=== PATIENT | female | born 1945 | race Caucasian/White ===

== ENCOUNTER 2025-01-15 16:28 | Inpatient (IN) | payer MEDICARE, SELFPAY ==
--- OUTSIDE RECORDS SUMMARY | 2013-11-29 09:45 | XMS_ITS | Continuity of Care Document ---
Author Organization [facility], [place], [facility] Address [address] [place] [address] Phone Care Team Providers Care Highway Engineering Teacher Name Role Phone Carlos Eduardo Liang MD Unavailable Unavailable Allergies, Adverse Reactions, Alerts Substance Reaction Status Criticality Sulfa (Sulfonamide Antibiotics) Active No Information Penicillins Active No Information Medications Medication Instructions Dosage Effective Dates (start - stop) Status Comments lisinopril 20 mg tablet take 1 tablet by oral route every day 20 MG - Active Pradaxa 150 mg capsule take 1 capsule by oral route 2 times every day 150 MG - Active clonidine 0.2 mg/24 hr weekly transdermal patch apply 1 patch by transdermal route every week 1.00 patch - Active vitamin E 400 unit capsule - Active spironolactone 25 mg-hydrochlorothiazi de 25 mg tablet take 1 tablet by oral route every day 1.00 tablet - Active SYMBICORT (unknown strength) inhale 2 puff by inhalation route 2 times every day in the morning and evening Not Available - Active ciprofloxacin 500 mg tablet take 1 tablet by oral route every 12 hours 500 MG - Active Synthroid 200 mcg Tab - Active Metformin ER 1,000 mg 24 hr Tab Ctrl Rel - Active Toprol XL 50 mg 24 hr Tab - Active Digoxin 125 mcg Tab - Active Omeprazole 40 mg Cap, Delayed Release - Active Ketoprofen 50 mg Cap - Active Calcium 500 + D (D3) 500 mg-125 unit Tab - Active Natali 5 mg-40 mg Tab - No Longer Active Trilipix 135 mg Cap - No Longer Active Ferrous Sulfate 325 mg (65 mg Iron) Tab, Delayed Release - No Longer Active Magnesium 100 mg Cap - N o Longer Active Procedures Procedure Date Eye Exam & Treatment No Charge Refraction Eye Exam & Treatment Certified EMR Dilated Retinal Exam W Interpretation De No Evidence Of Retinopathy In Prior Year Office/outpatient Visit, Est Eye Exam & Treatment Eye Exam & Treatment Eye Exam & Treatment Office/outpatient Visit, Est Office/outpatient Visit, Est Office/outpatient Visit, Est Eye Exam Established Pt Office/outpatient Visit, Est Office/outpatient Visit, Est Office/outpatient Visit, Est Office/outpatient Visit, Est Advance Directives Directive Yes / No Effective Date File Name No Information Encounters Encounter Description Practice Location Reason(s) For Visit Diagnoses Date Provider Providers Copied on Encounter [facility], [address] [place] [address] [address], [place], [place], [address], [phone] [place] Professional Blurry vision (chief complaint) SENILE NUCLEAR CATARACTDiabet es (high blood sugar disease) affecting the eye 4 Azul Thibodeaux. [address], [address] [place], [address], [place]. tel:[phone] Referring Provider: Carlos Eduardo Omer, [address], [place], [address] . tel:[phone] [facility], [address], [place], [place], [address], tel:[phone] SEC [place] Professional SENILE NUCLEAR CATARACTPRIMAR Y IRIDOCYCLITIS 2 Azul Thibodeaux. [address], [address] [place], [place], [address], . tel:[phone] Referring Provider: Carlos Eduardo Omer, [address], [place], [address] . tel:[phone] [facility] Eye [facility], [address], [place], [place], [address], [place] tel:[phone] SEC Be [place] Professional No Information 7-201 2 [place] Carlos Eduardo. [address] [facility], [facility] [address], [place], [place], [address], [place]. tel:[phone] Office/outpa tient Visit, [facility] Eye [facility], [address], [place], [place], [address], [place] tel:[phone] SEC Be [place] Professional No Information 3-201 2 [place] Carlos Eduardo. [address] [facility], [facility] [place], [address], [place]. tel:[phone] Referring Provider: Carlos Eduardo Omer, [address] [facility] [address], [place], [address] . tel:[phone] [facility] Eye [facility], [address], [place], [place], [address], [place] tel:[phone] SEC Be [place] Professional No Information Dec-0 2-201 1 [place] Carlos Eduardo. [address] [facility], [facility] [place], [address], [place]. tel:[phone] [facility] Eye [facility], [address], [place], [place], [address], [place] tel:[phone] SEC [place] Professional No Information 6-201 0 [place] Carlos Eduardo. [address] [facility], [facility] [place], [address], [place]. tel:[phone] [facility] Eye [facility], [address], [place], [place], [address], [place] tel:[phone] SEC [place] Professional No Information Duran-0 1-200 9 Wankoscar Thibodeaux. [address], [place], [place], [address], [place]. tel:[phone] Office/outpa tient Visit, [facility] Eye [facility], [address], [place], [place], [address], [place] tel:[phone] [place] Professional No Information Apr-2 7-200 9 [place] Carlos Eduardo. [address], [address], [place], [place], [address], [place]. tel:[phone] Office/outpa tient Visit, [facility] Eye [facility], [address], [place], [place], [address], [place] tel:[phone] SEC [place] Professional No Information Mar-0 4-200 8 [place] Carlos Eduardo. [address], [address], [place], [place], [address], [place]. tel:[phone] [facility], [address], [place], [place], [address], [place] tel:[phone] SEC [place] Professional No Information Feb-0 4-200 8 [place] Carlos Eduardo. [address], [address] [place], [address], [place]. tel:[phone] [facility], [address], [place], [place], [address], [place] tel:[phone] SEC [place] Professional No Information Dec-2 6-200 7 Jeison Cote. [address] [facility], [place], [address], [place]. tel:[phone] Office/outpa tient Visit, [facility] Eye [facility], [address], [place], [place], [address], tel:[phone] SEC Be MART[place] Professional No Information 2 9200 7 [place] Carlos Eduardo. [address] [facility], [facility] [place], [place], [address], . tel:[phone] Office/outpa tient Visit, [facility] Eye [facility], [address], [place], [place], [address], tel:[phone] [place] Professional No Information 2 8-200 7 [place] Carlos Eduardo. [address], [facility] [place], [address], . tel:[phone] Office/outpa tient Visit, [facility] Eye [facility], [address], [place], [place], [address], tel:[phone] SEC [place] Professional No Information 0 8-200 7 [place] Carlos Eduardo. [address], [facility] [place], [place], [address], . tel:[phone] Office/outpa tient Visit, [facility], [address], [place], [place], [address], tel:[phone] SEC [place] MARTINA Professional No Information 3 1-200 7 [place] Carlos Eduardo. [address], [facility] [place], [place], [address], . tel:[phone] Family History Family Member Type Diagnosis Age At Onset Mother Problem (finding) Strabismus Father Problem (finding) diabetes melli tus in first degree relative Brother Problem (finding) diabetes melli tus in first degree relative Payers Payer name Insurance type Covered libertarian ID Mamta solis(s) [facility] Mdcr Adv CI [id number] Social History Type Description Quantity Date Captured Comments Alcohol Use Details Unknown Caffeine Use Details Unknown Tobacco Use Status Never smoked tobacco 2013 Smoking Status Never smoker Non-Smoking Tobacco Use Details : No Details Available : No Details Available Sex Female Chief Complaint And Reason For Visit From encounter dated '11/29/2013 14:45'. Blurry vision (chief complaint). Description: The 68 year old female presents for Complete Exam. HXDM, Cataracts OU, Iritis OU. Pt has problems reading print on TV. BS 103 average. Pt uses +1.50 or +2.00 readers. Pt uses AT PRN Reason For Referral Reason For Referral No Information History Of Present Illness Encounter Date Complaint History Of Prese nt Illness Blurry vision The 68 year old female presents for Complete Exam. HX DM, Cataracts OU, Iritis OU. Pt has problems reading print on TV. BS 103 average. Pt uses +1.50 or +2.00 readers. Pt uses AT PRN Functional Status Date Functional Assessmen t No Information Instructions Date Instruction Additional Infor lianne - Cataracts account for the patient's complaints. Discussed all risks, benefits, procedures and recovery. Schedule cataracts evaluation. No diabetic changes. Letter sent to Dr. Sorenson. Educational materials provided:about today's exam. Related to See list of assessments above - RTC as scheduled f or cataracts evaluation Related to See list of assessments above PRIMARY IRIDOCYCLITI S, OU - will continue to monitor - Quiet. Will monitor. Related to PRIMARY IRIDOCYCLITIS Cataract, Nuclear Sc lerosis, OU - established, worsening - vision affected - will continue to monitor - No treatment currently recommended, patient will monitor vision changes and contact us with any decrease in vision. Pt may call for cataract eval. 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 No treatment needed. Will monitor. DM letter to Dr. Sorenson. Related to Diabetes Type II Assessments Type Assessment Date assessment SENILE NUCLEAR CATARACT 014 assessment Diabetes (high blood sugar disea se) affecting the eye Patient Care Teams Name Effective Dates (start - stop) Status Members No Information
--- OUTSIDE RECORDS SUMMARY | 2024-11-27 11:23 | XMS_ITS ---
Author Organization [facility] Address [address] [facility] [address], [place] [address] Care Team Providers Care Online Merchant Name Role Phone Bruno Sorenson MD Primary Care Provider Felipe Martin Unavailable [phone] REASON FOR VISIT Bone Density MEDICATIONS Medication SIG (Take, Route, Fr equency, Duration) Notes Start Date End Date Status Prolia 60 MG/ML (DXCODE: M81.0) 1 ML Subcutaneous every 6 months for 1 days 09/12/2024 Active Encounters Encounter Location Date Provider Diagnosis [facility] [address] [facility] [address] [address] 11/27/2024 Felipe Neff Osteoporosis, unspecified M81.0 ASSESSMENTS Encounter Date Diagnosis Assessment Notes Treatment Notes Treatment Clinical Notes Section Notes 11/27/2024 Osteoporosis, unspecified (ICD-10 - M81.0) PLAN OF TREATMENT Medication Medication Name Sig Start Date Stop Date Notes Prolia 60 MG/ML (DXCODE: M81.0) 1 ML Subcutaneous every 6 months for 1 days 09/12/2024 Next Appt Details Provider Name:Felipe Neff, 05/08/2025 10:45:00 AM, [address], [address],
--- OUTSIDE RECORDS SUMMARY | 2025-01-04 07:00 | XMS_ITS ---
Author Organization [facility] Address [address] [address] Care Team Providers Care Joggle Press Operator Name Role Phone Bruno Sorenson MD Primary Care Provider Felipe Martin Unavailable [phone] ALLERGIES Allergen (clinical drug ingredient) Drug/Non Drug Allergy documented on EMR Reaction Allergy Type Onset Date Status Sulfa (Allergies Only) Unknown Drug Allergy Active Pennicillin (For Allergy Selection Only) Unknown Drug Allergy Active RESULTS Component Value Reference Range Notes Hemoglobin A1c (In-House) Reviewed date:01/09/2025 05:34:39 PM Interpretation: Performing Lab: Notes/Report: Hemoglobin A1c 6.8% 4.0 - 6.0 % Lipid Profile (In-House) Reviewed date:01/05/2025 03:56:41 PM Interpretation: Performing Lab: Notes/Report: Cholesterol 100 0 - 200 mg/dL Triglycerides 131 0 - 150 mg/dL HDL 36 30 - 85 mg/dL LDL, Calculated 38 0 - 130 N/A VLDL 26 HDL/Cholesterol Ratio 2.8 0.0 - 5.0 mg/dL Magnesium, Serum Reviewed date:01/05/2025 03:56:18 PM Interpretation: Performing Lab:[facility], [address] [facility], [place], Phone - [phone], Director - Hilda Notes/Report: Magnesium 2.3 1.6-2.3 mg/dL REASON FOR VISIT NEED NEW DEXA TO RECEIVE PROLIA, Type II DM, Hypothyroidism MEDICATIONS Medication SIG (Take, Route, Frequency, Duration) Notes Start Date End Date Status Baclofen 10 MG 1 tablet with food o r milk Orally Once a Day Active OneTouch Verio - USE DIRECTED TWIC E DAILY for 90 Active Gabapentin 300 MG 1 Tablet Orally Two Times a Day Active Isosorbide Mononitrate ER 30 MG 1 Tablet Orally Once a day Active Pravastatin Sodium 40 MG 1 tablet Orally Once a day Active Vitamin D3 25 MCG (1000 UT) 1 capsule Or ally Once a day 09/28/2024 Active Torsemide 20 MG 2 Tablets Orally Onc e a Day 03/17/2023 Active Vitamin E 400 UNIT 1 capsule Orally Onc e a day Active Aspir-81 81 MG 1 tablet Orally Once a day Active Spironolactone 25 MG 1/2 tablet with eloisa d Orally Once a day Active Prolia 60 MG/ML (DXCODE: M81.0) 1 ML Subcutaneous every 6 months 09/12/2024 Active Synthroid 175 MCG 1 tablet in the morn ing on an empty stomach Orally Once a day Active Accu-Chek Guide - PvfgwkM35.41-niddm I n Vitro Once a Day for 90 days Active Eat Your Kimchiuch Delica Plus Sxthiq52V - as directed In Vitro Two Times a Day for 90 days 03/06/2024 Active Farxiga 10 MG 1 tablet Orally Once a day Active Metoprolol Tartrate 50 MG 2 Tablet in am , 1 tablet in pm Orally Twice a day Active Eliquis 5 MG 1 tablet Orally Twic e a day Active Omeprazole 20 MG 1 capsule 30 minutes before morning meal Orally Once a day Active metOLazone 2.5 MG 1 tablet Orally Once a day prn prn Active SOCIAL HISTORY Tobacco Use: Social History Observation Description Date Details (start date - stop date) Never Smoker NA - NA Sex Assigned At : Social History Observation Description Sex Assigned At Unknown Tobacco Use/Smoking Question Answer Notes Are you a nonsmoker Tobacco use other than smoking: Question Answer Notes Are you an other tobacco user? 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 ; Combined hyperlipidemia associated with type 2 diabetes mellitus E11.69 ; Benign hypertension I10 ; Ovarian failure E28.39 ; Postprocedural hypothyroidism E89.0 ; Thyroid cancer C73 ; Atrial fibrillation I48.91 ; Vitamin B12 deficiency E53.8 ; Peripheral neuropathy G62.9 ; Iron deficiency anemia D50.9 ; Vitamin D deficiency, unspecified E55.9 ; 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 ; Osteoporosis, unspecified M81.0 and GERD (gastroesophageal reflux disease) K21.9 ASSESSMENTS Encounter Date Diagnosis Assessment Notes Treatment Notes Treatment Clinical Notes Section Notes 01/04/2025 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 (ICD-10 - E11.41) 01/04/2025 Combined hyperlipidemia associated with type 2 diabetes mellitus (ICD-10 - E11.69) 01/04/2025 Benign hypertension (ICD-10 - I10) 01/04/2025 Ovarian failure (ICD-10 - E28.39) 01/04/2025 Postprocedural hypothyroidism (ICD-10 - E89.0) 01/04/2025 Thyroid cancer (ICD-10 - C73) 01/04/2025 Atrial fibrillation (ICD-10 - I48.91) 01/04/2025 Vitamin B12 deficiency (ICD-10 - E53.8) 01/04/2025 Peripheral neuropathy (ICD-10 - G62.9) 01/04/2025 Iron deficiency anemia (ICD-10 - D50.9) 01/04/2025 Vitamin D deficiency, unspecified (ICD-10 - E55.9) 01/04/2025 Sarcoidosis of lung (ICD-10 - D86.0) 01/04/2025 Osteoporosis, unspecified (ICD-10 - M81.0) 01/04/2025 GERD (gastroesophageal reflux disease) (ICD-10 - K21.9) 01/04/[address] Felipe adler dictates using POWWOW Speaking software. Water Main Installer Helper variances may occur. Since our last visit the patient has followed up with her PCP and her head control clerk along with her pain specialist. She does get steroid injections for osteoarthritis. She does have clinical osteoporosis and started her first injection of Prolia this month. We reviewed her bone density. She is scheduled to see the osteoporosis Center at [facility] in January 2025 for further evaluation. She is off of the multivitamin tablet. She remains on vitamin D supplementation. We discussed calcium-containing foods. She has type 2 diabetes and is on SGL T2 inhibitor therapy. I will get an A1c today. She has hyperlipidemia and hypertension. She does have hypothyroidism and is on thyroid hormone up is in therapy. Her last TSH was normal. She also has neuropathy which is treated. I will see the patient again in 3 months. She will continue following up with her providers. We will see her again in 3 months for follow-up or sooner if needed PLAN OF TREATMENT Medication Medication Name Sig Start Date Stop Date Notes Gabapentin 300 MG 1 Tablet Orally Two Times a Day Isosorbide Mononitrate ER 30 MG 1 Tablet Orally Once a day Pravastatin Sodium 40 MG 1 tablet Orally Once a day Vitamin D3 25 MCG (1000 UT) 1 capsule Orally Once a day Torsemide 20 MG 2 Tablets Orally Once a Day 03/17/2023 Spironolactone 25 MG 1/2 tablet with eloisa d Orally Once a day Prolia 60 MG/ML (DXCODE: M81.0) 1 ML Subcutaneous every 6 months 09/12/2024 Synthroid 175 MCG 1 tablet in the morn ing on an empty stomach Orally Once a day Farxiga 10 MG 1 tablet Orally Once a day Metoprolol Tartrate 50 MG 2 Tablet in am , 1 tablet in pm Orally Twice a day Eliquis 5 MG 1 tablet Orally Twice a day Omeprazole 20 MG 1 capsule 30 minutes before morning meal Orally Once a day metOLazone 2.5 MG 1 tablet Orally Once a day prn prn Treatment Notes Assessment Notes Other Dr. Felipe pappas using POWWOW Speaking software. Water Main Installer Helper variances may occur. Since our last visit the patient has followed up with her PCP and her head control clerk along with her pain specialist. She does get steroid injections for osteoarthritis. She does have clinical osteoporosis and started her first injection of Prolia this month. We reviewed her bone density. She is scheduled to see the osteoporosis Center at [facility] in January 2025 for further evaluation. She is off of the multivitamin tablet. She remains on vitamin D supplementation. We discussed calcium-containing foods. She has type 2 diabetes and is on SGL T2 inhibitor therapy. I will get an A1c today. She has hyperlipidemia and hypertension. She does have hypothyroidism and is on thyroid hormone up is in therapy. Her last TSH was normal. She also has neuropathy which is treated. I will see the patient again in 3 months. She will continue following up with her providers. We will see her again in 3 months for follow-up or sooner if needed Next Appt Details Follow Up: 3 Months, Reason: Provider Name:Felipe Neff, 05/08/2025 10:45:00 AM, [address], [address], Progress Notes * Examination Category Sub-Category Detail Notes Category Not es General Examination GENERAL APPEARANCE: in no ac desean distress, well developed, in WC HEAD: normocephalic, atrau matic EYES: pupils equal, round, reactive to light and accommodation NECK: neck supple, full ra nge of motion, no cervical lymphadenopathy, No carotid bruit, bilaterally HEART: S1, S2 irregular rat e and rhythm, no audible murmurs LUNGS: clear to auscultatio n bilaterally, no wheezes, rales, rhonchi NEUROLOGIC: alert and oriented, no tremor SKIN: warm and dry with no evidence of rash or jaundice EXTREMITIES: +1 pedal edema R>L, very dry skin, ezcema-like rash on her feet, blood blister right FA MUSCULOSKELETAL: THYROID The thyroid is surgi reyes absent History and Physical Notes * HPI (History of Present Illness) Category Sub-Category Detail Notes Category Not es Interim History Last Dilated Eye exam Date: 03/2024 FLU SHOT: 2023 PNEUMONIA SHOT: 2016 DEXA: 04/2022 COLONOSCOPY:2011 COVID SHOT: 06/25 & BOOSTER 1 (MODERNA) Opthamologist Dr. Nelson Diabetes mellitus The patient is being seen for Diabetes type II Pertinent recent symptoms: please refer to Review of Systems. The patient was diagnosed wi diabetes 2012 Sugars have been running 100-160mg/dL pe r patient Complications from diabetes include Trice pheral Neuropathy, Proteinuria The current diabetes medicat ion(s) regimen consists of see specific dosage in current medicatio ns section The last HbA1C was :: 6.8 % (09/28/2024 ) The patient has been monitor ing their blood sugars yes The patient has been monitor ing blood sugars once a day The patient has had recent hypoglycemic episodes no The patient uses an insulin pump no The patient uses a CGMS (Con t Glucose Monitoring Device) no Hypoglycemia awareness Yes Hypothyroidism The patient is being seen for hypothyroidism which was diagnosed in 2003 The most recent Thyroid func tion tests include TSH: 0.36, TT3: 0.83, FT4:?2.10 on 2024 Medication(s) include Synthroid
--- OUTSIDE RECORDS SUMMARY | 2025-01-09 04:51 | XMS_ITS ---
Author Organization [facility] Address [address] [address] Care Team Providers Care Cat Skinner Name Role Phone Bruno Sorenson MD Primary Care Provider Felipe Martin Unavailable [phone] REASON FOR VISIT Swollen Arm Encounters Encounter Location Date Provider Diagnosis [facility] [address] [facility] [address], [place] [address] 01/09/2025 Felipe Neff PLAN OF TREATMENT Next Appt Details Provider Name:Felipe Neff, 05/08/2025 10:45:00 AM, [address], [address],
--- OUTSIDE RECORDS SUMMARY | 2025-01-13 15:10 | XMS_ITS | Encounter Summary ---
Author Organization [facility] Healthcare Address [address] [place] [address] Care Team Providers Care Anchor Tack Puller Name Role Phone Bruno Sorenson MD Primary Care Provider [phone] Janice Zimmerman PT Unavailable Unavailab Tatum Hilliard MACHINE SKIVER Unavailable Unavailab Saniya Salcedo MACHINE SKIVER Unavailable Unavailable Felipe Neff MD Unavailable [phone] Alex Jauregui MD Unavailable [phone] Una Guallpa DNP Unavailable [phone] Encounter Details Date Type Department Care Team (Late st Contact Info) Description 01/13/2025 3:10 PM CDT Hospital Encounter [facility] [address] [place] [address] Social History Tobacco Use Types Packs/Day Years Used Date Smoking Tobacco: Never Passive Smoke Exposure: Never Smokeless Tobacco: Never Alcohol Use Standard Drinks/Week Comments No 0 (1 standard drink = 0.6 oz pur e alcohol) Social Connection and Isolation Panel Answer Date Recorded In a typical week, how many times do you talk on the phone with family, friends, or neighbors? More than three times a week 11/06/2024 How often do you get togethe r with friends or relatives? More than three times a week 11/06/2024 How often do you attend chur ch or samaritan services? More than 4 times per year 11/06/2024 Do you belong to any clubs o r organizations such as shinto groups, unions, fraternal or athletic groups, or school groups? Yes 11/06/2024 How often do you attend meet ings of the clubs or organizations you belong to? More than 4 times per year 11/06/2024 Are you , , di vorced, , never , or living with a partner? Living with partner 11/06/2024 AUDIT-C Answer Date Recorded Q1: How often do you have a drink containing alcohol? Never 11/04/2024 Q2: How many drinks containi ng alcohol do you have on a typical day when you are drinking? Patient does not drink Q3: How often do you have si x or more drinks on one occasion? Never 11/04/2024 Overall Financial Resource Strain (CARDIA) Answe r Date Recorded How hard is it for you to pa y for the very basics like food, housing, medical care, and heating? Not very hard 11/06/2024 PHQ-2 Answer Date Recorded PHQ-2 Total Score (If total score is 3 or more points, staff should administer the PHQ-9) 0 11/17/2024 PRAPARE - Transportation Answer Date Re corded In the past 12 months, has l ack of transportation kept you from medical appointments or from getting medications? No 10/22 In the past 12 months, has l ack of transportation kept you from meetings, work, or from getting things needed for daily living? No 11/06/2024 Housing Stability Vital Sign Answer Vasu e Recorded In the last 12 months, was t here a time when you were not able to pay the mortgage or rent on time? No 05/20/2023 In the last 12 months, how many places have you lived? 1 05/20/2023 In the last 12 months, was t here a time when you did not have a steady place to sleep or slept in a residential (including now)? No 05/20/2023 Housing Stability Vital Sign Answer Vasu e Recorded In the last 12 months, was t here a time when you were not able to pay the mortgage or rent on time? No 11/06/2024 In the past 12 months, how m any times have you moved where you were living? 0 11/06/2024 At any time in the past 12 m [facility], were you homeless or living in a residential (including now)? No 11/06/2024 Social Connection and Isolation Panel Answer Date Recorded In a typical week, how many times do you talk on the phone with family, friends, or neighbors? More than three times a week 01/12/2025 How often do you get togethe r with friends or relatives? More than three times a week 01/12/2025 How often do you attend chur ch or samaritan services? More than 4 times per year 01/12/2025 Do you belong to any clubs o r organizations such as shinto groups, unions, fraternal or athletic groups, or school groups? No 01/12/2025 How often do you attend meet ings of the clubs or organizations you belong to? Never 01/12/2025 Are you , , di vorced, , never , or living with a partner? Living with partner 01/12/2025 Overall Financial Resource Strain (CARDIA) Answe r Date Recorded How hard is it for you to pa y for the very basics like food, housing, medical care, and heating? Not hard at all 01/12/2025 Hunger Vital Sign Answer Date Recorded Within the past 12 months, y ou worried that your food would run out before you got the money to buy more. Never true 01/13/20 25 Within the past 12 months, t he food you bought just didn't last and you didn't have money to get more. Never true 01/12/2025 PRAPARE - Transportation Answer Date Re corded In the past 12 months, has l ack of transportation kept you from medical appointments or from getting medications? No 12/23 In the past 12 months, has l ack of transportation kept you from meetings, work, or from getting things needed for daily living? No 01/12/2025 Housing Stability Vital Sign Answer Vasu e Recorded In the last 12 months, was t here a time when you were not able to pay the mortgage or rent on time? No 01/12/2025 In the past 12 months, how m any times have you moved where you were living? 0 01/12/2025 At any time in the past 12 m ont, were you homeless or living in a residential (including now)? No 01/12/2025 [facility] Utilities Answer Date Recorded In the past 12 months has th e enGene, gas, oil, or water [employer] threatened to shut off services in your home? No 01/12/2025 Personal Safety Answer Date Recorded Have you ever been in or are you currently in a harmful physical or emotional relationship or is someone making you feel afraid or unsafe? Denies 01/10/2025 Education Answer Date Recorded What is the highest level of school you have completed or the highest degree you have received? Master's degree (e.g., MA, MS, Berna, MEd, DIRECTOR OF LABOR RELATIONS, LAYO) 01/31/2024 Comments No Sex and Gender Information Value Date Recorded Sex Assigned at Not on file Legal Sex Female 11:50 PM AIR TWISTER WINDER Gender Identity Not on file Sexual Orientation Not on file documented as of this encounter Plan of Treatment Not on file documented as of this encounter Goals Goal Patient Goal Type Associated Problems Recent Progress Patient-Stated? Author [facility] Karoline Mesa, RN Note: Patient will establish a comfort-function goal and identify the pain level that will allow the patient to perform desired activities and achieve an acceptable quality of life. documented as of this encounter Visit Diagnoses Not on filedocumented in this encounter Care Teams Anchor Tack Puller Relationship Specialty Start Date End Date Bruno Sorenson MD [address] [place] [address] PCP - General 08/21/16 Janice Zimmerman, PT Physical Therapist Physical Therapy 11/01/17 Tatum Moon, MACHINE SKIVER Art Psychotherapist Physical Therapy 11/12/17 Saniya Greenwood, MACHINE SKIVER Art Psychotherapist Physical Therapy 11/17/17 Felipe Neff MD [address] [place] [address] [address] [place] [address] Referring Physician Endocrinology Diabetes & Metabolism 04/28/22 Alex Jauregui MD [address] [place] [address] [address] [place] [address] Consulting Physician Cardiology 03/07/23 Una Guallpa DNP [address] [place] [address] [address] [place] [address] Nurse Practitioner Neurology 05/27/23 documented as of this encounter
--- NOTE | ~2025-01-15 | CT_ITS ---
EXAMINATION: CT brain wo con DATE: 01/15/2025 18:25 INDICATION: Weakness and confusion TECHNIQUE: Computed tomography (CT) of the head was performed without intravenous contrast. Sagittal and coronal reconstructions were performed. The mA was adjusted according to patient size. Iterative reconstruction technique was employed. The dose-length product was 681.00 mGy-cm. COMPARISON: head CT dated 06/23/2005 and brain MR dated 06/26/2005 FINDINGS: No acute intracranial hemorrhage, acute infarction or abnormal extra axial fluid collection. There is mild scattered white matter hypoattenuation consistent with chronic small vessel ischemic disease. Symmetric prominence of the sulci and ventricles consistent with mild age-appropriate diffuse cerebral volume loss. Ventricles are normal and symmetric. No mass/mass effect. Changes of bilateral intraocular lens replacement. The orbits, paranasal sinuses and mastoid air cells are normal. Intracranial calcified cerebral atherosclerosis is noted. IMPRESSION: 1. Normal aging brain. No acute intracranial process. Reviewed, dictated and finalized at location A.
--- NOTE | ~2025-01-15 | MR_ITS ---
EXAMINATION: MR brain/brain stem wo con DATE: 01/16/2025 11:28 INDICATION: Syncope with altered mental status TECHNIQUE: Magnetic resonance imaging (MRI) of the brain and brainstem was performed without intravenous contrast. Sequences included sagittal and axial T1-weighted SE, axial diffusion-weighted FS SE, axial T2*-weighted GRE, axial T2-weighted FLAIR Propeller, and axial T2-weighted Propeller. Apparent diffusion coefficient (ADC) maps were created. COMPARISON: MRI dated 06/26/2005. FINDINGS: Brain parenchymal volume is normal for age. Midline sagittal images demonstrate a normal corpus callosum and craniovertebral junction. There are scattered mild periventricular and subcortical white matter changes, most likely related to small vessel ischemic disease (microangiopathy). No acute infarction, hemorrhage or mass. Structures of the posterior fossa including 7/8th cranial nerve complexes are unremarkable. Orbits are symmetric. Paranasal sinuses are unremarkable. IMPRESSION: 1. No acute intracranial abnormality. Reviewed, dictated and finalized at location O.
--- NOTE | ~2025-01-15 | US_ITS ---
EXAMINATION: US carotid duplex BI DATE: 01/16/2025 12:18 INDICATION: Syncope. Cerebral atherosclerosis. Vertigo. TECHNIQUE: Grayscale, color Doppler, and pulsed Doppler images of the cervical carotid arteries were obtained. The degree of vessel stenosis is placed in one of the following categories: normal, <50%, 50-69%, >=70% but less than near- occlusion, near-occlusion, or total occlusion. Note that percent stenosis relative to normal distal artery lumen diameter is indirectly measured from velocity measurements as described by Morales, et al. Radiology 2003; 229:340-346. COMPARISON: None. FINDINGS: RIGHT: The right common carotid artery (CCA) peak systolic velocity (PSV) is 60 cm/s. The right internal carotid artery (ICA) PSV is 96 cm/s. The right ICA end- diastolic velocity (EDV) is 34 cm/s. The right ICA/CCA PSV ratio is 1.6. Grayscale and color Doppler images yield an estimate of <50% diameter reduction from plaque in the ICA. The external carotid artery (ECA) PSV is 69 cm/s. There is antegrade flow in the right vertebral artery. LEFT: The left CCA PSV is 64 cm/s. The left ICA PSV is 86 cm/s. The left ICA EDV is 30 cm/s. The left ICA/CCA PSV ratio is 1.4. Grayscale and color Doppler images yield an estimate of <50% diameter reduction from plaque in the ICA. The ECA PSV is 66 cm/s. There is antegrade flow in the left vertebral artery. IMPRESSION: 1. <50% stenosis in the right internal carotid artery. 2. <50% stenosis in the left internal carotid artery. Reviewed, dictated and finalized at location A.
--- NOTE | ~2025-01-15 | XR_ITS ---
EXAMINATION: XR chest 2V DATE: 01/15/2025 17:36 INDICATION: Syncope TECHNIQUE: frontal and lateral views of the chest were obtained. COMPARISON: Chest CT dated 06/23/2005 FINDINGS: Small lung volumes. There are opacities at bilateral lung bases which could represent atelectasis or pneumonia. No pleural effusion or pneumothorax. There is masslike enlargement of the right hilum with prominent axillary and mediastinal lymphadenopathy evident on the prior study. Cardiomegaly. Bilateral rotator cuff arthropathy with severe right and mild left glenohumeral osteoarthritis. IMPRESSION: 1. Small lung volumes with opacities in the bilateral lower lung zones which could represent atelectasis or pneumonia. 2. Masslike enlargement of the right hilum which could represent persistent or recurrent lymphadenopathy which could be reactive, metastatic or due to lymphoma. Correlate with clinical history and consider follow-up post contrast chest CT for further evaluation. Reviewed, dictated and finalized at location A. IMPRESSION: 1. Small lung volumes with opacities in the bilateral lower lung zones which co uld represent atelectasis or pneumonia. 2. Masslike enlargement of the right hilum which could represent persistent or recurrent lymphadenopathy which could be reactive, metastatic or due to lymphom a. Correlate with clinical history and consider follow-up post contrast chest C T for further evaluation.
--- NOTE | ~2025-01-15 | CT_ITS ---
EXAMINATION: CTA chest PE abdomen pel DATE: 01/15/2025 21:14 INDICATION: UTI for 2 days pain. Pain with urination. Syncope. TECHNIQUE: Computed tomographic angiography (CTA) of the chest and abdomen was performed without and with 100 mL Omnipaque-350 intravenous contrast. The dose- length product was 1102.81 mGy-cm. Maximum intensity projection 3D- reconstructions of the aorta and other arteries were constructed by the techno logist on a separate workstation. COMPARISON: CT dated 06/23/2005. FINDINGS: CHEST CTA: Study is technically adequate without evidence for pulmonary embolism. No significant pleural or pericardial effusion. There is extensive mediastinal and right hilar lymphadenopathy which appears chronic. Cardiomegaly. No significant pleural effusion. Small pericardial effusion. There is global enlargement of the heart. No evidence for thoracic aortic aneurysm or dissection. There is reflux of contrast into the IVC. There are patchy groundglass opacities in both lungs. There are right upper lobe pulmonary nodules, largest measuring 7 mm at the apex these are new compared with prior study. No pneumothorax. There are multiple compression fractures of the thoracic spine including T4, T6, T10, T11 and T12 as well as burst fracture at L1 treated with vertebroplasty. These are likely chronic. If there is concern for acute fracture, correlation with MRI recommended. ABDOMEN CTA: There is atherosclerosis of the aorta which is tortuous without evidence for aneurysm or dissection. Status post cholecystectomy. The spleen, adrenal glands and kidneys are unremarkable. Moderate colonic fecal loading. Nonobstructive bowel gas pattern. There is mild gastric wall thickening which may be due to underdistention or gastritis. There are burst fractures of L1 and L3 with compression fractures of L2, L4 and L5, all likely chronic although recommend evaluation with MRI if there is concern for acute fracture. No lymphadenopathy. There is renal atrophy. Small right renal cysts. There is a 14 mm oval structure at the lower pole of the right kidney measuring 80 Hounsfield units. Recommend correlation with MRI without and with contrast. IMPRESSION: 1. No evidence for pulmonary embolism. 2: Extensive mediastinal and hilar lymphadenopathy, chronic. 3: Multiple fractures of the thoracic and lumbar spine, most of which are likely chronic. Consider correlation with MRI if there is concern for acute fracture. 4: Intermediate density 14 mm right renal mass. Recommend correlation with MRI. 5: Patchy groundglass opacities of the lung. Differential diagnosis includes pneumonia, hypersensitivity pneumonitis and edema. 6: Mild gastric wall thickening which may be due to under distention or gastritis. Reviewed, dictated and finalized at location O. IMPRESSION: 1. No evidence for pulmonary embolism. 2: Extensive mediastinal and hilar lymphadenopathy, chronic. 3: Multiple fractures of the thoracic and lumbar spine, most of which are likel y chronic. Consider correlation with MRI if there is concern for acute fracture . 4: Intermediate density 14 mm right renal mass. Recommend correlation with MRI. 5: Patchy groundglass opacities of the lung. Differential diagnosis includes pn eumonia, hypersensitivity pneumonitis and edema. 6: Mild gastric wall thickening which may be due to under distention or gastrit is.
--- OUTSIDE RECORDS SUMMARY | 2025-01-15 16:30 | XMS_ITS ---
Author Name Auto Generated, Auto Generated Organization [facility] ice Address [address] [place] [address] Phone [phone] Care Team Providers Care Technology Auditor Name Role Phone Ilan Oquendo Unavailable [phone] Functional Status No Results Mental Status No Results Allergies and Intolerances Name Onset Date Reaction Severity penicillin G (Allergy) WedMay 27 17:49:00 EST 2 024 Sulfa (Sulfonamide Antibiotics) (Allergy) Wed 17:48:00 EST 2023 adhesive tape-silicones (Allergy) WedMay 27 17: 48:00 EST 2023 penicillin (Allergy) WedMay 27 17:47:00 EST 202 4 Medications Medication Directions Start Date End Date cefdinir 300 mg capsule 1 cap CAPSULE Or al 2 Times Daily for 5 Days Indication: PNA WedJun 12 05:30:00 EST 2023Jun 13:00:00 EST 2023 doxycycline monohydrate 100 mg capsule 1 cap CAPSULE Oral 2 Times Daily for 5 Days Indication: PNA WedJun 12 05:30:00 EST 2023Jun 13 01:00:00 EST 2023 acetaminophen 325 mg tablet 650 mg TABLET Oral PRN Every 6 Hours Indication: pain As needed for pain/elevated temperature. WedJun 10 02:00:00 EST 2023Jun 13 01:00:00 EST 2023 traMADoL 50 mg tablet 1 tab TABLET Oral PRN Every 8 Hours Indication: pain WedJun 10 20:00:00 2023Jun 13:00:00 EST 2023 Lidocaine Pain Relief 4 % topical patch 3 patches ADHESIVE PATCH, MEDICATED Topical 2 Times Daily Indication: Apply 3 patches to areas of pain in AM,, remove HS WedJun 07 16:00:00 EST 2023Jun 13 01:00:00 EST 2023 TubersoL 5 tub. unit/0.1 mL intradermal injection solution Read Results VIAL (ML) Other 1 Time Weekly for 2 Weeks Indication: . Read results between 48-72 hours after 1st and 2nd (1 week apart). If positive do chest x-ray. WedMay 31 09:00:00 2023Jun 13 01:00:00 2023 NovoLOG Flexpen U-100 Insulin aspart 100 unit/mL (3 mL) subcutaneous as directed INSULIN PEN (ML) Subcutaneous 3 Times Daily Indication: DM Sliding Scale Insulin: Insulin Units < 60 or > 400 Notify ;151-200, 3 Units;201-250, 6 Units;251-300, 9 Units;301-350, 12 Units;351-400, 15 Units;. WedMay 31 18:50:00 2023Jun 13:00:00 2023 TubersoL 5 tub. unit/0.1 mL intradermal injection solution 0.1 ml VIAL (ML) Intradermal 1 Time Weekly for 2 Weeks Indication: . 1st injection on admission, then one week after. Read between 48 and 72 hours WedMay 28 09:00:00 2023Jun 11 08:59:00 EST 2023 lidocaine 5 % topical patch 1 PATCH ADHESIVE PATCH, MEDICATED Transdermal 2 Times Daily Indication: pain *ON 12 HOURS, OFF 12 HOURS* WedMay 28 09:00:00 2023Jun 07 16:32:00 2023 torsemide 20 mg tablet 1 tab TABLET Oral 1 Time Daily Indication: CHF WedMay 28 17:31:00 2023Jun 13 01:00:00 2023 albuterol sulfate HFA 90 mcg/actuation aerosol inhaler 2 PUFFS HFA AEROSOL WITH ADAPTER (GRAM) Inhalation PRN Every 6 Hours Indication: WHEEZING WedMay 27 18:00:00 2023Jun 13 01:00:00 EST 2023 Eliquis 5 mg tablet 1 TAB TABLET Oral Ev lianet 12 Hours Indication: a- fib WedMay 27 18:00:00 2023Jun 13 01:00:00 2023 baclofen 10 mg tablet 1 TAB TABLET Oral 3 Times Daily Indication: muscle spasms WedMay 27 18:00:00 2023Jun 13 01:00:00 EST 2023 aspirin 81 mg tablet,delayed release 1 TAB TABLET, DELAYED RELEASE (ENTERIC COATED) Oral 1 Time Daily Indication: heart health WedMay 27 18:00:00 2023Jun 13:00:00 EST 2023 Oyster Shell Calcium-Vitamin D3 500 mg-5 mcg (200 unit) tablet 1 TAB TABLET Oral 1 Time Daily Indication: bone health WedMay 27 18:00:00 2023Jun 13:00:00 EST 2023 clobetasoL 0.05 % scalp solution 1 APPLICATION SOLUTION, NON-ORAL Topical 2 Times Daily Indication: apply to rash on bilateral feet WedMay 27 18:00:00 2023Jun 13:00:00 EST 2023 dilTIAZem CD 180 mg capsule,extended release 24 hr 1 CAP CAPSULE, EXT RELEASE 24 HR Oral 1 Time Daily Indication: htn WedMay 27 18:00:00 2023Jun 13:00:00 EST 2023 docusate sodium 100 mg capsule 1 CAP CAPSULE Oral 2 Times Daily Indication: constipation WedMay 27 18:00:00 2023Jun 13:00:00 EST 2023 Farxiga 10 mg tablet 1 TAB TABLET Oral 1 Time Daily Indication: . WITH BREAKFAST WedMay 27 18:00:00 2023Jun 13:00:00 EST 2023 gabapentin 300 mg capsule 1 CAP CAPSULE Oral 2 Times Daily Indication: neuropathy WedMay 27 18:00:00 2023Jun 13:00:00 EST 2023 ipratropium 0.5 mg-albuteroL 3 mg (2.5 mg base)/3 mL nebulization soln 1 NEBULE AMPUL FOR NEBULIZATION (ML) Nebulization PRN Every 6 Hours Indication: SHORTNESS OF BREATH WedMay 27 18:00:00 2023Jun 13:00:00 EST 2023 isosorbide mononitrate ER 120 mg tablet,extended release 24 hr 1 TAB TABLET, EXTENDED RELEASE 24 HR Oral 1 Time Daily Indication: htn WedMay 27 18:00:00 2023Jun 13:00:00 EST 2023 ketoconazole 2 % topical cream 1 APPLIC CREAM (GRAM) Topical 2 Times Daily Indication: . APPLY TO AFFECTED AREA(S) WedMay 27 18:00:00 2023Jun 13:00:00 EST 2023 ketoconazole 2 % shampoo 1 APPLIC SHAMPO O Topical 2 Times Weekly Indication: . APPLY TO DAMP SKIN, LATHER, LEAVE ON 5 MINUTES, AND RINSE WedMay 27 18:00:00 EST 2023Jun 13 01:00:00 EST 2023 levothyroxine 137 mcg tablet 1 TAB TABLET Oral 1 Time Daily Indication: hypothyroidism BEFORE BREAKFAST WedMay 27 18:00:00 2023Jun 13 01:00:00 EST 2023 lidocaine 5 % topical patch 1 PATCH ADHESIVE PATCH, MEDICATED Transdermal 1 Time Daily Indication: pain *ON 12 HOURS, OFF 12 HOURS* WedMay 27 18:00:00 EST 2023 Fri May 28 11:51:00 EST 2023 metoprolol tartrate 100 mg tablet 1 TAB TABLET Oral 1 Time Daily Indication: htn WedMay 27 18:00:00 EST 2023Jun 13 01:00:00 EST 2023 metoprolol tartrate 100 mg tablet 0.5 TAB TABLET Oral 1 Time Daily Indication: htn HALF TAB=50MG WedMay 27 18:00:00 EST 2023Jun 13 01:00:00 EST 2023 multivitamin tablet 1 TAB TABLET Oral 1 Time Daily Indication: . WedMay 27 18:00:00 EST 2023Jun 13 01:00:00 EST 2023 omeprazole 40 mg capsule,delayed release 1 CAP CAPSULE,DELAYED RELEASE (ENTERIC COATED) Oral 1 Time Daily Indication: gerd BEFORE BREAKFAST WedMay 27 18:00:00 2023Jun 13 01:00:00 EST 2023 pravastatin 40 mg tablet 1 TAB TABLET Or al 1 Time Daily Indication: . WedMay 27 18:00:00 2023Jun 13 01:00:00 EST 2023 predniSONE 5 mg tablet 1 TAB TABLET Oral 1 Time Daily Indication: . WedMay 27 18:00:00 EST 2023Jun 13 01:00:00 EST 2023 spironolactone 25 mg tablet 0.5 TAB TABLET Oral 1 Time Daily Indication: . HALF TAB=12.5MG WedMay 27 18:00:00 EST 2023Jun 13 01:00:00 EST 2023 Symbicort 160 mcg-4.5 mcg/actuation HFA aerosol inhaler 2 PUFFS HFA AEROSOL WITH ADAPTER (GRAM) Inhalation 2 Times Daily Indication: . WedMay 27 18:00:00 EST 2023Jun 13 01:00:00 EST 2023 torsemide 20 mg tablet 1 TAB TABLET Oral 1 Time Daily for 2 Days Indication: . WedMay 27 18:00:00 EST 2023May 27 20:01:00 EST 2023 traMADoL 50 mg tablet 1 TAB TABLET Oral PRN Every 8 Hours for 10 Days Indication: PAIN WedMay 27 18:00:00 EST 2023Jun 06 17:59:00 EST 2023 vitamin E 268 mg (400 unit) capsule 1 CAP CAPSULE Oral 1 Time Daily Indication: . WedMay 27 18:00:00 EST 2023Jun 13 01:00:00 EST 2023 Problems Active Concerns * Acute on chronic diastolic (congestive) heart failure* Code: * Start Date: WedMay 27 00:00:00 EST 2023 * End Date: * Text: * Personal history of malignant neoplasm of thyroid* Code: * Start Date: WedMay 27 00:00:00 EST 2023 * End Date: * Text: * Personal history of transient ischemic attack (TIA), and cerebral infarction without residual deficits* Code: * Start Date: WedMay 27 00:00:00 EST 2023 * End Date: * Text: * Occlusion and stenosis of bilateral carotid arteries* Code: * Start Date: WedMay 27 00:00:00 EST 2023 * End Date: * Text: * Hypertensive heart disease with heart failure* Code: * Start Date: WedMay 27 00:00:00 EST 2023 * End Date: * Text: * Other chronic pain* Code: * Start Date: WedMay 27 00:00:00 2023 * End Date: * Text: * Postprocedural hypothyroidism* Code: * Start Date: WedMay 27 00:00:00 EST 2023 * End Date: * Text: * Localized enlarged lymph nodes* Code: * Start Date: WedMay 27 00:00:00 EST 2023 * End Date: * Text: * Gastro-esophageal reflux disease without esophagitis* Code: * Start Date: WedMay 27 00:00:00 EST 2023 * End Date: * Text: * Rash and other nonspecific skin eruption* Code: * Start Date: WedMay 27 00:00:00 2023 * End Date: * Text: * Pneumonia due to other specified bacteria* Code: * Start Date: WedMay 27 00:00:00 EST 2023 * End Date: * Text: * Acquired absence of other organs* Code: * Start Date: WedMay 27 00:00:00 2023 * End Date: * Text: * Unspecified osteoarthritis, unspecified site* Code: * Start Date: WedMay 27 00:00:00 2023 * End Date: * Text: * Chronic atrial fibrillation, unspecified* Code: * Start Date: WedMay 27 00:00:00 2023 * End Date: * Text: * watermelon inspector (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) 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* Code: * Start Date: WedMay 27 00:00:00 2023 * End Date: * Text: * Sarcoidosis, unspecified* Code: * Start Date: WedMay 27 00:00:00 2023 * End Date: * Text: * Bronchiectasis, uncomplicated* Code: * Start Date: WedMay 27 00:00:00 2023 * End Date: * Text: * Chronic obstructive pulmonary disease with (acute) lower respiratory infection * Code: * Start Date: WedMay 27 00:00:00 2023 * End Date: * Text: * Atherosclerotic heart disease of [place] coronary artery with other forms of angina pectoris* Code: * Start Date: WedMay 27 00:00:00 2023 * End Date: * Text: * Mixed hyperlipidemia* Code: * Start Date: WedMay 27 00:00:00 2023 * End Date: * Text: * Personal history of pulmonary embolism* Code: * Start Date: WedMay 27 00:00:00 2023 * End Date: * Text: * Type 2 diabetes mellitus with diabetic polyneuropathy* Code: * Start Date: WedMay 27 00:00:00 2023 * End Date: * Text: * [facility] (current) use of anticoagulants* Code: * Start Date: WedMay 27 00:00:00 2023 * End Date: * Text: * watermelon inspector (current) use of aspirin* Code: * Start Date: WedMay 27 00:00:00 2023 * End Date: * Text: Reason for Referral Past Medical History
--- OUTSIDE RECORDS SUMMARY | 2025-01-15 16:30 | XMS_ITS ---
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
--- OUTSIDE RECORDS SUMMARY | 2025-01-15 16:32 | XMS_ITS | Encounter Summary ---
Author Organization [facility] Address [facility] [place] [address] Care Team Providers Care Surface Ship Usw Supervisor Name Role Phone Unavailable Primary Care Provider Unavailabl e Encounter Details Date Type Department Care Team (Late st Contact Info) Description 04/19/2024 Lab Requisition [facility] [address] [facility] [place] [id number] Sunita Madden MD [address] [place] [address] Neoplasm of uncertain behavior of skin Social History Tobacco Use Types Packs/Day Years Used Date Smoking Tobacco: Never Assessed Comments Unknown Sex and Gender Information Value Date Recorded Sex Assigned at Not on file Legal Sex Female 6:04 AM RN ANGIOGRAPHY Gender Identity Not on file Sexual Orientation Not on file documented as of this encounter Plan of Treatment Scheduled Orders Name Type Priority Associated Diagnoses Orde r Schedule DERMATOPATHOLOGY Pathology Cytology Routine Neoplasm of uncertain behavior of skin Ordered: 04/19/2024 documented as of this encounter Visit Diagnoses Diagnosis Neoplasm of uncertain behavior of skin documented in this encounter
--- OUTSIDE RECORDS SUMMARY | 2025-01-15 16:32 | XMS_ITS | Patient Health Record ---
Author Organization [facility] Address [address] [address] Care Team Providers Care Personal Care Assistant Name Role Phone Bruno Sorenson MD Primary Care Provider Felipe Martin Unavailable [phone] Shereen Valenzuela Unavailable [phone] ALLERGIES Allergen (clinical drug ingredient) Drug/Non Drug Allergy documented on EMR Reaction Allergy Type Onset Date Status Sulfa (Allergies Only) Unknown Drug Allergy Active Pennicillin (For Allergy Selection Only) Unknown Drug Allergy Active RESULTS Component Value Reference Range Notes VITAMIN D, IMMUNOASSAY Reviewed date:03/07/2024 08:47:36 PM Interpretation: Performing Lab: Notes/Report: COMMENT VITAMIN D, 25-OH, D2 VITAMIN D, 25-OH, D3 VITAMIN D, 25-OH, TOTAL 58 30 - 100 ng/mL VITAMIN D, 25 OH, D3 VITAMIN D, 25 OH, D2 VITAMIN D, 25 OH TOTAL HEMOGLOBIN A1c Reviewed date:03/07/2024 08:48:49 PM Interpretation: Performing Lab: Notes/Report: HEMOGLOBIN A1c 5.5 4.0 - 6.0 % COMMENT VITAMIN B12 Reviewed date:03/07/2024 08:51:09 PM Interpretation: Performing Lab: Notes/Report: VITAMIN B12 770 239 - 931 pg/mL T4, FREE Reviewed date:03/07/2024 08:49:44 PM Interpretation: Performing Lab: Notes/Report: T4, FREE 2.0 0.8 - 2.2 ng/dL TSH, 3RD GENERATION Reviewed date:03/08/2024 12:16:47 PM Interpretation: Performing Lab: Notes/Report: TSH, 3RD GENERATION 0.79 0.47 - 4.68 ilU/mL T3, TOTAL Reviewed date:03/07/2024 08:49:29 PM Interpretation: Performing Lab: Notes/Report: T3, TOTAL 92 76 - 181 ng/dL T3, Total 92 Hemoglobin A1c (In-House) Reviewed date:06/26/2024 05:19:16 PM Interpretation: Performing Lab: Notes/Report: Hemoglobin A1c 6.9% 4.0 - 6.0 % PTH, Intact Reviewed date:06/21/2024 12:52:14 PM Interpretation: Performing Lab:[facility] [place], [address] [place] [address], Phone - [phone], Director - Psychiatric Notes/Report: PTH, Intact 16 15-65 pg/mL Comp Metabolic Panel (14) Reviewed date:06/21/2024 12:52:25 PM Interpretation: Performing Lab:[facility] [place], [facility], Phone - [phone], Director - Psychiatric Notes/Report: Glucose 118 70-99 mg/dL BUN 31 8-27 mg/dL Creatinine 1.12 0.57-1.00 mg/dL eGFR 51 >59 mL/min/1.73 BUN/Creatinine Ratio 28 12-28 Sodium 143 134-144 mmol/L Potassium 4.6 3.5-5.2 mmol/L Chloride 101 96-106 mmol/L Carbon Dioxide, Total 23 20-29 mmol/L Calcium 9.0 8.7-10.3 mg/dL Protein, Total 6.5 6.0-8.5 g/dL Albumin 4.0 3.8-4.8 g/dL Globulin, Total 2.5 1.5-4.5 g/dL Bilirubin, Total 0.5 0.0-1.2 mg/dL Alkaline Phosphatase 104 44-121 IU/L AST (SGOT) 15 0-40 IU/L ALT (SGPT) 10 0-32 IU/L Vitamin D, 25-Hydroxy (In-Ho use) Reviewed date:06/26/2024 05:19:31 PM Interpretation: Performing Lab: Notes/Report: Vitamin D, 25-Hydroxy (in house) 44.8 30 - 100 ng/mL Thyroid Profile (In-House) ( TSH3+TT3+FT4) Reviewed date:06/26/2024 05:19:08 PM Interpretation: Performing Lab: Notes/Report: TSH3 0.36 0.45 - 5.33 uIU/mL TT3 0.83 0.62 - 1.62 ng/mL FT4 2.06 0.62 - 1.58 ng/dL TSH Reviewed date:09/29/2024 03:35:50 PM Interpretation: Performing Lab:[facility], [address] [place] [address], Phone - [phone], [facility] Notes/Report: TSH 1.040 0.450-4.500 uIU/mL CBC With Differential/Platel et Reviewed date:09/29/2024 03:37:19 PM Interpretation: Performing Lab:[facility] [address], Phone - [phone], [facility]/Report: WBC 6.1 3.4-10.8 x10E3/uL RBC 4.79 3.77-5.28 x10E6/uL Hemoglobin 14.6 11.1-15.9 g/dL Hematocrit 44.8 34.0-46.6 % MCV 94 79-97 fL MCH 30.5 26.6-33.0 pg MCHC 32.6 31.5-35.7 g/dL RDW 14.3 11.7-15.4 % Platelets 177 150-450 x10E3/uL Neutrophils 80 Not Estab. % Lymphs 8 Not Estab. % Monocytes 10 Not Estab. % Eos 1 Not Estab. % Basos 1 Not Estab. % Immature Cells Neutrophils (Absolute) 4.9 1.4-7.0 x10E3/uL Lymphs (Absolute) 0.5 0.7-3.1 x10E3/uL Monocytes(Absolute) 0.6 0.1-0.9 x10E3/uL Eos (Absolute) 0.1 0.0-0.4 x10E3/uL Baso (Absolute) 0.0 0.0-0.2 x10E3/uL Immature Granulocytes 0 Not Estab. % Immature Grans (Abs) 0.0 0.0-0.1 x10E3/uL NRBC Hematology Comments: Hemoglobin A1c Reviewed date:09/29/2024 03:37:32 PM Interpretation: Performing Lab:[facility] [place], [address] [place] [address], Phone - [phone], Director - Psychiatric Notes/Report: Hemoglobin A1c 6.8 4.8-5.6 % . Prediabetes: 5.7 - 6.4 Diabetes: >6.4 Glycemic control for adults with diabetes: <7.0 B-Type Natriuretic Peptide Reviewed date:09/29/2024 03:36:37 PM Interpretation: Performing Lab:[address], Phone - [phone], Director - [facility] Notes/Report: B-Type Natriuretic Peptide 409.7 0.0-100.0 pg/m L Siemens ADVIA Centaur XP methodology Comp Metabolic Panel (14) Reviewed date:09/29/2024 03:35:40 PM Interpretation: Performing Lab:[address], Phone - [phone], [facility] Notes/Report: Glucose 115 70-99 mg/dL BUN 45 8-27 mg/dL Creatinine 1.44 0.57-1.00 mg/dL eGFR 37 >59 mL/min/1.73 BUN/Creatinine Ratio 31 12-28 Sodium 138 134-144 mmol/L Potassium 4.1 3.5-5.2 mmol/L Chloride 91 96-106 mmol/L Carbon Dioxide, Total 28 20-29 mmol/L Calcium 9.8 8.7-10.3 mg/dL Protein, Total 6.7 6.0-8.5 g/dL Albumin 4.1 3.8-4.8 g/dL Globulin, Total 2.6 1.5-4.5 g/dL Bilirubin, Total 0.5 0.0-1.2 mg/dL Alkaline Phosphatase 104 44-121 IU/L AST (SGOT) 20 0-40 IU/L ALT (SGPT) 14 0-32 IU/L T4, Free Reviewed date:09/29/2024 03:36:05 PM Interpretation: Performing Lab:[address], Phone - [phone], [facility] Notes/Report: T4,Free(Direct) 2.10 0.82-1.77 ng/dL Hemoglobin A1c (In-House) Reviewed date:01/09/2025 05:34:39 PM [...] Serum Reviewed date:01/05/2025 03:56:18 PM Interpretation: Performing Lab:[facility] [place], [address] [facility], [place], Phone - [phone], Director - Hilda Notes/Report: Magnesium 2.3 1.6-2.3 mg/dL REASON FOR REFERRAL No Information MEDICATIONS Medication SIG (Take, Route, Frequency, Duration) Notes Start Date End Date Status Vitamin D3 25 MCG (1000 UT) 1 capsule Or ally Once a day 09/28/2024 Active Baclofen 10 MG 1 tablet with food o r milk Orally Once a Day Active Torsemide 20 MG 2 Tablets Orally Onc e a Day 03/17/2023 Active Farxiga 10 MG 1 tablet Orally Once a day Active Prolia 60 MG/ML (DXCODE: M81.0) 1 ML Subcutaneous every 6 months 09/12/2024 Active Metoprolol Tartrate 50 MG 2 Tablet in am , 1 tablet in pm Orally Twice a day Active Vitamin E 400 UNIT 1 capsule Orally Onc e a day Active Synthroid 175 MCG 1 tablet in the morn ing on an empty stomach Orally Once a day Active Aspir-81 81 MG 1 tablet Orally Once a day Active Eliquis 5 MG 1 tablet Orally Twic e a day Active Omeprazole 20 MG 1 capsule 30 minutes before morning meal Orally Once a day Active Accu-Chek Guide - MacztiY79.41-niddm I n Vitro Once a Day for 90 days Active OneTouch Delica Plus [id number] - as directed In Vitro Two Times a Day for 90 days 03/06/2024 Active OneTouch Verio - USE DIRECTED TWIC E DAILY for 90 Active metOLazone 2.5 MG 1 tablet Orally Once a day prn prn Active Gabapentin 300 MG 1 Tablet Orally Two Times a Day Active Isosorbide Mononitrate ER 30 MG 1 Tablet Orally Once a day Active Spironolactone 25 MG 1/2 tablet with eloisa d Orally Once a day Active Pravastatin Sodium 40 MG 1 tablet Orally Once a day Active IMMUNIZATIONS Vaccine Route Administration Date Status Comme nts Influenza IM Intramuscular 03/11/2011 Administered Influenza IM Intramuscular 03/10/2022 Administered [id number] exp: 11/20/22 SOCIAL HISTORY Tobacco Use: Social History Observation Description Date Details (start date - stop date) Never Smoker NA - NA Sex Assigned At : Social History Observation Description Sex Assigned At Unknown Tobacco Use/Smoking Question Answer Notes Are you a nonsmoker Tobacco use other than smoking: Question Answer Notes Are you an other tobacco user? No PROBLEMS Problem Type ICD Code Onset Dates Problem Status W/U Status Risk SNOMED Code Notes Problem GERD (gastroesophageal reflux disease) (K21.9) Active confirmed Gastroesophagea l reflux disease (089057634) Problem Atrial fibrillation (I48.91) Active confirmed Atrial fibrillation (47148146) Problem Peripheral neuropathy (G62.9) Active confirmed Peripheral neuropathy (958374538) Problem Thyroid cancer (C73) Active confirmed Thyroid cancer (265716780) Problem Ovarian failure (E28.39) Active confirmed Ovarian failure (418363528) Problem Benign hypertension (I10) Active confirmed Benign hypertension (08036406) Problem Osteoporosis, unspecified (M81.0) Active confirmed Osteoporosis (33410001) Problem Vitamin D deficiency, unspecified (E55.9) Active confirmed Vitamin D deficiency (58186219) Problem Vitamin B12 deficiency (E53.8) Active confirmed Vitamin B12 deficiency (363268065) Problem 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) Active confirmed Complicati on due to diabetes mellitus type 2 (96861524231635) Problem Iron deficiency anemia (D50.9) Active confirmed Iron deficien cy anemia (44508325) Problem Postprocedural hypothyroidism (E89.0) Active confirmed Postoperative Hypothyroidism (56426292) Problem 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 Sarcoidosis of lung (84579652) Problem Age-related osteoporosis without current pathological fracture (M81.0) Active confirmed Age-related osteoporosis (307236492) Problem 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 confirmed Mononeuropathy associated with type II diabetes mellitus (747839417) VITAL SIGNS Heart Rate 72 /min 01/04/2025 patient unable to step on scale Blood pressure diastolic 62 mm Hg 01/04/2025 pat ient unable to step on scale Height 5 ft 4 in in 01/04/2025 patient unable to step on scale Blood pressure systolic 118 mm Hg 01/04/2025 stephanie ent unable to step on scale Weight 145.8 lbs 06/20/2024 BMI 25.02 kg/m2 06/20/2024 Encounters Encounter Location Date Provider Diagnosis [facility] [address] [address] 01/19/2024 Fel[facility] Neff [facility] [address] [address] 03/06/2024 Shereen Valenzuela 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 E11.41 ; Combined hyperlipidemia associated with type 2 diabetes mellitus E11.69 ; Benign hypertension I10 ; Ovarian failure E28.39 ; Postprocedural hypothyroidism E89.0 ; Thyroid cancer C73 ; Atrial fibrillation I48.91 ; Vitamin B12 deficiency E53.8 ; Peripheral neuropathy G62.9 ; Iron deficiency anemia D50.9 ; Age-related osteoporosis without current pathological fracture M81.0 ; Vitamin D deficiency, unspecified E55.9 ; 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 and Osteoporosis, unspecified M81.0 [facility] [address] [place] [phone] 06/20/2024 Felipe Neff 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 E11.41 ; Combined hyperlipidemia associated with type 2 diabetes mellitus E11.69 ; Benign hypertension I10 ; Ovarian failure E28.39 ; Postprocedural hypothyroidism E89.0 ; Thyroid cancer C73 ; Atrial fibrillation I48.91 ; Vitamin B12 deficiency E53.8 ; Peripheral neuropathy G62.9 ; Iron deficiency anemia D50.9 ; Age-related osteoporosis without current pathological fracture M81.0 ; Vitamin D deficiency, unspecified E55.9 ; 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 ; Osteoporosis, unspecified M81.0 and GERD (gastroesophageal reflux disease) K21.9 [facility] [address] [address] 09/28/2024 Felipe Oiknine Type 2 diabetes mellitus with neurological manifestations [...] of lung D86.0 ; Osteoporosis, unspecified M81.0 ; GERD (gastroesophageal reflux disease) K21.9 and Foot pain M79.673 [facility] [address] [address] 01/04/2025 Felipe Oiknine Type 2 diabetes mellitus with neurological manifestations [...] M81.0 and GERD (gastroesophageal reflux disease) K21.9 [facility] [address] [address] 01/18/2024 Felipe Oiknine Osteoporosis, unspecified M81.0 [facility] [address] [address] 03/08/2024 Felipe Oiknine Postprocedural hypothyroidism E89.0 [facility] [address] [address] 06/22/2024 Felipe Oiknine [facility] [address] [address] 08/21/2024 Eflipe Oiknine [facility] [address] [address] 08/31/2024 Felipe Oiknine [facility] [address] [address] 09/25/2024 Felipe Oiknine [facility] [address] [address] 10/04/2024 Felipe Oiknine Postprocedural hypothyroidism E89.0 [facility] [address] [address] 10/10/2024 Felipe Oiknine Osteoporosis, unspecified M81.0 [facility] [address] [address] 11/27/2024 Felipe Oiknine Osteoporosis, unspecified M81.0 [facility] [address] [place] [phone] 01/09/2025 Felipe Oiknine ASSESSMENTS Encounter Date Diagnosis Assessment Notes Treatment Notes Treatment Clinical Notes Section Notes 03/06/2024 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 (ICD-10 - E11.41) 03/06/2024 Combined hyperlipidemia associated with type 2 diabetes mellitus (ICD-10 - E11.69) 06/20/2024 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 (ICD-10 - E11.41) 06/20/2024 Combined hyperlipidemia associated with type 2 diabetes mellitus (ICD-10 - E11.69) 09/28/2024 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 (ICD-10 - E11.41) 09/28/2024 Combined hyperlipidemia associated with type 2 diabetes mellitus (ICD-10 - E11.69) 01/04/2025 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 (ICD-10 - E11.41) 01/04/2025 Combined hyperlipidemia associated with type 2 diabetes mellitus (ICD-10 - E11.69) 01/18/2024 Osteoporosis, unspecified (ICD-10 - M81.0) 03/08/2024 Postprocedural hypothyroidism (ICD-10 - E89.0) 10/04/2024 Postprocedural hypothyroidism (ICD-10 - E89.0) 10/10/2024 Osteoporosis, unspecified (ICD-10 - M81.0) 11/27/2024 Osteoporosis, unspecified (ICD-10 - M81.0) 03/06/2024 Benign hypertension (ICD-10 - I10) 06/20/2024 Benign hypertension (ICD-10 - I10) 09/28/2024 Benign hypertension (ICD-10 - I10) 01/04/2025 Benign hypertension (ICD-10 - I10) 03/06/2024 Ovarian failure (ICD-10 - E28.39) 06/20/2024 Ovarian failure (ICD-10 - E28.39) 09/28/2024 Ovarian failure (ICD-10 - E28.39) 01/04/2025 Ovarian failure (ICD-10 - E28.39) 03/06/2024 Postprocedural hypothyroidism (ICD-10 - E89.0) 06/20/2024 Postprocedural hypothyroidism (ICD-10 - E89.0) 09/28/2024 Postprocedural hypothyroidism (ICD-10 - E89.0) 01/04/2025 Postprocedural hypothyroidism (ICD-10 - E89.0) 03/06/2024 Thyroid cancer (ICD-10 - C73) 06/20/2024 Thyroid cancer (ICD-10 - C73) 09/28/2024 Thyroid cancer (ICD-10 - C73) 01/04/2025 Thyroid cancer (ICD-10 - C73) 03/06/2024 Atrial fibrillation (ICD-10 - I48.91) 06/20/2024 Atrial fibrillation (ICD-10 - I48.91) 09/28/2024 Atrial fibrillation (ICD-10 - I48.91) 01/04/2025 Atrial fibrillation (ICD-10 - I48.91) 03/06/2024 Vitamin B12 deficiency (ICD-10 - E53.8) 06/20/2024 Vitamin B12 deficiency (ICD-10 - E53.8) 09/28/2024 Vitamin B12 deficiency (ICD-10 - E53.8) 01/04/2025 Vitamin B12 deficiency (ICD-10 - E53.8) 03/06/2024 Peripheral neuropathy (ICD-10 - G62.9) 06/20/2024 Peripheral neuropathy (ICD-10 - G62.9) 09/28/2024 Peripheral neuropathy (ICD-10 - G62.9) 01/04/2025 Peripheral neuropathy (ICD-10 - G62.9) 03/06/2024 Iron deficiency anemia (ICD-10 - D50.9) 06/20/2024 Iron deficiency anemia (ICD-10 - D50.9) 09/28/2024 Iron deficiency anemia (ICD-10 - D50.9) 01/04/2025 Iron deficiency anemia (ICD-10 - D50.9) 03/06/2024 Age-related osteoporosis without current pathological fracture (ICD-10 - M81.0) 06/20/2024 Age-related osteoporosis without current pathological fracture (ICD-10 - M81.0) 09/28/2024 Vitamin D deficiency, unspecified (ICD-10 - E55.9) 01/04/2025 Vitamin D deficiency, unspecified (ICD-10 - E55.9) 03/06/2024 Vitamin D deficiency, unspecified (ICD-10 - E55.9) 06/20/2024 Vitamin D deficiency, unspecified (ICD-10 - E55.9) 09/28/2024 Sarcoidosis of lung (ICD-10 - D86.0) 01/04/2025 Sarcoidosis of lung (ICD-10 - D86.0) 03/06/2024 Sarcoidosis of lung (ICD-10 - D86.0) 06/20/2024 Sarcoidosis of lung (ICD-10 - D86.0) 09/28/2024 Osteoporosis, unspecified (ICD-10 - M81.0) 01/04/2025 Osteoporosis, unspecified (ICD-10 - M81.0) 03/06/2024 Osteoporosis, unspecified (ICD-10 - M81.0) 06/20/2024 Osteoporosis, unspecified (ICD-10 - M81.0) 09/28/2024 GERD (gastroesophageal reflux disease) (ICD-10 - K21.9) 01/04/2025 GERD (gastroesophageal reflux disease) (ICD-10 - K21.9) 06/20/2024 GERD (gastroesophageal reflux disease) (ICD-10 - K21.9) 09/28/2024 Foot pain (ICD-10 - M79.673) 01/19/2024 Other 03/06/2024 Other The patient returns for follow up. Her weight is unchanged. BP is controlled. She was admitted to the hospital in [place], [place] s/p fall in December. She did not sustain any fractures. She spent some time in rehab for strength training. Her calcium was elevated and potassium was low. She was started on potassium supplements and they stopped her calcium supplement. She saw Dr. Perez today. He has ordered a CBC w/iron and CMP w/proBNP. She has iron deficiency anemia and received iron infusions in the hospital. Her thyroid hormone was increased from 150 to 175 mcg/day in the hospital. We'll check TFT's today. She doesn't feel any different on the higher dose. She remains on Farxiga. FBS's have been low 100 range. She is taking prednisone every other day. She'll check her BS's bid on the day she takes prednisone. She reports fatigue and weakness. She uses the walker at home to ambulate. I asked her to check A1c, and vitamins D and B12. I asked her to continue her current dose of thyroid medication pending lab work. She'll continue w/farxiga for diabetes control. I asked her to return in 3 months for f/u. 06/20/[address] Felipe adler dictates using [employer] Speaking software. [employer] Inspector variances may occur. Since our last visit the patient has had 2 hospitalizations. She had falls and dehydration each time. She uses a walker for assistance with ambulation. Her blood pressure and weight remain stable. Glycemic control remains optimal on the current antidiabetic agents. She does have hypothyroidism which is treated. We reviewed all of her medications. We agreed to continue all of her current medications for diabetes, hypertension, atrial fibrillation and hypothyroidism. She follows up with her PCP, nurse general duty and um specialist for anemia. She has had several iron infusions. She does have severe osteoporosis and spontaneous compression fractures. We had tried forteo in the past but this was discontinued due to constipation. The patient is willing to start the medication again. We did describe [id number] remedies for constipation which the patient will try. I have also recommended to have a second opinion from the osteoporosis Center at [facility] which the patient saw in the past. We discussed the importance of fall prevention. I will repeat a battery of tests. I will see the patient in 3 months. She will continue following up with other providers as indicated. 09/28/[address] Felipe Neff dictates using [employer] Speaking software. F[employer] Inspector variances may occur. Since our last visit the patient has felt generally well. She has followed up with her nurse general duty. We reviewed her medications and her prior lab work. She is scheduled to have her bone density at [facility]. She has a history of compression fractures. We had prescribed Forteo but the patient could not tolerate it on 2 occasions the patient developed severe headache and vertigo. At this point I will prescribe Prolia. I have also asked for a second opinion at the [facility]. The patient uses a walker at home for assistance with ambulation. She has hypothyroidism and remains on thyroid home replacement therapy. She has a history of type 2 diabetes and is on SGLT 2 inhibitor therapy. I will repeat a battery of tests and based on the results, further recommendations will be made. The patient will try to get the Prolia at the infusion center at [facility] . Of note the patient has noted redness and swelling involving the left foot to specifically the third metatarsal. I will order an x-ray. I will also start generic Keflex 500 g twice a day for 7 days. 01/04/[address] Felipe adler dictates using [employer] Speaking software. F[employer] Inspector variances may occur. Since our last visit the patient has followed up with her PCP and her nurse general duty along with her pain specialist. She does get steroid injections for osteoarthritis. She does have clinical osteoporosis and started her first injection of Prolia this month. We reviewed her bone density. She is scheduled to see the osteoporosis Center at [facility] in January 2025 for further evaluation. [...] or sooner if needed PLAN OF TREATMENT Future Test Test Name Order Date X ray : Foot, left 09/28/2024 Next Appt Details Provider Name:Felipe Neff, 05/08/2025 10:45:00 AM, [address] [place] [address], [phone], Insurance Providers Payer Name Payer Address Payer Phone Subscriber Number Group Number Insured Name Patient Relationship to Insured Coverage Start Date Coverage End Date [employer] [address] [id number] [phone] [id number] Gemma Olson Self - patient is the insured MEDICAL (GENERAL) HISTORY Medical History History ICD Code type II diabetes Hypothyroidism postsurgical hypertension hyperlipidemia Atrial fibrillation ( Dr Perez) postmenopausal thyroid cancer s/p RAIAX3 Dr Gipson hx of sarcoidosis----DR SOTELO--now dr mehta her---PREDNISONE Asthma DEXA NORMAL 05/09/2014 and stable 2016 ( kelly) DDD MRI 05/2015 compression fx 2015 and 07/13 16--FORTEO STATED 11/2017----CONSTIPATION --DC 12/10 iron deficient anemia 2 hospitalizations 01/2024 and 04/2024 s /p fall---[facility] Surgical History Surgery Date(Month/Year) hysterectomy 2006 thyroidectomy 2004 cataract removal 04/2014 back surgery 07/2015 spinal stenosis s/p surgery DR LYLES 12/2015 heart catheterization 04/2019 Hospitalization History Reason Date(Month/Year) A Fib/ Low blood leels 2009 fatigue, hypertension 2013 neck and shoulder pain 02/2023 pneumonia/ edema 04/2023
--- OUTSIDE RECORDS SUMMARY | 2025-01-15 16:32 | XMS_ITS | Encounter Summary ---
Author Organization [facility] Address [address] [place] [address] Care Team Providers Care Form Worker Name Role Phone Bruno Sorenson MD Primary Care Provider [phone] Janice Zimmerman PT Unavailable Unavailab [place] Hilliard RUG BACKING STENCILER Unavailable Unavailab Saniya Salcedo RUG BACKING STENCILER Unavailable Unavailable Felipe Neff MD Unavailable [phone] Alex Jauregui MD Unavailable Una Guallpa DNP Unavailable [phone] Encounter Details Date Type Department Care Team (Late st Contact Info) Description 01/15/2025 Orders Only [place] Inbound Sales Manager at [address] [place] [address] James Lin MD [address] [place] [address] [address] [place] [address] Acute on chronic diastolic congestive heart failure (HCC) (Primary Dx); Coronary artery disease of [place] artery of [place] heart with stable angina pectoris Social History Tobacco Use Types Packs/Day Years [...] often do you attend chur ch or baptism services? More than 4 times per year 11/06/2024 Do you belong to any clubs o r organizations such as baptist groups, unions, fraternal or athletic groups, or [...] place to sleep or slept in a detention (including now)? No 05/20/2023 Housing Stability Vital Sign Answer Vasu e Recorded In the last 12 months, was t here a time when you were not able to pay the mortgage or rent on time? No 11/06/2024 In the past 12 months, how m any times have you moved where you were living? 0 11/06/2024 At any time in the past 12 m [facility], were you homeless or living in a detention (including now)? No 11/06/2024 Social Connection and Isolation Panel Answer Date Recorded In a typical week, how many times do you talk on the phone with family, friends, or neighbors? More than three times a week 01/12/2025 How often do you get togethe r with friends or relatives? More than three times a week 01/12/2025 How often do you attend chur ch or baptism services? More than 4 times per year 01/12/2025 Do you belong to any clubs o r organizations such as baptist groups, unions, fraternal or athletic groups, or [...] any time in the past 12 m [facility], were you homeless or living in a detention (including now)? No 01/12/2025 [facility] Utilities Answer Date Recorded In the past 12 months has th e electric, gas, oil, or water company threatened to shut off services in your [...] Master's degree (e.g., MA, MS, Berna, MEd, NEURODIAGNOSTIC TECHNICIAN, LAYO) 01/31/2024 Comments No Sex and Gender Information Value Date Recorded Sex Assigned at Not on file Legal Sex Female 11:50 PM PATIENT SUPPORT ASSISTANT Gender Identity Not on file Sexual Orientation Not on file documented as of this encounter Plan of Treatment Not on file documented as of this encounter Goals Goal Patient Goal Type Associated Problems Recent Progress Patient-Stated? Author [facility] Karoline Mesa, DAYO Note: Patient will establish a comfort-function goal and identify the pain level that will allow the patient to perform desired activities and achieve an acceptable quality of life. documented as of this encounter Visit Diagnoses Diagnosis Acute on chronic diastolic congestive heart failure (HCC)- Primary Coronary artery disease of [place] artery of [place] heart with stable angina pectoris documented in this encounter Care Teams Form Worker Relationship Specialty Start Date End Date Bruno Sorenson MD [address] [place] [address] PCP - General 08/21/16 Janice Zimmerman, PT Physical Therapist Physical Therapy 11/01/17 [place], RUG BACKING STENCILER Milking Machine Mechanic Physical Therapy 11/12/17 Saniya Greenwood, RUG BACKING STENCILER Milking Machine Mechanic Physical Therapy 11/17/17 Felipe Neff MD [address] [place] [address] Referring Physician Endocrinology Diabetes & Metabolism 04/28/22 Alex Jauregui MD [address] [place] [address] Consulting Physician Cardiology 03/07/23 Una Guallpa DNP [address] [place] [address] Nurse Practitioner Neurology 05/27/23 documented as of this encounter
--- OUTSIDE RECORDS SUMMARY | 2025-01-15 16:32 | XMS_ITS | Encounter Summary ---
Author Organization [facility] Address [address] [place] [address] Care Team Providers Care Chlorobutadiene Scrubber Operator Name Role Phone Unavailable Primary Care Provider Unavailabl e Encounter Details Date Type Department Care Team (Late st Contact Info) Description 03/09/2024 Lab Requisition [facility] - DermPath Lab [address] [facility] [place] [id number] Sunita Madden MD [address] [place] [id number] Neoplasm of uncertain behavior of skin Social History Tobacco Use Types Packs/Day Years Used Date Smoking Tobacco: Never Assessed Comments Unknown Sex and Gender Information Value Date Recorded Sex Assigned at Not on file Legal Sex Female 6:04 AM CASUAL SHOE INSPECTOR Gender Identity Not on file Sexual Orientation Not on file documented as of this encounter Plan of Treatment Not on file documented as of this encounter Visit Diagnoses Diagnosis Neoplasm of uncertain behavior of skin documented in this encounter
--- OUTSIDE RECORDS SUMMARY | 2025-01-15 16:32 | XMS_ITS | Clinical Summary ---
Author Organization [facility] Address [address] [place] [address] Phone Care Team Providers Care Alarm Technician Name Role Phone Bruno Sorenson MD Primary Care Provider [phone] Allergies Active Allergy Reactions Criticality Noted Date Comments Penicillins Rash Low 12/29/2010 Sulfa (Sulfonamide Antibiotics) Rash Low 12/2010 Medications DIGOXIN ORAL Active KETOPROFEN ORAL Acti ve OMEPRAZOLE ORAL Acti ve LEVOTHYROXINE SODIUM (SYNTHROID ORAL) Act clementina METOPROLOL SUCCINATE (TOPROL XL ORAL) Act clementina AMLODIPINE BES/OLMESARTAN MED (MANDY ORAL) Acti ve MAGNESIUM ORAL Activ e CALCIUM CARBONATE/VITAMI N D3 (CALCIUM WITH VITAMIN D ORAL) Active VITAMIN E ORAL Activ e METFORMIN HCL (METFORMIN ORAL) Take by mouth. Active FENOFIBRIC ACID, CHOLINE, (TRILIPIX ORAL) Take by mouth. Active DABIGATRAN ETEXILATE MESYLATE (PRADAXA ORAL) Take by mouth. Active FERROUS SULFATE ORAL Take by mouth. Active Active Problems No known active problems Family History Medical History Relation Name Comments Diabetes Brother Diabetes Father Heart Disease Father Hypertension Father Tuberculosis Father Heart Disease Mother Hypertension Mother Relation Name Status Comments Brother Father Mother Social History Tobacco Use Types Packs/Day Years Used Date Smoking Tobacco: Never Alcohol Use Standard Drinks/Week Comments No 0 (1 standard drink = 0.6 oz pur e alcohol) Comments No Sex and Gender Information Value Date Recorded Sex Assigned at Not on file Legal Sex Female 6:02 AM TELESALES SUPERVISOR Gender Identity Not on file Sexual Orientation Not on file 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 Not on file Not on file Last Filed Vital Signs Vital Sign Reading Time Taken Comments Blood Pressure 138/80 01/01/2012 10:43 AM CDT Pulse - - Temperature - - Respiratory Rate - - Oxygen Saturation - - Inhaled Oxygen Concentration - - Weight 81.6 kg (180 lb) 01/01/2012 10:43 AM CDT Height 160.7 cm (5' 3.25) 01/01/2012 10:43 AM C DT Body Mass Index 31.63 01/01/2012 10:43 AM CDT Plan of Treatment Health Maintenance Due Date Last Done Comments DTAP/TDAP/TD VACCINES (1 - Tdap) 1966 PNEUMOCOCCAL VACCINE 50+ YEA RS (1 of 1 - PCV) 1997 ZOSTER VACCINE (1 of 2) 1997 OSTEOPOROSIS SCREENING 2012 RSV VACCINE (60+ or ) (1 - 1-dose 75+ series) 2022 INFLUENZA VACCINE (#1) 2024 COLORECTAL SCREENING Discontinued 01/01/2012 (Postpone d) Colorectal Cancer Screening Discontinued FIT-DNA Q 3 years Discontinued FIT/FOBT Q 1 year Discontinued Flex Sig/CT Colonography Q 5 years Discontinued Care Teams Alarm Technician Relationship Specialty Start Date End Date Bruno Sorenson MD PCP - General Family Practice 10/29/10
--- OUTSIDE RECORDS SUMMARY | 2025-01-15 16:32 | XMS_ITS | Encounter Summary ---
Author Organization [facility] Address [address] [facility] [address] [address] [place] [address] Care Team Providers Care Boiler Maker Name Role Phone Unavailable Primary Care Provider Unavailabl e Encounter Details Date Type Department Care Team (Late st Contact Info) Description 04/18/2024 Lab Requisition [facility] - DermPath Lab [address] [place] [id number] Sunita Madden MD [address] [place] [address] Social History Tobacco Use Types Packs/Day Years Used Date Smoking Tobacco: Never Assessed Comments Unknown Sex and Gender Information Value Date Recorded Sex Assigned at Not on file Legal Sex Female 6:04 AM SALES DONOR RECRUITMENT REPRESENTATIVE Gender Identity Not on file Sexual Orientation Not on file documented as of this encounter Plan of Treatment Not on file documented as of this encounter Procedures Procedure Name Priority Date/Time Associated Diagnosis Comments DERMATOPATHOLOGY Routine 04/17/2024 12:0 0 AM SALES DONOR RECRUITMENT REPRESENTATIVE documented in this encounter Results * DERMATOPATHOLOGY (04/17/2024 12:00 AM SALES DONOR RECRUITMENT REPRESENTATIVE) Case Report Dermatopathology Report Case: [id number] Authorizing Provider: Sunita Madden MD Collected: 04/17/2024 12:00 AM Ordering Location: [facility] - Received: 04/18/2024 10:45 AM DermPath Lab Pathologist: Karla Epps MD Specimen: Skin, right mid upper back 1:25 PM SALES DONOR RECRUITMENT REPRESENTATIVE DERMATOPATHOLOGY LABORATORY Final Diagnosis Specimen A. 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 The specimen consists of a shave biopsy measuring [id number] mm. Jar 0. 4 1:25 PM [facility] DERMATOPATHOLOGY LABORATORY Microscopic Description Specimen A. SKIN, right mid upper back: This is a compound nevus. There is melanin pigment in the stratum corneum. There is a lentiginous proliferation of melanocytes between nevus nests of cells along the dermal epidermal junction. There is underlying fibroplasia of the papillary dermis. The intradermal component is bland in appearance and matures with depth. Some melanocytes are splayed between collagen bundles and are localized around adnexal structures.(Compoun d Chano's Nevus) 4 1:25 PM [facility] DERMATOPATHOLOGY LABORATORY Disclaimer An external and internal positive and negative controls are appropriate for the histochemical, immunohistochemical and immunofluorescence stain(s) in this case (if any), except where stated explicitly. The performance characteristics of the stain(s) cited in this report were developed and its performance characteristic determined by the Dermatopathology Laboratory at [facility], directed by Dr. Rj Viera. These tests need not be, and therefore are not, approved by the [place] Food and Drug Administration. The tests are used for clinical purposes. Billing Codes Specimen Charges Stain Charges 23344 1 4 1:25 PM [facility] DERMATOPATHOLOGY LABORATORY Embedded Images 4 1:25 PM [facility] DERMATOPATHOLOGY LABORATORY Pathology/Cytolog y TISSUE SPECIMEN FROM SKIN / Unknown 04/17/2024 04/18/2024 10:45 AM [facility] us Sunita Madden MD LAB - PATHOLOGY/CYTOLOGY ORD ERABLES Final Result DERMATOPATHOLOGY LABORATORY [facility] - Department of Dermatology [facility] [address] [place] [address], [address] [phone] documented in this encounter Visit Diagnoses Not on filedocumented in this encounter
--- OUTSIDE RECORDS SUMMARY | 2025-01-15 16:32 | XMS_ITS | Clinical Summary ---
Author Organization [facility] Address [address] [place] [address] Care Team Providers Care Material Inspector Name Role Phone Unavailable Primary Care Provider Unavailabl e Source Comments [facility],non-owned Affiliates and Associated Physician Practices is amultiple site organization consisting of ambulatory clinics and hospital sitesin [place], [place], [place] and [place]. This disclosure is being madepursuant to the Care Everywhere program and may not contain all information available regarding this patient. Last updated 18.[facility] [employer] Social History Tobacco Use Types Packs/Day Years Used Date Smoking Tobacco: Never Assessed Comments Unknown Sex and Gender Information Value Date Recorded Sex Assigned at Not on file Legal Sex Female 6:04 AM ACCOUNTING ANALYST Gender Identity Not on file Sexual Orientation Not on file Plan of Treatment Health Maintenance Due Date Last Done Comments BONE DENSITY TESTING 1945 HEPATITIS C SCREENING 04/07/1965 DTAP/TDAP/TD VACCINES (1 - Tdap) 1966 PNEUMOCOCCAL VACCINE 50+ (1 of 1 - PCV) 1997 ZOSTER VACCINE (1 of 2) 1997 Respiratory Syncytial Virus (RSV) Vaccine Pt: or over 60 yrs (1 - 1-dose 75+ series) 2022 COVID-19 VACCINE ( - 2023-2 5 season) 2024 DEPRESSION SCREENING 05/24/2024 MEDICARE AWV CALENDAR YEAR 2024 INFLUENZA VACCINE (#1) 2025 HEPATITIS B VACCINE Aged Out No longe r eligible based on patient's age to complete this topic HIB VACCINE Aged Out No longer eligi ble based on patient's age to complete this topic HPV VACCINE Aged Out No longer eligi ble based on patient's age to complete this topic MENINGOCOCCAL (Group B) VACC INE SHARED DECISION-MAKING Aged Out No longer eligibl e based on patient's age to complete this topic MENINGOCOCCAL GROUPS A/C/Y/W VACCINE Aged Out No longer eligible b ased on patient's age to complete this topic Insurance [facility] MEDIC[facility] ADV
--- OUTSIDE RECORDS SUMMARY | 2025-01-15 16:32 | XMS_ITS | Encounter Summary ---
Author Organization [facility] Address [address] [place] [address] Care Team Providers Care Configuration Management Administrator Name Role Phone Bruno Sorenson MD Primary Care Provider [phone] Janice Zimmerman PT Unavailable Unavailab [place] Hilliard COATING AND EMBOSSING UNIT OPERATOR Unavailable Unavailab Saniya Salcedo COATING AND EMBOSSING UNIT OPERATOR Unavailable Unavailable Felipe Neff MD Unavailable [phone] Alex Jauregui MD Unavailable [phone] Una Guallpa DNP Unavailable [phone] Reason for Referral * Cardiology (Emergency) - Authorized Specialty Diagnoses / Procedures Referred By Contac t Referred To Contact Diagnoses Acute diastolic congestive heart failure (HCC) Coronary artery disease of [place] artery of [place] heart with stable angina pectoris Procedures Transthoracic Echo (TTE) Complete W Doppler/CF James Lin MD [address] [place] [address] [address] Phone: tel: fax: [facility] [address] [place] [address] Referral ID Status Reason Start Date Expiration Date V isits Requested Visits Authorized [id number] Authorized 01/15/2025 02/14/2026 1 1 Encounter Details Date Type Department Care Team (Late st Contact Info) Description 01/15/2025 Orders Only [place] Tank Pumper at [facility] [address] [place] [address] James Lin MD [address] [place] [address] [address] [place] [address] Acute diastolic congestive heart failure (HCC) (Primary Dx); Coronary artery disease of [place] artery of [place] heart with stable angina pectoris Social History [...] 11/06/2024 How often do you attend chur or church services? More than 4 times per year 11/06/2024 Do you belong to any clubs o r organizations such as faith groups, unions, fraternal or athletic groups, or [...] place to sleep or slept in a mcc (including now)? No 05/20/2023 Housing Stability Vital Sign Answer Vasu e Recorded In the last 12 months, was t here a time when you were not able to pay the mortgage or rent on time? No 11/06/2024 In the past 12 months, how m any times have you moved where you were living? 0 11/06/2024 At any time in the past 12 m [facility], were you homeless or living in a mcc (including now)? No 11/06/2024 Social Connection and Isolation Panel Answer Date Recorded In a typical week, how many times do you talk on the phone with family, friends, or neighbors? More than three times a week 01/12/2025 How often do you get togethe r with friends or relatives? More than three times a week 01/12/2025 How often do you attend chur or church services? More than 4 times per year 01/12/2025 Do you belong to any clubs o r organizations such as faith groups, unions, fraternal or athletic groups, or [...] any time in the past 12 m [facility], were you homeless or living in a mcc (including now)? No 01/12/2025 [facility] Utilities Answer Date Recorded In the [...] Master's degree (e.g., MA, MS, Berna, MEd, HEEL PRICKER, LAYO) 01/31/2024 Comments No Sex and Gender Information Value Date Recorded Sex Assigned at Not on file Legal Sex Female 11:50 PM SIDING MECHANIC Gender Identity Not on file Sexual Orientation Not on file documented as of this encounter Plan of Treatment Scheduled Orders Name Type Priority Associated Diagnoses Order Schedule Transthoracic Echo (TTE) Complete W Doppler/CF Echocardiography STAT Acute diastolic congestive heart failure (HCC) Coronary artery disease of [place] artery of [place] heart with stable angina pectoris Expected: 01/15/2025, Expires: 04/17/2026 documented as of this encounter Goals Goal Patient Goal Type Associated Problems Recent Progress Patient-Stated? Author [facility] No Karoline Betancourt, DAYO Note: Patient will establish a comfort-function goal and identify the pain level that will allow the patient to perform desired activities and achieve an acceptable quality of life. documented as of this encounter Visit Diagnoses Diagnosis Acute diastolic congestive heart failure (HCC)- Primary Coronary artery disease of [place] artery of [place] heart with stable angina pectoris documented in this encounter Care Teams Configuration Management Administrator Relationship Specialty Start Date End Date Bruno Sorenson MD [address] [place] [address] PCP - General 08/21/16 Janice Zimmerman, PT Physical Therapist Physical Therapy 11/01/17 [place], TONNY O[facility]erman Physical Therapy 11/12/17 Saniya Greenwood COATING AND EMBOSSING UNIT OPERATOR [facility] Physical Therapy 11/17/17 Felipe Neff MD [address] [place] [address] Referring Physician Endocrinology Diabetes & Metabolism 04/28/22 Alex Jauregui MD [address] [place] [address] Consulting Physician Cardiology 03/07/23 Una Guallpa DNP [address] [place] [address] Nurse Practitioner Neurology 05/27/23 documented as of this encounter
--- OUTSIDE RECORDS SUMMARY | 2025-01-15 16:32 | XMS_ITS | Encounter Summary ---
Author Organization [facility] Address [address] [place] [address] Care Team Providers Care Director Of Technology Name Role Phone Unavailable Primary Care Provider Unavailabl e Encounter Details Date Type Department Care Team (Late st Contact Info) Description 03/07/[address] [facility] - DermPath Lab [address] [place] [id number] Sunita Madden MD [address] [place] [address] Social History Tobacco Use Types Packs/Day Years Used Date Smoking Tobacco: Never Assessed Comments Unknown Sex and Gender Information Value Date Recorded Sex Assigned at Not on file Legal Sex Female 6:04 AM REGENERATION OPERATOR Gender Identity Not on file Sexual Orientation Not on file documented as of this encounter Plan of Treatment Not on file documented as of this encounter Procedures Procedure Name Priority Date/Time Associated Diagnosis Comments DERMATOPATHOLOGY Routine 03/06/2024 3:33 AM CDT documented in this encounter Results * DERMATOPATHOLOGY (03/06/2024 3:33 AM CDT) Case Report Dermatopathology Report Case: [id number] Authorizing Provider: Sunita Madden MD Collected: 03/06/2024 03:33 AM Ordering Location: [facility] - Received: 03/07/2024 11:05 AM DermPath Lab Pathologist: Karen Heredia MD Specimens: A) - Skin, right distal dorsal forearm B) - Skin, left distal radial dorsal forearm 3:04 PM T DERMATOPATHOLOGY LABORATORY Final Diagnosis Specimen A. 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 SKIN, left distal radial dorsal forearm: THROMBUS (I82.91) (see microscopic description) 3:04 PM T DERMATOPATHOLOGY LABORATORY at 1504 CDT Clinical History A: Neoplasm of uncertain behavior vs metastasis, melanoma B: Neoplasm of uncertain behavior vs melanoma, angioma, vascular disease 4 3:04 PM CDT DERMATOPATHOLOGY LABORATORY Gross Description Specimen A: Received is one formalin filled container labeled with the patient's name and designated right distal dorsal forearm. The specimen consists of a shave biopsy measuring [id number] mm. Jar 0. Specimen B: Received is one formalin filled container labeled with the patient's name and designated left distal radial dorsal forearm. The specimen consists of a shave biopsy measuring 8x7x4 mm. Jar 0. 3:04 PM T DERMATOPATHOLOGY LABORATORY Microscopic Description Specimen A. SKIN, right distal dorsal forearm: There are dilated vascular spaces surrounded by thin, widely spaced endothelial cells. The lesion is eroded. There is a vascular space that is packed with erythrocytes and contains fibrin, fibroblasts, and hemosiderin and papillary endothelial hyperplasia. D2-40 highlights some, but not all, of the vascular spaces. HHV-8 is negative. Additional deeper sections were obtained and reviewed. 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 This is recognized as a benign and reactive proliferation of endothelial cells with papillary formations (see provided reference below). Reference: Kylie QS, Jarrell K, Gustavo A, Kris NS. 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 [employer] Journal. 2015;6(4):277-279. Specimen B. SKIN, left distal radial dorsal forearm: There is a vascular space that is packed with erythrocytes and contains fibrin, fibroblasts, and hemosiderin and papillary endothelial hyperplasia. D2-40 highlights some, but not all, of the vascular spaces. HHV-8 is negative. Additional deeper sections were obtained and reviewed. 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 This is recognized as a benign and reactive proliferation of endothelial cells with papillary formations (see provided reference below). Reference: Kylie QS, Jarrell K, Gustavo A, Kris NS. 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 [employer] Journal. 2015;6(4):277-279. 4 3:04 PM CDT DERMATOPATHOLOGY LABORATORY Disclaimer An external and internal positive and negative controls are appropriate for the histochemical, immunohistochemical and immunofluorescence stain(s) in this case (if any), except where stated explicitly. The performance characteristics of the stain(s) cited in this report were developed and its performance characteristic determined by the Dermatopathology Laboratory at [facility], directed by Dr. Rj Viera. These tests need not be, and therefore are not, approved by the [place] Food and Drug Administration. The tests are used for clinical purposes. Billing Codes Specimen Charges Stain Charges 99362 67649 1 1 26620 51931 56110 05890 1 1 1 1 4 3:04 PM CDT DERMATOPATHOLOGY LABORATORY Embedded Images 4 3:04 PM CDT DERMATOPATHOLOGY LABORATORY Pathology/Cytology TISSUE SPECIMEN FROM SKIN / Unknown 03/06/2024 3:33 AM CDT 03/07/2024 11:05 AM CDT Miscellaneous samples (specimen) TISSUE SPECIMEN FROM SKIN / Unknown 03/06/2024 3:33 AM CDT 03/07/2024 11:05 AM CDT us Sunita Madden MD LAB - PATHOLOGY/CYTOLOGY ORD ERABLES Final Result DERMATOPATHOLOGY LABORATORY [facility] - Department of Dermatology [address], [address] [phone] documented in this encounter Visit Diagnoses Not on filedocumented in this encounter
--- OUTSIDE RECORDS SUMMARY | 2025-01-15 16:33 | XMS_ITS | Encounter Summary ---
Author Organization [facility] Healthcare Address [address] [place] [address] Care Team Providers Care Client Solutions Manager Name Role Phone Bruno Sorenson MD Primary Care Provider [phone] Janice Zimmerman PT Unavailable Unavailab Tatum Hilliard SUPERVISOR ELEMENTARY EDUCATION Unavailable Unavailab Saniya Salcedo SUPERVISOR ELEMENTARY EDUCATION Unavailable Unavailable Felipe Neff MD Unavailable [phone] Alex Jauregui MD Unavailable [phone] Una Guallpa DNP Unavailable [phone] Encounter Details Date Type Department Care Team (Late st Contact Info) Description 11/15/2024 Telephone [facility] Case Management [address] [place] [address] Maria M Michaels RN Social History Tobacco Use Types Packs/Day Years Used Date Smoking Tobacco: Never Passive Smoke Exposure: Never Smokeless Tobacco: Never Alcohol Use Standard Drinks/Week Comments No 0 (1 standard drink = 0.6 oz pur e alcohol) [facility] Utilities Answer Date Recorded In the past 12 months has th e electric, gas, oil, or water company threatened to shut off services in your home? No 11/06/2024 Social Connection and Isolation Panel Answer Date Recorded In a typical week, how many times do you talk on the phone with family, friends, or neighbors? More than three times a week 11/06/2024 How often do you get togethe r with friends or relatives? More than three times a week 11/06/2024 How often do you attend chur ch or restorationist services? More than 4 times per year [...] staff should administer the PHQ-9) 0 11/17/2024 Hunger Vital Sign Answer Date Recorded Within the past 12 months, y ou worried that your food would run out before you got the money to buy more. Never true 11/07/19 25 Within the past 12 months, t he food you bought just didn't last and you didn't have money to get more. Never true 11/06/2024 PRAPARE - Transportation Answer Date Re corded [...] place to sleep or slept in a [facility] (including now)? No 05/20/2023 Housing Stability Vital Sign Answer Vasu e Recorded In the last 12 months, was t here a time when you were not able to pay the mortgage or rent on time? No 11/06/2024 In the past 12 months, how m any times have you moved where you were living? 0 11/06/2024 At any time in the past 12 m [facility], were you homeless or living in a [facility] (including now)? No 11/06/2024 Personal Safety Answer Date Recorded Have you ever been in or are you currently in a harmful physical or emotional relationship or is someone making you feel afraid or unsafe? Denies 11/04/2024 Education Answer Date Recorded What is the highest level of school you have completed or the highest degree you have received? Master's degree (e.g., MA, MS, Berna, MEd, [employer], LAYO) 01/31/2024 Comments No Sex and Gender Information Value Date Recorded Sex Assigned at Not on file Legal Sex Female 11:50 PM FISH NET MAKER Gender Identity Not on file Sexual Orientation Not on file documented as of this encounter Plan of Treatment Not on file documented as of this encounter Goals Goal Patient Goal Type Associated Problems Recent Progress Patient-Stated? Author [facility] Karloine Mesa, RN Note: Patient will establish a comfort-function goal and identify the pain level that will allow the patient to perform desired activities and achieve an acceptable quality of life. documented as of this encounter Visit Diagnoses Not on filedocumented in this encounter Care Teams Client Solutions Manager Relationship Specialty Start Date End Date Bruno Sorenson MD [address] [place] [address] PCP - General 08/21/16 Janice Zimmerman, PT Physical Therapist Physical Therapy 11/01/17 Tatum Moon, SUPERVISOR ELEMENTARY EDUCATION Basin Operator Physical Therapy 11/12/17 Saniya Greenwood, SUPERVISOR ELEMENTARY EDUCATION Basin Operator Physical Therapy 11/17/17 Felipe Neff MD [address] [place] [address] Referring Physician Endocrinology Diabetes & Metabolism 04/28/22 Alex Jauregui MD [address] [place] [address] Consulting Physician Cardiology 03/07/23 Uan Guallpa DNP [address] [place] [address] Nurse Practitioner Neurology 05/27/23 documented as of this encounter
--- OUTSIDE RECORDS SUMMARY | 2025-01-15 16:33 | XMS_ITS ---
Author Organization [facility] Address [address] [place] [address] Care Team Providers Care Director Global Strategic Publisher Sales Name Role Phone Bruno Sorenson MD Primary Care Provider [phone] Janice Zimmerman PT Unavailable Unavailab Tatum Hillaird [employer] Unavailable Unavailab Saniya Salcedo [employer] Unavailable Unavailable Felipe Neff MD Unavailable [phone] Alex Jauregui MD Unavailable [phone] Una Guallpa DNP Unavailable [phone] Active Problems Problem Noted Date Diagnosed Date Bilateral knee swelling 01/11/2025 Arthritis of carpometacarpal (CMC) joint of left thumb 01/11/2025 Arthralgia, unspecified joint 01/10/2025 Age-related osteoporosis wit hout current pathological fracture 12/04/2024 Class 1 obesity due to exces s calories with serious comorbidity and body mass index (BMI) of 30.0 to 30.9 in adult 11/17/2024 Assessment & Plan (11/17/2024 4:47 PM CDT): Reviewed daily weight log with patient, weight has been stable. Continues monitoring fluid volume status closely. Coronary artery disease invo lving [place] coronary artery of [place] heart without angina pectoris 11/10/2024 Assessment & Plan (11/10/2024 3:24 PM CDT): Managed by cardiology. She denies any chest pain or pressure. She does have orthostatic dizziness. Continue secondary prevention. Abnormal liver CT 11/06/2024 Assessment & Plan (11/17/2024 4:05 PM CDT): Cirrhotic liver morphology on CT with normal liver function tests. No acute abdominal or pelvic abnormalities. - Follow up with Dr. Gomes as scheduled. Assessment & Plan (11/10/2024 3:22 PM CDT): Reviewed cirrhotic changes noted on imaging during hospitalization. Patient was given referral to GI and states that she will call and schedule follow-up for this. Dizziness 11/04/2024 Assessment & Plan (11/17/2024 4:47 PM CDT): Improved, continues to hold diltiazem with soft BP readings. Continue monitoring blood pressure regularly. Reviewed BP log with patient and her today. Readings since holding diltiazem between 100-110 systolic. Assessment & Plan (11/10/2024 1:33 PM CDT): Dizziness with position changes. Reviewed fall precautions. Contusion of left leg 07/13/2024 Assessment & Plan (07/13/2024 9:42 AM CRUSHER FOREMAN): Check imaging and will poncho frederick. Reivwed and will pranay jones. Trochanteric bursitis of right hip 03/15/2024 Annual physical exam 03/13/2024 Heart failure with preserved ejection fraction 1 Iron deficiency anemia 02/17/2024 Assessment & Plan (07/17/2024 11:06 AM CRUSHER FOREMAN): Labs stable; MAY has been ongoing since 2021. Current on c-scope. Referred to heme for further evaluation. Hypokalemia 01/28/2024 Assessment & Plan (11/17/2024 4:47 PM CDT): Continues potassium 20 mEq tablet daily in addition to spironolactone. K = 4.1 on 11/10. Medications managed by patient's cardiology team, no changes made today. Patient will have repeat labs drawn 11/23, ordered by Cardiology. Assessment & Plan (11/10/2024 3:16 PM CDT): She continues potassium 20 mEq tablet daily in addition to spironolactone. K = 2.9 on hospital admission, K = 4.4 at hospital discharge. Had plan to continue supplement without change and repeat BMP in 1 week however patient will now go to the emergency department for further evaluation and treatment of CHF exacerbation. Hypercalcemia 01/15/2024 Assessment & Plan (07/17/2024 11:03 AM CRUSHER FOREMAN): 01/17 calcium=9.4. Repeat labs ordered today. Hypothyroidism 08/18/2023 Assessment & Plan (08/18/2023 11:18 AM CDT): Patient continues follow-up with Endocrinology will repeat TFTs to monitor replacement level. Mixed hyperlipidemia 06/18/2023 Heart failure, unspecified 06/11/2023 Cerebrovascular accident (CV A) due to embolism of left middle cerebral artery 05/24/2023 Athscl heart disease of jov[place] ve coronary artery w/o ang pctrs 05/24/2023 Pneumonia 05/20/2023 superintendent terminal current use of anticoagulant Assessment & Plan (08/18/2023 11:17 AM CDT): Patient continues on DOAC to good effect. Denies any blood in the stool or blood in the urine or epistaxis. Does note easy bruisability on the skin and susceptibility to skin tears. Pain in left knee 05/10/2023 Bilateral leg pain 05/10/2023 Cellulitis 05/10/2023 Sarcoidosis 05/10/2023 Bronchiectasis 05/10/2023 Chronic headaches 05/10/2023 Asthma 05/10/2023 Permanent atrial fibrillation 05/10/2023 Assessment & Plan (07/17/2024 11:01 AM CRUSHER FOREMAN): Rate controlled; continues diltiazem and eliquis. Trochanteric bursitis of left hip 05/10/2023 Stress incontinence 05/10/2023 Primary osteoarthritis, right shoulder Pleural effusion 05/10/2023 Muscular deconditioning 05/10/2023 Mild intermittent asthma 05/10/2023 Metabolic syndrome 05/10/2023 Edema 05/10/2023 Complete rotator cuff tear o r rupture of right shoulder, not specified as traumatic 05/10/2023 Chronic obstructive pulmonary disease 05/10/2023 Assessment & Plan (08/18/2023 11:18 AM CDT): See discussion as above in regards to inhaler usage. Cellulitis of foot 05/10/2023 Carotid artery insufficiency syndrome 05/10/2023 Coronary artery disease of n ative heart with stable angina pectoris 05/10/2023 Assessment & Plan (08/18/2023 11:18 AM CDT): Secondary prevention no active anginal signs or symptoms. Acid reflux 05/10/2023 Abnormal PFT 05/10/2023 Atherosclerotic heart diseas e of [place] coronary artery with other forms of angina pectoris 05/10/2023 Acute on chronic diastolic congestive heart fail ure 03/11/2023 Assessment & Plan (11/17/2024 4:47 PM CDT): CHF exacerbation due to lack of diuretics, causing fluid overload and elevated BNP. Symptomatic improvement with increased torsemide. She was instructed by Cardiology to Double torsemide dose for two days, then return to regular dose of 20 mg b.i.d.. - Monitor weight daily, take metolazone if weight exceeds 147 lbs. - Wear support stockings. - Order echocardiogram in six weeks, ordered by Cardiology. - Will have repeat lab work before cardiology appointment on November 23. Atrial fibrillation 03/11/2023 Assessment & Plan (07/13/2024 9:42 AM CRUSHER FOREMAN): DOaC and rate control. Hypertensive heart disease with heart failure Chest pain, unspecified type 03/06/2023 Pulmonary infiltrate 07/23/2022 superintendent terminal (current) use of 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 07/23 Arthritis of right acromioclavicular joint 08/14 Recurrent acute serous otitis media of left ear 06/16/2021 Assessment & Plan (06/16/2021 1:59 PM CRUSHER FOREMAN): Avoid ear cleaning techniques Avoid water to ears Follow up with Dentist Referred otalgia of left ear 06/16/2021 Assessment & Plan (06/16/2021 1:59 PM CRUSHER FOREMAN): Avoid ear cleaning techniques Avoid water to ears Follow up with Dentist Scalp psoriasis 07/19/2020 Overview (07/19/2020): Contniue triamcinolone. Assessment & Plan (08/18/2023 11:18 AM CDT): Refill on ketoconazole shampoo to good effect. nursing home current use of anticoagulant 0 Mixed hyperlipidemia 09/26/2019 Assessment & Plan (09/26/2019 2:08 PM CDT): Dr Perez started Mrs Olson on pravastatin 40mg at her last appt. 08/09/19 A1C=6.1% KA=501 HDL=39 QA=205 LDL=66 TC/HDL=3.9 Reviewed above results w/Mrs Olson. Has f/u appt w/Dr Perez in 3 mos (cardio at [facility]) Denies any SE from statin therapy. BMI 28.0-28.9,adult 09/26/2019 Assessment & Plan (09/26/2019 2:12 PM CDT): Reviewed need to lose weight, reviewed health benefits. Reviewed recommendations for daily intake & activity 20-30 minutes/day. Discussed healthy diet and importance of regular physical activity. Subacromial impingement of right shoulder 2018 Seasonal allergies 02/22/2018 Acute diastolic congestive heart failure 018 Assessment & Plan (11/10/2024 3:15 PM CDT): Patient reports weight at hospital admission 143 and 153 at hospital discharge. She continues to hold diltiazem, metolazone and torsemide since hospital discharge. Blood pressure is soft in office today 104/62. Recommended not continuing diuretics due to soft BP. She is experiencing shortness of breath, wheezing on exam. SpO2 92%. Explained to patient unable to complete further workup in outpatient setting as she requires monitoring. Recommend she go to the emergency room, recommended [facility] as patient's range aide is from [facility] and she will need cardiac consult. She and her are agreeable with plan and will go to the emergency department. Assessment & Plan (07/13/2024 9:41 AM CRUSHER FOREMAN): No acute s/s of lfuid overload and will motnir ersponse. NO change at the presnt itme. Continue f/uw with Dr. Jones, cardiology. No chest pains/pressures/palptiations. Assessment & Plan (08/18/2023 11:17 AM CDT): Patient with some increased lower extremity edema has been on chronic diuresis we will check labs to monitor renal status ineffectiveness of diuresis. Reviewed low-sodium diet. Assessment & Plan (07/15/2017 10:31 AM CRUSHER FOREMAN): Congestive heart failure due to coronary artery disease (CAD). Heart failure is unchanged. NYHA Class III. Continue current treatment regimen. Heart failure will be reassessed . Pt's weight is up to 171 today and does have increased waist feel and size when asked about it. Does have ankle edema and now this cough that has actually been going on for almost 4 weeks. Does have shortness of breath with exertion although she does not seem to want to agree with it. Pt needs to take her prn lasix as prescribed by Dr. Perez. We will get a cxr. Need to rule out pneumonia, CHF exacerbation or problem with sarcoidosis flare up in lungs. Last Echo that I see in the medical records was 2017 per her range aide note and EF was 64%. Bronchitis 07/14/2017 Assessment & Plan (07/14/2019 8:26 AM CRUSHER FOREMAN): Jennck sent. Currently taking predinsone (pulm Dr Rodriguez) & albuterol inhaler. discussed expectorant (ie mucinex). Reviewed med Ses & scheduling. Aware to complete antibiotic. Instructed in albuterol inhaler use. Aware to rinse mouth after use. Push fluids. Discussed saline nasal spray. Reviewed red flags; what would warrant rtc or ED for further eval. Assessment & Plan (07/14/2017 12:58 PM CRUSHER FOREMAN): Take your antibiotic as directed You may take a cough suppressant to calm your cough (dayquil, delsym, or nyquil) If your cough is productive or you have tight chest congestion with thick mucus- you can use a cough expectorant like Mucinex Benadryl/Zyrtec can be used to dry up a runny nose along with a nasal spray like azelastine or mometasone.. The use of Chlorpheniramine (antihistamine) plus pseudoephedrine (decongestant) has been proven to be helpful. Avoid environmental triggers and allergen Drink plenty of fluids and get plenty of rest Tylenol/Motrin for pain/fever If you are not better in the next 5 days, follow up w PCP. Monoclonal paraproteinemia 02/18/2017 Osteoporosis 02/05/2017 Assessment & Plan (07/13/2024 9:42 AM CRUSHER FOREMAN): Supportive caretheand econtinues on forteol. Stenosis of lateral recess of lumbar spine 01/22 Acquired kyphoscoliosis 01/22/2017 History of fracture of vertebra 01/22/2017 Postlaminectomy syndrome of lumbar region 2016 Malignant neoplasm of thyroid gland 01/20/2017 Assessment & Plan (07/13/2024 9:41 AM CRUSHER FOREMAN): Devonte krishnamurthy/uw with endocrinology. Reviewed suppressive therapy and clinically euthryoid. Atrial fibrillation 01/20/2017 Assessment & Plan (11/10/2024 3:22 PM CDT): By Dr. Jones. Rate controlled. Holding diltiazem. Continue Eliquis 5 mg b.i.d.. Assessment & Plan (08/18/2023 11:17 AM CDT): Patient continues follow-up with Dr. Jones cardiology. No change in anticoagulation or rate control. Assessment & Plan (07/15/2017 9:48 AM CRUSHER FOREMAN): Pt. Has long time hx of a-fib uncontrolled and tried on many different medications. Pt. Continues on Pradaxa, Lopressor, Digoxin, Tiazac. Pt. Needs to f/u with cardiology, Dr. Perez Sarcoidosis 01/20/2017 Assessment & Plan (08/18/2023 11:17 AM CDT): Patient with chronic use of inhaler both maintenance and rescue. Patient continues on 5 mg of prednisone daily and follow-up with Pulmonary. Assessment & Plan (09/26/2019 2:07 PM CDT): Has f/u appt w/Dr Rodriguez in few wks. appt from 08/06/19 was cancelled d/t covid. Denies any increased work of breathing at this time. Assessment & Plan (07/14/2019 8:24 AM CRUSHER FOREMAN): Followed by Dr Oma Rodriguez pulben at [facility] for sarcoidoisis. Next appt 08/06/19. Assessment & Plan (07/15/2017 10:01 AM CRUSHER FOREMAN): Pt will need to f/u with Pulmonary for possible sarcoidosis flare up in lungs Hypertension, essential 01/20/2017 Assessment & Plan (07/13/2024 9:41 AM CRUSHER FOREMAN): Stable and will montiro resopnse. NO change and will montior repsnose. Assessment & Plan (08/18/2023 11:18 AM CDT): Patient's blood pressure stable on diltiazem and other medications used for both blood pressure and rate control. Assessment & Plan (09/26/2019 2:09 PM CDT): The blood pressure is under good control. Ideally it should be under 130/80. Continue medications without adjustment. Continue efforts to eat well (4-5 fruits and veggies) daily and exercise for about 30 min nearly every day. Watch salt intake, keeping to less than 2000mg per day. Arthritis 01/20/2017 Bronchial asthma 01/20/2017 Chronic right shoulder pain 01/20/2017 Sarcoidosis, unspecified 01/20/2017 Other chronic pain 02/10/2016 Current Treatment and Therapy Plans No current plan information found. Other Current Plans iron dextran (INFED) infusion* Plan Start Date:02/24/2024 Plan Provider:Quinn Jensen MD Linked Problems Iron deficiency anemia, unsp ecified iron deficiency anemia type Treatment Medications No medications scheduled. IV Maintenance Therapy Plan* Plan Start Date:02/24/2024 Plan Provider:Quinn Jensen MD Linked Problems Iron deficiency anemia, unsp ecified iron deficiency anemia type Treatment Medications No medications scheduled. Past Treatment and Therapy Plans Lifetime Dose Tracking * Chemical Lifetime Dose Automatic Entry Manual Entr y Fluoro Time 1.852 minutes 1.852 minutes 0 minutes Air kerma at the reference point (Ka,r) 30.38 mGy 3 0.38 mGy 0 mGy Resolved Problems Problem Noted Date Diagnosed Date Resolved Date Aphasia 05/25/2023 01/09/2024 Right hip pain 07/16/2021 04/29/2023 BMI 33.0-33.9,adult 01/21/2021 04/29/20 Sacroiliitis 03/29/2020 04/29/2023 DDD (degenerative disc disease), lumbar 03/29/2020 04/29/2023 Lumbar radiculopathy 03/29/2020 023 Encounter for osteoporosis s creening in asymptomatic postmenopausal patient 07/14/2019 12/0 11/2022 Assessment & Plan (07/14/2019 8:26 AM CRUSHER FOREMAN): DEXA ordered. Will contact with results once received. Encounter for screening for lipoid disorders 0 04/29/2023 Assessment & Plan (07/14/2019 8:27 AM CRUSHER FOREMAN): 07/10/19 MQ=703 HDL=26 UV=802 LDL=59 TC/HDL=5.2 BCY=777 Copy of results given to mrs Olson. Written explanations given. Dietary changes discussed as well as increasing activity as tolerated. BMI 29.0-29.9,adult 07/14/2019 09/26/19 Assessment & Plan (07/14/2019 8:27 AM CRUSHER FOREMAN): Reviewed need to lose weight, reviewed health benefits. Reviewed recommendations for daily intake & activity 20-30 minutes/day. Discussed healthy diet and importance of regular physical activity. Trochanteric bursitis of right hip 03/08/2018 04/29/2023 Iliotibial band syndrome of right side 03/08/2018 04/29/2023 Iliotibial band syndrome of left side 03/08/2018 04/29/2023 No diagnosis on [place] 03/18/201707/14 Pulmonary embolism 01/20/2017 4 Diabetes mellitus 01/20/2017 03/13/2024 Assessment & Plan (09/26/2019 2:11 PM CDT): Lab Results Component Value Date HGBA1C 5.3 03/15/2019 HGBA1C 5.3 07/12/2018 A1c at endo 08/09/19=6.1% see scanned labs in media section. Reviewed dietary/exercise recommendations. Instructed to perform daily foot check. Reviewed medication side effects & scheduling. To check/record FSBS & bring to appointments. Labs ordered; will call with results when received. To make follow up appointment in 3 months. Reviewed red flags; what would warrant further evaluation. Assessment & Plan (07/14/2019 8:24 AM CRUSHER FOREMAN): Microalbumin, POC 80 mg/L Final CRE 100 mg/dL; A:C 30-300 mg/g Lumbago 12/07/2016 04/29/2023 Hypotension due to drugs 10/22/2015 Overview (08/27/2016): Hypotension due to medication Candidiasis of mouth 10/22/2015 020 Overview (08/27/2016): Oral thrush
--- OUTSIDE RECORDS SUMMARY | 2025-01-15 16:33 | XMS_ITS | Clinical Summary ---
Author Organization [facility] Address [address] [place] [address] Care Team Providers Care Director Of Labor And Delivery Name Role Phone Bruno Sorenson MD Primary Care Provider [phone] Janice Zimmerman PT Unavailable Unavailab Tatum Hilliard SUPER[employer]OR [employer] Unavailable Unavailab Saniya Salcedo SUPER[employer]OR [employer] Unavailable Unavailable Felipe Neff MD Unavailable [phone] Alex Jauregui MD Unavailable Una Guallpa DNP Unavailable [phone] Allergies Active Allergy Reactions Criticality Noted Date Comments Adhesive Tape-Silicones Other (See comments) Reaction: Blisters, Penicillin G Penicillins Other (See comments),Rash Medium 12/29/2010 Reaction: Itching, , , Sulfa (Sulfonamide Antibiotics) Other (See comments),Rash Medium 12/29/2010 Reaction: Swelling, , , , Medications pravastatin (PRAVACHOL) 40 mg tablet Take 1 tablet (40 mg total) by mouth daily after dinner 020 Active spironolactone (ALDACTONE) 25 mg tablet Take 1 tablet (25 mg total) by mouth daily 021 Active albuterol HFA (PROVENTIL HFA,VENTOLIN HFA,PROAIR HFA) 90 mcg/actuation inhalerIndication s:Bronchitis Inhale 2 puffs every 6 (six) hours as needed for wheezing 1 each 023 Active Farxiga 10 mg tablet Take 1 tablet (10 mg total) by mouth daily with breakfast 023 Active ipratropium-albut Paradise (DUO-NEB) 0.5-2.5 mg/3 mL nebulizer solution Take 3 mL by nebulization every 6 (six) hours as needed for shortness of breath 2.5/3ml 023 Active apixaban (ELIQUIS) 5 mg tablet Take 1 tablet (5 mg total) by mouth every 12 (twelve) hours Active acetaminophen (TYLENOL) 500 mg tablet Take 2 tablets (1,000 mg total) by mouth every 6 (six) hours as needed for pain Active isosorbide mononitrate ER (IMDUR) 30 mg 24 hr tablet Take 1 tablet (30 mg total) by mouth nightly 30 tablet 2024 Active fluocinonide (LIDEX) 0.05 % creamIndications: Scalp psoriasis APPLY ONCE DAILY TO SCALP THE NIGHT BEFORE WASHING HAIR Active Synthroid 175 mcg tabletIndications :Hypothyroidism, unspecified type Take 1 tablet (175 mcg total) by mouth daily 025 Active metoprolol tartrate (LOPRESSOR) 50 mg immediate release tabletIndications :Heart failure with preserved ejection fraction, unspecified HF chronicity Take 1 tablet (50 mg total) by mouth nightly 100mg qam 50mg qpm 024 Active docusate sodium (COLACE) 100 mg capsule TAKE ONE CAPSULE BY MOUTH TWICE DAILY 180 capsule 1 025 Active denosumab (Prolia) 60 mg/mL syringe (DXCODE: M81.0) 1 ML Subcutaneous every 6 months for 1 days 025 Active fluticasone propion-salmetero L (ADVAIR DISKUS) 250-50 mcg/dose diskus inhaler Inhale 1 puff 2 (two) times a day 025 Active traMADoL (ULTRAM) 50 mg tablet Take 1 tablet (50 mg total) by mouth every 8 (eight) hours as needed for pain 90 tablet 025 Active aspirin 81 mg enteric coated tablet Take 1 tablet (81 mg total) by mouth nightly Active baclofen (LIORESAL) 10 mg tablet Take 1 tablet (10 mg total) by mouth nightly Active gabapentin (NEURONTIN) 300 mg capsule Take 1 capsule (300 mg total) by mouth 2 (two) times a day Active cholecalciferol 25 mcg (1,000 unit) tablet Take 1 tablet (1,000 Units total) by mouth daily Active metoprolol (LOPRESSOR) 100 mg tablet Take 1 tablet (100 mg total) by mouth daily 100mg qam 50mg qpm Active omeprazole (PriLOSEC) 40 mg capsule Take 1 capsule (40 mg total) by mouth daily before breakfast Active torsemide (DEMADEX) 20 mg tablet Take 2 tablets (40 mg total) by mouth daily Active aspirin (ASPIRIN LOW DOSE) 81 mg tablet take 1 tablet (81MG) by oral route every day 0 013 2024 Discontinued vitamin E (AQUASOL E) 400 unit capsule take 1 capsule by oral route once a day 0 0 013 2024 Discontinued(S top Taking at Discharge) Symbicort 160-4.5 mcg/actuation inhaler Inhale 2 puffs 2 (two) times a day 020 2024 Discontinued metoprolol (LOPRESSOR) 100 mg tablet Take 1 tablet (100 mg total) by mouth 2 (two) times a day 100 mg in morning 50 mg at night 2024 Discontinued Accu-Chek Guide test strips strip daily 023 2024 Discontinued ketoconazole (NIZORAL) 2 % shampooIndication s:Scalp psoriasis Apply topically 2 (two) times a week Apply to damp skin, lather, leave on 5 minutes, and rinse 120 mL 3 024 2024 Discontinued(S top Taking at Discharge) Pogo Automatic Blood Gluc Sys misc 2024 Discontinued Pogo Automatic Test Cartridge 30 gauge combo pack 2024 Discontinued torsemide (DEMADEX) 20 mg tablet Take 1 tablet (20 mg total) by mouth 2 (two) times a day At 7 am and 2 pm 60 tablet 2024 Discontinued lidocaine (LIDODERM) 5 % Place 1 patch on the skin daily for 10 days Remove & discard patch within 12 hours or as directed by . 10 patch 2024 Discontinued nitroglycerin (NITROSTAT) 0.[address] 1 tablet (0.4 mg total) under the tongue every 5 (five) minutes as needed for chest pain for up to 10 days 2024 Discontinued(S top Taking at Discharge) potassium chloride ER (KLOR-CON) 20 mEq CR tablet Take 1 tablet (20 mEq total) by mouth daily 2024 Discontinued(S top Taking at Discharge) lancets (Accu-Chek Fastclix Lancet Drum) [facility] [place] ONCE D FOR 90 DAYS 2024 Discontinued budesonide-glycop yr-formoterol (BREZTRI) 160-9-4.8 mcg/actuation inhaler as needed 2024 Discontinued dilTIAZem (CARDIZEM) 30 mg tablet 1 tablet 2 TIMES DAILY (route: oral) 2024 Discontinued clobetasoL (TEMOVATE) 0.05 % external solution APPLY TOPICALLY TO THE AFFECTED AREA TWICE DAILY 50 mL 1 2024 Discontinued(S top Taking at Discharge) omeprazole (PriLOSEC) 40 mg capsule TAKE 1 CAPSULE(40 MG) BY MOUTH DAILY BEFORE BREAKFAST 90 capsule 3 2024 Discontinued ketoconazole (NIZORAL) 2 % cream Apply topically daily For 2-3 weeks 60 g 2024 Discontinued metOLazone (ZAROXOLYN) 2.5 mg tabletIndications :Heart failure with preserved ejection fraction, unspecified HF chronicity 1 tablet (2.5 mg total) as needed 024 2024 Discontinued teriparatide (FORTEO) 20 mcg/dose (620mcg/2.48mL) pen injector injection ADMINISTER 20 MCG UNDER THE SKIN DAILY 025 2024 Discontinued clotrimazole 1 % cream Apply topically 2 (two) times a day 30 g 025 2024 Discontinued(S top Taking at Discharge) triamcinolone (KENALOG) 0.5 % ointment APPLY TOPICALLY TO THE AFFECTED AREA TWICE DAILY 30 g 025 2024 Discontinued(S top Taking at Discharge) gabapentin (NEURONTIN) 300 mg capsule TAKE 1 CAPSULE(300 MG) BY MOUTH TWICE DAILY 200 capsule 1 025 2024 Discontinued traMADoL (ULTRAM) 50 mg tablet Take 1 tablet (50 mg total) by mouth every 8 (eight) hours as needed for pain 90 tablet 025 2024 Discontinued baclofen (LIORESAL) 10 mg tablet TAKE 1 TABLET(10 MG) BY MOUTH THREE TIMES DAILY 90 tablet 025 2024 Discontinued vit A-A-gmubkb-zinc-l utein 226-90-0.8-5 mg capsule Take 1 each by mouth 2 (two) times a day 2024 Discontinued(S top Taking at Discharge) inulin-chromium picolinate 2-100 gram-mcg tablet,chewable Take by mouth 2024 Discontinued multivitamin-mine rals-lutein tablet Take by mouth 2024 Discontinued ondansetron ODT (ZOFRAN-ODT) 4 mg disintegrating tablet Take 1 tablet (4 mg total) by mouth every 8 (eight) hours as needed for nausea or vomiting 20 tablet 025 2024 Discontinued(S top Taking at Discharge) Active Problems Problem Noted Date Diagnosed Date [...] status closely. Coronary artery disease invo lving [place] coronary artery of [place] heart without angina pectoris 11/10/2024 Assessment & [...] 07/13/2024 Assessment & Plan (07/13/2024 9:42 AM ELECTRONIC INTELLIGENCE OFFICER): Check imaging and will terranceior sandieopnse. Reivwed and will terranceir ersponse. Trochanteric bursitis of right hip 03/15/2024 Annual physical exam 03/13/2024 Heart failure with preserved ejection fraction 1 Iron deficiency anemia 02/17/2024 Assessment & Plan (07/17/2024 11:06 AM ELECTRONIC INTELLIGENCE OFFICER): Labs stable; MAY has been ongoing since [...] 01/15/2024 Assessment & Plan (07/17/2024 11:03 AM ELECTRONIC INTELLIGENCE OFFICER): 01/17 calcium=9.4. Repeat labs ordered today. Hypothyroidism 08/18/2023 Assessment & Plan (08/18/2023 11:18 AM CDT): Patient continues follow-up with Endocrinology will repeat TFTs to monitor replacement level. 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 Trochanteric [...] PFT 05/10/2023 Atherosclerotic heart diseas e of [place] coronary artery with other forms of angina [...] 03/11/2023 Assessment & Plan (07/13/2024 9:42 AM ELECTRONIC INTELLIGENCE OFFICER): DOaC and rate control. Hypertensive heart disease with heart failure Chest pain, unspecified type 03/06/2023 Pulmonary infiltrate 07/23/2022 FPC (current) use of 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 07/23 Arthritis of right acromioclavicular joint 08/14 Recurrent acute serous otitis media of left ear 06/16/2021 Assessment & Plan (06/16/2021 1:59 PM ELECTRONIC INTELLIGENCE OFFICER): Avoid ear cleaning techniques Avoid water to ears Follow up with Dentist Referred otalgia of left ear 06/16/2021 Assessment & Plan (06/16/2021 1:59 PM ELECTRONIC INTELLIGENCE OFFICER): Avoid ear cleaning techniques Avoid water to ears Follow up with Dentist Scalp psoriasis 07/19/2020 Overview (07/19/2020): Contniue triamcinolone. Assessment & Plan (08/18/2023 11:18 AM CDT): Refill on ketoconazole shampoo to good effect. FPC current use of anticoagulant 0 Mixed hyperlipidemia 09/26/2019 Assessment & Plan (09/26/2019 2:08 PM CDT): Dr Perez started Mrs Olson on pravastatin 40mg at her last appt. 08/09/19 A1C=6.1% SE=127 HDL=39 QB=032 LDL=66 TC/HDL=3.9 Reviewed above results w/Mrs Olson. Has f/u appt w/Dr Perez in 3 mos (cardio at [facility]) Denies any SE from statin therapy. BMI [...] she go to the emergency room, recommended [facility] as patient's rn integrated is from [facility] and she will need cardiac consult. She and her are agreeable with plan and will go to the emergency department. Assessment & Plan (07/13/2024 9:41 AM ELECTRONIC INTELLIGENCE OFFICER): No acute s/s of lfuid overload and [...] diet. Assessment & Plan (07/15/2017 10:31 AM ELECTRONIC INTELLIGENCE OFFICER): Congestive heart failure due to coronary artery [...] the medical records was 2017 per her rn integrated note and EF was 64%. Bronchitis 07/14/2017 Assessment & Plan (07/14/2019 8:26 AM ELECTRONIC INTELLIGENCE OFFICER): Zpack sent. Currently taking predinsone (pulm Dr Rodriguez) & albuterol inhaler. discussed expectorant (ie mucinex). Reviewed med Ses & scheduling. Aware to complete antibiotic. Instructed in albuterol inhaler use. Aware to rinse mouth after use. Push fluids. Discussed saline nasal spray. Reviewed red flags; what would warrant rtc or ED for further eval. Assessment & Plan (07/14/2017 12:58 PM ELECTRONIC INTELLIGENCE OFFICER): Take your antibiotic as directed You may [...] 02/05/2017 Assessment & Plan (07/13/2024 9:42 AM ELECTRONIC INTELLIGENCE OFFICER): Supportive caretheand econtinues on forteol. Stenosis of lateral recess of lumbar spine 01/22 Acquired kyphoscoliosis 01/22/2017 History of fracture of vertebra 01/22/2017 Postlaminectomy syndrome of lumbar region 2016 Malignant neoplasm of thyroid gland 01/20/2017 Assessment & Plan (07/13/2024 9:41 AM ELECTRONIC INTELLIGENCE OFFICER): Ciontinue f/uw with endocrinology. Reviewed suppressive therapy and clinically euthryoid. Atrial fibrillation 01/20/2017 Assessment & Plan (11/10/2024 3:22 PM CDT): By Dr. Jones. Rate controlled. Holding diltiazem. Continue Eliquis 5 mg b.i.d.. Assessment & Plan (08/18/2023 11:17 AM CDT): Patient continues follow-up with Dr. Jones cardiology. No change in anticoagulation or rate control. Assessment & Plan (07/15/2017 9:48 AM ELECTRONIC INTELLIGENCE OFFICER): Pt. Has long time hx of a-fib [...] time. 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 Next appt 08/06/19. Assessment & Plan (07/15/2017 10:01 AM ELECTRONIC INTELLIGENCE OFFICER): Pt will need to f/u with Pulmonary for possible sarcoidosis flare up in lungs Hypertension, essential 01/20/2017 Assessment & Plan (07/13/2024 9:41 AM ELECTRONIC INTELLIGENCE OFFICER): Stable and will sally alexander. NO change and will poncho mitchell. Assessment & Plan (08/18/2023 11:18 AM CDT): [...] Sarcoidosis, unspecified 01/20/2017 Other chronic pain 02/10/2016 Resolved Problems Problem Noted Date Diagnosed Date Resolved Date Aphasia 05/25/2023 01/09/2024 Right hip pain 07/16/2021 04/29/2023 BMI 33.0-33.9,adult 01/21/2021 04/29/20 Sacroiliitis 03/29/2020 04/29/2023 DDD (degenerative disc disease), lumbar 03/29/2020 04/29/2023 Lumbar radiculopathy 03/29/2020 023 Encounter for osteoporosis s creening in asymptomatic postmenopausal patient 07/14/2019 12/11/2022 Assessment & Plan (07/14/2019 8:26 AM ELECTRONIC INTELLIGENCE OFFICER): DEXA ordered. Will contact with results once received. Encounter for screening for lipoid disorders 0 04/29/2023 Assessment & Plan (07/14/2019 8:27 AM ELECTRONIC INTELLIGENCE OFFICER): 07/10/19 CS=444 HDL=26 OX=301 LDL=59 TC/HDL=5.2 VXS=751 Copy of results given to mrs Olson. Written explanations given. Dietary changes discussed as well as increasing activity as tolerated. BMI 29.0-29.9,adult 07/14/2019 09/26/19 Assessment & Plan (07/14/2019 8:27 AM ELECTRONIC INTELLIGENCE OFFICER): Reviewed need to lose weight, reviewed health benefits. Reviewed recommendations for daily intake & activity 20-30 minutes/day. Discussed healthy diet and importance of regular physical activity. Trochanteric bursitis of right hip 03/08/2018 04/29/2023 Iliotibial band syndrome of right side 03/08/2018 04/29/2023 Iliotibial band syndrome of left side 03/08/2018 04/29/2023 No diagnosis on [place] [facility] 03/18/201707/14 Pulmonary embolism 01/20/2017 Diabetes mellitus 01/20/2017 03/13/2024 Assessment & Plan [...] evaluation. Assessment & Plan (07/14/2019 8:24 AM ELECTRONIC INTELLIGENCE OFFICER): Microalbumin, POC 80 mg/L Final CRE 100 mg/dL; A:C 30-300 mg/g Lumbago 12/07/2016 04/29/2023 Hypotension due to drugs 10/22/2015 Overview (08/27/2016): Hypotension due to medication Candidiasis of mouth 10/22/2015 020 Overview (08/27/2016): Oral thrush Encounters Date Type Department Care Team Description 01/15/2025 Orders Only [place] [employer] Product Analyst at [address] [place] [phone] James Lin MD Acute diastolic congestive heart failure (HCC) (Primary Dx); Coronary artery disease of [place] artery of [place] heart with stable angina pectoris 01/15/2025 Orders Only [place] [employer] Product Analyst at [facility] [address] [place] [address] James Lin MD Acute on chronic diastolic congestive heart failure (HCC) (Primary Dx); Coronary artery disease of [place] artery of [place] heart with stable angina pectoris 01/13/2025 3:10 PM CDT Hospital Encounter [facility]BULANCE BILLING [address] [place] [address] 01/12/2025 Telephone [facility] [address] [address] Bruno Sorenson MD 01/09/2025 9:55 PM CDT - 01/13/2025 4:57 PM CDT Hospital Encounter [address] [address] Marcello Dasilva MD Acute on chronic diastolic congestive heart failure (HCC) (Primary Dx); Arthralgia, unspecified joint; Elevated erythrocyte sedimentation rate; Elevated C-reactive protein (CRP); Bilateral knee swelling [M25.461, M25.462]; Arthritis of carpometacarpal (CMC) joint of left thumb [M18.12] Discharge Disposition: Discharge to SNF 01/09/2025 3:25 PM CDT - 01/09/2025 11:59 PM CDT Hospital Encounter [facility] BILL[facility] Discharge Disposition: Discharge to home or self care 01/08/2025 Telephone [facility] [address] [address] Bruno Sorenson MD 01/05/2025 Telephone [facility] [address] [address] Bruno Sorenson MD Additional Services Or Orders 12/28/2024 2:00 PM CDT Infusion [facility] [address] [place] [address] Dina Baxter RN Age-related osteoporosis without current pathological fracture (Primary Dx) 12/18/2024 Telephone [facility] [address] [address] Bruno Sorenson MD 12/14/2024 1:00 PM CDT Office Visit [facility] Medical [facility] [address] [place] [address] [address] [place] [address] Lisa Lam PA Rotator cuff arthropathy of right shoulder (Primary Dx); Primary osteoarthritis of right shoulder; Biceps tendonitis on right 12/14/[address] [place] [address] Felipe Neff MD 12/13/2024 Orders Only [address] [place] [address] Zenia Sepulveda RN 12/08/2024 10:00 AM CDT Office Visit [facility] Medical [facility] [address] [place] [address] [address] [place] [address] Woodrow Teague MD Primary osteoarthritis of left knee (Primary Dx) 12/08/2024 Telephone [facility] [address] [address] Bruno Sorenson MD 12/08/2024 Telephone [facility] [address] [address] Bruno Sorenson MD 12/08/2024 Telephone [facility] [address] [address] Bruno Sorenson MD 12/07/2024 Telephone [facility] [address] [address] Bruno Sorenson MD 12/05/2024 Orders Only [facility] Health Information Management [address] [place] [address], [place] [address] Bruno Sorenson MD 12/04/2024 Orders Only [address] [place] [address] Felipe Neff MD 12/04/[address] [place] [address] Zenia Sepulveda RN 12/04/2024 Telephone [facility] [address] [place] [address] Medical [address] [place] [address] Angy Bray, T 11/30/2024 Telephone [facility] [address] [address] Bruno Sorenson MD 11/30/2024 Telephone [facility] [address] [address] Bruno Sorenson MD 11/30/2024 Telephone [facility] [address] [address] Bruno Sorenson MD 11/29/2024 Telephone [facility] [address] [address] Bruno Sorenson MD 11/29/2024 Telephone [facility] [address] [address] Bruno Sorenson MD Medical Question/Miscellaneous 11/21/2024 11:15 AM CDT Office Visit [facility] Medical Group Orthopedics and Sports Medicine [address] [place] [address] [address] [place] [address] Woodrow Teague MD Trochanteric bursitis, right hip (Primary Dx) 11/17/2024 1:00 PM CDT Office Visit [facility] [address] [address] Ada Obrien NP Acute on chronic diastolic congestive heart failure (HCC) (Primary Dx); Dizziness; Class 1 obesity due to excess calories with serious comorbidity and body mass index (BMI) of 30.0 to 30.9 in adult; Hypokalemia 11/17/2024 Telephone [facility] [address] [address] Ada Obrien NP 11/16/2024 Telephone [facility] [address] [address] Bruno Sorenson MD 11/16/2024 [facility] Case Management [address] [place] [address] Maria M Michaels RN 11/15/2024 [facility] Case Management [address] [place] [address] Maria M Michaels, RN 11/14/2024 Telephone [facility] [address] [address] Bruno Sorenson MD Medical Question/Miscellaneous 11/14/2024 Telephone [facility] [address] [address] Bruno Sorenson MD Appointment Request 11/10/2024 1:00 PM CDT Office Visit [facility] [address] [address] Ada Obrien NP Chronic diastolic congestive heart failure (HCC) (Primary Dx); Dizziness; Paroxysmal atrial fibrillation (HCC); Coronary artery disease involving [place] coronary artery of [place] heart without angina pectoris; Hypokalemia; Abnormal liver CT 11/10/2024 Telephone [facility] [address] [address] Tierney Rosas 11/10/2024 Telephone [facility] [address] [address] Bruno Sorenson MD 11/09/2024 Telephone [facility] [address] [address] Bruno Sorenson MD Additional Services Or Orders 11/09/2024 Telephone [facility] [address] [address] Bruno Sorenson MD YONG Questions 11/08/2024 Telephone [facility] [address] [address] Bruno Sorenson MD Medical Question/Miscellaneous 11/03/2024 8:30 PM CDT - 11/08/2024 3:36 PM CDT Hospital Encounter [facility] [address] [place] [address] Lupe Lawton MD Huynh, Kiet T., MD Nations, Matthew Austin, DO FasickCheryl DO Dizziness (Primary Dx); Weakness; Abnormal liver CT Discharge Disposition: Discharge to home, home health skilled care 10/24/2024 Telephone [facility] [address] [address] Bruno Sorenson MD Medical Records Request from Last 3 Months Immunizations Immunization Administration Dates Next Due H1N1 Inj 02/21/2015 Influenza, Quadrivalent, Hig h Dose, Preservative Free, Intrr 03/16/2023,03/10/2021,03/07/2020 Influenza, Quadrivalent, Spl it, Preservative Free, Intramuscular 02/24/2017,02/10/2016 Influenza, Split 03/07/2012,04/22/2010 Influenza, Trivalent, High D ose, Split, Preservative Free, Intramuscular 05/22/2024,03/15/2019,03/05/2018,02/22 Influenza, Trivalent, IM (MDV) 6,03/08/2015,03/02/2013,03/06 Influenza, Trivalent, Preser vative Free, Intramuscular 03/24/2014 Influenza, Unspecified 02/21/2022,02/22/2020 Moderna SARS-CoV-2 Monovalen t Vaccination (12+ YRS) 08/07/2020,07/10/2020 Pneumococcal Conjugate PCV 13 02/10/2016, 015 Pneumococcal Polysaccharide PPV23 02/24/2017, Tdap 02/24/2013 Surgical History Surgery Date Site/Laterality Comments HYSTERECTOMY THYROIDECTOMY Bilateral LAMINECTOMY CHOLECYSTECTOMY ABDOMINAL SURGERY APPENDECTOMY BACK SURGERY EYE SURGERY FRACTURE SURGERY Medical History Medical History Date Comments Malignant neoplasm of thyroi d gland (HCC) Cancer, thyroid; Comments: C KH 02/10/2016 - Atrial fibrillation (HCC) Atrial fibrillation Difficulty walking Arthritis Asthma CHF (congestive heart failure) (HCC) Diabetes mellitus (HCC) History of transfusion Hypertension Family History Medical History Relation Name Comments Arthritis Brother Diabetes Brother Heart disease Brother Hypertension Brother Stroke Brother Diabetes Father Stroke Father Arthritis Mother Hearing loss Mother Heart attack Mother Heart disease Mother Hypertension Mother Stroke Mother Early Other Heart disease Other Stroke Other Diabetes Son Relation Name Status Comments Brother Father Mother Other Son Alive Social History Tobacco Use Types Packs/Day Years Used Date Smoking Tobacco: Never Passive Smoke Exposure: Never Smokeless Tobacco: Never Tobacco Cessation:Counseling Given: Not Answered Alcohol Use Standard Drinks/Week Comments No 0 [...] week 11/06/2024 How often do you attend [facility] or holiness services? More than 4 times per year 11/06/2024 Do you belong to any clubs o r organizations such as latter day groups, unions, fraternal or athletic groups, or [...] place to sleep or slept in a custodial (including now)? No 05/20/2023 Housing Stability Vital Sign Answer Vasu e Recorded In the last 12 months, was t here a time when you were not able to pay the mortgage or rent on time? No 11/06/2024 In the past 12 months, how m any times have you moved where you were living? 0 11/06/2024 At any time in the past 12 m [facility], were you homeless or living in a custodial (including now)? No 11/06/2024 Social Connection and Isolation Panel Answer Date Recorded In a typical week, how many times do you talk on the phone with family, friends, or neighbors? More than three times a week 01/12/2025 How often do you get togethe r with friends or relatives? More than three times a week 01/12/2025 How often do you attend [facility] or holiness services? More than 4 times per year 01/12/2025 Do you belong to any clubs o r organizations such as latter day groups, unions, fraternal or athletic groups, or [...] any time in the past 12 m [facility], were you homeless or living in a custodial (including now)? No 01/12/2025 [facility] Utilities Answer Date Recorded In the [...] Master's degree (e.g., MA, MS, Berna, MEd, VOCATIONAL PSYCHOLOGIST, LAYO) 01/31/2024 Comments No Sex and Gender Information Value Date Recorded Sex Assigned at Not on file Legal Sex Female 11:50 PM ELECTRONIC [employer]TELL[employer] OFFIC[employer] Gender Identity Not on file Sexual Orientation Not on file Obstetrics History Last Filed Vital Signs Vital Sign Reading Time Taken Comments Blood Pressure 104/57 01/13/2025 11:53 AM CDT Pulse 68 01/13/2025 11:53 AM CDT Temperature 37.1 C (98.8 F) 01/13/2025 11:53 AM CDT Respiratory Rate 18 01/13/2025 11:53 AM CDT Oxygen Saturation 94% 01/13/2025 11:53 AM CDT Inhaled Oxygen Concentration - - Weight 68.5 kg (151 lb 0.2 oz) 01/10/2025 10:35 PM CDT Height 149.9 cm (4' 11) 01/10/2025 10:35 PM CDT Body Mass Index 30.5 01/10/2025 10:35 PM CDT Plan of Treatment Health Maintenance Due Date Last Done Comments Hepatitis C Screening 1945 Hepatitis B Screening 1963 Zoster Vaccine (1 of 2) 1997 DTaP/Tdap/Td Vaccine (2 - Td or Tdap) 02/24/2023 02/24/2013 Foot Exam 07/20/2023 07/20/2022, 110 10/2019, 07/12/2018, Additional history exists Well Visit 65+ 07/20/2023 07/20/2022, 12/23, 09/27/2020, Additional history exists Covid-19 Vaccine (2023-2 5 season) 2024 05/27/2021, 08/07/2020, 07/10/2020 Hemoglobin A1C 07/16/2024 01/14/2024, 04/24, 03/07/2023, Additional history exists Albumin Creatinine Ratio, Urine 01/13/2025 01/14/2024, 03/19/2023, 03/16/2023, Additional history exists Lipid Panel 01/13/2025 01/14/2024, 06/2023, 03/07/2023, Additional history exists Influenza Vaccine (#1) 2025 , 03/16/2023, 02/21/2022, Additional history exists Dilated Eye Exam 06/28/2025 06/28/2024, , 01/28/2022, Additional history exists Depression Screening 11/17/2025 11/17/2024, 11/10/2024, 03/13/2024, Additional history exists eGFR 01/12/2026 01/12/2025, 12/22, 11/08/2024, Additional history exists Fall Risk Assessment 01/13/2026 01/13/2025, 11/17/2024, 11/10/2024, Additional history exists Osteoporosis Screening-Bone Density Scan 10/13/2026 10/13/2024, 05/05/2022, 11/29/2019, Additional history exists Pneumococcal vaccine 65+ Completed 017, 02/10/2016, 02/21/2015, Additional history exists Breast Cancer Screening-Mammogram Discontinued 06/14/2018, 01/26/2017, 03/19/2016, Additional history exists Goals Goal Patient Goal Type Associated Problems Recent Progress Patient-Stated? Author [facility] No Karoline Betancourt, RN Note: Patient will establish a comfort-function goal and identify the pain level that will allow the patient to perform desired activities and achieve an acceptable quality of life. Procedures Procedure Name Priority Date/Time Associated Diagnosis Comments POCT GLUCOSE DEVICE Routine 01/13/2025 11:18 AM CDT POCT GLUCOSE DEVICE Routine 01/13/2025 6 :31 AM CDT POCT GLUCOSE DEVICE Routine 01/12/2025 8 :14 PM CDT XR ANKLE LEFT 3 OR MORE VIEWS IP Routine 01/12/2025 6:18 PM CDT XR ANKLE RIGHT 3 OR MORE VIEWS IP Routine 01/12/2025 6:17 PM CDT POCT GLUCOSE DEVICE Routine 01/12/2025 5 :47 PM CDT EGFR Routine 01/12/2025 3:24 PM CDT RENAL FUNCTION PANEL Routine 01/12/2025 3:24 PM CDT US VEIN DUPLEX LOWER EXTREMITY BILATERAL COMPLETE IP Routine 01/12/2025 2:35 PM CDT POCT GLUCOSE DEVICE Routine 01/12/2025 12:27 PM CDT POCT GLUCOSE DEVICE Routine 01/12/2025 6 :42 AM CDT POCT GLUCOSE DEVICE Routine 01/11/2025 8 :03 PM CDT POCT GLUCOSE DEVICE Routine 01/11/2025 4 :35 PM CDT POCT GLUCOSE DEVICE Routine 01/11/2025 11:34 AM CDT POCT GLUCOSE DEVICE Routine 01/11/2025 5 :57 AM CDT POCT GLUCOSE DEVICE Routine 01/10/2025 11:22 PM CDT POCT GLUCOSE DEVICE Routine 01/10/2025 8 :08 PM CDT POCT GLUCOSE DEVICE Routine 01/10/2025 5 :45 PM CDT POCT GLUCOSE DEVICE Routine 01/10/2025 1 :10 PM CDT POCT GLUCOSE DEVICE Routine 01/10/2025 8 :10 AM CDT POCT GLUCOSE DEVICE Routine 01/10/2025 4 :25 AM CDT URIC ACID STAT 01/10/2025 12:15 AM CDT ERYTHROCYTE SEDIMENTATION RATE STAT 01/10/2025 12:15 AM CDT CRP (ACUTE PHASE) STAT 01/10/2025 12:15 AM CDT PRO B-TYPE NATRIURETIC PEPTIDE STAT 01/10/2025 12:15 AM CDT POTASSIUM LEVEL STAT 01/10/2025 12:15 AM CDT POCT GLUCOSE DEVICE Routine 01/10/2025 12:08 AM CDT XR WRIST LEFT 3 OR MORE VIEWS IP Routine 01/10/2025 12:03 AM CDT XR KNEE BILATERAL 4 OR MORE VIEWS ED 01/09/2025 11:55 PM CDT XR RADIUS ULNA LEFT 2 VIEWS ED 01/09/2025 11:47 PM CDT URINALYSIS, MICROSCOPIC ONLY STAT 01/09/2025 11:36 PM CDT URINE CULTURE STAT 01/09/2025 11:36 PM CDT URINALYSIS AND REFLEX TO MICROSCOPIC AND CULTURE STAT 01/09/2025 11:36 PM CDT ECG 12-LEAD STAT 01/09/2025 5:26 PM CDT EGFR STAT 01/09/2025 5:23 PM CDT DIFFERENTIAL AUTO STAT 01/09/2025 5:2 3 PM CDT COMPREHENSIVE METABOLIC PANEL STAT 01/09/2025 5:23 PM CDT CBC WITH AUTO DIFFERENTIAL STAT 01/09/2025 5:23 PM CDT FERRITIN Routine 12/15/2024 1:39 PM CDT Iron deficiency anemia, unspecified iron deficiency anemia type RETICULOCYTES Routine 12/15/2024 1:39 PM CDT Iron deficiency anemia, unspecified iron deficiency anemia type IRON PROFILE W/ IBC Routine 12/15/2024 1 :39 PM CDT Iron deficiency anemia, unspecified iron deficiency anemia type CBC WITH AUTO DIFFERENTIAL Routine 12/15/2024 1:39 PM CDT Iron deficiency anemia, unspecified iron deficiency anemia type OK ARTHROCENTESIS ASPIR&/INJ MAJOR JT/BURSA W/O US Routine 12/14/2024 1:00 PM CDT Rotator cuff arthropathy of right shoulder Primary osteoarthritis of right shoulder Biceps tendonitis on right OK ARTHROCENTESIS ASPIR&/INJ MAJOR JT/BURSA W/O US Routine 12/08/2024 10:00 AM CDT Primary osteoarthritis of left knee CARDIOLOGY DOCUMENT SCAN 12/05/2024 OK ARTHROCENTESIS ASPIR&/INJ MAJOR JT/BURSA W/O US Routine 11/21/2024 11:15 AM CDT Trochanteric bursitis, right hip EGFR Routine 11/08/2024 3:06 AM CDT BASIC METABOLIC PANEL Routine 11/08/2024 3:06 AM CDT EGFR Routine 11/07/2024 5:10 AM CDT MAGNESIUM Timed 11/07/2024 5:10 AM CDT BASIC METABOLIC PANEL Routine 11/07/2024 5:10 AM CDT URINALYSIS, MICROSCOPIC ONLY Routine 11/06/2024 12:45 PM CDT URINE CULTURE Routine 11/06/2024 12:45 PM CDT URINALYSIS AND REFLEX TO MICROSCOPIC AND CULTURE Routine 11/06/2024 12:45 PM CDT EGFR Routine 11/06/2024 2:47 AM CDT FIBRO TEST-ACTI TEST Routine 11/06/2024 2:47 AM CDT BASIC METABOLIC PANEL Routine 11/06/2024 2:47 AM CDT PTH Routine 11/05/2024 3:14 PM CDT EGFR Routine 11/05/2024 1:05 PM CDT BASIC METABOLIC PANEL Routine 11/05/2024 1:[address] ABDOMEN PELVIS WO CONTRAST IP Routine 11/05/2024 11:06 AM CDT EGFR Routine 11/04/2024 8:15 AM CDT DIFFERENTIAL AUTO Routine 11/04/2024 8:1 5 AM CDT CBC WITH AUTO DIFFERENTIAL Routine 11/04/2024 8:15 AM CDT COMPREHENSIVE METABOLIC PANEL Routine 11/04/2024 8:15 AM CDT POCT GLUCOSE DEVICE Routine 11/04/2024 4 :36 AM CDT ECG 12-LEAD STAT 11/04/2024 1:14 AM CDT TROPONIN T HIGH-SENSITIVITY 6-HOUR STAT 11/03/2024 11:[address] HEAD WO CONTRAST ED 11/03/2024 7 :47 PM CDT TROPONIN T HIGH-SENSITIVITY 2-HOUR Timed 11/03/2024 7:15 PM CDT EGFR STAT 11/03/2024 4:29 PM CDT DIFFERENTIAL AUTO STAT 11/03/2024 4:2 9 PM CDT TROPONIN T HIGH-SENSITIVITY SERIES (BASELINE, 2HR, 4HR, 6HR) STAT 11/03/2024 4:29 PM CDT COMPREHENSIVE METABOLIC PANEL STAT 11/03/2024 4:29 PM CDT CBC WITH AUTO DIFFERENTIAL STAT 11/03/2024 4:29 PM CDT ECG 12-LEAD STAT 11/03/2024 4:21 PM CDT DEXA AXIAL SKELETON BONE DENSITY 1 OR MORE SITES Schedule Routine, Read Routine (OP Routine) 10/13/2024 2:40 PM CDT Encounter for screening for osteoporosis Collapsed vertebra, not elsewhere classified, thoracolumbar region, initial encounter for fracture (HCC) DIABETIC EYE EXAM Routine 06/28/2024 10:18 AM ELECTRONIC INTELLIGENCE OFFICER HEMOGLOBIN A1C Routine 01/14/2024 11:16 AM CDT Controlled type 2 diabetes mellitus with diabetic polyneuropathy, without long-term current use of insulin (HCC) LIPID PANEL Routine 01/14/2024 11:16 AM CDT Mixed hyperlipidemia ALBUMIN CREATININE RATIO, URINE Routine 01/14/2024 11:16 AM CDT Controlled type 2 diabetes mellitus with diabetic polyneuropathy, without long-term current use of insulin (HCC) SCREENING MAMMOGRAM Schedule Routine, Read Routine (OP Routine) 06/14/2018 from Last 3 Months or Most Recently Relevant to Health Maintenance Results * POCT glucose (01/13/2025 11:18 AM CDT) Glucose, POC 164 70 - 199 mg/dL Blood 01/13/2025 11:1 8 AM CDT 01/13/2025 11:18 AM CDT us Marcello Dasilva MD LAB POCT ORDERABLES - DEVICE Fi nal Result Performing Organization Address [facility] Co de Phone Number APRYL FISH [phone] [address] [facility] [place] [employer] [place] [address] * POCT glucose (01/13/2025 6:31 AM CDT) Glucose, POC 109 70 - 199 mg/dL Blood 01/13/2025 6:31 AM CDT 01/13/2025 6:31 AM CDT us Marcello Dasilva MD LAB POCT ORDERABLES - DEVICE Fi nal Result Performing Organization Address [facility] de Phone Number APRYL FISH [phone] [address] [facility] [place] [place] [address] * POCT glucose (01/12/2025 8:14 PM CDT) Glucose, POC 136 70 - 199 mg/dL Blood 01/12/2025 8:14 PM CDT 01/12/2025 8:14 PM CDT us Marcello Dasilva MD LAB POCT ORDERABLES - DEVICE Fi nal Result Performing Organization Address [facility] [place] [address] [address] [facility] [place] [place] [address] * XR Ankle Left 3 or More Views (01/12/2025 6:18 PM CDT) Anatomical Region Laterality Modality Lower Extremities, Ankle Left Compute d Radiography 01/12/2025 6:30 PM CDT Impressions 01/12/2025 6:30 PM CDT No acute fracture. Atherosclerotic peripheral vascular disease. There is a tibiotalar joint effusion. No significant soft tissue swelling. Small calcaneal spur and Achilles enthesophyte. Electronically signed by: Marco Myers II, D.O. Narrative 01/12/2025 6:30 PM CDT EXAMINATION: XR ANKLE LEFT 3 OR MORE VIEWS DATE: 01/12/2025 6:05 PM HISTORY: Impaired mobility. COMPARISON: None. Procedure Note Marco Myers II, - 01/12/2025 EXAMINATION: XR ANKLE LEFT 3 OR MORE VIEWS DATE: 01/12/2025 6:05 PM HISTORY: Impaired mobility. COMPARISON: None. IMPRESSION: No acute fracture. Atherosclerotic peripheral vascular disease. There is a tibiotalar joint effusion. No significant soft tissue swelling. Small calcaneal spur and Achilles enthesophyte. Electronically signed by: Marco Myers II, D.O. us Marcello Dasilva MD G XR PROCEDURES Final Result * XR Ankle Right 3 or More Views (01/12/2025 6:17 PM CDT) Anatomical Region Laterality Modality Lower Extremities, Ankle Right Compute d Radiography 01/12/2025 6:31 PM CDT Impressions 01/12/2025 6:31 PM CDT No acute fracture. Soft tissues are unremarkable. Atherosclerotic peripheral vascular disease. Electronically signed by: Marco Myers II, D.O. Narrative 01/12/2025 6:31 PM CDT EXAMINATION: XR ANKLE RIGHT 3 OR MORE VIEWS DATE: 01/12/2025 6:00 PM HISTORY: Ankle pain. COMPARISON: 07/21/2024. Procedure Note Marco Myers II, - 01/12/2025 EXAMINATION: XR ANKLE RIGHT 3 OR MORE VIEWS DATE: 01/12/2025 6:00 PM HISTORY: Ankle pain. COMPARISON: 07/21/2024. IMPRESSION: No acute fracture. Soft tissues are unremarkable. Atherosclerotic peripheral vascular disease. Electronically signed by: Marco Myers II, D.O. us Marcello Dasilva MD IMG XR PROCEDURES Final Result * POCT glucose (01/12/2025 5:47 PM CDT) [facility] Signature Glucose, POC 109 70 - 199 mg/dL Blood 01/12/2025 5:47 PM CDT 01/12/2025 5:47 PM CDT us Marcello Dasilva MD LAB POCT ORDERABLES - DEVICE Fi nal Result Performing Organization Address [facility] de Phone Number APRYL FISH [address] [employer] [place], [place] [id number] * (ABNORMAL) eGFR (01/12/2025 3:24 PM CDT) eGFR 38(L) >=60 mL/min/1. 73 m2 Comment: Interpretive Data Reference Interval Normal >/= 90 mL/min/1.73m2 Mildly decreased* 60 - 89 mL/min/1.73m2 Mildly to moderately decreased 45 - 59 mL/min/1.73m2 Moderately to severely decreased 30 - 44 mL/min/1.73m2 Severely decreased 15 - 29 mL/min/1.73m2 Kidney Failure < 15 mL/min/1.73m2 *Relative to young adult level Estimated glomerular filtration rate is determined by the 2020 CKD-EPI equation recommended by the National Kidney Foundation (A Unifying Approach to GFR Estimation: Recommendations of the NKF-ASK Task Force on Reassessing the Inclusion of Race in Diagnosing Kidney Disease, JASN 2020). The CKD-EPI equation should not be used for patients with unstable renal function and has not been validated in children and those over 70. Current interpretive data was last reviewed 2021. Blood 01/12/2025 3:24 PM CDT 01/12/2025 4:08 PM CDT us Marcello Dasilva MD LAB BLOOD ORDERABLES Final Resu lt Performing Organization Address [facility] Co de Phone Number APRYL FISH [phone] [address] Department [place] [employer] [place] [address] * (ABNORMAL) Renal function panel (01/12/2025 3:24 PM CDT) Sodium 136 135 - 145 mmol/L Potassium, pl 3.8 3.3 - 4.9 mmol/L CERNER Chloride 96(L) 97 - 110 mmol/L CERNER CH CO2 25 22 - 32 mmol/L CERNER CH Anion gap 15 2 - 15 mmol/L CERNER CH BUN 49(H) 6 - 25 mg/dL CERNER CH Creatinine 1.41(H) 0.60 - 1.10 mg/dL CERNER CH Glucose 155 70 - 199 mg/dL CERNER CH Comment: Interpretive Data Fasting glucose >/= 126 mg/dl is diagnostic for diabetes. Fasting is defined as no caloric intake for at least 8 hours. Fasting glucose between 100 mg/dl to 125 mg/dl is diagnostic of prediabetes. In a patient with classic symptoms of hyperglycemia or hyperglycemic crisis, a random glucose >/= 200 mg/dl is diagnostic for diabetes. In the absence of unequivocal hyperglycemia, results should be confirmed by repeat testing. The classification and Diagnosis of Diabetes Diabetes Care 2021; 46: S19-S40. Current interpretive data was last revised 2022. Calcium 7.9(L) 8.5 - 10.3 mg/dL CERNER Phosphorus, pl 2.9 2.3 - 4.5 mg/dL CERNER CH Albumin 3.7 3.5 - 5.0 g/dL CERNER Blood 01/12/2025 3:24 PM CDT 01/12/2025 3:51 PM CDT us Marcello Dasilva MD LAB BLOOD ORDERABLES Final Resu lt APRYL FISH [phone] [address] Department [place] [address] * US Vein Duplex Lower Extremity Bilateral Complete (01/12/2025 2:35 PM CDT) Anatomical Region Laterality Modality Vascular Bilateral Ultrasound 01/12/2025 3:00 PM CDT Impressions 01/12/2025 3:00 PM CDT There is no evidence of acute DVT in the right and the left lower extremity. Electronically signed by: Renee Skinner M.D. Narrative 01/12/2025 3:00 PM CDT EXAMINATION: US VEIN DUPLEX LOWER EXTREMITY BILATERAL COMPLETE HISTORY: The patient is a 79-year-old female who presents with bilateral lower extremity pain. TECHNIQUE: Bilateral lower extremity venous duplex study was performed with rodriguez scale imaging, color Doppler imaging and spectral waveform analysis. FINDINGS: There is normal compressibility and phasicity in both common femoral, deep femoral, femoral, popliteal, posterior tibial and peroneal veins as well as both saphenofemoral junctions. Imaging of these veins reveals no thrombus or reflux. Procedure Note Renee Skinner MD - 01/12/2025 EXAMINATION: US VEIN DUPLEX LOWER EXTREMITY BILATERAL COMPLETE HISTORY: The patient is a 79-year-old female who presents with bilateral lower extremity pain. TECHNIQUE: Bilateral lower extremity venous duplex study was performed with rodriguez scale imaging, color Doppler imaging and spectral waveform analysis. FINDINGS: There is normal compressibility and phasicity in both common femoral, deep femoral, femoral, popliteal, posterior tibial and peroneal veins as well as both saphenofemoral junctions. Imaging of these veins reveals no thrombus or reflux. IMPRESSION: There is no evidence of acute DVT in the right and the left lower extremity. Electronically signed by: Renee Skinner M.D. Abdirahman Recinos NP IMG US PROCEDURES Final Resu lt * POCT glucose (01/12/2025 12:27 PM CDT) Glucose, POC 127 70 - 199 mg/dL Blood 01/12/2025 12:2 7 PM CDT 01/12/2025 12:27 PM CDT us Marcello Dasilva MD LAB POCT ORDERABLES - DEVICE Fi nal Result Performing Organization Address [facility] Co de Phone Number APRYL [phone] [address] Department [place] [address] * POCT glucose (01/12/2025 6:42 AM CDT) Glucose, POC 103 70 - 199 mg/dL Blood 01/12/2025 6:42 AM CDT 01/12/2025 6:42 AM CDT us Marcello Dasilva MD LAB POCT ORDERABLES - DEVICE Fi nal Result Performing Organization Address [facility]/ZIP Co de Phone Number APRYL FISH [phone] [address] [facility] [place] [employer] [place] [address] * POCT glucose (01/11/2025 8:03 PM CDT) Glucose, POC 179 70 - 199 mg/dL Blood 01/11/2025 8:03 PM CDT 01/11/2025 8:03 PM CDT us Marcello Dasilva MD LAB POCT ORDERABLES - DEVICE Fi nal Result Performing Organization Address [facility] Co de Phone Number APRYL FISH [phone] [address] [facility] [place] [employer] [place] [address] * POCT glucose (01/11/2025 4:35 PM CDT) Glucose, POC 132 70 - 199 mg/dL Blood 01/11/2025 4:35 PM CDT 01/11/2025 4:35 PM CDT us Marcello Dasilva MD LAB POCT ORDERABLES - DEVICE Fi nal Result Performing Organization Address [facility] Co de Phone Number APRYL FISH [phone] [address] [facility] [place] [employer] [place] [address] * POCT glucose (01/11/2025 11:34 AM CDT) Glucose, POC 121 70 - 199 mg/dL Blood 01/11/2025 11:3 4 AM CDT 01/11/2025 11:34 AM CDT us Marcello Dasilva MD LAB POCT ORDERABLES - DEVICE Fi nal Result Performing Organization Address City/[facility] Co de Phone Number PARYL FISH [phone] [address] [facility] [place] [employer] [place] [address] * POCT glucose (01/11/2025 5:57 AM CDT) Glucose, POC 116 70 - 199 mg/dL Blood 01/11/2025 5:57 AM CDT 01/11/2025 5:57 AM CDT us Marcello Dasilva MD LAB POCT ORDERABLES - DEVICE Fi nal Result Performing Organization Address [facility] Co de Phone Number APRYL ABE [address] [address] [facility] [place] [employer] [place] [address] * POCT glucose (01/10/2025 11:22 PM CDT) Glucose, POC 151 70 - 199 mg/dL Blood 01/10/2025 11:2 2 PM CDT 01/10/2025 11:22 PM CDT us Marcello Dasilva MD LAB POCT ORDERABLES - DEVICE Fi nal Result Performing Organization Address [facility] de Phone Number APRYL ABE [phone] [address] [facility] [place] [place] [address] * POCT glucose (01/10/2025 8:08 PM CDT) Glucose, POC 118 70 - 199 mg/dL Blood 01/10/2025 8:08 PM CDT 01/10/2025 8:08 PM CDT us Marcello Dasilva MD LAB POCT ORDERABLES - DEVICE Fi nal Result Performing Organization Address [facility] de Phone Number APRYL ABE [phone] [address] [facility] [place] [place] [address] * POCT glucose (01/10/2025 5:45 PM CDT) Glucose, POC 147 70 - 199 mg/dL Blood 01/10/2025 5:45 PM CDT 01/10/2025 5:45 PM CDT us Marcello Dasilva MD LAB POCT ORDERABLES - DEVICE Fi nal Result Performing Organization Address [facility] Co de Phone Number APRYL FISH [phone] [address] [facility] [place] [address] * POCT glucose (01/10/2025 1:10 PM CDT) Glucose, POC 177 70 - 199 mg/dL Blood 01/10/2025 1:10 PM CDT 01/10/2025 1:10 PM CDT us Notinfile Unknown LAB POCT ORDERABLES - DEVICE F inal Result Performing Organization Address [facility] de Phone Number APRYL FISH [phone] [address] [facility] [place] [employer] [place] [address] * POCT glucose (01/10/2025 8:10 AM CDT) Glucose, POC 153 70 - 199 mg/dL Blood 01/10/2025 8:10 AM CDT 01/10/2025 8:10 AM CDT us Notinfile Unknown LAB POCT ORDERABLES - DEVICE F inal Result Performing Organization Address [facility] de Phone Number APRYL FISH [phone] [address] [facility] [place] [address] * POCT glucose (01/10/2025 4:25 AM CDT) Glucose, POC 109 70 - 199 mg/dL Blood 01/10/2025 4:25 AM CDT 01/10/2025 4:25 AM CDT us Notinfile Unknown LAB POCT ORDERABLES - DEVICE F inal Result Performing Organization Address [facility] de Phone Number APRYL FISH [phone] [address] [facility] [place] [employer] [place] [address] * (ABNORMAL) Pro B-type natriuretic peptide (01/10/2025 12:15 AM CDT) NT-proBNP 3,518(H) <=450 pg/mL Comment: Interpretive Comments: A. Dyspnea in Acute Care Setting All Ages: < 300 pg/ml, acute heart failure unlikely. < 50 yrs: 300 - 450 pg/ml, further investigation warranted. > 450 pg/ml, acute heart failure likely. 50 - 74 yrs: 300 - 900 pg/ml, further investigation warranted. > 900 pg/ml, acute heart failure likely . > or = 75 yrs: 450 - 1800 pg/ml, further investigation warranted. > 1800 pg/ml, acute heart failure likely. B. Non-acute Setting < 75 yrs < 125 pg/ml, rules out heart failure. > or = 125 pg/ml, further investigation warranted. > or = 75 yrs < 450 pg/ml, rules out heart failure. > or = 450 pg/ml, further investigation warranted. - Knowledge of each individual patient's NT-proBNP range may be more useful than using similar cut-points for every patient. Please note that marked elevations in NT-proBNP levels may be observed in state other than Left Ventricular Congestive Failure, including: acute coronary syndromes, right heart strain/failure (including pulmonary embolism and cor pulmonale), critical illness, renal failure, as well as advanced age. - References: 1. Mustapha OAKLEY et.al. Eur Heart J. 2006:27:330-337. 2. Trell RW, Tina AM. J. AM Jordan Cardiol: Cardiovasc Imag. 2009;2: 216- 225. Interpretive Data Last Revised Date: 2018. Blood 01/10/2025 12:1 5 AM CDT 01/10/2025 12:22 AM CDT Miguel Angel GOMEZ LAB BLOOD ORDERABLES Final Result [facility] [phone] Department [place] [address] * (ABNORMAL) Erythrocyte sedimentation rate (01/10/2025 12:15 AM CDT) Erythrocyte sedimentation rate 32(H) 1 - 30 mm/hr Blood 01/10/2025 12:1 5 AM CDT 01/10/2025 12:22 AM CDT Miguel Angel GOMEZ LAB BLOOD ORDERABLES Final Result Performing Organization Address City/[facility]/ZIP Co de Phone Number APRYL FISH [phone] [address] [facility] [place] [employer] [place] [address] * (ABNORMAL) CRP (acute phase) (01/10/2025 12:15 AM CDT) CRP 71.1(H) <=10.0 mg/L Blood 01/10/2025 12:1 5 AM CDT 01/10/2025 12:22 AM CDT Miguel Angel GOMEZ LAB BLOOD ORDERABLES Final Result Performing Organization Address [facility] de Phone Number APRYL FISH [phone] [address] [facility] [place] [address] * Uric acid (01/10/2025 12:15 AM CDT) Uric acid 7.0 2.5 - 7.0 mg/dL Blood 01/10/2025 12:1 5 AM CDT 01/10/2025 12:22 AM CDT Miguel Angel GOMEZ LAB BLOOD ORDERABLES Final Result Performing Organization Address [facility] Co de Phone Number APRYL FISH [phone] [address] Department [place] [place] [address] * Potassium (01/10/2025 12:15 AM CDT) Potassium, pl 4.0 3.3 - 4.9 mmol/L Blood 01/10/2025 12:1 5 AM CDT 01/10/2025 12:22 AM CDT Miguel Angel GOMEZ LAB BLOOD ORDERABLES Final Result Performing Organization Address City/[facility]/ZIP Co de Phone Number [facility]YL [facility] [id number] [employer] [place] [address] * POCT glucose (01/10/2025 12:08 AM CDT) Glucose, POC 143 70 - 199 mg/dL Blood 01/10/2025 12:0 8 AM CDT 01/10/2025 12:08 AM CDT Notinfile Unknown LAB POCT ORDERABLES - DEVICE F inal Result [facility] [id number] Department [place] [address] * XR Wrist Left 3 or More Views (01/10/2025 12:03 AM CDT) Anatomical Region Laterality Modality Upper Extremities, Wrist Left Compute d Radiography 01/10/2025 9:08 AM CDT Impressions 01/10/2025 9:08 AM CDT Moderate degenerative changes. Electronically signed by: Renee Skinner M.D. Narrative 01/10/2025 9:08 AM CDT EXAMINATION: XR WRIST LEFT 3 OR MORE VIEWS HISTORY: The patient is a 79-year-old female who presents with left wrist pain. TECHNIQUE: 3 views. FINDINGS: No fracture or dislocation is seen. Degenerative changes are seen involving the 1st carpometacarpal joint with the intercarpal joints and radiocarpal joint being normal. Procedure Note Renee Skinner MD - 01/10/2025 EXAMINATION: XR WRIST LEFT 3 OR MORE VIEWS HISTORY: The patient is a 79-year-old female who presents with left wrist pain. TECHNIQUE: 3 views. FINDINGS: No fracture or dislocation is seen. Degenerative changes are seen involving the 1st carpometacarpal joint with the intercarpal joints and radiocarpal joint being normal. IMPRESSION: Moderate degenerative changes. Electronically signed by: Renee Skinner M.D. us Miguel Angel GOMEZ IMG XR PROCEDURES Fin al Result * XR Knee Bilateral 4 or More Views (01/09/2025 11:55 PM CDT) Anatomical Region Laterality Modality Lower Extremities, Knee Computed Radiography 01/10/2025 8:44 AM CDT Impressions 01/10/2025 8:44 AM CDT Osteoarthritis. No acute abnormality. Electronically signed by: Segundo Guaman M.D. Narrative 01/10/2025 8:44 AM CDT EXAMINATION: XR KNEE BILATERAL 4 OR MORE VIEWS DATE: 01/09/2025 23:40 HISTORY: pain FINDINGS: There is no fracture, dislocation or abnormal bone destruction. There is bilateral predominantly patellofemoral osteoarthritis. There is no joint effusion. Procedure Note Segundo Guaman MD - 01/10/2025 EXAMINATION: XR KNEE BILATERAL 4 OR MORE VIEWS DATE: 01/09/2025 23:40 HISTORY: pain FINDINGS: There is no fracture, dislocation or abnormal bone destruction. There is bilateral predominantly patellofemoral osteoarthritis. There is no joint effusion. IMPRESSION: Osteoarthritis. No acute abnormality. Electronically signed by: Segundo Guaman M.D. Miguel Angel GOMEZ IMG XR PROCEDURES Fin al Result * XR Radius Ulna Left 2 Views (01/09/2025 11:47 PM CDT) Anatomical Region Laterality Modality Upper Extremities, Forearm Left Compu bronwyn Radiography 01/10/2025 8:36 AM CDT Impressions 01/10/2025 8:36 AM CDT No acute abnormality. Electronically signed by: Segundo Guaman M.D. Narrative 01/10/2025 8:36 AM CDT EXAMINATION: XR RADIUS ULNA LEFT 2 VIEWS DATE: 01/09/2025 23:35 HISTORY: pain FINDINGS: Degenerative changes are noted at the wrist. There is no fracture, dislocation or abnormal bone production or destruction. Procedure Note Segundo Guaman MD - 01/10/2025 EXAMINATION: XR RADIUS ULNA LEFT 2 VIEWS DATE: 01/09/2025 23:35 HISTORY: pain FINDINGS: Degenerative changes are noted at the wrist. There is no fracture, dislocation or abnormal bone production or destruction. IMPRESSION: No acute abnormality. Electronically signed by: Segundo Guaman M.D. Miguel Angel GOMZE IMG XR PROCEDURES Fin al Result * (ABNORMAL) Urinalysis reflex to microscopic and culture Urine (01/09/2025 11:36 PM CDT) Color, ur Yellow Yellow Clarity, ur Clear Clear [facility] Specific gravity, ur 1.021 1.003 - 1.030 [facility] pH, urine 6.0 [facility] Comment: Interpretive Data U rine pH is affected by diet, medications, systemic acid-base disturbances, and renal tubular function. pH may affect urinary stone formation. For example, urine pH below 6.0 may help reduce the tendency for calcium phosphate stones and pH greater than 6.0 may reduce the tendency for uric acid stone formation. Source: [facility] [employer] Current Interpretive Data was last revised on 2017 Protein, ur ql Trace Negative [facility] Glucose, ur ql 4+(A) Negative [facility] Ketones, ur Negative Negative [facility] Bilirubin, ur Negative Negative [facility] Blood, ur Negative Negative [facility] Urobilinogen, ur <2.0 <2.0 mg/dL [facility] Nitrite, ur Negative Negative [facility] Leukocyte esterase, ur 3+(A) Negative [facility] UA reflex comment Reflex to microscopic UA will be performed. [facility] Urine 01/09/2025 11:3 6 PM CDT 01/09/2025 11:57 PM CDT Marcello Dasilva MD LAB MICROBIOLOGY - GENERAL BLAKE BOJORQUEZ Final Result [facility] [address] Department [place] [address] * (ABNORMAL) Urinalysis, microscopic only (01/09/2025 11:36 PM CDT) WBC, ur 11-20(A) 0 - 5 /HPF RBC, ur 3-5(A) 0 - 2 /HPF [facility] Epithelial cells, squamous, ur 1-5 0 - 5 /HPF [facility] Culture Reflex Comment Reflex to urine culture will be performed. [facility] Urine 01/09/2025 11:3 6 PM CDT 01/09/2025 11:57 PM CDT Marcello Dasilva MD LAB URINE ORDERABLES Final Resu lt Performing Organization Address [facility]/ZIP Co de Phone Number APRYL FISH [id number] Department [place] [address] * Urine culture Urine (01/09/2025 11:36 PM CDT) Report Final Report: Less than 100,000 colonies/mL (clinically insignificant growth based on current clinical standards) Comment:Testing performed by : [facility], [address] [place]., [address] Organism (CLINICALLY INSIGNIFICANT GROWTH STEWARTFORMERLY NAMED [facility] Urine 01/09/2025 11:3 6 PM CDT 01/10/2025 6:11 AM CDT Narrative [facility] - 01/11/2025 8:32 AM CDT Urine culture reflexed based upon urinalysis results. Testing performed by [facility] ([phone]) Henry Beal MD LAB MICROBIOLOGY - GENE RAL ORDERABLES Final Result Performing Organization Address [facility] Co de Phone Number [facility]YL FISH [id number] Department [place] [address] * ECG 12 lead (01/09/2025 5:26 PM CDT) 01/09/2025 5:26 PM CDT Narrative [facility] - 01/09/2025 7:35 PM CDT Vent Rate: 82 bpm RR Interval: 730 msec OK Interval: 0 msec QRS Duration: 104 msec QT Interval: 381 msec QTC Interval: 419 msec P-R-T [place]: 0 - -35 - 140 degrees IMPRESSION: Baseline artifact, probable ATRIAL FIBRILLATION LEFT AXIS DEVIATION [QRS AXIS < -30] LOW QRS VOLTAGE IN PRECORDIAL LEADS [QRS DEFLECTION < 1.0 mV IN CHEST LEADS] INCOMPLETE RIGHT BUNDLE BRANCH BLOCK [90+ ms QRS DURATION, TERMINAL R IN V1/V2, 40+ ms S IN I/aVL/V4/V5/V6] VOLTAGE CRITERIA FOR LVH [MEETS CRITERIA IN ONE OF: R(aVL), S(V1), R(V5), R(V5/V6)+S(V1)] POSSIBLE ANTERIOR MYOCARDIAL INFARCTION , PROBABLY OLD [30 ms Q WAVE IN V3/V4, OR R < 0.2 mV IN V4] MODERATE T-WAVE ABNORMALITY, CONSIDER LATERAL ISCHEMIA [-0.1+ mV T-WAVE IN I/aVL/V5/V6] ABNORMAL ECG NO CHANGE FROM PREVIOUS TRACING NOTED Electronically Signed By: James Lin MD us Marcello Dasilva MD ECG ORDERABLES Final Result Performing Organization Address City/[facility]/ZIP Co de Phone Number [email or web address] [facility] * eGFR (01/09/2025 5:23 PM CDT) eGFR 60 >=60 mL/min/1. 73 m2 Comment: Interpretive Data Reference Interval Normal >/= 90 mL/min/1.73m2 Mildly decreased* 60 - 89 mL/min/1.73m2 Mildly to moderately decreased 45 - 59 mL/min/1.73m2 Moderately to severely decreased 30 - 44 mL/min/1.73m2 Severely decreased 15 - 29 mL/min/1.73m2 Kidney Failure < 15 mL/min/1.73m2 *Relative to young adult level Estimated glomerular filtration rate is determined by the 2020 CKD-EPI equation recommended by the National Kidney Foundation (A Unifying Approach to GFR Estimation: Recommendations of the NKF-ASK Task Force on Reassessing the Inclusion of Race in Diagnosing Kidney Disease, JASN 2020). The CKD-EPI equation should not be used for patients with unstable renal function and has not been validated in children and those over 70. Current interpretive data was last reviewed 2021. Blood 01/09/2025 5:23 PM CDT 01/09/2025 5:25 PM CDT us Marcello Dasilva MD LAB BLOOD ORDERABLES Final Resu lt [facility] [id number] Department [place] [address] * (ABNORMAL) Differential, auto (01/09/2025 5:23 PM CDT) Neutrophil abs 4.81 1.50 - 6.50 K/cumm Imm gran abs 0.04 0.00 - 0.10 K/cumm [facility] Lymphocyte abs 0.52(L) 0.80 - 3.30 K/cumm [facility] Monocyte abs 0.80 0.20 - 0.80 K/cumm [facility] Eosinophil abs 0.08 0.00 - 0.50 K/cumm [facility] Basophil abs 0.03 0.00 - 0.10 K/cumm CERNER Neutrophil pct 76.6 % [facility] Comment: Interpretive Data Percent cell count reference ranges are not reported, since discordance with absolute values may lead to misinterpretation of CBC data. Current Interpretive Data was last revised on 2017. Imm gran pct 0.6 % CERNER Comment: Interpretive Data Percent cell count reference ranges are not reported, since discordance with absolute values may lead to misinterpretation of CBC data. Current Interpretive Data was last revised on 2017. Lymphocyte pct 8.3 % CERNER Comment: Interpretive Data Percent cell count reference ranges are not reported, since discordance with absolute values may lead to misinterpretation of CBC data. Current Interpretive Data was last revised on 2017. Monocyte pct 12.7 % CERNER Comment: Interpretive Data Percent cell count reference ranges are not reported, since discordance with absolute values may lead to misinterpretation of CBC data. Current Interpretive Data was last revised on 2017. Eosinophil pct 1.3 % CERNER Comment: Interpretive Data Percent cell count reference ranges are not reported, since discordance with absolute values may lead to misinterpretation of CBC data. Current Interpretive Data was last revised on 2017. Basophil pct 0.5 % CERNER Comment: Interpretive Data Percent cell count reference ranges are not reported, since discordance with absolute values may lead to misinterpretation of CBC data. Current Interpretive Data was last revised on 2017. Blood 01/09/2025 5:23 PM CDT 01/09/2025 5:25 PM CDT us Marcello Dasilva MD LAB BLOOD ORDERABLES Final Resu lt [facility] [address] Department [place] [employer] [place] [address] * (ABNORMAL) CBC with auto differential (01/09/2025 5:23 PM CDT) WBC 6.28 3.80 - 9.90 K/cumm Hgb 14.0 11.9 - 15.5 g/dL [facility] Hct 45.1 35.6 - 45.5 % [facility] Plt 162 150 - 400 K/cumm [facility] MPV 9.8 9.1 - 12.3 fL [facility] RBC 4.63 3.90 - 5.20 M/cumm [facility] MCV 97.4(H) 81.3 - 96.4 fL [facility] MCH 30.2 27.1 - 33.3 pg [facility] MCHC 31.0(L) 32.3 - 35.7 g/dL [facility] RDW CV 15.9(H) 11.1 - 14.9 % [facility] RDW SD 56.3(H) 35.7 - 48.1 fL [facility] NRBC abs 0.02(H) 0.00 - 0.01 K/cumm [facility] Blood 01/09/2025 5:23 PM CDT 01/09/2025 5:25 PM CDT us Marcello Dasilva MD LAB BLOOD ORDERABLES Final Resu lt [facility] [address] Department [place] [address] * (ABNORMAL) Comprehensive metabolic panel (01/09/2025 5:23 PM CDT) Pathologist [facility] Sodium 137 135 - 145 mmol/L Potassium, pl 5.6(H) 3.3 - 4.9 mmol/L [facility] Comment:Hemolysis present. R esults may be affected. Chloride 100 97 - 110 mmol/L [facility] CO2 22 22 - 32 mmol/L [facility] Anion gap 15 2 - 15 mmol/L [facility] BUN 48(H) 6 - 25 mg/dL [facility] Creatinine 0.97 0.60 - 1.10 mg/dL [facility] Glucose 125 70 - 199 mg/dL [facility] Comment: Interpretive Data Fasting glucose >/= 126 mg/dl is diagnostic for diabetes. Fasting is defined as no caloric intake for at least 8 hours. Fasting glucose between 100 mg/dl to 125 mg/dl is diagnostic of prediabetes. In a patient with classic symptoms of hyperglycemia or hyperglycemic crisis, a random glucose >/= 200 mg/dl is diagnostic for diabetes. In the absence of unequivocal hyperglycemia, results should be confirmed by repeat testing. The classification and Diagnosis of Diabetes Diabetes Care 202; 46: S19-S40. Current interpretive data was last revised 2022. Calcium 8.6 8.5 - 10.3 mg/dL [facility] Bilirubin, total 0.5 0.1 - 1.2 mg/dL [facility] Protein, pl 7.6 6.5 - 8.5 g/dL [facility] Albumin 3.9 3.5 - 5.0 g/dL [facility] Alk phos 121 40 - 130 Units/L [facility] ALT 13 7 - 45 Units/L [facility] AST 32 10 - 45 Units/L [facility] Comment:Hemolysis present. R esults may be affected. Blood 01/09/2025 5:23 PM CDT 01/09/2025 5:25 PM CDT us Marcello Dasilva MD LAB BLOOD ORDERABLES Final Resu lt [facility]YL [address] Department [place] [address] * Iron profile w/ IBC (12/15/2024 1:39 PM CDT) Iron 73 45 - 160 mcg/dL [facility] TIBC 272 250 - 450 mcg/dL (calc) [facility] Iron saturation 27 16 - 45 % (calc) [facility] Blood 12/15/2024 1:39 PM CDT 12/15/2024 1:40 PM CDT us Quinn Jensen MD LAB BLOOD ORDERABLES Final R esult [facility] [address] [id number] * (ABNORMAL) CBC with auto differential (12/15/2024 1:39 PM CDT) Pathologist [facility] WBC 9.8 3.8 - 10.8 Thousand/u L [facility] RBC, POC 4.51 3.80 - 5.10 Million/uL [facility] Hgb 13.4 11.7 - 15.5 g/dL [facility] Hct 43.4 35.0 - 45.0 % [facility] MCV 96.2 80.0 - 100.0 fL [facility] MCH 29.7 27.0 - 33.0 pg [facility] MCHC 30.9(L) 32.0 - 36.0 g/dL [facility] Comment: For adults, a slight decrease in the calculated MCHC value (in the range of 30 to 32 g/dL) is most likely not clinically significant; however, it should be interpreted with caution in correlation with other red cell parameters and the patient's clinical condition. Rdw 14.7 11.0 - 15.0 % [facility] Platelets 201 140 - 400 Thousand/u L [facility] MPV 10.3 7.5 - 12.5 fL [facility] Neutrophils, abs 8,751(H) 1,500 - 7,800 cells/uL [facility] Lymphocytes, abs 451(L) 850 - 3,900 cells/uL [facility] Monocyte abs 588 200 - 950 cells/uL [facility] Eosinophils, abs 10(L) 15 - 500 cells/uL [facility] Basophils, abs 0 0 - 200 cells/uL [facility] Neutrophils 89.3 % [facility] Lymphocyte pct 4.6 % [facility] Monocytes 6.0 % [facility] Eosinophils 0.1 % [facility] Basophils 0.0 % [facility] Blood 12/15/2024 1:39 PM CDT 12/15/2024 1:40 PM CDT Quinn Jensen MD LAB BLOOD ORDERABLES Final R esult Performing Organization Address City/[facility]/ZIP Co de Phone Number [facility] [address] [place] [address] * (ABNORMAL) Reticulocyte Count (12/15/2024 1:39 PM CDT) Pathologist [facility] Reticulocyte count, automated 2.0 % [facility] Reticulocyte, absolute 90,200(H) 20,000 - 80,000 cells/uL [facility] Blood 12/15/2024 1:39 PM CDT 12/15/2024 1:40 PM CDT Quinn Jensen MD LAB BLOOD ORDERABLES Final R esult Performing Organization Address [facility]/ZIP Co de Phone Number [facility] [address] [place] [address] * Ferritin (12/15/2024 1:39 PM CDT) Pathologist [facility] Ferritin 155 16 - 288 ng/mL [facility] Blood 12/15/2024 1:39 PM CDT 12/15/2024 1:40 PM CDT Quinn Jensen MD LAB BLOOD ORDERABLES Final R esult Performing Organization Address [facility]/ZIP Co de Phone Number [facility] [address] [place] [address] * OK ARTHROCENTESIS ASPIR&/INJ MAJOR JT/BURSA W/O US (12/14/2024 1:00 PM CDT) Narrative Lisa Lam PA - 12/14/2024 1:00 PM CDT Lisa Lam PA 12/14/2024 1:45 PM Large Joint (Hip, Knee, Shoulder) Injection: R glenohumeral Performed by: Lisa Lam PA Authorized by: Lisa Lam PA Large Joint Injection/Aspiration: Consent Given by: Patient Site marked: the procedure site was marked Timeout: prior to procedure the correct patient, procedure, and site was verified Verbal consent obtained: Yes Supporting Documentation: Indications: Pain Procedure Details: Location: Shoulder Site: R glenohumeral Prep: patient was prepped and draped in usual sterile fashion Prep: patient was prepped using a clean technique Needle Size: 22 G Approach: Posterior Ultrasound guided: No Fluroscopic guidance: No Medications: 80 mg methylPREDNISolone acetate 80 mg/mL; 3 mL lidocaine 20 mg/mL (2 %) Patient tolerance: Patient tolerated the procedure well with no immediate complications us Lisa GOMEZ IN CLINIC/BEDSIDE BLAKE BOJORQUEZ Final Result * OK ARTHROCENTESIS ASPIR&/INJ MAJOR JT/BURSA W/O US (12/08/2024 10:00 AM CDT) Woodrow Goldstein MD - 12/08/2024 10:00 AM CDT Woodrow Teague MD 12/08/2024 12:10 PM Large Joint (Hip, Knee, Shoulder) Injection: L knee Performed by: Woodrow Teague MD Authorized by: Woodrow Teague MD Large Joint Injection/Aspiration: Consent Given by: Patient Site marked: the procedure site was marked Timeout: prior to procedure the correct patient, procedure, and site was verified Verbal consent obtained: Yes Supporting Documentation: Indications: Pain Procedure Details: Location: Knee Site: L knee Needle Size: 22 G Approach: Anterolateral Ultrasound guided: No Fluroscopic guidance: No Medications: 80 mg methylPREDNISolone acetate 80 mg/mL; 3 mL lidocaine 20 mg/mL (2 %) Patient tolerance: Patient tolerated the procedure well with no immediate complications us Woodrow Teague MD IN CLINIC/BEDSIDE ORDERA BLES Final Result * Cardiology Document Scan (12/05/2024) Anatomical Region Laterality Modality Other Result [facility] Bruno Sorenson MD CV CARDIAC SERVICES PROCE REEDES Final Result * OK ARTHROCENTESIS ASPIR&/INJ MAJOR JT/BURSA W/O US (11/21/2024 11:15 AM CDT) Narrative Woodrow Teague MD - 11/21/2024 11:15 AM CDT Woodrow Teague MD 11/23/2024 11:36 AM Greater trochanteric bursa injection Performed by: Woodrow Teague MD Authorized by: Woodrow Teague MD Greater Trochanteric Bursa Injection: Consent Given by: Patient Site marked: the procedure site was marked Timeout: prior to procedure the correct patient, procedure, and site was verified Verbal consent obtained?: Yes Prior to the start of the procedure, verbal verification by the procedure participant(s) confirmed (as applicable): corect patient idenity; correct site/side marked and visible; agreement on the procedure to be done; correct patient positioning; an accurate procedure consent form, relevant images and results correctly labeled and displayed; any safety precautions based on clinical history and/or medication use have been addressed.: Supporting Documentation: Indications: Pain and therapeutic Procedure Details: Site: Right Greater Trochanteric Bursa Prep: patient was prepped and draped in usual sterile fashion Patient position: Sidelying Needle Size: 22 G Ultrasound guidance: No Approach: Lateral Medications: 80 mg methylPREDNISolone acetate 80 mg/mL; 4 mL lidocaine 20 mg/mL (2 %) Patient tolerance: Patient tolerated the procedure well with no immediate complications Result [facility] Woodrow Teague MD IN CLINIC/BEDSIDE ORDERA BLES Final Result * (ABNORMAL) eGFR (11/08/2024 3:06 AM CDT) eGFR 44(L) >=60 mL/min/1. 73 m2 Comment: Interpretive Data Reference Interval Normal >/= 90 mL/min/1.73m2 Mildly decreased* 60 - 89 mL/min/1.73m2 Mildly to moderately decreased 45 - 59 mL/min/1.73m2 Moderately to severely decreased 30 - 44 mL/min/1.73m2 Severely decreased 15 - 29 mL/min/1.73m2 Kidney Failure < 15 mL/min/1.73m2 *Relative to young adult level Estimated glomerular filtration rate is determined by the 2020 CKD-EPI equation recommended by the National Kidney Foundation (A Unifying Approach to GFR Estimation: Recommendations of the NKF-ASK Task Force on Reassessing the Inclusion of Race in Diagnosing Kidney Disease, JASN 2020). The CKD-EPI equation should not be used for patients with unstable renal function and has not been validated in children and those over 70. Current interpretive data was last reviewed 2021. Blood 11/08/2024 3:06 AM CDT 11/08/2024 4:01 AM CDT Rommel Oates Saurabh DO LAB BLOOD ORDERABLES F inal Result [facility] Department [place] [address] * (ABNORMAL) Basic metabolic panel (11/08/2024 3:06 AM CDT) Sodium 136 135 - 145 mmol/L Potassium, pl 4.4 3.3 - 4.9 mmol/L [facility] ([place]) Comment:Moderately Hemolyzed Specimen. Results may be affected. Chloride 100 97 - 110 mmol/L [facility] ([place]) CO2 22 22 - 32 mmol/L [facility] ([place]) Anion gap 14 2 - 15 mmol/L [facility] ([place]) BUN 23 6 - 25 mg/dL [facility] ([place]) Creatinine 1.27(H) 0.60 - 1.10 mg/dL [facility] ([place]) Glucose 135 70 - 199 mg/dL [facility] ([place]) Comment: Interpretive Data Fasting glucose >/= 126 mg/dl is diagnostic for diabetes. Fasting is defined as no caloric intake for at least 8 hours. Fasting glucose between 100 mg/dl to 125 mg/dl is diagnostic of prediabetes. In a patient with classic symptoms of hyperglycemia or hyperglycemic crisis, a random glucose >/= 200 mg/dl is diagnostic for diabetes. In the absence of unequivocal hyperglycemia, results should be confirmed by repeat testing. The classification and Diagnosis of Diabetes Diabetes Care 2021; 46: S19-S40. Current interpretive data was last revised 2022. Calcium 10.3 8.5 - 10.3 mg/dL [facility] ([place]) Blood 11/08/2024 3:06 AM CDT 11/08/2024 4:01 AM CDT Rommel Wiley DO LAB BLOOD ORDERABLES F inal Result [facility] ([place]) [address] [facility] [place] [address] * (ABNORMAL) eGFR (11/07/2024 5:10 AM CDT) eGFR 48(L) >=60 mL/min/1. 73 m2 Comment: Interpretive Data Reference Interval Normal >/= 90 mL/min/1.73m2 Mildly decreased* 60 - 89 mL/min/1.73m2 Mildly to moderately decreased 45 - 59 mL/min/1.73m2 Moderately to severely decreased 30 - 44 mL/min/1.73m2 Severely decreased 15 - 29 mL/min/1.73m2 Kidney Failure < 15 mL/min/1.73m2 *Relative to young adult level Estimated glomerular filtration rate is determined by the 2020 CKD-EPI equation recommended by the National Kidney Foundation (A Unifying Approach to GFR Estimation: Recommendations of the NKF-ASK Task Force on Reassessing the Inclusion of Race in Diagnosing Kidney Disease, JASN 2020). The CKD-EPI equation should not be used for patients with unstable renal function and has not been validated in children and those over 70. Current interpretive data was last reviewed 2021. Blood 11/07/2024 5:10 AM CDT 11/07/2024 6:19 AM CDT Rommel Wiley DO LAB BLOOD ORDERABLES F inal Result [facility] ([place]) [address] [facility] [place] [address] * Magnesium (11/07/2024 5:10 AM CDT) Magnesium 1.6 1.4 - 2.5 mg/dL Blood 11/07/2024 5:10 AM CDT 11/07/2024 6:19 AM CDT Rommel Oates [facility] DO LAB BLOOD ORDERABLES F inal Result [facility] ([place]) [address] [facility] Department [place] [address] * (ABNORMAL) Basic metabolic panel (11/07/2024 5:10 AM CDT) Sodium 138 135 - 145 mmol/L Potassium, pl 4.2 3.3 - 4.9 mmol/L [facility] ([place]) Chloride 102 97 - 110 mmol/L [facility] ([place]) CO2 21(L) 22 - 32 mmol/L [facility] ([place]) Anion gap 15 2 - 15 mmol/L [facility] ([place]) BUN 22 6 - 25 mg/dL [facility] ([place]) Creatinine 1.17(H) 0.60 - 1.10 mg/dL [facility] ([place]) Glucose 86 70 - 199 mg/dL [facility] ([place]) Comment: Interpretive Data Fasting glucose >/= 126 mg/dl is diagnostic for diabetes. Fasting is defined as no caloric intake for at least 8 hours. Fasting glucose between 100 mg/dl to 125 mg/dl is diagnostic of prediabetes. In a patient with classic symptoms of hyperglycemia or hyperglycemic crisis, a random glucose >/= 200 mg/dl is diagnostic for diabetes. In the absence of unequivocal hyperglycemia, results should be confirmed by repeat testing. The classification and Diagnosis of Diabetes Diabetes Care 2021; 46: S19-S40. Current interpretive data was last revised 2022. Calcium 10.1 8.5 - 10.3 mg/dL [facility] ([place]) Blood 11/07/2024 5:10 AM CDT 11/07/2024 6:19 AM CDT Rommel Wiley DO LAB BLOOD ORDERABLES F inal Result APYRL [facility] ([place]) 1 [facility] [place] [place] [address] * (ABNORMAL) Urinalysis reflex to microscopic and culture Urine (11/06/2024 12:45 PM CDT) Color, ur Yellow Yellow Clarity, ur Clear Clear [facility] ([place]) Specific gravity, ur 1.011 1.003 - 1.030 [facility] ([place]) pH, urine 6.0 [facility] ([place]) Comment: Interpretive Data U rine pH is affected by diet, medications, systemic acid-base disturbances, and renal tubular function. pH may affect urinary stone formation. For example, urine pH below 6.0 may help reduce the tendency for calcium phosphate stones and pH greater than 6.0 may reduce the tendency for uric acid stone formation. Source: [facility] [employer] Current Interpretive Data was last revised on 2017 Protein, ur ql Negative Negative [facility] ([place]) Glucose, ur ql 1+(A) Negative [facility] ([place]) Ketones, ur Negative Negative [facility] ([place]) Bilirubin, ur Negative Negative [facility] ([place]) Blood, ur Negative Negative [facility] ([place]) Urobilinogen, ur <2.0 <2.0 mg/dL [facility] ([place]) Nitrite, ur Negative Negative [facility] ([place]) Leukocyte esterase, ur 4+(A) Negative [facility] ([place]) UA reflex comment Reflex to microscopic UA will be performed. [facility] ([place]) Urine 11/06/2024 12:4 5 PM CDT 11/06/2024 12:55 PM CDT Rommel Wiley DO LAB MICROBIOLOGY - GEN ERAL ORDERABLES Final Result APRYL [facility] ([place]) 1 [facility] [place] [address] * (ABNORMAL) Urinalysis, microscopic only (11/06/2024 12:45 PM CDT) WBC, ur 21-50(A) 0 - 5 /HPF RBC, ur 0-2 0 - 2 /HPF [facility] ([place]) Epithelial cells, squamous, ur 1-5 0 - 5 /HPF [facility] ([place]) Hyaline casts, ur 6-10 0 - 10 /LPF [facility] ([place]) Culture Reflex Comment Reflex to urine culture will be performed. [facility] ([place]) Urine 11/06/2024 12:4 5 PM CDT 11/06/2024 12:55 PM CDT Rommel Wiely DO LAB URINE ORDERABLES F inal Result Performing Organization Address [facility]/ZIP Co de Phone Number STEWART[facility]HLIE [facility] ([place]) 1 [facility] [place] [address] * Urine culture Urine (11/06/2024 12:45 PM CDT) Report Final Report: Less than 100,000 colonies/mL (clinically insignificant growth based on current clinical standards) Comment:Testing performed by : [facility], [address] [place] [address] Organism (CLINICALLY INSIGNIFICANT GROWTH [facility] ([place]) Urine 11/06/2024 12:4 5 PM CDT 11/06/2024 4:37 PM CDT Narrative [facility] ([place]) - 11/07/2024 7:11 PM CDT Urine culture reflexed based upon urinalysis results. Testing performed by [facility] ([phone]) Rommel Wiley DO LAB MICROBIOLOGY - GEN ERAL ORDERABLES Final Result Performing Organization Address City/[facility]/ZIP Co de Phone Number APRYL [facility] ([place]) 1 [facility] [place] [address] * (ABNORMAL) Fibro Test-Acti Test (11/06/2024 2:47 AM CDT) FibroTest Score 0.42 [facility] FibroTest Stage F1-F2 CHAVA PECK) FibroTest Interpretation SEE BELOW ARPYL PECK) Comment: RESULT: minimal fibrosis FibroTest estimates liver fibrosis FibroTest Score Stage Interpretation 0.00-0.21 F0 no fibrosis 0.21-0.27 F0-F1 no fibrosis 0.27-0.31 F1 minimal fibrosis 0.31-0.48 F1-F2 minimal fibrosis 0.48-0.58 F2 moderate fibrosis 0.58-0.72 F3 advanced fibrosis 0.72-0.74 F3-F4 advanced fibrosis 0.74-1.00 F4 severe fibrosis (Cirrhosis) ActiTest Score 0.05 TIFFANIE [facility] ([place]) ActiTest Grade A0 [facility]FF[facility]IE [facility] ([place]) ActiTest Interpretation no activity [facility]YL [facility] ([place]) Comment: ActiTest estimates necroinflammatory activity ActiTest Score Grade Interpretation 0.00-0.17 A0 no activity 0.17-0.29 A0-A1 no activity 0.29-0.36 A1 minimal activity 0.36-0.52 A1-A2 minimal activity 0.52-0.60 A2 significant activity 0.60-0.62 A2-A3 significant activity 0.62-1.00 A3 severe activity FibroTest-ActiTest Comment See Comment [facility]YL [facility] ([place]) Comment: The reliability of results is dependent on compliance with the preanalytical and analytical conditions recommended by [employer]. The tests have to be deferred for: acute hemolysis, acute hepatitis, acute inflammation, extra hepatic cholestasis. The advice of a specialist should be sought for interpretation in chronic hemolysis and Gilbert's syndrome. The test interpretation is not validated in liver transplant patients. Isolated extreme values of one of the components should lead to caution in interpreting the results. In case of discordance between a biopsy result and a test, it is recommended to seek advice of a specialist. The causes of these discordances could be due to a flaw of the test or to a flaw in the biopsy: i.e. a liver biopsy has a 33% variability rate for one fibrosis stage. FibroTest is interpretable for chronic hepatitis B and C, alcoholic and non alcoholic steatosis. ActiTest is interpretable for chronic hepatitis B and C. ADDITIONAL INFORMATION This test was developed and its performance characteristics determined by [facility] in a manner consistent with CLIA requirements. This test has not been cleared or approved by the U.S. Food and Drug Administration. [employer] Serial Number [id number] [facility] ([place]) APOLIPOPROTEIN A1 77(L) >=140 mg/dL [facility] ([place]) Ptdzl-3-Agsrrmqsxttzc, Ser 222 100 - 280 mg/dL [facility] ([place]) Haptoglobin, S 118 30 - 200 mg/dL [facility] ([place]) Alanine Aminotransferase (ALT), S 13 7 - 45 Units/L [facility] ([place]) Gamma Glutamyltransferase (GGT), S 17 5 - 36 Units/L [facility] ([place]) Bilirubin, Total, S 0.3 0.0 - 1.2 mg/dL [facility] ([place]) Comment: Test Performed by: [facility] [address] [place] [address] Feed Mill Manager: Anika Spears Ph.D.; CLIA# [id number] Test Performed by: [facility] [address] [place] [address] [employer] Mill Manager: Anika Spears Ph.D.; CLIA# [id number] Blood 11/06/2024 2:47 AM CDT 11/06/2024 3:39 AM CDT us Rommel Wiley DO LAB BLOOD ORDERABLES F inal Result [facility] ([place]) 1 [facility] [place] [address] [place] ref [facility] * (ABNORMAL) eGFR (11/06/2024 2:47 AM CDT) eGFR 54(L) >=60 mL/min/1. 73 m2 Comment: Interpretive Data Reference Interval Normal >/= 90 mL/min/1.73m2 Mildly decreased* 60 - 89 mL/min/1.73m2 Mildly to moderately decreased 45 - 59 mL/min/1.73m2 Moderately to severely decreased 30 - 44 mL/min/1.73m2 Severely decreased 15 - 29 mL/min/1.73m2 Kidney Failure < 15 mL/min/1.73m2 *Relative to young adult level Estimated glomerular filtration rate is determined by the 2020 CKD-EPI equation recommended by the National Kidney Foundation (A Unifying Approach to GFR Estimation: Recommendations of the NKF-ASK Task Force on Reassessing the Inclusion of Race in Diagnosing Kidney Disease, JASN 2020). The CKD-EPI equation should not be used for patients with unstable renal function and has not been validated in children and those over 70. Current interpretive data was last reviewed 2021. Blood 11/06/2024 2:47 AM CDT 11/06/2024 3:39 AM CDT Rommel Wiley DO LAB BLOOD ORDERABLES F inal Result [facility] ([place]) 1 [facility] [place] [address] * Basic metabolic panel (11/06/2024 2:47 AM CDT) Pathologist [facility] Sodium 139 135 - 145 mmol/L Potassium, pl 3.4 3.3 - 4.9 mmol/L [facility] ([place]) Chloride 100 97 - 110 mmol/L [facility] ([place]) CO2 25 22 - 32 mmol/L [facility] ([place]) Anion gap 14 2 - 15 mmol/L [facility] ([place]) BUN 25 6 - 25 mg/dL [facility] ([place]) Creatinine 1.07 0.60 - 1.10 mg/dL [facility] Glucose 87 70 - 199 mg/dL [facility] ([place]) Comment: Interpretive Data Fasting glucose >/= 126 mg/dl is diagnostic for diabetes. Fasting is defined as no caloric intake for at least 8 hours. Fasting glucose between 100 mg/dl to 125 mg/dl is diagnostic of prediabetes. In a patient with classic symptoms of hyperglycemia or hyperglycemic crisis, a random glucose >/= 200 mg/dl is diagnostic for diabetes. In the absence of unequivocal hyperglycemia, results should be confirmed by repeat testing. The classification and Diagnosis of Diabetes Diabetes Care 2021; 46: S19-S40. Current interpretive data was last revised 2022. Calcium 9.9 8.5 - 10.3 mg/dL [facility]YL [facility] ([place]) Blood 11/06/2024 2:47 AM CDT 11/06/2024 3:39 AM CDT Rommel Wiley DO LAB BLOOD ORDERABLES F inal Result Performing Organization Address City/[facility]/ZIP Co de Phone Number [facility] ([place]) 1 [facility] [place] [address] * (ABNORMAL) PTH (11/05/2024 3:14 PM CDT) PTH 3(L) 15 - 65 pg/mL Blood 11/05/2024 3:14 PM CDT 11/05/2024 3:17 PM CDT Rommel Oates [facility] DO LAB BLOOD ORDERABLES F inal Result Performing Organization Address City/[facility] Co de Phone Number [facility] ([place]) 1 [facility] [place] [address] * (ABNORMAL) eGFR (11/05/2024 1:05 PM CDT) eGFR 54(L) >=60 mL/min/1. 73 m2 Comment: Interpretive Data Reference Interval Normal >/= 90 mL/min/1.73m2 Mildly decreased* 60 - 89 mL/min/1.73m2 Mildly to moderately decreased 45 - 59 mL/min/1.73m2 Moderately to severely decreased 30 - 44 mL/min/1.73m2 Severely decreased 15 - 29 mL/min/1.73m2 Kidney Failure < 15 mL/min/1.73m2 *Relative to young adult level Estimated glomerular filtration rate is determined by the 2020 CKD-EPI equation recommended by the National Kidney Foundation (A Unifying Approach to GFR Estimation: Recommendations of the NKF-ASK Task Force on Reassessing the Inclusion of Race in Diagnosing Kidney Disease, JASN 2020). The CKD-EPI equation should not be used for patients with unstable renal function and has not been validated in children and those over 70. Current interpretive data was last reviewed 2021. Blood 11/05/2024 1:05 PM CDT 11/05/2024 1:15 PM CDT Rommel Oates Saurabh DO LAB BLOOD ORDERABLES F inal Result [facility] ([place]) 1 [facility] [place] [address] * (ABNORMAL) Basic metabolic panel (11/05/2024 1:05 PM CDT) Sodium 139 135 - 145 mmol/L Potassium, pl 3.7 3.3 - 4.9 mmol/L [facility] ([place]) Chloride 98 97 - 110 mmol/L [facility] ([place]) CO2 26 22 - 32 mmol/L [facility] ([place]) Anion gap 15 2 - 15 mmol/L [facility] BUN 27(H) 6 - 25 mg/dL [facility] ([place]) Creatinine 1.07 0.60 - 1.10 mg/dL [facility] ([place]) Glucose 128 70 - 199 mg/dL [facility] ([place]) Comment: Interpretive Data Fasting glucose >/= 126 mg/dl is diagnostic for diabetes. Fasting is defined as no caloric intake for at least 8 hours. Fasting glucose between 100 mg/dl to 125 mg/dl is diagnostic of prediabetes. In a patient with classic symptoms of hyperglycemia or hyperglycemic crisis, a random glucose >/= 200 mg/dl is diagnostic for diabetes. In the absence of unequivocal hyperglycemia, results should be confirmed by repeat testing. The classification and Diagnosis of Diabetes Diabetes Care 2021; 46: S19-S40. Current interpretive data was last revised 2022. Calcium 10.5(H) 8.5 - 10.3 mg/dL [facility]YL [facility] ([place]) Blood 11/05/2024 1:05 PM CDT 11/05/2024 1:15 PM CDT us Rommel Wiley DO LAB BLOOD ORDERABLES F inal Result APRYL [facility] ([place]) 1 [facility] [place] [address] * CT Abdomen Pelvis WO Contrast (11/05/2024 11:06 AM CDT) Anatomical Region Laterality Modality Body N/A Computed Tomogra phy 11/05/2024 12:4 9 PM CDT Narrative 11/05/2024 1:07 PM CDT EXAM DESCRIPTION: CT ABDOMEN PELVIS WO CONTRAST REASON FOR STUDY: Abdominal pain, acute, nonlocalized, Also having some nausea and vomited this AM. Pain is lower quadrants bilaterally. Pain and nausea TECHNIQUE: CT scan of the abdomen and pelvis performed without intravenous and without oral contrast using helical scanning technique. Reconstructed coronal and sagittal MPR images reviewed. All images stored on PACS. Automated exposure control was used as a dose optimization technique for this examination. COMPARISON: CT chest abdomen pelvis CT pelvis 01/28/2024. FINDINGS: The sensitivity for detection of visceral lesions is diminished without the use of intravenous contrast. LOWER CHEST: The heart is mildly enlarged. There is a small pericardial effusion. There is atelectasis in the right middle lobe and lingula. Mildly prominent pericardiophrenic lymph node 1.3 x 1.2 cm (series 2, image 20). This appears similar to the prior examination where included. LIVER: Slightly cirrhotic liver morphology. No focal hepatic lesion. GALLBLADDER: Surgically absent. BILE DUCTS: No biliary ductal dilation. SPLEEN: Spleen size normal. No focal splenic lesion. PANCREAS: No pancreatic mass or inflammatory change. ADRENALS: Normal KIDNEYS/URINARY TRACT: No hydronephrosis or hydroureter. There is a high density lesion from the lower pole right kidney, this is 1.3 cm 65 Hounsfield units. This is nonspecific but may be a proteinaceous or hemorrhagic cyst and appears unchanged. No ureteral calculus. There is fluid urinary bladder. No urinary bladder calculus or mass. GI: There is soft tissue fullness at the anus similar to the prior study, this could be correlated with direct inspection. Mild sigmoid colon diverticulosis. No evidence of acute diverticulitis. The terminal ileum is normal. Stomach and duodenum normal. No pneumatosis. No abnormal bowel wall thickening. The appendix is not convincingly seen. PERITONEUM: No ascites or free air. No mesenteric mass or lymphadenopathy. RETROPERITONEUM: No retroperitoneal mass or lymphadenopathy. REPRODUCTIVE: No significant abnormalities are seen. VASCULATURE: Abdominal aorta nonaneurysmal. MUSCULOSKELETAL: Bone windows show compression deformities L1, L3, inferior endplate L4 and superior endplate L5 with vertebral augmentation L1 and L3 compression fractures unchanged compared with 01/15/2024. OTHER: No other abnormality. IMPRESSION: 1. No evidence of an acute abnormality of the abdomen and pelvis. 2. Soft tissue fullness at the anus similar to the prior study, this could be correlated with direct inspection. 3. Cirrhotic liver morphology. 4. Cholecystectomy. 5. Unchanged high density lesion lower pole right kidney 1.3 cm nonspecific but may be a proteinaceous or hemorrhagic cyst. 6. Unchanged compression deformities L1, L3, L4 and L5 with vertebral augmentation L1 and L3. 7. Mildly prominent pericardiophrenic lymph node 1.3 x 1.2 cm. THIS IS AN ELECTRONICALLY VERIFIED FINAL REPORT 11/05/2024 1:07 PM - Electronically signed by Marlon Grace M.D. CH: Report ID: [id number] Reading Location: [id number] Procedure Note Marlon Grace Jr., MD - 11/05/2024 EXAM DESCRIPTION: CT ABDOMEN PELVIS WO CONTRAST REASON FOR STUDY: Abdominal pain, acute, nonlocalized, Also having some nausea and vomited this AM. Pain is lower quadrants bilaterally. Pain and nausea TECHNIQUE: CT scan of the abdomen and pelvis performed without intravenousand without oral contrast using helical scanning technique. Reconstructed coronal and sagittal MPR images reviewed. All images stored on PACS.Automated exposure control was used as a dose optimization technique for this examination. COMPARISON: CT chest abdomen pelvis CT pelvis 01/28/2024. FINDINGS: The sensitivity for detection of visceral lesions is diminished withoutthe use of intravenous contrast. LOWER CHEST: The heart is mildly enlarged. There is a small pericardial effusion. There is atelectasis in the right middle lobe and lingula.Mildly prominent pericardiophrenic lymph node 1.3 x 1.2 cm (series 2, image 20). This appears similar to the prior examination where included. LIVER: Slightly cirrhotic liver morphology. No focal hepatic lesion. GALLBLADDER: Surgically absent. BILE DUCTS: No biliary ductal dilation. SPLEEN: Spleen size normal. No focal splenic lesion. PANCREAS: No pancreatic mass or inflammatory change. ADRENALS: Normal KIDNEYS/URINARY TRACT: No hydronephrosis or hydroureter. There is ahigh density lesion from the lower pole right kidney, this is 1.3 cm 65Hounsfield units. This is nonspecific but may be a proteinaceous or hemorrhagic cystand appears unchanged. No ureteral calculus. There is fluid urinary bladder.No urinary bladder calculus or mass. GI: There is soft tissue fullness at the anus similar to the priorstudy, this could be correlated with direct inspection. Mild sigmoid colon diverticulosis. No evidence of acute diverticulitis. The terminal ileumis normal. Stomach and duodenum normal. No pneumatosis. No abnormal bowelwall thickening. The appendix is not convincingly seen. PERITONEUM: No ascites or free air. No mesenteric mass orlymphadenopathy. RETROPERITONEUM: No retroperitoneal mass or lymphadenopathy. REPRODUCTIVE: No significant abnormalities are seen. VASCULATURE: Abdominal aorta nonaneurysmal. MUSCULOSKELETAL: Bone windows show compression deformities L1, L3,inferior endplate L4 and superior endplate L5 with vertebral augmentation L1 and L3 compression fractures unchanged compared with 01/15/2024. OTHER: No other abnormality. IMPRESSION: 1. No evidence of an acute abnormality of the abdomen and pelvis. 2. Soft tissue fullness at the anus similar to the prior study, thiscould be correlated with direct inspection. 3. Cirrhotic liver morphology. 4. Cholecystectomy. 5. Unchanged high density lesion lower pole right kidney 1.3 cmnonspecific but may be a proteinaceous or hemorrhagic cyst. 6. Unchanged compression deformities L1, L3, L4 and L5 with vertebral augmentation L1 and L3. 7. Mildly prominent pericardiophrenic lymph node 1.3 x 1.2 cm. THIS IS AN ELECTRONICALLY VERIFIED FINAL REPORT 11/05/2024 1:07 PM - Electronically signed by Marlon Grace M.D. CH: Report ID: [id number] Reading Location: [id number] Rommel Oates [facility] DO IMG CT PROCEDURES Jalyn l Result * (ABNORMAL) eGFR (11/04/2024 8:15 AM CDT) Pathologist [facility] eGFR 51(L) >=60 mL/min/1. 73 m2 Comment: Interpretive Data Reference Interval Normal >/= 90 mL/min/1.73m2 Mildly decreased* 60 - 89 mL/min/1.73m2 Mildly to moderately decreased 45 - 59 mL/min/1.73m2 Moderately to severely decreased 30 - 44 mL/min/1.73m2 Severely decreased 15 - 29 mL/min/1.73m2 Kidney Failure < 15 mL/min/1.73m2 *Relative to young adult level Estimated glomerular filtration rate is determined by the 2020 CKD-EPI equation recommended by the National Kidney Foundation (A Unifying Approach to GFR Estimation: Recommendations of the NKF-ASK Task Force on Reassessing the Inclusion of Race in Diagnosing Kidney Disease, JASN 2020). The CKD-EPI equation should not be used for patients with unstable renal function and has not been validated in children and those over 70. Current interpretive data was last reviewed 2021. Blood 11/04/2024 8:15 AM CDT 11/04/2024 9:38 AM CDT Lupe Lawton MD LAB BLOOD ORDERABLES Jalyn l Result [facility] [place]) 1 [facility] [place] [address] * (ABNORMAL) Differential, auto (11/04/2024 8:15 AM CDT) Neutrophil abs 3.85 1.50 - 6.50 K/cumm Imm gran abs 0.01 0.00 - 0.10 K/cumm [facility] ([place]) Lymphocyte abs 0.53(L) 0.80 - 3.30 K/cumm [facility] ([place]) Monocyte abs 0.56 0.20 - 0.80 K/cumm [facility] ([place]) Eosinophil abs 0.16 0.00 - 0.50 K/cumm [facility] ([place]) Basophil abs 0.03 0.00 - 0.10 K/cumm [facility] ([place]) Neutrophil pct 74.9 % [facility] ([place]) Comment: Interpretive Data Percent cell count reference ranges are not reported, since discordance with absolute values may lead to misinterpretation of CBC data. Current Interpretive Data was last revised on 2017. Imm gran pct 0.2 % [facility] ([place]) Comment: Interpretive Data Percent cell count reference ranges are not reported, since discordance with absolute values may lead to misinterpretation of CBC data. Current Interpretive Data was last revised on 2017. Lymphocyte pct 10.3 % [facility] ([place]) Comment: Interpretive Data Percent cell count reference ranges are not reported, since discordance with absolute values may lead to misinterpretation of CBC data. Current Interpretive Data was last revised on 2017. Monocyte pct 10.9 % [facility] ([place]) Comment: Interpretive Data Percent cell count reference ranges are not reported, since discordance with absolute values may lead to misinterpretation of CBC data. Current Interpretive Data was last revised on 2017. Eosinophil pct 3.1 % [facility] ([place]) Comment: Interpretive Data Percent cell count reference ranges are not reported, since discordance with absolute values may lead to misinterpretation of CBC data. Current Interpretive Data was last revised on 2017. Basophil pct 0.6 % [facility] ([place]) Comment: Interpretive Data Percent cell count reference ranges are not reported, since discordance with absolute values may lead to misinterpretation of CBC data. Current Interpretive Data was last revised on 2017. Blood 11/04/2024 8:15 AM CDT 11/04/2024 9:38 AM CDT Lupe Lawton MD LAB BLOOD ORDERABLES Jalyn meyer Result [facility] ([place]) 1 [facility] [place] [address] * (ABNORMAL) CBC with auto differential (11/04/2024 8:15 AM CDT) WBC 5.14 3.80 - 9.90 K/cumm Hgb 13.6 11.9 - 15.5 g/dL [facility] ([place]) Hct 42.5 35.6 - 45.5 % [facility] ([place]) Plt 153 150 - 400 K/cumm [facility] ([place]) MPV 10.6 9.1 - 12.3 fL [facility] ([place]) RBC 4.45 3.90 - 5.20 M/cumm [facility] ([place]) MCV 95.5 81.3 - 96.4 fL [facility] ([place]) MCH 30.6 27.1 - 33.3 pg [facility] ([place]) MCHC 32.0(L) 32.3 - 35.7 g/dL [facility] ([place]) RDW CV 14.9 11.1 - 14.9 % [facility] ([place]) RDW SD 51.8(H) 35.7 - 48.1 fL [facility] ([place]) NRBC abs 0.00 0.00 - 0.01 K/cumm [facility] ([place]) Blood 11/04/2024 8:15 AM CDT 11/04/2024 9:38 AM CDT Lupe Lawton MD LAB BLOOD ORDERABLES Jalyn meyer Result [facility] ([place]) 1 [facility] [place] [address] * (ABNORMAL) Comprehensive metabolic panel (11/04/2024 8:15 AM CDT) Sodium 138 135 - 145 mmol/L Potassium, pl 2.9(C) 3.3 - 4.9 mmol/L [facility] ([place]) Comment:Critical Result call ed by [email or web address] at 2024-11-04 10:00:41. Result Read Back by SANIYA COOPER Chloride 95(L) 97 - 110 mmol/L [facility] ([place]) CO2 28 22 - 32 mmol/L [facility] ([place]) Anion gap 15 2 - 15 mmol/L [facility] ([place]) BUN 40(H) 6 - 25 mg/dL [facility] ([place]) Creatinine 1.12(H) 0.60 - 1.10 mg/dL [facility] ([place]) Glucose 129 70 - 199 mg/dL [facility] ([place]) Comment: Interpretive Data Fasting glucose >/= 126 mg/dl is diagnostic for diabetes. Fasting is defined as no caloric intake for at least 8 hours. Fasting glucose between 100 mg/dl to 125 mg/dl is diagnostic of prediabetes. In a patient with classic symptoms of hyperglycemia or hyperglycemic crisis, a random glucose >/= 200 mg/dl is diagnostic for diabetes. In the absence of unequivocal hyperglycemia, results should be confirmed by repeat testing. The classification and Diagnosis of Diabetes Diabetes Care 2021; 46: S19-S40. Current interpretive data was last revised 2022. Calcium 10.3 8.5 - 10.3 mg/dL [facility] ([place]) Bilirubin, total 0.3 0.1 - 1.2 mg/dL [facility] ([place]) Protein, pl 6.6 6.5 - 8.5 g/dL [facility] ([place]) Albumin 3.5 3.5 - 5.0 g/dL [facility] ([place]) Alk phos 98 40 - 130 Units/L [facility] ([place]) ALT 10 7 - 45 Units/L [facility] ([place]) AST 19 10 - 45 Units/L [facility] ([place]) Blood 11/04/2024 8:15 AM CDT 11/04/2024 9:38 AM CDT Lupe Lawton MD LAB BLOOD ORDERABLES Jalyn l Result Performing Organization Address [facility]/ZIP Co de Phone Number APRYL VALLE ([place]) 1 [facility] [place] [address] * POCT glucose (11/04/2024 4:36 AM CDT) Pathologist [facility] Glucose, POC 117 70 - 199 mg/dL Blood 11/04/2024 4:36 AM CDT 11/04/2024 4:36 AM CDT us Chandler Munson MD LAB POCT ORDERABLES - DEVICE Fi nal Result Performing Organization Address [facility] Co de Phone Number APRYL VALLE ([place]) 1 [facility] [place] [address] * ECG 12 lead (11/04/2024 1:14 AM CDT) 11/04/2024 1:14 AM CDT Narrative [facility] - 11/04/2024 9:24 AM CDT Vent Rate: 75 bpm RR Interval: 792 msec OK Interval: 0 msec QRS Duration: 125 msec QT Interval: 336 msec QTC Interval: 365 msec P-R-T [place]: [id number] - -34 - 153 degrees IMPRESSION: ATRIAL FIBRILLATION LEFT AXIS DEVIATION [QRS AXIS < -30] POSSIBLE RIGHT VENTRICULAR CONDUCTION DELAY [RSR (QR) IN V1/V2] VOLTAGE CRITERIA FOR LVH [MEETS CRITERIA IN ONE OF: R(aVL), S(V1), R(V5), R(V5/V6)+S(V1)] ST DEVIATION AND MODERATE T-WAVE ABNORMALITY, CONSIDER LATERAL ISCHEMIA [-0.1+ mV T-WAVE IN I/aVL/V5/V6] ABNORMAL ECG NO CHANGE FROM PREVIOUS TRACING NOTED Electronically Signed By: James Lin MD us Lupe Lawton MD ECG ORDERABLES Final Res ult Performing Organization Address [facility]/ZIP Co de Phone Number [employer] [facility] * (ABNORMAL) Troponin T high-sensitivity 6-hour (11/03/2024 11:22 PM CDT) Trop T hs 42(H) <=14 ng/L Comment: Interpretive Data For further hscTnT resources including the diagnostic algorithm and an aid in interpretation, copy and paste this link: https://nrl.testcatalog.org/show/hsTrop Current Interpretive Data last revised 2020. Trop T hs delta -12(C) ng/L [facility] ([place]) Comment:Critical Result call ed by [email or web address] at 2024-11-04 00:06:35. Result Read Back by orlando hooper Trop T hs interp Significa nt(C) [facility] ([place]) Comment:Critical Result call ed by [email or web address] at 2024-11-04 00:06:35. Result Read Back by orlando hooper Blood 11/03/2024 11:2 2 PM CDT 11/03/2024 11:27 PM CDT Lupe Lawton MD LAB BLOOD ORDERABLES Jalyn meyer Result APRYL VALLE ([place]) 1 [facility] [place] [address] * CT Head WO Contrast (11/03/2024 7:47 PM CDT) Anatomical Region Laterality Modality Head and Neck N/A Computed Tomogra phy 11/03/2024 7:54 PM CDT Narrative 11/03/2024 7:56 PM CDT EXAM DESCRIPTION: CT HEAD WO CONTRAST REASON FOR STUDY: dizziness Dizziness, nausea x 1 day, difficulty ambulating. TECHNIQUE: Axial images acquired through the brain without intravenous contrast. Images stored on PACS. Automated exposure control was used as a dose optimization technique for this examination. COMPARISON: 05/23/2023 FINDINGS: BRAIN: No hemorrhage, edema or mass effect. No recent infarct. Generalized atrophy and periventricular microvascular white matter ischemic change. EXTRA-AXIAL SPACES: No fluid collections. No masses. CALVARIUM: No fracture. SINUSES/MASTOIDS: No fluid or mucosal thickening. ORBITS: No significant abnormality. OTHER: No other significant abnormality. IMPRESSION: No acute intracranial findings. THIS IS AN ELECTRONICALLY VERIFIED FINAL REPORT 11/03/2024 7:56 PM - Electronically signed by Sea Laureano M.D. KT: RACHEL Report ID: [id number] Reading Location: [id number] Procedure Note Sea Laureano MD - 11/03/2024 EXAM DESCRIPTION: CT HEAD WO CONTRAST REASON FOR STUDY: dizziness Dizziness, nausea x 1 day, difficulty ambulating. TECHNIQUE: Axial images acquired through the brain without intravenous contrast. Images stored on PACS. Automated exposure control was used asa dose optimization technique for this examination. COMPARISON: 05/23/2023 FINDINGS: BRAIN: No hemorrhage, edema or mass effect. No recent infarct. Generalized atrophy and periventricular microvascular white matterischemic change. EXTRA-AXIAL SPACES: No fluid collections. No masses. CALVARIUM: No fracture. SINUSES/MASTOIDS: No fluid or mucosal thickening. ORBITS: No significant abnormality. OTHER: No other significant abnormality. IMPRESSION: No acute intracranial findings. THIS IS AN ELECTRONICALLY VERIFIED FINAL REPORT 11/03/2024 7:56 PM - Electronically signed by Sea Laureano M.D. KT: RACHEL Report ID: [id number] Reading Location: [id number] Shae Semaj [facility] CT PROCEDURES Final Result * (ABNORMAL) Troponin T high-sensitivity 2-hour (11/03/2024 7:15 PM CDT) Trop T hs 51(H) <=14 ng/L Comment: Interpretive Data For further hscTnT resources including the diagnostic algorithm and an aid in interpretation, copy and paste this link: https://nrl.testcatalog.org/show/hsTrop Current Interpretive Data last revised 2020. Trop T hs delta -3 ng/L [facility] ([place]) Trop T hs interp Insignificant [facility] ([place]) Blood 11/03/2024 7:15 PM CDT 11/03/2024 7:47 PM CDT Shae GOMEZ LAB BLOOD ORDERABLES Final Resu lt Performing Organization Address [facility] Co de Phone Number APRYL VALLE [place]) 1 [facility] [place] [address] * (ABNORMAL) Troponin T high-sensitivity series (baseline, 2hr, 4hr, 6hr) (11/03/2024 4:29 PM CDT) Trop T hs 54(H) <=14 ng/L Comment: Hemolysis present. Results may be affected. Interpretive Data For further hscTnT resources including the diagnostic algorithm and an aid in interpretation, copy and paste this link: https://nrl.testcatalog.org/show/hsTrop Current Interpretive Data last revised 2020. Blood 11/03/2024 4:29 PM CDT 11/03/2024 4:32 PM CDT Shae GOMEZ LAB BLOOD ORDERABLES Final Resu lt Performing Organization Address [facility] Co de Phone Number APRYL VALLE ([place]) 1 [facility] [place] [address] * (ABNORMAL) eGFR (11/03/2024 4:29 PM CDT) eGFR 37(L) >=60 mL/min/1. 73 m2 Comment: Interpretive Data Reference Interval Normal >/= 90 mL/min/1.73m2 Mildly decreased* 60 - 89 mL/min/1.73m2 Mildly to moderately decreased 45 - 59 mL/min/1.73m2 Moderately to severely decreased 30 - 44 mL/min/1.73m2 Severely decreased 15 - 29 mL/min/1.73m2 Kidney Failure < 15 mL/min/1.73m2 *Relative to young adult level Estimated glomerular filtration rate is determined by the 2020 CKD-EPI equation recommended by the National Kidney Foundation (A Unifying Approach to GFR Estimation: Recommendations of the NKF-ASK Task Force on Reassessing the Inclusion of Race in Diagnosing Kidney Disease, JASN 2020). The CKD-EPI equation should not be used for patients with unstable renal function and has not been validated in children and those over 70. Current interpretive data was last reviewed 2021. Blood 11/03/2024 4:29 PM CDT 11/03/2024 4:32 PM CDT us Shae GOMEZ LAB BLOOD ORDERABLES Final Resu lt [facility] ([place]) 1 [facility] Department of Laboratories [place], [place] [id number] * (ABNORMAL) Differential, auto (11/03/2024 4:29 PM CDT) Neutrophil abs 4.36 1.50 - 6.50 K/cumm Imm gran abs 0.02 0.00 - 0.10 K/cumm [facility] ([place]) Lymphocyte abs 0.38(L) 0.80 - 3.30 K/cumm [facility] ([place]) Monocyte abs 0.38 0.20 - 0.80 K/cumm [facility] ([place]) Eosinophil abs 0.07 0.00 - 0.50 K/cumm [facility] ([place]) Basophil abs 0.04 0.00 - 0.10 K/cumm [facility] ([place]) Neutrophil pct 83.1 % [facility] ([place]) Comment: Interpretive Data Percent cell count reference ranges are not reported, since discordance with absolute values may lead to misinterpretation of CBC data. Current Interpretive Data was last revised on 2017. Imm gran pct 0.4 % [facility] ([place]) Comment: Interpretive Data Percent cell count reference ranges are not reported, since discordance with absolute values may lead to misinterpretation of CBC data. Current Interpretive Data was last revised on 2017. Lymphocyte pct 7.2 % [facility] ([place]) Comment: Interpretive Data Percent cell count reference ranges are not reported, since discordance with absolute values may lead to misinterpretation of CBC data. Current Interpretive Data was last revised on 2017. Monocyte pct 7.2 % [facility] ([place]) Comment: Interpretive Data Percent cell count reference ranges are not reported, since discordance with absolute values may lead to misinterpretation of CBC data. Current Interpretive Data was last revised on 2017. Eosinophil pct 1.3 % [facility] ([place]) Comment: Interpretive Data Percent cell count reference ranges are not reported, since discordance with absolute values may lead to misinterpretation of CBC data. Current Interpretive Data was last revised on 2017. Basophil pct 0.8 % [facility] ([place]) Comment: Interpretive Data Percent cell count reference ranges are not reported, since discordance with absolute values may lead to misinterpretation of CBC data. Current Interpretive Data was last revised on 2017. Blood 11/03/2024 4:29 PM CDT 11/03/2024 4:32 PM CDT us Shae GOMEZ LAB BLOOD ORDERABLES Final Resu lt [facility] ([place]) 1 [facility] [place] [address] * (ABNORMAL) CBC with auto differential (11/03/2024 4:29 PM CDT) WBC 5.25 3.80 - 9.90 K/cumm Hgb 14.9 11.9 - 15.5 g/dL [facility] ([place]) Hct 45.7(H) 35.6 - 45.5 % [facility] ([place]) Plt 166 150 - 400 K/cumm [facility] ([place]) MPV 10.3 9.1 - 12.3 fL [facility] ([place]) RBC 4.86 3.90 - 5.20 M/cumm [facility] ([place]) MCV 94.0 81.3 - 96.4 fL [facility] ([place]) MCH 30.7 27.1 - 33.3 pg [facility] ([place]) MCHC 32.6 32.3 - 35.7 g/dL [facility] ([place]) RDW CV 15.0(H) 11.1 - 14.9 % [facility] ([place]) RDW SD 51.7(H) 35.7 - 48.1 fL [facility] ([place]) NRBC abs 0.00 0.00 - 0.01 K/cumm [facility] ([place]) Blood 11/03/2024 4:29 PM CDT 11/03/2024 4:32 PM CDT Shae GOMEZ LAB BLOOD ORDERABLES Final Resu lt [facility] ([place]) 1 [facility] [place] [address] * (ABNORMAL) Comprehensive metabolic panel (11/03/2024 4:29 PM CDT) Sodium 136 135 - 145 mmol/L Potassium, pl 3.9 3.3 - 4.9 mmol/L [facility] ([place]) Comment:Moderately Hemolyzed Specimen. Results may be affected. Chloride 88(L) 97 - 110 mmol/L [facility] ([place]) CO2 30 22 - 32 mmol/L [facility] ([place]) Anion gap 18(H) 2 - 15 mmol/L [facility] ([place]) BUN 54(H) 6 - 25 mg/dL [facility] ([place]) Creatinine 1.44(H) 0.60 - 1.10 mg/dL [facility] ([place]) Glucose 124 70 - 199 mg/dL [facility] ([place]) Comment: Interpretive Data Fasting glucose >/= 126 mg/dl is diagnostic for diabetes. Fasting is defined as no caloric intake for at least 8 hours. Fasting glucose between 100 mg/dl to 125 mg/dl is diagnostic of prediabetes. In a patient with classic symptoms of hyperglycemia or hyperglycemic crisis, a random glucose >/= 200 mg/dl is diagnostic for diabetes. In the absence of unequivocal hyperglycemia, results should be confirmed by repeat testing. The classification and Diagnosis of Diabetes Diabetes Care 2021; 46: S19-S40. Current interpretive data was last revised 2022. Calcium 11.3(H) 8.5 - 10.3 mg/dL [facility] ([place]) Bilirubin, total 0.4 0.1 - 1.2 mg/dL [facility] ([place]) Protein, pl 7.8 6.5 - 8.5 g/dL [facility] ([place]) Albumin 3.8 3.5 - 5.0 g/dL [facility] ([place]) Alk phos 105 40 - 130 Units/L [facility] ([place]) ALT 13 7 - 45 Units/L [facility] ([place]) Comment: Hemolysis present. Results may be affected. Moderately Hemolyzed Specimen AST 34 10 - 45 Units/L [facility] ([place]) Comment: Hemolysis present. Results may be affected. Moderately Hemolyzed Specimen Blood 11/03/2024 4:29 PM CDT 11/03/2024 4:32 PM CDT Shae GOMEZ LAB BLOOD ORDERABLES Final Resu lt Performing Organization Address City/State/[facility] Co de Phone Number APRYL [facility] ([place]) 1 [facility] [place] [address] * ECG 12 lead (11/03/2024 4:21 PM CDT) 11/03/2024 4:21 PM CDT Narrative [facility] - 11/04/2024 9:24 AM CDT Vent Rate: 69 bpm RR Interval: 861 msec OK Interval: 0 msec QRS Duration: 126 msec QT Interval: 445 msec QTC Interval: 464 msec P-R-T [place]: [id number] - -31 - 148 degrees IMPRESSION: ATRIAL FIBRILLATION LEFT AXIS DEVIATION [QRS AXIS < -30] POSSIBLE RIGHT VENTRICULAR CONDUCTION DELAY [RSR (QR) IN V1/V2] VOLTAGE CRITERIA FOR LVH [MEETS CRITERIA IN ONE OF: R(aVL), S(V1), R(V5), R(V5/V6)+S(V1)] ST DEVIATION AND MODERATE T-WAVE ABNORMALITY, CONSIDER ANTEROLATERAL ISCHEMIA [-0.1+ mV T WAVE IN V3-V6] ABNORMAL ECG NO CHANGE FROM PREVIOUS TRACING NOTED Electronically Signed By: James Lin MD Shae GOMEZ ECG ORDERABLES Final Result [facility] * Dexa Axial Skeleton Bone Density 1 Or 2 Site (10/13/2024 2:40 PM CDT) Anatomical Region Laterality Modality Body N/A Other 10/15/2024 10:1 6 AM CDT Narrative 10/15/2024 10:19 AM CDT EXAM DESCRIPTION: DEXA AXIAL SKELETON BONE DENSITY 1 OR MORE SITES REASON FOR STUDY: 79 y/o year old F with given history of: Low bone mineral density, surveillance Screening. 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 CLINICAL INFORMATION: Current height: 61 inches Maximum height: 61 inches Weight: 150 pounds Risk factors: Postmenopausal, cancer, asthma or emphysema COMPARISON: 05/05/2022 FINDINGS: AP LUMBAR SPINE L3-L4: Total BMD is 1.326 g/cm2 T-score is 2.0 This is increased in comparison to prior exam which is statistically significant. LEFT HIP: Total BMD is 0.756 g/cm2 T-score is -1.5 This is decrease in comparison to prior exam which is statistically significant. Femoral neck BMD is 0.595 g/cm2 T-score is -2.3 FRAX: 10 year risk for a major osteoporotic fracture is 16 %, 10 year risk for a hip fracture is 4.7 % Per National Osteoporosis Foundation guidelines, this patient does meet the criteria for pharmacological treatment of patients with FRAX 10 year major osteoporotic fracture risk scores of = or greater than 20% or a 10 year probability of a hip fracture = or greater than 3%, to reduce fracture risk. Additional factors such as frequent falls are not represented in FRAX and warrant individual clinical judgment. IMPRESSION: Low Bone Mass. REFERENCE: Bone mineral density: T-Score: Normal (T-score above or = -1.0) Low bone mass (T-score between -1.0 and -2.5) replaces the previously used term osteopenia Osteoporosis (T-score = or below -2.5) Z-Score: Within the expected range for age (Z-score above -2.0) Below the expected range for age (Z-score is -2.0 or below) Please see below follow up recommendations. Medical evaluation for secondary causes of low bone mineral density may be appropriate. FRAX is a World Health Organization validated fracture risk assessment tool that calculates a person's 10 year probability of a major osteoporosis related fracture and hip fracture. According to the National Osteoporosis Foundation guidelines, postmenopausal women and men age 50 or older with low bone mass and a 10 year probability of a major osteoporosis related fracture = or greater than 20% or a 10 year probability of a hip fracture = or greater than 3% should be considered for pharmacological treatment for the prevention of osteoporosis. For further information, including treatment recommendations, please refer to the 2019 ISCD Official Positions (http://www.iscd.org) and the NOF's Clinician's Guide to Prevention and Treatment of Osteoporosis (http://www.nof.org/professionals/clinical-guidelines) THIS IS AN ELECTRONICALLY VERIFIED FINAL REPORT 10/15/2024 10:19 AM - Electronically signed by Cedric Nam M.D. MF: ERIN Report ID: [id number] Reading Location: [place] [address] Procedure Note Cedric Nam MD - 10/15/2024 EXAM DESCRIPTION: DEXA AXIAL SKELETON BONE DENSITY 1 OR MORE SITES REASON FOR STUDY: 79 y/o year old F with given history of: Low bone mineral density, surveillance Screening. 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 CLINICAL INFORMATION: Current height: 61 inches Maximum height: 61 inches Weight: 150 pounds Risk factors: Postmenopausal, cancer, asthma or emphysema COMPARISON: 05/05/2022 FINDINGS: AP LUMBAR SPINE L3-L4: Total BMD is 1.326 g/cm2 T-score is 2.0 This is increased in comparison to prior exam which is statistically significant. LEFT HIP: Total BMD is 0.756 g/cm2 T-score is -1.5 This is decrease in comparison to prior exam which is statistically significant. Femoral neck BMD is 0.595 g/cm2 T-score is -2.3 FRAX: 10 year risk for a major osteoporotic fracture is 16 %, 10 year risk for ahip fracture is 4.7 % Per National Osteoporosis Foundation guidelines, this patient does meetthe criteria for pharmacological treatment of patients with FRAX 10 year major osteoporotic fracture risk scores of = or greater than 20% or a 10 year probability of a hip fracture = or greater than 3%, to reduce fracturerisk. Additional factors such as frequent falls are not represented in FRAX and warrant individual clinical judgment. IMPRESSION: Low Bone Mass. REFERENCE: Bone mineral density: T-Score: Normal (T-score above or = -1.0) Low bone mass (T-score between -1.0 and -2.5) replaces thepreviously used term osteopenia Osteoporosis (T-score = or below -2.5) Z-Score: Within the expected range for age (Z-score above -2.0) Below the expected range for age (Z-score is -2.0 or below) Please see below follow up recommendations. Medical evaluation forsecondary causes of low bone mineral density may be appropriate. FRAX is a World Health Organization validated fracture risk assessmenttool that calculates a person's 10 year probability of a major osteoporosisrelated fracture and hip fracture. According to the National OsteoporosisFoundation guidelines, postmenopausal women and men age 50 or older with low bonemass and a 10 year probability of a major osteoporosis related fracture = or greater than 20% or a 10 year probability of a hip fracture = or greaterthan 3% should be considered for pharmacological treatment for the preventionof osteoporosis. For further information, including treatment recommendations, please referto the 2019 ISCD Official Positions (http://www.iscd.org) and the NOF's Clinician's Guide to Prevention and Treatment of Osteoporosis (http://www.nof.org/professionals/clinical-guidelines) THIS IS AN ELECTRONICALLY VERIFIED FINAL REPORT 10/15/2024 10:19 AM - Electronically signed by Cedric Nam M.D. 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 Current interpretive data was last revised 2018. Testing performed by: [address] [address] Creatinine Ur 57.8 mg/dL APRYL VALLE ([place]) Comment: Interpretive Data No reference range established. Current interpretive data was last revised 2018. Testing performed by: [address] [address] Albumin Creatinine Ratio, Ur 31(H) 1 - 29 mg/g APRYL VALLE ([place]) Comment:Testing performed by : [address] [address] Urine 01/14/2024 11:1 6 AM CDT 01/14/2024 7:20 PM CDT Ada Obrien NP LAB URINE ORDERABLES Final Result APRYL VALLE ([place]) 1 [facility] [place] [address] * (ABNORMAL) Hemoglobin A1c (01/14/2024 11:16 AM CDT) Hgb A1C 6.4(H) 4.0 - 5.6 % Comment:Testing performed by : [address] [address] Estimated Average Glucose 137 mg/dL APRYL VALLE ([place]) Comment: The ADA recommends reporting an estimated Average Glucose (eAG) with all Hemoglobin A1c results using the equation derived from a study of 507 normal and diabetic adults. Minority populations were underrepresented and children were not included. (Diabetes Care 31:0435-3770, 2008). The eAG is not equivalent to a fasting glucose. Testing performed by: [facility], [address] [place] [address]., [address] Blood 01/14/2024 11:1 6 AM CDT 01/14/2024 7:19 PM CDT Ada Obrien NP LAB BLOOD ORDERABLES Final Result APRYL TORI ([place]) 1 [facility] [place] [address] * (ABNORMAL) Lipid panel (01/14/2024 11:16 AM CDT) Cholesterol 114 30 - 199 mg/dL Comment: Interpretive Data Ages < or = 19 years Acceptable: <170 mg/dL Borderline high: 170-199 mg/dL High: >or= 200 mg/dL Ages > or = 20 years Desirable: <200 mg/dL Borderline high: 200-239 mg/dL High: >or= 240 mg/dL Literature References: 1. Expert Panel on Integrated Guidelines for Cardiovascular Health and Risk Reduction in Children and Adolescents. Pediatrics 2011;128:S213 2. NCEP Expert Panel. Circulation 2004;110:227 Current Interpretive Data was last revised on 2018. Testing performed by: [facility], [address] [place] [address]., [address] Triglycerides 209(H) <=149 mg/dL APRYL VALLE ([place]) Comment: Interpretive Data Ages < or = 9 years Acceptable: <75 mg/dL Borderline high: 75-99 mg/dL High: >or= 100 mg/dL Ages 10 to 20 years Acceptable: <90 mg/dL Borderline high: 90-129 mg/dL High: >or= 130 mg/dL Ages > or = 20 years Desirable: <150 mg/dL Borderline high: 150-199 mg/dL High: 200-499 mg/dL Very high: >or= 499 mg/dL Literature References: 1. Expert Panel on Integrated Guidelines for Cardiovascular Health and Risk Reduction in Children and Adolescents. Pediatrics 2011;128:S213 2. NCEP Expert Panel. Circulation 2004;110:227 Current Interpretive Data was last revised on 2018. Testing performed by: [address] [place] [address] HDL 33(L) >=40 mg/dL APRYL [facility] ([place]) Comment: Interpretive Data Ages < or = 19 years Acceptable: >45 mg/dL Borderline low: 40-45 mg/dL Low: <40 mg/dL Ages > or = 20 years Desirable: >or= 60 mg/dL Low: <40 mg/dL Literature References: 1. Expert Panel on Integrated Guidelines for Cardiovascular Health and Risk Reduction in Children and Adolescents. Pediatrics 2011;128:S213 2. NCEP Expert Panel. Circulation 2004;110:227 Current Interpretive Data was last revised on 2018. Testing performed by: [facility], [address] [place] [address]., [address] LDL, calculated 47 <=129 mg/dL APRYL [facility] ([place]) Comment: Interpretive Data Ages < or = 19 years Acceptable: <110 mg/dL Borderline high: 110-129 mg/dL High: >or= 130 mg/dL Ages > or = 20 years Optimal: <100 mg/dL Near optimal: 100-129 mg/dL Borderline high: 130-159 mg/dL High: >160 mg/dL Calculated using the Angel LDL-C estimating equation. This equation was implemented on 2024. Prior to this date LDL-C was estimated using the Friedewald equation. Literature References: 1. Expert Panel on Integrated Guidelines for Cardiovascular Health and Risk Reduction in Children and Adolescents. Pediatrics 2011;128:S213 2. NCEP Expert Panel. Circulation 2004;110:227 3. Angel Abad et al. GEOFFREY Cardiol. 2019September 21;5(5):540-548. doi: 10.1001/[email or web address] Current Interpretive Data was last revised on 2024. Testing performed by: [facility], [address] [place] [address]., [address] Non-HDL Cholesterol 81 mg/dL APRYL [facility] ([place]) Comment: Interpretive Data Ages < or = 19 years Acceptable: <120 mg/dL Borderline high: 120-144 mg/dL High: >145 mg/dL Ages > or = 20 years When triglycerides are >200 mg/dL, Non-HDL cholesterol is a secondary target of therapy with treatment goals that are 30 mg/dL greater than the LDL cholesterol target. Literature References: 1. Expert Panel on Integrated Guidelines for Cardiovascular Health and Risk Reduction in Children and Adolescents. Pediatrics 2011;128:S213 2. NCEP Expert Panel. Circulation 2004;110:227 Current Interpretive Data was last revised on 2018. Testing performed by: [facility], [address] [place] [address]., [address] Chol/HDL ratio 3 TIFFANIE VALLE (SOPHIA) Comment:Testing performed by : [facility], [address] [place] [address]., [id number] Blood 01/14/2024 11:1 6 AM CDT 01/14/2024 7:19 PM CDT Ada Obrien NP LAB BLOOD ORDERABLES Final Result APRYL VALLE ([place]) 1 [facility] [place] [address] * Screening Mammogram (06/14/2018) Anatomical Region Laterality Modality Breast N/A Mammography Historical Provider IMChristy MAMMO PROCEDURES Jalyn l Result from Last 3 Months or Most Recently Relevant to Health Maintenance Insurance [employer]ET[employer] MEDICARE [facility] MEDICARE [facility] MEDICARE Advance Directives For more information, please contact: [phone] Documents on File Type Date Recorded Patient Oracle Forms Developer Expl anation ADVANCE DIRECTIVE 02/04/2024 9:00 AM Cedric bainser of Bridge Operator-Medical * Full Code (Latest Code Status on File) Date Activated Date Inactivated Comments 11/04/2024 3:00 PM 11/08/2024 7:41 PM * Full Code Date Activated Date Inactivated Comments 01/28/2024 3:28 PM 02/07/2024 8:31 PM * Full Code Date Activated Date Inactivated Comments 01/15/2024 5:19 AM 01/18/2024 6:13 PM * Full Code Date Activated Date Inactivated Comments 05/19/2023 8:29 PM 05/27/2023 10:33 PM * Full Code Date Activated Date Inactivated Comments 03/06/2023 11:16 PM 03/07/2023 5:38 PM Healthcare Agents on File Name Relationship Healthcare Agent Relationship Communication Cedric Avery Health Care Agent m Care Teams Director Of Labor And Delivery Relationship Specialty Start Date End Date [place] [address] PCP - General 08/21/16 Janice Zimmerman, PT Physical Therapist Physical Therapy 11/01/17 Tatum Moon, SUPERVISOR [employer] Claims Clerk Physical Therapy 11/12/17 Saniya Greenwood, SUPERVISOR [employer] Claims Clerk Physical Therapy 11/17/17 Felipe Neff MD [address] [place] [address] Referring Physician Endocrinology Diabetes & Metabolism 04/28/22 Alex Jauregui MD [address] [place] [address] Consulting Physician Cardiology 03/07/23 Una Guallpa DNP [address] [place] [address] Nurse Practitioner Neurology 05/27/23
--- OUTSIDE RECORDS SUMMARY | 2025-01-15 16:33 | XMS_ITS | Encounter Summary ---
Author Organization [facility] Address [address] [place] [address] Care Team Providers Care Tube Roller Name Role Phone Bruno Sorenson MD Primary Care Provider [phone] Janice Zimmerman PT Unavailable Unavailab Tatum Hilliard CASH CROP FARMER Unavailable Unavailab Saniya Salcedo CASH CROP FARMER Unavailable Unavailable Felipe Neff MD Unavailable [phone] Alex Jauregui MD Unavailable [phone] Una Guallpa DNP Unavailable [phone] Reason for Visit * Reason Onset Date Comments Additional Services Or Orders 01/05/2025 Encounter Details Date Type Department Care Team (Late st Contact Info) Description 01/05/2025 Telephone [facility] [address] [facility] [place] [address] Bruno Sorenson MD [address] [place] [address] [place] [address] Additional Services Or Orders Social History Tobacco Use Types Packs/Day Years Used Date Smoking Tobacco: Never Passive Smoke Exposure: Never Smokeless Tobacco: Never Alcohol Use Standard Drinks/Week Comments No 0 (1 standard drink = 0.6 oz pur e alcohol) [facility] Utilities Answer Date Recorded In [...] often do you attend chur ch or nondenominational services? More than 4 times per year 11/06/2024 Do you belong to any clubs o r organizations such as cheondoism groups, unions, fraternal or athletic groups, or [...] place to sleep or slept in a longterm (including now)? No 05/20/2023 Housing Stability Vital Sign Answer Vasu e Recorded In the last 12 months, was t here a time when you were not able to pay the mortgage or rent on time? No 11/06/2024 In the past 12 months, how m any times have you moved where you were living? 0 11/06/2024 At any time in the past 12 m [facility], were you homeless or living in a longterm (including now)? No 11/06/2024 Personal Safety Answer Date Recorded Have you ever been in or are you currently in a harmful physical or emotional relationship or is someone making you feel afraid or unsafe? Denies 01/09/2025 Education Answer Date Recorded What is the highest level of school you have completed or the highest degree you have received? 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 yes Reason for Request (e.g. condition/symptom, date of COVID exposure if applicable): deficits in finemotor skills, ADL Details Regarding Additional Services (e.g. type of home health, type of equipment, type of test, etc.): OT Where will services be performed? (if outside of the practice, facility name, address, phone/fax offacility): home Additional Comments: continuation of care Does message need to be routed? Yes-Action Needed documented in this encounter Plan of Treatment Not on [...] on filedocumented in this encounter Care Teams Tube Roller Relationship Specialty Start Date End Date Bruno Sorenson MD [address] [place] [address] PCP - General 08/21/16 Janice Zimmerman, PT Physical Therapist Physical Therapy 11/01/17 Tatum Moon CASH CROP FARMER Compressor Operator Physical Therapy 11/12/17 Saniya Greenwood, CASH CROP FARMER Compressor Operator Physical Therapy 11/17/17 Felipe Neff MD [address] [place] [address] Referring Physician Endocrinology Diabetes & Metabolism 04/28/22 Alex Jauregui MD [address] [place] [address] Consulting Physician Cardiology 03/07/23 Una Guallpa DNP [address] [place] [address] Nurse Practitioner Neurology 05/27/23 documented as of this encounter
--- OUTSIDE RECORDS SUMMARY | 2025-01-15 16:33 | XMS_ITS | Patient Health Record ---
Author Organization [facility] Address [address] [place] [address] Care Team Providers Care Rn Discharge Name Role Phone Bruno Sorenson Primary Care Provider Gonzales Angela MD, [facility] [phone] ALLERGIES Allergen (clinical drug ingredient) Drug/Non Drug Allergy documented on EMR Reaction Allergy Type Onset Date Status Sulfamethoxazole Unknown Drug Allergy Active penicillin G Penicillin G Sodium Unknown Drug Allergy Active REASON FOR REFERRAL No Information MEDICATIONS Medication SIG (Take, Route, Frequency, Duration) Notes Start Date End Date Status Baclofen Active Calcium Active Magnesium Active Levothyroxine Sodium Active Naproxen Unknown predniSONE Active Pradaxa Unknown Lisinopril Unknown Synthroid Unknown Aspir-81 Active Dabigatran Etexilate Mesylate Active Biotin Unknown Pravastatin Sodium A ctive Ferrous Sulfate Unkn own Ketoconazole Active Vitamin E Unknown Furosemide Active Metoprolol Tartrate Active dilTIAZem HCl Active Spironolactone-HCTZ Active Omeprazole Active metFORMIN HCl Active Digoxin Active Gabapentin Active HYDROcodone-Acetaminophen Active Multivitamin Adult A ctive Symbicort Active IMMUNIZATIONS Vaccine Route Administration Date Status Comme nts Influenza Unknown 03/05/2018 Administered pneumoccocal Unknown 03/05/2017 Administered SOCIAL HISTORY Tobacco Use: Social History Observation Description Date Details (start date - stop date) Never Smoker NA - NA Sex Assigned At : Social History Observation Description Sex Assigned At Unknown Tobacco Use: Question Answer Notes Patient is a: nonsmoker Alcohol screening: Question Answer Notes Did you have a drink containing alcohol in the p ast year? No Points 0 Interpretation Negative PROBLEMS Problem Type ICD Code Onset Dates Problem Status W/U Status Risk SNOMED Code Notes Problem Trochanteric bursitis of right hip (M70.61) Active confirmed 019125221243201 Problem Trochanteric bursitis of left hip (M70.62) Active confirmed 971053973250930 Problem Other specified postprocedural states (Z98.890) Active confirmed 091680767 Problem Muscular deconditioning (R29.898) Active confirmed 928949978 Problem Knee pain, left (M25.562) Active confirmed Problem Primary osteoarthritis, right shoulder (M19.011) Active confirmed [id number] Problem Complete rotator cuff tear or rupture of right shoulder, not specified as traumatic (M75.121) Active confirmed [id number] Problem Sarcoidosis (D86.9) Active confirmed 09744989 PLAN OF TREATMENT No Information Insurance Providers Payer Name Payer Address Payer Phone Subscriber Number Group Number Insured Name Patient Relationship to Insured Coverage Start Date Coverage End Date [facility] Medicare [employer] [address] [address] [place], [place] [id number] Gemma Olson Self - patient is the insured MEDICAL (GENERAL) HISTORY Medical History History ICD Code heart disease Atrial fibrillation asthma thyroid disease Surgical History Surgery Date(Month/Year) Cessamoid bone surgery gallbladder lymphectomy thyroidectomy hysterectomy back surgery
[2025-01-15 16:34] VITALS: BP 104/62; PULSE 71; RESP 16; TEMP 36.4; O2SAT 99
--- OUTSIDE RECORDS SUMMARY | 2025-01-15 16:34 | XMS_ITS | Encounter Summary ---
Author Organization [facility] Address [address] [place] [address] Care Team Providers Care Service Correspondent Name Role Phone Bruno Sorneson MD Primary Care Provider [phone] Janice Zimmerman PT Unavailable Unavailab Tatum Hilliard LOGISTICS SOLUTION MANAGER Unavailable Unavailab Saniya Salcedo LOGISTICS SOLUTION MANAGER Unavailable Unavailable Felipe Neff MD Unavailable [phone] Alex Jauregui MD Unavailable [phone] Una Guallpa DNP Unavailable [phone] Encounter Details Date Type Department Care Team (Late st Contact Info) Description 11/16/2024 Telephone [facility] [address] [place] [address] Maria M Michaels RN Social History Tobacco Use Types Packs/Day Years Used Date Smoking Tobacco: Never Passive Smoke Exposure: Never Smokeless Tobacco: Never Alcohol Use Standard Drinks/Week Comments No 0 (1 standard drink = 0.6 oz pur e alcohol) [facility] Utilities Answer Date Recorded In [...] often do you attend chur ch or rastafarian services? More than 4 times per year 11/06/2024 Do you belong to any clubs o r organizations such as samaritan groups, unions, fraternal or athletic groups, or [...] place to sleep or slept in a long-term (including now)? No 05/20/2023 Housing Stability Vital Sign Answer Vasu e Recorded In the last 12 months, was t here a time when you were not able to pay the mortgage or rent on time? No 11/06/2024 In the past 12 months, how m any times have you moved where you were living? 0 11/06/2024 At any time in the past 12 m [facility], were you homeless or living in a long-term (including now)? 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 Gender Identity Not on file Sexual Orientation [...] on filedocumented in this encounter Care Teams Service Correspondent Relationship Specialty Start Date End Date Bruno Sorenson MD [address] [place] [address] PCP - General 08/21/16 Janice Zimmerman, PT Physical Therapist Physical Therapy 11/01/17 Tatum Moon, LOGISTICS SOLUTION MANAGER Splitter Tender Physical Therapy 11/12/17 Saniya Greenwood, LOGISTICS SOLUTION MANAGER Splitter Tender Physical Therapy 11/17/17 Felipe Neff MD [address] [place] [address] Referring Physician Endocrinology Diabetes & Metabolism 04/28/22 Alex Jauregui MD [address] [place] [address] Consulting Physician Cardiology 03/07/23 Una Guallpa DNP [address] [place] [address] Nurse Practitioner Neurology 05/27/23 documented as of this encounter
--- NOTE | 2025-01-15 17:12 | ECG_ITS ---
Test Date: 2025-01-15 18:59:21 Measurements Intervals [place] Rate: 73 P: 0 SD: 0 QRS: -29 QRSD: 114 T: 149 QT: 436 QTc: 483 Interpretive Statements ATRIAL FIBRILLATION INCOMPLETE RIGHT BUNDLE BRANCH BLOCK LEFT VENTRICULAR HYPERTROPHY WITH ST-T CHANGE ANTEROSEPTAL INFARCT, AGE INDETERMINATE CONSIDER INFERIOR INFARCT, AGE INDETERMINATE BORDERLINE ST-T WAVE ABNORMALITY- ANTEROLATERAL LEADS BASELINE ARTIFACT- I, II, III, AVR, AVL, AVF, V1-V6 ABNORMAL ECG No previous ECG available for comparison Electronically Signed On 01-15-2025 19:49:08 CDT by Ramu Trujillo D.O.
[2025-01-15 17:48] VITALS: PULSE 70; RESP 13
--- NOTE | 2025-01-15 18:12 | ED.GENADULT ---
HPI - General Adult General Chief complaint: Unspecified <Shelly Alford PA-C - Last Filed: 01/16/25 00:47> Stated complaint: dx UTI w/o meds; passed out around 1500 <Shelly Alford PA-C - Last Filed: 01/16/25 00:47> Time Seen by Provider: 01/15/25 17:12 <Shelly Alford PA-C - Last Filed: 01/16/25 00:47> Source: patient and EMS <Shelly Alford PA-C - Last Filed: 01/16/25 00:47> Mode of arrival: EMS <Shelly Alford PA-C - Last Filed: 01/16/25 00:47> Limitations: other (poor historian) <Shelly Alford PA-C - Last Filed: 01/16/25 00:47> History of Present Illness HPI narrative: This is a 79-year-old female that presents to the emergency department for generalized weakness. Reports she was evaluated for this complaint 2 days ago at [facility]. Discharge back to her facility. Today she had a reported syncopal episode while at [facility]. Reports some lower abdominal discomfort, dysuria. Denies fevers, chest pain, shortness of breath, vomiting. <Shelly Alford PA-C - Last Filed: 01/16/25 00:47> Related Data Allergies/adverse reactions: Allergies Allergy/AdvReac Type Severity Reaction Status Date / Time Penicillins Allergy Unknown Unknown Verified 01/15/25 16:40 Sulfa (Sulfonamide Allergy Swelling Verified 01/15/25 16:40 Antibiotics) PCN Allergy Mild RASH/EDEMA Uncoded 01/15/25 16:40 <Shelly Alford PA-C - Last Filed: 01/16/25 00:47> Review of Systems Review of Systems: All systems reviewed & are unremarkable except as noted in HPI and below <Shelly Alford PA-C - Last Filed: 01/16/25 00:47> [facility] Past Medical History Medical History: Medical History (Updated 01/16/25 @ 00:47 by Shelly Alford PA-C) Atrial fibrillation History of hyperlipidemia History of CHF (congestive heart failure) History of hypertension <Shelly Alford PA-C - Last Filed: 01/16/25 00:47> Family History Family History: Family History (Updated 01/16/25 @ 01:34 by Cesia Kim RN) Father Acute myocardial infarction Cerebrovascular accident Diabetes mellitus Hypertension Mother Acute myocardial infarction Cerebrovascular accident Hypertension Sibling History of blood clots Cerebrovascular accident Diabetes mellitus Hypertension Prostate carcinoma <Shelly Alford PA-C - Last Filed: 01/16/25 00:47> Social History Social History: Social History (Updated 01/15/25 @ 18:14 by Shelly Alford PA-C) Smoking status: Never smoker Alcohol intake: never Substance use: never Lack of Transportation: No Lack of Food: Never True Current Housing: I Have Housing Concerned About Future Housing: No Difficulty Paying Gas/Electric Bills: No Difficulty Paying for Meds: No Currently Unemployed: No Education: Master's Degree or Higher Difficulty w/ Childcare or Family Care: No Spiritual care concerns: No <Shelly Alford PA-C - Last Filed: 01/16/25 00:47> Exam Narrative: GENERAL: Well-appearing, well-nourished, and in no acute distress. HEAD: Normocephalic, atraumatic. EYES: PERRLA and EOMI. ENT: Nares clear, no rhinorrhea or epistaxis. Mucous membranes moist. Oropharynx without tonsillar hypertrophy exudate or other lesions. Bilateral TMs pearly rodriguez non-bulging NECK: Supple. No adenopathy or masses. CHEST: Clear to auscultation. No respiratory distress. No wheezes rales or rhonchi HEART: Regular rate and rhythm. No murmur heard. Normal peripheral pulses. ABDOMEN: Soft, nontender, nondistended, normal active bowel sounds. EXTREMITIES: Normal range of motion. No edema. SKIN: Warm, dry, no rash. NEURO: No focal deficits. Alert and oriented x3. CN II-XII grossly intact PSYCH: Normal mood and affect <Shelly Alford PA-C - Last Filed: 01/16/25 00:47> Course [employer]/PA Physician Supervision This visit was performed by both a physician and an APC. For this patient encounter, I reviewed the [employer] or PA documentation, treatment plan, and medical decision making and had [id number] time with this patient. I performed all aspects of the MDM as documented. <Corby Adamson MD - Last Filed: 01/16/25 02:13> Consultations Consultation #1: Spoke with hospitalist about patient and workup who accepts admission <Shelly Alford PA-C - Last Filed: 01/16/25 00:47> Date: 01/16/25 <Shelly Alford PA-C - Last Filed: 01/16/25 00:47> Vital Signs Vital signs: Vital Signs Temperature 97.6 F 01/15/25 16:34 Pulse Rate 71 01/15/25 16:34 Respiratory Rate 16 01/15/25 16:34 Blood Pressure 104/62 01/15/25 16:34 Pulse Oximetry 99 01/15/25 16:34 Oxygen Delivery Room Air 01/15/25 16:34 Temperature 97.6 F 01/16/25 01:31 Pulse Rate 93 01/16/25 01:31 Respiratory Rate 18 01/16/25 01:31 Blood Pressure 115/72 01/16/25 01:31 Pulse Oximetry 96 01/16/25 01:31 Oxygen Delivery Room Air 01/16/25 01:44 <Shelly Alford PA-C - Last Filed: 01/16/25 00:47> Vital Signs Temperature 97.6 F 01/15/25 16:34 Pulse Rate 71 01/15/25 16:34 Respiratory Rate 16 01/15/25 16:34 Blood Pressure 104/62 01/15/25 16:34 Pulse Oximetry 99 01/15/25 16:34 Oxygen Delivery Room Air 01/15/25 16:34 Temperature 97.6 F 01/16/25 01:31 Pulse Rate 93 01/16/25 01:31 Respiratory Rate 18 01/16/25 01:31 Blood Pressure 115/72 01/16/25 01:31 Pulse Oximetry 96 01/16/25 01:31 Oxygen Delivery Room Air 01/16/25 01:44 <Corby Adamson MD - Last Filed: 01/16/25 02:13> Medical Decision Making MDM Narrative Medical decision making narrative: Patient presents the emergency department after a syncopal episode at her facility today. Blood pressure intermittently soft, this does respond IV fluids. She is afebrile and nontoxic appearing. Other vitals are stable. Cbc without leukocytosis. Metabolic panel with creatinine 1.19. Urine without evidence of infection. CT brain without acute findings. Chest x-ray showing masslike enlargement right hilum, recommend contrast CT. CTA chest PE with abdomen pelvis obtained for further evaluation. No PE. Monitor severe cardiomegaly. Lymphadenopathy consistent with sarcoidosis. No acute intra-abdominal/pelvic findings. Patient is constipated. Patient's [place] syncope risk score makes her moderate risk. Patient updated on her workup and recommendation for admission. Spoke with hospitalist about patient and workup who accepts admission <Shelly Alford PA-C - Last Filed: 01/16/25 00:47> Patient presents the emergency department after a syncopal episode at her facility today. Blood pressure intermittently soft, this does respond IV fluids. She is afebrile and nontoxic appearing. Other vitals are stable. Cbc without leukocytosis. Metabolic panel with creatinine 1.19. Urine without evidence of infection. CT brain without acute findings. Chest x-ray showing masslike enlargement right hilum, recommend contrast CT. CTA chest PE with abdomen pelvis obtained for further evaluation. No PE. Monitor severe cardiomegaly. Lymphadenopathy consistent with sarcoidosis. No acute intra-abdominal/pelvic findings. Patient is constipated. Patient's Angolan syncope risk score makes her moderate risk. Patient updated on her workup and recommendation for admission. Spoke with hospitalist about patient and workup who accepts admission. <Corby Adamson MD - Last Filed: 01/16/25 02:13> Differential Diagnosis Differential Diagnosis: Vasovagal syncope, orthostatic hypotension, electrolyte derangement, dehydration, PE, UTI, kidney stone <Shelly Alford PA-C - Last Filed: 01/16/25 00:47> Vital Signs Vital Signs: Vital Signs Temperature 97.6 F 01/15/25 16:34 Pulse Rate 71 01/15/25 16:34 Respiratory Rate 16 01/15/25 16:34 Blood Pressure 104/62 01/15/25 16:34 Pulse Oximetry 99 01/15/25 16:34 Oxygen Delivery Room Air 01/15/25 16:34 Temperature 97.6 F 01/16/25 01:31 Pulse Rate 93 01/16/25 01:31 Respiratory Rate 18 01/16/25 01:31 Blood Pressure 115/72 01/16/25 01:31 Pulse Oximetry 96 01/16/25 01:31 Oxygen Delivery Room Air 01/16/25 01:44 <Shelly Alford PA-C - Last Filed: 01/16/25 00:47> Vital Signs Temperature 97.6 F 01/15/25 16:34 Pulse Rate 71 01/15/25 16:34 Respiratory Rate 16 01/15/25 16:34 Blood Pressure 104/62 01/15/25 16:34 Pulse Oximetry 99 01/15/25 16:34 Oxygen Delivery Room Air 01/15/25 16:34 Temperature 97.6 F 01/16/25 01:31 Pulse Rate 93 01/16/25 01:31 Respiratory Rate 18 01/16/25 01:31 Blood Pressure 115/72 01/16/25 01:31 Pulse Oximetry 96 01/16/25 01:31 Oxygen Delivery Room Air 01/16/25 01:44 <Corby Adamson MD - Last Filed: 01/16/25 02:13> Lab Data Lab results reviewed: Yes I reviewed the patient's lab results. <Shelly Alford PA-C - Last Filed: 01/16/25 00:47> Result diagrams: 01/15/25 19:44 01/15/25 19:44 <Shelly Alford PA-C - Last Filed: 01/16/25 00:47> Labs: Lab Results 01/15/25 Range/Units 19:44 WBC 6.4 (4.5-10.0) K/mm3 RBC 4.58 (4.2-5.4) M/mm3 Hgb 13.3 (12.0-15.0) g/dL Hct 42.9 (37.0-47.0) % MCV 93.7 (80-100) fl MCH 29.0 (26-34) pg MCHC 31.0 L (32-36) g/dl RDW 15.1 H (11.5-14.5) % Plt Count 197 (150-375) k/mm3 MPV 9.9 (7.4-10.4) fl Immature Gran % (Auto) 0.6 H (0-0.5) % Neut % (Auto) 81.4 H (45.5-73.1) % Lymph % (Auto) 6.1 L (18.3-44.2) % Bonner % (Auto) 9.1 H (2.6-8.5) % Eos % (Auto) 2.3 (0-4.4) % Baso % (Auto) 0.5 (0.2-1.2) % Lymph # (Auto) 0.39 L (0.9-3.2) K/mm3 Bonner # (Auto) 0.6 (0.1-0.6) K/mm3 Eos # (Auto) 0.2 (0-0.3) K/mm3 Baso # (Auto) 0.0 (0.0-0.1) K/mm3 Abs Immat Gran (auto) 0.04 H (0.00-0.031) K/mm3 Absolute Neuts (auto) 5.2 (1.3-6.7) K/mm3 Absolute Nucleated RBC 0.000 (0.0-0.012) K/mm3 Nucleated RBC % 0.0 (0.0-0.2) % Sodium 135 L (137-145) mmol/L Potassium 3.7 (3.4-5.0) mmol/L Chloride 94 L (98-107) mmol/L Carbon Dioxide 33 H (22-30) mmol/L Anion Gap 8 (4-12) mmol/L BUN 41 H (7-17) mg/dL Creatinine 1.19 H (0.7-1.0) mg/dL Estim Creat Clear Calc Not Reportable Estimated GFR 44 L (59 - ) Glucose 113 H (65-110) mg/dL Calcium 7.5 L (8.4-10.2) mg/dL Total Bilirubin 0.4 (0.2-1.3) mg/dL AST 22 (14-36) U/L ALT 13 (6-35) U/L Alkaline Phosphatase 107 (38-126) U/L Troponin I < 0.012 (0.000-0.034) ng/mL Total Protein 7.6 (6.3-8.2) g/dL Albumin 4.0 (3.5-5.1) g/dL Urine Color Yellow (Yellow) Urine Appearance Clear (Clear) Urine pH 5.5 (5.0-9.0) Ur Specific [place] 1.007 (1.001-1.035) Urine Protein Negative (Negative) mg/dL Urine Glucose (UA) Trace H (Negative) mg/dL Urine Ketones Negative (Negative) mg/dL Ur Blood (Man) Negative (Negative) Urine Nitrate Negative (Negative) Urine Bilirubin Negative (Negative) Urine Urobilinogen 0.2 (<2.0) mg/dL Leukocyte Esterase Rfl Negative (Negative) HANSEL/UL <Shelly Alford PA-C - Last Filed: 01/16/25 00:47> Lab Results 01/15/25 Range/Units 19:44 WBC 6.4 (4.5-10.0) K/mm3 RBC 4.58 (4.2-5.4) M/mm3 Hgb 13.3 (12.0-15.0) g/dL Hct 42.9 (37.0-47.0) % MCV 93.7 (80-100) fl MCH 29.0 (26-34) pg MCHC 31.0 L (32-36) g/dl RDW 15.1 H (11.5-14.5) % Plt Count 197 (150-375) k/mm3 MPV 9.9 (7.4-10.4) fl Immature Gran % (Auto) 0.6 H (0-0.5) % Neut % (Auto) 81.4 H (45.5-73.1) % Lymph % (Auto) 6.1 L (18.3-44.2) % Bonner % (Auto) 9.1 H (2.6-8.5) % Eos % (Auto) 2.3 (0-4.4) % Baso % (Auto) 0.5 (0.2-1.2) % Lymph # (Auto) 0.39 L (0.9-3.2) K/mm3 Bonner # (Auto) 0.6 (0.1-0.6) K/mm3 Eos # (Auto) 0.2 (0-0.3) K/mm3 Baso # (Auto) 0.0 (0.0-0.1) K/mm3 Abs Immat Gran (auto) 0.04 H (0.00-0.031) K/mm3 Absolute Neuts (auto) 5.2 (1.3-6.7) K/mm3 Absolute Nucleated RBC 0.000 (0.0-0.012) K/mm3 Nucleated RBC % 0.0 (0.0-0.2) % Sodium 135 L (137-145) mmol/L Potassium 3.7 (3.4-5.0) mmol/L Chloride 94 L (98-107) mmol/L Carbon Dioxide 33 H (22-30) mmol/L Anion Gap 8 (4-12) mmol/L BUN 41 H (7-17) mg/dL Creatinine 1.19 H (0.7-1.0) mg/dL Estim Creat Clear Calc Not Reportable Estimated GFR 44 L (59 - ) Glucose 113 H (65-110) mg/dL Calcium 7.5 L (8.4-10.2) mg/dL Total Bilirubin 0.4 (0.2-1.3) mg/dL AST 22 (14-36) U/L ALT 13 (6-35) U/L Alkaline Phosphatase 107 (38-126) U/L Troponin I < 0.012 (0.000-0.034) ng/mL Total Protein 7.6 (6.3-8.2) g/dL Albumin 4.0 (3.5-5.1) g/dL Urine Color Yellow (Yellow) Urine Appearance Clear (Clear) Urine pH 5.5 (5.0-9.0) Ur Specific [place] 1.007 (1.001-1.035) Urine Protein Negative (Negative) mg/dL Urine Glucose (UA) Trace H (Negative) mg/dL Urine Ketones Negative (Negative) mg/dL Ur Blood (Man) Negative (Negative) Urine Nitrate Negative (Negative) Urine Bilirubin Negative (Negative) Urine Urobilinogen 0.2 (<2.0) mg/dL Leukocyte Esterase Rfl Negative (Negative) HANSEL/UL <Corby Adamson MD - Last Filed: 01/16/25 02:13> Imaging Data Radiologist's impression: ITS Impressions Head CT 01/15/25 18:42 IMPRESSION: 1. Normal aging brain. No acute intracranial process. Chest X-Ray 01/15/25 19:21 IMPRESSION: 1. Small lung volumes with opacities in the bilateral lower lung zones which could represent atelectasis or pneumonia. 2. Masslike enlargement of the right hilum which could represent persistent or recurrent lymphadenopathy which could be reactive, metastatic or due to lymphoma. Correlate with clinical history and consider follow-up post contrast chest CT for further evaluation. CTA chest PE with abdomen and pelvis: The pulmonary arterial tree is well opacified no pulmonary emboli are identified. The thoracic aorta is nondilated, no aneurysm or dissection. Moderate to severe cardiomegaly. Extensive mediastinal and hilar lymphadenopathy with lymph nodes measuring up to 2 cm. Similar in size to previous. Scattered bilateral perihilar scarring and reticular densities. Consider sarcoidosis. No pneumothorax or pleural effusion. Moderate multilevel degenerative changes throughout the thoracic spine. Multiple compression fractures which are likely chronic. Abdominal aorta is mildly calcified and tortuous, but nondilated. No aneurysm or dissection. previous cholecystectomy. Constipation. No acute focal inflammatory process. Compression fractures at the lumbar levels which appear chronic. The urinary bladder is normally distended and unremarkable. Possible proteinaceous cyst in the right kidney <Shelly Alford PA-C - Last Filed: 01/16/25 00:47> Critical Care Time Critical Care Time Critical Care Time: No <Shelly Alford PA-C - Last Filed: 01/16/25 00:47> Discharge Plan Discharge Clinical Impression: Generalized weakness, Confusion Syncope Qualifiers: Syncope type: unspecified Qualified Code(s): R55 - Syncope and collapse Constipation Qualifiers: Constipation type: unspecified constipation type Qualified Code(s): K59.00 - Constipation, unspecified <Shelly Alford PA-C - Last Filed: 01/16/25 00:47> Patient Disposition: Still a Patient <KALE Jordan Last Filed: 01/16/25 00:47> Condition: Guarded Prognosis <KALE Jordan Last Filed: 01/16/25 00:47>
[2025-01-15 18:50] VITALS: BP 125/72; PULSE 77; RESP 16; O2SAT 97
--- NOTE | 2025-01-15 18:55 | PC.NURSE ---
This RN attempted IV placement unsuccessfully. Pt with poor vasculature. Will have another RN attempt.
[2025-01-15 19:52] LABS: Hematocrit 42.9 % (37.0-47.0); Hemoglobin 13.3 g/dL (12.0-15.0); Immature Granulocyte Percent A 0.6 % (0-0.5); Lymphocytes Absolute Auto 0.39 K/mm3 (0.9-3.2); Mean Corpuscular HGB Conc 31.0 g/dl (32-36); Mean Corpuscular Hemoglobin 29.0 pg (26-34); Mean Corpuscular Volume 93.7 fl (80-100); Nucleated Red Blood Cells Absolute Auto 0.000 K/mm3 (0.0-0.012); Nucleated Red Blood Cells Perc 0.0 % (0.0-0.2); Platelet Count Result 197 k/mm3 (150-375); Red Blood Count 4.58 M/mm3 (4.2-5.4); White Blood Count 6.4 K/mm3 (4.5-10.0)
[2025-01-15 19:54] LABS: Add Urine Microscopic? NO; Appearance Urine Clear (Clear); Glucose Urine UA Trace mg/dL (Negative); Leukocyte Esterase Ur Negative LEU/UL (Negative); Nitrate Urine Negative (Negative); Specific Grav Ur 1.007 (1.001-1.035)
[2025-01-15 20:07] LABS: Alanine Aminotransferase 13 U/L (6-35); Albumin Level 4.0 g/dL (3.5-5.1); Alkaline Phosphatase 107 U/L (38-126); Anion Gap 8 mmol/L (4-12); Aspartate Amino Transferase 22 U/L (14-36); Bilirubin,Total 0.4 mg/dL (0.2-1.3); Blood Urea Nitrogen 41 mg/dL (7-17); Calcium 7.5 mg/dL (8.4-10.2); Carbon Dioxide 33 mmol/L (22-30); Chloride 94 mmol/L (98-107); Estimated Glomerular Filt Rate 44; Glucose 113 mg/dL (65-110); Potassium 3.7 mmol/L (3.4-5.0); Sodium 135 mmol/L (137-145); Total Protein 7.6 g/dL (6.3-8.2)
[2025-01-15 20:19] LABS: Troponin I < 0.012 ng/mL (0.000-0.034)
[2025-01-15] MEDS: SODIUM CHLORIDE 0.9% IV 500 ML 999 ML IV CONT (23:11)
--- NOTE | 2025-01-15 23:11 | PC.NURSE ---
Daughter Shan Olson Please call with any and all upddates.
--- NOTE | 2025-01-15 23:15 | PC.NURSE ---
Assumed care of patient after receiving bedside report from DAYO Cline @ 1502
[2025-01-15 23:24] VITALS: BP 115/69; PULSE 73; PULSE 80; RESP 16; O2SAT 94
[2025-01-16] VITALS (18 sets, daily range): BP systolic 100–145; BP diastolic 57–82; PULSE 59–106; RESP 14–20; TEMP 36.4–37.2; O2SAT 92–98; BMI 29.6
--- NOTE | 2025-01-16 | ECHO_ITS ---
Patient Info Name: Gemma Olson Age: 79 years : 1945 Gender: Female Ht: 59 in Wt: 146 lbs BSA: 1.69 m2 HR: 85 bpm BP: 112 / 64 mmHg Heart Rhythm: Atrial Fibrillation Technical Quality: Fair Exam Date: 01/16/2025 1:42 PM Patient Status: I Admit Date: 01/16/2025 Exam Type: CA echo dop color flow w con Complete two-dimensional, color flow and Doppler transthoracic echocardiogram is performed with contrast to opacify the left ventricle and to improve the deliniation of the left ventricle endocardial borders. Staff Referring Physician: Jerome Paige Director [facility]: Ayaka Jay Attending Provider: Jerome Paige Contrast/Agitated Saline Contrast/Ag. Saline: Definity Amount: 2.00 ml Administered By: Ayaka Jay Existing IV Access: Yes IV Access Condition: patent with no signs of infiltration Summary 1. Normal left ventricular size with vigorous systolic contractility. 2. Mild right ventricular enlargement with reduced systolic function. 3. Severe biatrial enlargement. 4. Atrial fibrillation. 5. Tricuspid regurgitant jet velocity consistent with RV systolic pressure of 62 mmHg. Left Ventricle Left ventricular chamber dimension is normal. Left ventricular systolic function is normal, estimated at 65-70. The left ventricular diastolic function is indeterminate. Right Ventricle Right ventricular chamber dimension is mildly enlarged. Right ventricular systolic function is reduced. Left Atria Left atrial chamber dimension is severely enlarged. Right Atria Right atrial chamber dimension is severely enlarged. Aortic Valve The aortic valve is trileaflet. There is moderate aortic valve sclerosis. Pulmonic Valve The pulmonic valve is not well visualized. Mitral Valve The mitral valve has normal leaflets. There is trace mitral valve regurgitation. Tricuspid Valve The tricuspid valve leaflets are normal. There is moderate tricuspid valve regurgitation. Severe pulmonary hypertension, estimated pulmonary arterial systolic pressure is 70 mmHg. Pericardium/Pleural The pericardium appears normal. Aorta The aortic root size at the sinus of Valsalva is normal. Left Ventricular Outflow Tract Name Value Normal LVOT 2D LVOT Diameter 2.0 cm LVOT Doppler LVOT Peak Velocity 114 cm/s LVOT Peak Gradient 5 mmHg LVOT Mean Gradient 2 mmHg LVOT VTI 20 cm LVOT VTI/AV VTI Ratio 0.9 LVOT Stroke Volume 64 ml LVOT CO 4.0 l/min LVOT CI 2.4 l/min/m2 Pulmonic Valve Name Value Normal RVOT Doppler RVOT Peak Velocity 74 cm/s RVOT Peak Gradient 1 mmHg PV Doppler PV Peak Velocity 94 cm/s PV Peak Gradient 2 mmHg Mitral Valve Name Value Normal MV Diastolic Function MV E Peak Velocity 102 cm/s MV A Peak Velocity 2 cm/s MV E/A 62.9 MV Decel Time (PW) 166 ms MV Annular TDI MV E/e' (Septal) 12.3 MV E/e' (Lateral) 10.7 MV E/e' (Average) 11.5 Tricuspid Valve Name Value Normal TV Regurgitation Doppler TR Peak Velocity 386 cm/s TR Peak Gradient 54 mmHg Estimated PAP/RSVP RA Pressure 10 mmHg <=5 PA Systolic Pressure 70 mmHg <36 RV Systolic Pressure 70 mmHg <36 TV Annular TDI TV Lateral Cesia s' Velocity 9.2 cm/s >=9.5 Aorta Name Value Normal Ascending Aorta Ao Root Diameter (MM) 2.8 cm Ao Root Diam Index (MM) 1.7 cm/m2 Aortic Valve Name Value Normal AV Doppler AV Peak Velocity 136 cm/s AV Peak Gradient 7 mmHg AV Mean Gradient 3 mmHg AV VTI 21 cm AV Area (Cont Eq VTI) 3.0 cm2 >=3.0 AV Area (Cont Eq Omar) 2.7 cm2 AV DI (Omar) 0.83 AV Regurgitation 2D LVOT Area 3.3 cm2 Ventricles Name Value Normal LV Dimensions 2D/MM IVS Diastolic Thickness (2D) 0.8 cm 0.6-1.0 LVID Diastole (2D) 4.8 cm 3.8-5.2 LVIW Diastolic Thickness (2D) 0.8 cm 0.6-0.9 LVID Systole (2D) 3.3 cm 2.2-3.5 LVOT Diameter 2.0 cm LV Mass (2D Cubed) 125.73 g 67.00-162.00 LV Mass Index (2D Cubed) 75 g/m2 43-95 Relative Wall Thickness (2D) 0.34 <=0.42 LV Fractional Shortening/Ejection Fraction 2D/MM LV Fractional Shortening (2D) 32 % 27-45 LV EF (2D Teichholz) 60 % LV Diastolic Volume (4C MOD) 82 ml LV EF (4C MOD) 69 % LV Diastolic Volume (2C MOD) 93 ml LV EF (2C MOD) 75 % LV Diastolic Volume (BP MOD) 88 ml 46-106 LV Diastolic Volume Index (BP MOD) 52 ml/m2 29-61 LV Systolic Volume (BP MOD) 24 ml 14-42 LV Systolic Volume Index (BP MOD) 15 ml/m2 8-24 LV EF (BP MOD) 72 % 54-74 LV Diastolic Length (4C) 7.1 cm LV Systolic Length (4C) 5.9 cm LV Stroke Volume (4C MOD) 56 ml Atria Name Value Normal LA Dimensions LA Dimension (MM) 6.9 cm 2.7-3.8 LA Volume (4C A-L) 85 ml LA Volume (BP A-L) 112 ml RA Dimensions RA Area (4C) 41.1 cm2 <=18.0 Report Signatures
--- NOTE | 2025-01-16 01:31 | ADMGEN ---
This patient, Gemma Olson, was admitted to Medical Room 261-01. Patient/family oriented to hospital policies and general routines including ID bracelet, bed and alarms, visiting hours, pain management, procedures, bathroom and other care routines, personal items, smoking policy, room service/diet, and visiting hours. Information on how to activate the Rapid Response Team has been discussed. Patient/Family are encouraged to report perceived risks to care and to ask questions if they do not understand what they are told or what they should do.
[2025-01-16 04:56] LABS: Hematocrit 41.2 % (37.0-47.0); Hemoglobin 12.5 g/dL (12.0-15.0); Immature Granulocyte Percent A 0.3 % (0-0.5); Lymphocytes Absolute Auto 0.33 K/mm3 (0.9-3.2); Mean Corpuscular HGB Conc 30.3 g/dl (32-36); Mean Corpuscular Hemoglobin 28.9 pg (26-34); Mean Corpuscular Volume 95.4 fl (80-100); Nucleated Red Blood Cells Absolute Auto 0.000 K/mm3 (0.0-0.012); Nucleated Red Blood Cells Perc 0.0 % (0.0-0.2); Platelet Count Result 179 k/mm3 (150-375); Red Blood Count 4.32 M/mm3 (4.2-5.4); White Blood Count 6.3 K/mm3 (4.5-10.0)
[2025-01-16 05:22] LABS: Hemoglobin A1C 6.3 % (<5.7)
[2025-01-16 05:34] LABS: Alanine Aminotransferase 15 U/L (6-35); Albumin Level 3.6 g/dL (3.5-5.1); Alkaline Phosphatase 85 U/L (38-126); Anion Gap 8 mmol/L (4-12); Aspartate Amino Transferase 24 U/L (14-36); Bilirubin,Total 0.4 mg/dL (0.2-1.3); Blood Urea Nitrogen 35 mg/dL (7-17); Calcium 7.1 mg/dL (8.4-10.2); Carbon Dioxide 29 mmol/L (22-30); Chloride 98 mmol/L (98-107); Estimated Glomerular Filt Rate 55; Glucose 149 mg/dL (65-110); Magnesium 2.2 mg/dL (1.6-2.3); Potassium 3.0 mmol/L (3.4-5.0); Sodium 135 mmol/L (137-145); Total Protein 6.5 g/dL (6.3-8.2)
[2025-01-16] MEDS: LEVOTHYROXINE SODIUM 50 MCG TABLET PO (06:01)
[2025-01-16] MEDS: LEVOTHYROXINE SODIUM 125 MCG TABLET PO (06:01)
[2025-01-16] MEDS: traMADol HCL (*CRX) 50 MG TABLET PO ×2 (06:44→13:32)
[2025-01-16] MEDS: FLUTICASONE/SALMETEROL 115-21 MCG INHALER 1 PUFF 2 PUFF INHALATION ×2 (07:55→21:14)
--- NOTE | 2025-01-16 08:20 | PM.IMHP ---
H&P: HPI History of Present Illness Date/Time: 01/16/25 08:20 Chief Complaint: Syncope Narrative: This is a 79-year-old female who presents to the emergency department after a syncopal episode at her facility. She has been having generalized weakness and was recently evaluated at [facility] 3 days ago. She was discharged back to facility. However yesterday she is reported to have a syncopal episode while at [facility]. She reported some lower abdominal discomfort and dysuria. No fever chills chest pain shortness of breath cough nausea vomiting. In the ED her blood pressure was borderline and intermittently soft which responded with IV fluids. She was afebrile and nontoxic other vitals were stable. Laboratory workup revealed WBC of 6.4 hemoglobin 13.3 platelet of 197. Chem panel showed sodium of 135 potassium 3.7 chloride 94 bicarbonate 33 BUN 41 creatinine 1.1 blood glucose of 113. Troponin was negative less than 0.012 LFTs were normal urinalysis was negative. CT head showed normal aging brain with no acute intracranial process. Chest x-ray showed small lung volumes with opacities in the bilateral lower lung zones which could represent atelectasis or pneumonia. Masslike enlargement of the right hilum which could represent persistent recurrent lymphadenopathy which could be reactive metastatic or due to lymphoma. EKG showed atrial fibrillation with borderline ST T-wave abnormalities. CT a chest PE with abcd abdomen and pelvis was performed which showed no PE. No aneurysm or dissection. Moderate to severe cardiomegaly. Extensive mediastinal and hilar lymphadenopathy with lymph nodes measuring up to 2 cm. Similar in size to previous scans. Scattered bilateral perihilar scarring and reticular densities. Consider sarcoidosis. No pneumothorax or pleural effusion. Moderate multilevel degenerative changes throughout the thoracic spine. Multiple compression fractures are likely chronic. Abdominal aorta is mildly calcified tortuous but not dilated. No aneurysm or dissection. Previous cholecystectomy. Constipation. No acute focal inflammatory process. Compression fractures of lumbar levels which appear chronic. Urinary bladder is normally distended and unremarkable. Possible proteinaceous cyst in the right kidney. She is admitted in this setting for further treatment. Review of Systems Review of Systems: - CONSTITUTIONAL: Denies weight loss, fever and chills. Reports generalized weakness - HEENT: Denies changes in vision and hearing - RESPIRATORY: Reports SOB and cough. - CV: Denies palpitations and CP. - GI: Denies abdominal pain, nausea, vomiting and diarrhea. - : Reports dysuria and urinary frequency. - MSK: Denies myalgia and joint pain. - SKIN: Denies rash and pruritus. - NEUROLOGICAL: Denies headache and reports syncope. - PSYCHIATRIC: Denies recent changes in mood. Denies anxiety and depression. [facility] Past Medical History Medical History (Updated 01/16/25 @ 12:14 by Jerome Paige MD) Atrial fibrillation History of hyperlipidemia History of CHF (congestive heart failure) History of hypertension Family History Family History (Updated 01/16/25 @ 01:34 by Cesia Kim RN) Father Acute myocardial infarction Cerebrovascular accident Diabetes mellitus Hypertension Mother Acute myocardial infarction Cerebrovascular accident Hypertension Sibling History of blood clots Cerebrovascular accident Diabetes mellitus Hypertension Prostate carcinoma Social History Social History (Updated 01/15/25 @ 18:14 by Shelly Alford PA-C) Smoking status: Never smoker Alcohol intake: never Substance use: never Lack of Transportation: No Lack of Food: Never True Current Housing: I Have Housing Concerned About Future Housing: No Difficulty Paying Gas/Electric Bills: No Difficulty Paying for Meds: No Currently Unemployed: No Education: Master's Degree or Higher Difficulty w/ Childcare or Family Care: No Spiritual care concerns: No Meds Home Medications and Allergies Home Medications ?Medication ?Instructions ?Recorded ?Confirmed ?Type albuterol sulfate 90 mcg/actuation 2 puff inhalation Q6H PRN 01/16/25 01/16/25 History aerosol inhaler shortness of breath or wheezing apixaban 5 mg tablet (Eliquis) 5 mg PO Q12H 01/16/25 01/16/25 History aspirin 81 mg tablet,delayed 81 mg PO DAILY 01/16/25 01/16/25 History release (Adult Low Dose Aspirin) baclofen 10 mg tablet 10 mg PO HS 01/16/25 01/16/25 History cholecalciferol (vitamin D3) 25 1,000 unit PO DAILY 01/16/25 01/16/25 History mcg (1,000 unit) capsule dapagliflozin propanediol 10 mg 10 mg PO DAILY 01/16/25 01/16/25 History tablet (Farxiga) docusate sodium 100 mg capsule 100 mg PO BID 01/16/25 01/16/25 History fluocinonide 0.05 % topical 1 applic topical BID 01/16/25 01/16/25 History solution fluticasone 250 mcg-salmeterol 50 1 inh inhalation BID 01/16/25 01/16/25 History mcg/dose blistr powdr for inhalation gabapentin 300 mg capsule 300 mg PO Q12H 01/16/25 01/16/25 History ipratropium 0.5 mg-albuterol 3 mg 3 ml inhalation Q6H PRN shortness 01/16/25 01/16/25 History (2.5 mg base)/3 mL nebulization of breath or wheezing soln isosorbide mononitrate 30 mg 30 mg PO HS 01/16/25 01/16/25 History tablet,extended release 24 hr levothyroxine 175 mcg tablet 175 mcg PO DAILY 01/16/25 01/16/25 History (Synthroid) metoprolol tartrate 100 mg tablet 100 mg PO Q12H 01/16/25 01/16/25 History omeprazole 40 mg capsule,delayed 40 mg PO DAILY 01/16/25 01/16/25 History release pravastatin 40 mg tablet 40 mg PO HS 01/16/25 01/16/25 History spironolactone 25 mg tablet 25 mg PO DAILY 01/16/25 01/16/25 History torsemide 20 mg tablet 40 mg PO DAILY 01/16/25 01/16/25 History tramadol 50 mg tablet 50 mg PO Q8H PRN pain 01/16/25 01/16/25 History Allergies Allergy/AdvReac Type Severity Reaction Status Date / Time Penicillins Allergy Unknown RASH/EDEMA Verified 01/16/25 07:11 Sulfa (Sulfonamide Allergy Swelling Verified 01/15/25 16:40 Antibiotics) Vital Signs Vital Signs - 24 hr 01/15/25 16:34 01/15/25 17:48 01/15/25 18:50 Temperature 97.6 F Pulse Rate 71 70 77 Respiratory Rate 16 13 16 Blood Pressure 104/62 125/72 Pulse Oximetry 99 97 Oxygen Delivery Room Air 01/15/25 23:24 01/15/25 23:24 01/16/25 00:18 Temperature Pulse Rate 73 80 84 Respiratory Rate 16 Blood Pressure 115/69 126/67 Pulse Oximetry 94 Oxygen Delivery 01/16/25 00:19 01/16/25 00:44 01/16/25 01:31 Temperature 97.6 F Pulse Rate 82 83 93 Respiratory Rate 17 18 Blood Pressure 106/67 123/70 115/72 Pulse Oximetry 95 96 Oxygen Delivery 01/16/25 01:44 01/16/25 04:00 01/16/25 04:00 Temperature 97.8 F Pulse Rate 79 85 Respiratory Rate 18 Blood Pressure 112/64 Pulse Oximetry 96 Oxygen Delivery Room Air 01/16/25 07:56 Temperature Pulse Rate 98 Respiratory Rate 20 Blood Pressure Pulse Oximetry Oxygen Delivery Exam Narrative: GENERAL: Well-appearing, well-nourished, and in no acute distress. HEAD: Normocephalic, atraumatic. EYES: PERRLA and EOMI. ENT: Nares clear, no rhinorrhea or epistaxis. Mucous membranes moist. NECK: Supple. No adenopathy or masses. CHEST: Clear to auscultation. No respiratory distress. No wheezes rales or rhonchi HEART: Regular rate and rhythm. No murmur heard. Normal peripheral pulses. ABDOMEN: Soft, nontender, nondistended, normal active bowel sounds. EXTREMITIES: Normal range of motion. No edema. SKIN: Warm, dry, no rash. NEURO: No focal deficits. Alert and oriented x3. CN II-XII grossly intact PSYCH: Normal mood and affect H&P: Results Labs Labs: Short CBC 01/15/25 01/16/25 Range/Units 19:44 04:27 WBC 6.4 6.3 (4.5-10.0) K/mm3 Hgb 13.3 12.5 (12.0-15.0) g/dL Hct 42.9 41.2 (37.0-47.0) % Plt Count 197 179 (150-375) k/mm3 BMP 01/15/25 01/16/25 19:44 04:27 Sodium 135 L 135 L Potassium 3.7 3.0 L Chloride 94 L 98 Carbon Dioxide 33 H 29 BUN 41 H 35 H Creatinine 1.19 H 0.98 Glucose 113 H 149 H Calcium 7.5 L 7.1 L Cardiac Enzymes 01/15/25 Range/Units 19:44 Troponin I < 0.012 (0.000-0.034) ng/mL Liver Function 01/15/25 01/16/25 Range/Units 19:44 04:27 Total Bilirubin 0.4 0.4 (0.2-1.3) mg/dL AST 22 24 (14-36) U/L ALT 13 15 (6-35) U/L Alkaline Phosphatase 107 85 (38-126) U/L Albumin 4.0 3.6 (3.5-5.1) g/dL Urine 01/15/ Range/Units 19:44 Urine Color Yellow (Yellow) Urine Appearance Clear (Clear) Urine pH 5.5 (5.0-9.0) Ur Specific [place] 1.007 (1.001-1.035) Urine Protein Negative (Negative) mg/dL Urine Glucose (UA) Trace H (Negative) mg/dL Assessment and Plan Assessment and plan (1) Syncope: Qualifiers: Syncope type: unspecified Qualified Code(s): R55 - Syncope and collapse Code(s): R55 - Syncope and collapse Status: Acute (2) Generalized weakness: Code(s): R53.1 - Weakness Status: Acute (3) Pneumonia: Code(s): J18.9 - Pneumonia, unspecified organism Status: Acute (4) History of CHF (congestive heart failure): Code(s): Z86.79 - Personal history of other diseases of the circulatory system Status: Acute (5) Hypertension: Code(s): I10 - Essential (primary) hypertension Status: Acute (6) Hyperlipidemia: Code(s): E78.5 - Hyperlipidemia, unspecified Status: Acute (7) Atrial fibrillation: Code(s): I48.91 - Unspecified atrial fibrillation Status: Acute Plan This is a 79-year-old female who presents to the emergency department after a syncopal episode at her facility. She has been having generalized weakness and was recently evaluated at [facility] 3 days ago. She was discharged back to facility. However yesterday she is reported to have a syncopal episode while at [facility]. She reported some lower abdominal discomfort and dysuria. No fever chills chest pain shortness of breath cough nausea vomiting. In the ED her blood pressure was borderline and intermittently soft which responded with IV fluids. She was afebrile and nontoxic other vitals were stable. Laboratory workup revealed WBC of 6.4 hemoglobin 13.3 platelet of 197. Chem panel showed sodium of 135 potassium 3.7 chloride 94 bicarbonate 33 BUN 41 creatinine 1.1 blood glucose of 113. Troponin was negative less than 0.012 LFTs were normal urinalysis was negative. CT head showed normal aging brain with no acute intracranial process. Chest x-ray showed small lung volumes with opacities in the bilateral lower lung zones which could represent atelectasis or pneumonia. Masslike enlargement of the right hilum which could represent persistent recurrent lymphadenopathy which could be reactive metastatic or due to lymphoma. EKG showed atrial fibrillation with borderline ST T-wave abnormalities. CT a chest PE with abdomen and pelvis was performed which showed no PE. No aneurysm or dissection. Moderate to severe cardiomegaly. Extensive mediastinal and hilar lymphadenopathy with lymph nodes measuring up to 2 cm. Similar in size to previous scans. Scattered bilateral perihilar scarring and reticular densities. Consider sarcoidosis. No pneumothorax or pleural effusion. Moderate multilevel degenerative changes throughout the thoracic spine. Multiple compression fractures are likely chronic. Abdominal aorta is mildly calcified tortuous but not dilated. No aneurysm or dissection. Previous cholecystectomy. Constipation. No acute focal inflammatory process. Compression fractures of lumbar levels which appear chronic. Urinary bladder is normally distended and unremarkable. Possible proteinaceous cyst in the right kidney. She is admitted in this setting for further treatment. # Syncope she was recently admitted for CHF exacerbation was treated with IV Lasix. Could be over-diuresis an orthostatic hypotension. Check orthostatic. Check echo. Will check carotid ultrasound. MRI brain has been ordered as well. # Congestive heart failure chronic diastolic. On torsemide at home Chest x-ray with Cardiomegaly will get echocardiogram. EKG with atrial fibrillation nonspecific ST-T changes no prior EKG available to compare. No active chest pain. Troponin negative. BNP elevated in 3518 01/10/2025. Echo from January 2024: EF 65-70% moderate LA enlargement severe RA enlargement mild mitral valve regurgitation trivial pulmonic regurgitation moderate pulmonary hypertension RVSP 54-58 mm Hg severe tricuspid regurgitation. Looks well compensated currently # Patchy ground-glass opacities lung possible pneumonia. Will treat with IV ceftriaxone and doxycycline. Check procalcitonin # Type 2 diabetes A1c 6.3 SSI # Hypertension # Coronary artery disease # COPD/asthma # History of thyroid cancer status post thyroidectomy # Chronic Atrial fibrillation monitor on telemetry on apixaban and metoprolol. Holter monitor performed in November 2024 showed atrial fibrillation chronic # Carotid artery stenosis # Sarcoidosis # Pulmonary hypertension # Hyperlipidemia # Severe tricuspid regurgitation # Cirrhosis of liver # Extensive mediastinal and hilar lymphadenopathy possible sarcoidosis # Multiple fractures of thoracic and lumbar spine chronic. History of vertebral augmentation at L1 and L2-3 in the past # Right renal mass 14 mm which is unchanged compared to previous scans nonspecific may be proteinaceous or hemorrhagic cyst # Gastritis with CT evidence of mild gastric wall thickening. Continue PPI # DVT prophylaxis on Eliquis # Code status full code Hospitalist MIPS Advance Care Plan I have confirmed that the patient's Advanced Care Plan is present, code status is documented, or surrogate decision maker is listed in patient medical record.: Yes Medication Reconciliation I have utilized all available resources to obtain, update and review the patients current medications (includes all prescriptions, OTC, herbals, cannabis, and nutritional supplements).: Yes
[2025-01-16] MEDS: ASPIRIN 81 MG ENTERIC TABLET PO (08:55)
[2025-01-16] MEDS: GABAPENTIN 300 MG CAPSULE PO ×2 (08:55→21:09)
[2025-01-16] MEDS: CHOLECALCIFEROL (VITAMIN D3) 25 MCG (1,000 UNITS) TABLET PO (08:55)
[2025-01-16] MEDS: SPIRONOLACTONE 25 MG TABLET PO (08:55)
[2025-01-16] MEDS: PANTOPRAZOLE 40 MG TABLET PO ×2 (08:55→21:07)
[2025-01-16] MEDS: APIXABAN 5 MG TABLET PO ×2 (08:55→21:09)
[2025-01-16] MEDS: METOPROLOL TARTRATE 50 MG TAB 100 MG PO (08:56)
[2025-01-16] MEDS: EMPAGLIFLOZIN 10 MG TABLET PO (08:56)
[2025-01-16] MEDS: DOCUSATE SODIUM 100 MG CAPSULE PO ×2 (08:57→21:07)
[2025-01-16] MEDS: TORSEMIDE 20 MG TABLET 40 MG PO (08:59)
[2025-01-16] MEDS: cefTRIAXone 1 GM in SODIUM CHLORIDE 0.9% IV 50 ML 100 ML IVPB (12:54)
[2025-01-16 13:27] LABS: Procalcitonin 0.1 ng/mL
[2025-01-16] MEDS: PERFLUTREN LIPID MICROSPHERES 1.5 ML VIAL DILUTED TO 10 ML TOTAL VOLUME IV PUSH (14:28)
--- NOTE | 2025-01-16 14:52 | IVDEFINITY ---
Prior to administration of IV Definity the patient was educated on the risks and benefits of the imaging enhancing agent including potential adverse side effects. The patient verbalized understanding. Allergies were verified. No exclusion criteria were identified and at least one of the following inclusion criteria were met: 1) physician request, 2) patient technically difficult to image (per the [place] [employer] guidelines of two or more segments not discernable within the apical view), or 3) questionable left ventricular function. ?
[2025-01-16] MEDS: PRAVASTATIN SODIUM 20 MG TABLET 40 MG PO (21:07)
[2025-01-16] MEDS: METOPROLOL TARTRATE 50 MG TAB PO (21:08)
[2025-01-16] MEDS: BACLOFEN 10 MG TABLET PO (21:09)
[2025-01-16] MEDS: DOXYCYCLINE HYCLATE 100 MG TABLET PO (21:09)
[2025-01-16] MEDS: ISOSORBIDE MONONITRATE 30 MG TAB.ER.24H PO (23:56)
[2025-01-16] MEDS: ACETAMINOPHEN 325 MG TABLET 650 MG PO (23:57)
[2025-01-17] VITALS (14 sets, daily range): BP systolic 100–127; BP diastolic 62–78; PULSE 66–88; RESP 12–18; TEMP 36.4–37; O2SAT 95–100
[2025-01-17 05:28] LABS: Hematocrit 36.5 % (37.0-47.0); Hemoglobin 11.5 g/dL (12.0-15.0); Immature Granulocyte Percent A 0.4 % (0-0.5); Lymphocytes Absolute Auto 0.52 K/mm3 (0.9-3.2); Mean Corpuscular HGB Conc 31.5 g/dl (32-36); Mean Corpuscular Hemoglobin 29.5 pg (26-34); Mean Corpuscular Volume 93.6 fl (80-100); Nucleated Red Blood Cells Absolute Auto 0.000 K/mm3 (0.0-0.012); Nucleated Red Blood Cells Perc 0.0 % (0.0-0.2); Platelet Count Result 190 k/mm3 (150-375); Red Blood Count 3.90 M/mm3 (4.2-5.4); White Blood Count 4.6 K/mm3 (4.5-10.0)
[2025-01-17] MEDS: LEVOTHYROXINE SODIUM 125 MCG TABLET PO (05:44)
[2025-01-17] MEDS: LEVOTHYROXINE SODIUM 50 MCG TABLET PO (05:44)
[2025-01-17 05:57] LABS: Alanine Aminotransferase 12 U/L (6-35); Albumin Level 3.3 g/dL (3.5-5.1); Alkaline Phosphatase 80 U/L (38-126); Anion Gap 7 mmol/L (4-12); Aspartate Amino Transferase 23 U/L (14-36); Bilirubin,Total 0.3 mg/dL (0.2-1.3); Blood Urea Nitrogen 40 mg/dL (7-17); Calcium 7.1 mg/dL (8.4-10.2); Carbon Dioxide 28 mmol/L (22-30); Chloride 96 mmol/L (98-107); Estimated Glomerular Filt Rate 48; Glucose 107 mg/dL (65-110); Magnesium 2.0 mg/dL (1.6-2.3); Potassium 3.4 mmol/L (3.4-5.0); Sodium 131 mmol/L (137-145); Total Protein 6.2 g/dL (6.3-8.2)
[2025-01-17] MEDS: FLUTICASONE/SALMETEROL 115-21 MCG INHALER 1 PUFF 2 PUFF INHALATION ×2 (08:07→19:40)
[2025-01-17] MEDS: TORSEMIDE 20 MG TABLET 40 MG PO (08:24)
[2025-01-17] MEDS: ASPIRIN 81 MG ENTERIC TABLET PO (08:25)
[2025-01-17] MEDS: CHOLECALCIFEROL (VITAMIN D3) 25 MCG (1,000 UNITS) TABLET PO (08:25)
[2025-01-17] MEDS: DOCUSATE SODIUM 100 MG CAPSULE PO ×2 (08:25→20:24)
[2025-01-17] MEDS: GABAPENTIN 300 MG CAPSULE PO ×2 (08:25→20:24)
[2025-01-17] MEDS: PANTOPRAZOLE 40 MG TABLET PO ×2 (08:25→20:24)
[2025-01-17] MEDS: EMPAGLIFLOZIN 10 MG TABLET PO (08:25)
[2025-01-17] MEDS: METOPROLOL TARTRATE 50 MG TAB 100 MG PO (08:25)
[2025-01-17] MEDS: SPIRONOLACTONE 25 MG TABLET PO (08:25)
[2025-01-17] MEDS: APIXABAN 5 MG TABLET PO ×2 (08:25→20:23)
[2025-01-17] MEDS: DOXYCYCLINE HYCLATE 100 MG TABLET PO ×2 (08:25→20:23)
[2025-01-17] MEDS: POTASSIUM CHLORIDE 20 MEQ ER TABLET 40 MEQ PO (10:15)
[2025-01-17] MEDS: cefTRIAXone 1 GM in SODIUM CHLORIDE 0.9% IV 50 ML 100 ML IVPB (13:03)
--- NOTE | 2025-01-17 13:53 | P.PNIM_ITS ---
Progress Note: A&P Assessment and Plan (1) Syncope: Qualifiers: Syncope type: unspecified Qualified Code(s): R55 - Syncope and collapse Code(s): R55 - Syncope and collapse Status: Acute (2) Generalized weakness: Code(s): R53.1 - Weakness Status: Acute (3) Pneumonia: Code(s): J18.9 - Pneumonia, unspecified organism Status: Acute (4) History of CHF (congestive heart failure): Code(s): Z86.79 - Personal history of other diseases of the circulatory system Status: Acute (5) Hypertension: Code(s): I10 - Essential (primary) hypertension Status: Acute (6) Hyperlipidemia: Code(s): E78.5 - Hyperlipidemia, unspecified Status: Acute (7) Atrial fibrillation: Code(s): I48.91 - Unspecified atrial fibrillation Status: Acute Plan # Syncope - she was recently admitted for CHF exacerbation was treated with IV Lasix. Could be over-diuresis an orthostatic hypotension. Not orthostatic today. Brain MRI showing no acute findings. Carotid US showing <50% stenosis bilateral ICA. Echo shows pulm HTN, severe PATRICIA and RV enlargement with decreased fxn. Normal LV. Consider MIKKI. Will check apnea link. PT/OT. Recent normal LHC a few years ago by report so doubt ACS. # Chronic diastolic CHF - On torsemide at home Chest x-ray with Cardiomegaly. EKG with atrial fibrillation nonspecific ST-T changes no prior EKG available to compare. No active chest pain. Troponin negative. BNP elevated in 3518 01/10/25. Looks well compensated currently # Patchy ground-glass opacities lung possible pneumonia. PCT normal. No cultures drawn. Started on ceftriaxone and doxycycline but no cough, elevated WBC or hypoxia. # Type 2 diabetes A1c 6.3 SSI # Hypertension # Coronary artery disease # COPD/asthma # History of thyroid cancer status post thyroidectomy # Chronic Atrial fibrillation - monitor on telemetry on apixaban and metoprolol. Holter monitor performed in November 2024 showed atrial fibrillation chronic # Carotid artery stenosis - not seen by US here # Sarcoidosis - etiology of the adenopathy seen on imaging # Pulmonary hypertension # Hyperlipidemia # Severe tricuspid regurgitation # Cirrhosis of liver # Multiple fractures of thoracic and lumbar spine chronic. History of vertebral augmentation at L1 and L2-3 in the past # Right renal mass 14 mm which is unchanged compared to previous scans nonspecific may be proteinaceous or hemorrhagic cyst # Gastritis with CT evidence of mild gastric wall thickening. Continue PPI # DVT prophylaxis on Eliquis # Code status full code Subjective Date/time seen: 01/17/25 13:53 Interval history: 79yo female who presents to the emergency department after a syncopal episode at her facility. She has been having generalized weakness and was recently evaluated at [facility] 3 days ago. She was discharged back to facility. However yesterday she is reported to have a syncopal episode while at [employer]. Assuming care. Chart reviewed. Patient slept well. No complaints of lightheadedness, dizziness, chest pain, shortness of breath or cough. She denies having the symptoms prior to her syncopal episode. She did not fall. No head injury. Left heart catheterization a few years ago was clear. The syncopal episode occurred at rest while playing [employer]. She was not confused when she awoke. No tongue biting. No urine incontinence. He no recent nausea, vomiting or diarrhea. She states when she woke up, the room was empty and that she was told that she won [employer]. He has never been diagnosed with sleep apnea. Exam Narrative: AF 98.6 105/62 70 12 97% ra Gen - NARD Chest - CTA bilaterally, nml RR CV -irregularly irregular. Telemetry showing atrial fibrillation Abd - Soft, NT/ND, Positive BS Ext - No pedal edema Neuro - Alert and oriented. Nonfocal exam. Psych - Nml mood and affect Skin - Warm and dry Objective Data Vital Signs Vital Signs: Vital Signs - 24 hr 01/16/25 16:00 01/16/25 16:00 01/16/25 20:00 Temperature 97.9 F 97.8 F Pulse Rate 76 81 59 L Respiratory Rate 14 18 Blood Pressure 100/67 121/65 Pulse Oximetry 97 92 Oxygen Delivery 01/16/25 20:00 01/16/25 20:00 01/16/25 20:00 Temperature 97.8 F Pulse Rate 59 L 81 Respiratory Rate 18 Blood Pressure 121/65 Pulse Oximetry 92 Oxygen Delivery Room Air 01/16/25 20:44 01/16/25 20:45 01/16/25 21:08 Temperature 97.8 F 97.8 F Pulse Rate 104 H 104 H 76 Respiratory Rate 18 18 Blood Pressure 114/76 145/82 H Pulse Oximetry 94 94 Oxygen Delivery 01/16/25 23:28 01/17/25 00:00 01/17/25 03:49 Temperature 97.7 F 97.7 F Pulse Rate 71 73 66 Respiratory Rate 18 18 Blood Pressure 107/57 L 100/64 Pulse Oximetry 95 95 Oxygen Delivery 01/17/25 04:00 01/17/25 08:00 01/17/25 08:00 Temperature Pulse Rate 70 74 76 Respiratory Rate 12 Blood Pressure 126/74 Pulse Oximetry 97 Oxygen Delivery 01/17/25 08:20 01/17/25 08:25 01/17/25 12:00 Temperature 98.6 F Pulse Rate 78 74 Respiratory Rate 12 Blood Pressure 108/63 Pulse Oximetry 97 Oxygen Delivery Room Air 01/17/25 12:00 01/17/25 12:03 01/17/25 12:20 Temperature Pulse Rate 70 Respiratory Rate Blood Pressure 108/63 Pulse Oximetry Oxygen Delivery Room Air 01/17/25 12:23 01/17/25 12:26 Temperature Pulse Rate Respiratory Rate Blood Pressure 113/71 105/62 Pulse Oximetry Oxygen Delivery Intake/Output Intake/Output: Intake & Output 01/14/25 01/15/25 01/16/25 01/17/25 23:59 23:59 23:59 23:59 Intake Total 500 1490 800 Output Total 300 1000 300 Balance 200 490 500 Meds/Results Medications: Active Medications Generic Name Dose Route Start Last Admin Trade Name Freq PRN Reason Stop Dose Admin Acetaminophen 650 mg 01/16/25 21:27 01/16/25 23:57 Acetaminophen 325 Mg Tablet PO 650 mg Q6H PRN Administration pain or headache Albuterol 2 puff 01/16/25 03:37 Albuterol Sulfate (*Sp) Aerosol 1 Puff INHALATION Q6HRT PRN Shortness Of Breath Or Wheezing Albuterol/Ipratropium 3 ml 01/16/25 03:37 Ipratropium 0.5 Mg/Albuterol Sulfate 2.5 Mg Ampul.Neb 3 Ml INHALATION Q6HRT PRN Shortness Of Breath Or Wheezing Apixaban 5 mg 01/16/25 09:00 01/17/25 08:25 Apixaban 5 Mg Tablet PO 5 mg Q12HR DANIELA Administration Aspirin 81 mg 01/16/25 09:00 01/17/25 08:25 Aspirin 81 Mg Enteric Tablet PO 81 mg DAILY DANIELA Administration Baclofen 10 mg 01/16/25 21:00 01/16/25 21:09 Baclofen 10 Mg Tablet PO 10 mg HS DANIELA Administration Dextrose 12.5 gm 01/16/25 03:39 Dextrose 50% 25 Gm/50 Ml Syringe IV PUSH PRN PRN Hypoglycemia Protocol Docusate Sodium 100 mg 01/16/25 09:00 01/17/25 08:25 Docusate Sodium 100 Mg Capsule PO 100 mg Q12HR DANIELA Administration Doxycycline Hyclate 100 mg 01/16/25 21:00 01/17/25 08:25 Doxycycline Hyclate 100 Mg Tablet PO 100 mg Q12HR DANIELA Administration Empagliflozin 10 mg 01/16/25 09:00 01/17/25 08:25 Empagliflozin 10 Mg Tablet PO 10 mg DAILY DANIELA Administration Gabapentin 300 mg 01/16/25 09:00 01/17/25 08:25 Gabapentin 300 Mg Capsule PO 300 mg Q12HR DANIELA Administration Glucagon 1 mg 01/16/25 03:39 Glucagon For Inj 1 Mg Vial IM PRN PRN Hypoglycemia Protocol Glucose 15 gm 01/16/25 03:39 Glucose Oral Gel 15 Gm Of Glucse In 37.5 Gm Tube PO PRN PRN Hypoglycemia Protocol Dextrose 1,000 mls @ 100 mls/hr 01/16/25 03:39 Dextrose 5% 1,000 Ml IVPB PRN PRN Hypoglycemia Protocol Ceftriaxone Sodium 1 gm/ 50 mls @ 100 mls/hr 01/16/25 13:00 01/17/25 13:03 Sodium Chloride IVPB 100 mls/hr Q24H DANIELA Administration Insulin Aspart 2 - 5 units 01/16/25 08:00 01/17/25 11:57 Insulin Aspart (*Bkc) 100 Units/Ml SUB-Q Not Given TIDWM DANIELA Protocol Isosorbide Mononitrate 30 mg 01/16/25 21:00 01/16/25 23:56 Isosorbide Mononitrate 30 Mg Tab.Er.24h PO 30 mg HS DANIELA Administration Levothyroxine Sodium 125 mcg 01/16/25 06:30 01/17/25 05:44 Levothyroxine Sodium 125 Mcg Tablet PO 125 mcg DAILY@0630 DANIELA Administration Levothyroxine Sodium 50 mcg 01/16/25 06:30 01/17/25 05:44 Levothyroxine Sodium 50 Mcg Tablet PO 50 mcg DAILY@0630 DANIELA Administration Metoprolol Tartrate 100 mg 01/16/25 09:00 01/17/25 08:25 Metoprolol Tartrate 50 Mg Tab PO 100 mg QAM DANIELA Administration Metoprolol Tartrate 50 mg 01/16/25 21:00 01/16/25 21:08 Metoprolol Tartrate 50 Mg Tab PO 50 mg QHS DANIELA Administration Pantoprazole Sodium 40 mg 01/16/25 09:00 01/17/25 08:25 Pantoprazole 40 Mg Tablet PO 40 mg Q12HR DANIELA Administration Pravastatin Sodium 40 mg 01/16/25 21:00 01/16/25 21:07 Pravastatin Sodium 20 Mg Tablet PO 40 mg HS DANIELA Administration Fluticasone/Salmeterol 2 puff 01/16/25 08:00 01/17/25 08:07 Fluticasone/Salmeterol 115-21 Mcg Inhaler 1 Puff INHALATION 2 puff Q12HRT DANIELA Administration Spironolactone 25 mg 01/16/25 09:00 01/17/25 08:25 Spironolactone 25 Mg Tablet PO 25 mg DAILY DANIELA Administration Torsemide 40 mg 01/16/25 09:00 01/17/25 08:24 Torsemide 20 Mg Tablet PO 40 mg DAILY DANIELA Administration Tramadol HCl 50 mg 01/16/25 07:09 01/16/25 13:32 Tramadol Hcl (*Crx) 50 Mg Tablet PO 50 mg Q8H PRN Administration Pain Vitamin D 25 mcg 01/16/25 09:00 01/17/25 08:25 Cholecalciferol (Vitamin D3) 25 Mcg (1,000 Units) Tablet PO 25 mcg DAILY DANIELA Administration Radiology Results: ITS Impressions Head CT 01/15/25 18:42 IMPRESSION: 1. Normal aging brain. No acute intracranial process. Chest X-Ray 01/15/25 19:21 IMPRESSION: 1. Small lung volumes with opacities in the bilateral lower lung zones which could represent atelectasis or pneumonia. 2. Masslike enlargement of the right hilum which could represent persistent or recurrent lymphadenopathy which could be reactive, metastatic or due to lymphoma. Correlate with clinical history and consider follow-up post contrast chest CT for further evaluation. Chest/Abdomen/Pelvis CTA 01/16/25 06:44 IMPRESSION: 1. No evidence for pulmonary embolism. 2: Extensive mediastinal and hilar lymphadenopathy, chronic. 3: Multiple fractures of the thoracic and lumbar spine, most of which are likely chronic. Consider correlation with MRI if there is concern for acute fracture. 4: Intermediate density 14 mm right renal mass. Recommend correlation with MRI. 5: Patchy groundglass opacities of the lung. Differential diagnosis includes pneumonia, hypersensitivity pneumonitis and edema. 6: Mild gastric wall thickening which may be due to under distention or gastritis. Brain MRI 01/16/25 11:54 IMPRESSION: 1. No acute intracranial abnormality. Carotid Doppler Study 01/16/25 12:27 IMPRESSION: 1. <50% stenosis in the right internal carotid artery. 2. <50% stenosis in the left internal carotid artery. Labs Labs: Laboratory Results - last 24 hr 01/16/25 01/16/25 01/17/25 16:39 20:48 05:10 WBC 4.6 RBC 3.90 L Hgb 11.5 L Hct 36.5 L MCV 93.6 MCH 29.5 MCHC 31.5 L RDW 15.4 H Plt Count 190 MPV 9.6 Immature Gran % (Auto) 0.4 Neut % (Auto) 71.7 Lymph % (Auto) 11.4 L [place] % (Auto) 13.4 H Eos % (Auto) 2.2 Baso % (Auto) 0.9 Lymph # (Auto) 0.52 L [place] # (Auto) 0.6 Eos # (Auto) 0.1 Baso # (Auto) 0.0 Abs Immat Gran (auto) 0.02 Absolute Neuts (auto) 3.3 Absolute Nucleated RBC 0.000 Nucleated RBC % 0.0 Sodium 131 L Potassium 3.4 Chloride 96 L Carbon Dioxide 28 Anion Gap 7 BUN 40 H Creatinine 1.10 H Estim Creat Clear Calc Not Reportable Estimated GFR 48 L Glucose 107 POC Capillary Glucose 112 H 147 H Calcium 7.1 L Magnesium 2.0 Total Bilirubin 0.3 AST 23 ALT 12 Alkaline Phosphatase 80 Total Protein 6.2 L Albumin 3.3 L 01/17/25 01/17/25 07:53 11:49 WBC RBC Hgb Hct MCV MCH MCHC RDW Plt Count MPV Immature Gran % (Auto) Neut % (Auto) Lymph % (Auto) [place] % (Auto) Eos % (Auto) Baso % (Auto) Lymph # (Auto) [place] # (Auto) Eos # (Auto) Baso # (Auto) Abs Immat Gran (auto) Absolute Neuts (auto) Absolute Nucleated RBC Nucleated RBC % Sodium Potassium Chloride Carbon Dioxide Anion Gap BUN Creatinine Estim Creat Clear Calc Estimated GFR Glucose POC Capillary Glucose 99 171 H Calcium Magnesium Total Bilirubin AST ALT Alkaline Phosphatase Total Protein Albumin
[2025-01-17] MEDS: BACLOFEN 10 MG TABLET PO (20:23)
[2025-01-17] MEDS: METOPROLOL TARTRATE 50 MG TAB PO (20:30)
[2025-01-17] MEDS: ISOSORBIDE MONONITRATE 30 MG TAB.ER.24H PO (20:31)
[2025-01-17] MEDS: PRAVASTATIN SODIUM 20 MG TABLET 40 MG PO (20:31)
[2025-01-17] MEDS: traMADol HCL (*CRX) 50 MG TABLET PO (21:18)
[2025-01-17] MEDS: ACETAMINOPHEN 325 MG TABLET 650 MG PO (22:57)
[2025-01-18] VITALS (19 sets, daily range): BP systolic 106–133; BP diastolic 7–80; PULSE 63–100; RESP 16–18; TEMP 36.2–36.7; O2SAT 92–99
[2025-01-18 05:26] LABS: Hematocrit 35.9 % (37.0-47.0); Hemoglobin 11.1 g/dL (12.0-15.0); Immature Granulocyte Percent A 0.2 % (0-0.5); Lymphocytes Absolute Auto 0.49 K/mm3 (0.9-3.2); Mean Corpuscular HGB Conc 30.9 g/dl (32-36); Mean Corpuscular Hemoglobin 28.8 pg (26-34); Mean Corpuscular Volume 93.0 fl (80-100); Nucleated Red Blood Cells Absolute Auto 0.000 K/mm3 (0.0-0.012); Nucleated Red Blood Cells Perc 0.0 % (0.0-0.2); Platelet Count Result 195 k/mm3 (150-375); Red Blood Count 3.86 M/mm3 (4.2-5.4); White Blood Count 4.7 K/mm3 (4.5-10.0)
[2025-01-18 05:44] LABS: Alanine Aminotransferase 15 U/L (6-35); Albumin Level 3.3 g/dL (3.5-5.1); Alkaline Phosphatase 87 U/L (38-126); Anion Gap 7 mmol/L (4-12); Aspartate Amino Transferase 23 U/L (14-36); Bilirubin,Total 0.2 mg/dL (0.2-1.3); Blood Urea Nitrogen 40 mg/dL (7-17); Calcium 7.2 mg/dL (8.4-10.2); Carbon Dioxide 28 mmol/L (22-30); Chloride 96 mmol/L (98-107); Estimated Glomerular Filt Rate 46; Glucose 110 mg/dL (65-110); Magnesium 2.0 mg/dL (1.6-2.3); Potassium 4.0 mmol/L (3.4-5.0); Sodium 131 mmol/L (137-145); Total Protein 6.3 g/dL (6.3-8.2)
[2025-01-18] MEDS: LEVOTHYROXINE SODIUM 50 MCG TABLET PO (06:19)
[2025-01-18] MEDS: LEVOTHYROXINE SODIUM 125 MCG TABLET PO (06:19)
[2025-01-18] MEDS: FLUTICASONE/SALMETEROL 115-21 MCG INHALER 1 PUFF 2 PUFF INHALATION ×2 (08:12→21:06)
[2025-01-18] MEDS: APIXABAN 5 MG TABLET PO ×2 (08:29→21:51)
[2025-01-18] MEDS: DOXYCYCLINE HYCLATE 100 MG TABLET PO (08:29)
[2025-01-18] MEDS: GABAPENTIN 300 MG CAPSULE PO ×2 (08:30→21:51)
[2025-01-18] MEDS: PANTOPRAZOLE 40 MG TABLET PO ×2 (08:30→21:53)
[2025-01-18] MEDS: DOCUSATE SODIUM 100 MG CAPSULE PO ×2 (08:30→21:51)
[2025-01-18] MEDS: METOPROLOL TARTRATE 50 MG TAB 100 MG PO (08:30)
[2025-01-18] MEDS: SPIRONOLACTONE 25 MG TABLET PO (08:30)
[2025-01-18] MEDS: ASPIRIN 81 MG ENTERIC TABLET PO (08:30)
[2025-01-18] MEDS: TORSEMIDE 20 MG TABLET 40 MG PO (08:30)
[2025-01-18] MEDS: CHOLECALCIFEROL (VITAMIN D3) 25 MCG (1,000 UNITS) TABLET PO (08:30)
[2025-01-18] MEDS: EMPAGLIFLOZIN 10 MG TABLET PO (08:30)
--- NOTE | 2025-01-18 12:32 | WNDPHOTO ---
PHOTO ONLY - See Nursing Notes and/ or assessments for documentation.
[2025-01-18] MEDS: cefTRIAXone 1 GM in SODIUM CHLORIDE 0.9% IV 50 ML 100 ML IVPB (12:49)
--- NOTE | 2025-01-18 18:30 | PM.IMPN ---
Progress Note: A&P Assessment and Plan (1) Syncope: Qualifiers: Syncope type: unspecified Qualified Code(s): R55 - Syncope and collapse Code(s): R55 - Syncope and collapse Status: Acute (2) Generalized weakness: Code(s): R53.1 - Weakness Status: Acute (3) Pneumonia: Code(s): J18.9 - Pneumonia, unspecified organism Status: Acute (4) History of CHF (congestive heart failure): Code(s): Z86.79 - Personal history of other diseases of the circulatory system Status: Acute (5) Hypertension: Code(s): I10 - Essential (primary) hypertension Status: Acute (6) Hyperlipidemia: Code(s): E78.5 - Hyperlipidemia, unspecified Status: Acute (7) Atrial fibrillation: Code(s): I48.91 - Unspecified atrial fibrillation Status: Acute Plan # Syncope - she was recently admitted for CHF exacerbation was treated with IV Lasix. Could be over-diuresis an orthostatic hypotension. Not orthostatic today. Brain MRI showing no acute findings. Carotid US showing <50% stenosis bilateral ICA. Echo shows pulm HTN, severe PATRICIA and RV enlargement with decreased fxn. Normal LV. Consider MIKKI. Apnea link showing elevated AHI and RI concerning for sleep apnea. Recent normal LHC a few years ago by report so doubt ACS. Seizure less likely. Continue PT/OT. Awaiting placement. # Chronic diastolic CHF - On torsemide at home. Chest x-ray with cardiomegaly. EKG with atrial fibrillation nonspecific ST-T changes no prior EKG available to compare. No active chest pain. Troponin negative. BNP elevated in 3518 01/10/25. Looks well compensated currently. Continue toresimide # Patchy ground-glass opacities lung possible pneumonia. PCT normal. No cultures drawn. Started on ceftriaxone and doxycycline but no cough, elevated WBC or hypoxia. PNA less likely. Stop Abx # Type 2 diabetes A1c 6.3 SSI # Hypertension # Coronary artery disease # COPD/asthma # History of thyroid cancer status post thyroidectomy # Chronic Atrial fibrillation - monitor on telemetry. Continue on apixaban and metoprolol. Holter monitor performed in November 2024 showed atrial fibrillation chronic # Carotid artery stenosis - not seen by US here # Sarcoidosis - etiology of the adenopathy seen on imaging # Pulmonary hypertension # Hyperlipidemia # Severe tricuspid regurgitation # Cirrhosis of liver # Multiple fractures of thoracic and lumbar spine chronic. History of vertebral augmentation at L1 and L2-3 in the past # Right renal mass 14 mm which is unchanged compared to previous scans nonspecific may be proteinaceous or hemorrhagic cyst # Gastritis with CT evidence of mild gastric wall thickening. Continue PPI # DVT prophylaxis on Eliquis # Code status full code Subjective Date/time seen: 01/18/25 18:30 Interval history: 79yo female who presents to the emergency department after a syncopal episode at her facility. She has been having generalized weakness and was recently evaluated at [facility] 3 days ago. She was discharged back to facility. However she is reported to have a syncopal episode while at [facility]. Slept okay. She does have weakness in her legs and has known spinal stenosis. She had a myelogram in the past is not a surgical candidate per patient. Exam Narrative: AF 98.1 133/80 71 18 98% ra Gen - NARD Chest - CTA bilaterally, nml RR CV -irregularly irregular. Telemetry showing atrial fibrillation with controlled rate Abd - Soft, NT/ND, Positive BS Ext - No pedal edema Psych - Nml mood and affect Skin - Warm and dry Objective Data Vital Signs Vital Signs: Vital Signs - 24 hr 01/17/25 19:40 01/17/25 19:40 01/17/25 20:00 Temperature 97.6 F Pulse Rate 83 83 88 Respiratory Rate 16 18 Blood Pressure 127/78 Pulse Oximetry 98 96 Oxygen Delivery Room Air Fraction of Inspired Oxygen 21 01/17/25 20:00 01/17/25 20:30 01/17/25 22:45 Temperature Pulse Rate 83 88 76 Respiratory Rate Blood Pressure Pulse Oximetry 95 Oxygen Delivery Room Air Fraction of Inspired Oxygen 21 01/18/25 00:00 01/18/25 00:00 01/18/25 04:00 Temperature 97.3 F L Pulse Rate 73 76 68 Respiratory Rate 18 Blood Pressure 108/58 L Pulse Oximetry 95 Oxygen Delivery Fraction of Inspired Oxygen 01/18/25 04:25 01/18/25 04:25 01/18/25 04:28 Temperature 97.1 F L Pulse Rate 77 77 76 Respiratory Rate 18 Blood Pressure 106/57 L 106/57 L 113/72 Pulse Oximetry 95 Oxygen Delivery Fraction of Inspired Oxygen 01/18/25 04:31 01/18/25 08:14 01/18/25 08:23 Temperature 98.1 F Pulse Rate 97 68 76 Respiratory Rate 17 18 Blood Pressure 124/72 118/61 Pulse Oximetry 96 Oxygen Delivery Fraction of Inspired Oxygen 01/18/25 08:30 01/18/25 08:30 01/18/25 08:30 Temperature 98.1 F Pulse Rate 67 67 67 Respiratory Rate 18 18 Blood Pressure 118/61 Pulse Oximetry 96 96 Oxygen Delivery Room Air Fraction of Inspired Oxygen 21 01/18/25 08:30 01/18/25 10:27 01/18/25 10:30 Temperature Pulse Rate 66 73 89 Respiratory Rate Blood Pressure 130/68 116/71 Pulse Oximetry 98 99 Oxygen Delivery Fraction of Inspired Oxygen 01/18/25 10:33 01/18/25 12:00 01/18/25 12:56 Temperature Pulse Rate 100 65 Respiratory Rate Blood Pressure 133/80 Pulse Oximetry 98 Oxygen Delivery Room Air Fraction of Inspired Oxygen 01/18/25 16:00 Temperature Pulse Rate 71 Respiratory Rate Blood Pressure Pulse Oximetry Oxygen Delivery Fraction of Inspired Oxygen Intake/Output Intake/Output: Intake & Output 01/15/25 01/16/25 01/17/25 01/18/25 23:59 23:59 23:59 23:59 Intake Total 500 1490 2470 780 Output Total 300 1000 1200 700 Balance 956 340 4274 80 Meds/Results Medications: Active Medications Generic Name Dose Route Start Last Admin Trade Name Freq PRN Reason Stop Dose Admin Acetaminophen 650 mg 01/16/25 21:27 01/17/25 22:57 Acetaminophen 325 Mg Tablet PO 650 mg Q6H PRN Administration pain or headache Albuterol 2 puff 01/16/25 03:37 Albuterol Sulfate (*Sp) Aerosol 1 Puff INHALATION Q6HRT PRN Shortness Of Breath Or Wheezing Albuterol/Ipratropium 3 ml 01/16/25 03:37 Ipratropium 0.5 Mg/Albuterol Sulfate 2.5 Mg Ampul.Neb 3 Ml INHALATION Q6HRT PRN Shortness Of Breath Or Wheezing Apixaban 5 mg 01/16/25 09:00 01/18/25 08:29 Apixaban 5 Mg Tablet PO 5 mg Q12HR DANIELA Administration Aspirin 81 mg 01/16/25 09:00 01/18/25 08:30 Aspirin 81 Mg Enteric Tablet PO 81 mg DAILY DANIELA Administration Baclofen 5 mg 01/18/25 21:00 Baclofen 5 Mg Tablet PO HS DANIELA Dextrose 12.5 gm 01/16/25 03:39 Dextrose 50% 25 Gm/50 Ml Syringe IV PUSH PRN PRN Hypoglycemia Protocol Docusate Sodium 100 mg 01/16/25 09:00 01/18/25 08:30 Docusate Sodium 100 Mg Capsule PO 100 mg Q12HR DANIELA Administration Empagliflozin 10 mg 01/16/25 09:00 01/18/25 08:30 Empagliflozin 10 Mg Tablet PO 10 mg DAILY DANIELA Administration Gabapentin 300 mg 01/16/25 09:00 01/18/25 08:30 Gabapentin 300 Mg Capsule PO 300 mg Q12HR DANIELA Administration Glucagon 1 mg 01/16/25 03:39 Glucagon For Inj 1 Mg Vial IM PRN PRN Hypoglycemia Protocol Glucose 15 gm 01/16/25 03:39 Glucose Oral Gel 15 Gm Of Glucse In 37.5 Gm Tube PO PRN PRN Hypoglycemia Protocol Dextrose 1,000 mls @ 100 mls/hr 01/16/25 03:39 Dextrose 5% 1,000 Ml IVPB PRN PRN Hypoglycemia Protocol Insulin Aspart 2 - 5 units 01/16/25 08:00 01/18/25 17:21 Insulin Aspart (*Bkc) 100 Units/Ml SUB-Q Not Given TIDWM DANIELA Protocol Isosorbide Mononitrate 30 mg 01/16/25 21:00 01/17/25 20:31 Isosorbide Mononitrate 30 Mg Tab.Er.24h PO 30 mg HS DANIELA Administration Levothyroxine Sodium 125 mcg 01/16/25 06:30 01/18/25 06:19 Levothyroxine Sodium 125 Mcg Tablet PO 125 mcg DAILY@0630 DANIELA Administration Levothyroxine Sodium 50 mcg 01/16/25 06:30 01/18/25 06:19 Levothyroxine Sodium 50 Mcg Tablet PO 50 mcg DAILY@0630 DANIELA Administration Metoprolol Tartrate 100 mg 01/16/25 09:00 01/18/25 08:30 Metoprolol Tartrate 50 Mg Tab PO 100 mg QAM DANIELA Administration Metoprolol Tartrate 50 mg 01/16/25 21:00 01/17/25 20:30 Metoprolol Tartrate 50 Mg Tab PO 50 mg QHS DANIELA Administration Pantoprazole Sodium 40 mg 01/16/25 09:00 01/18/25 08:30 Pantoprazole 40 Mg Tablet PO 40 mg Q12HR DANIELA Administration Pravastatin Sodium 40 mg 01/16/25 21:00 01/17/25 20:31 Pravastatin Sodium 20 Mg Tablet PO 40 mg HS DANIELA Administration Fluticasone/Salmeterol 2 puff 01/16/25 08:00 01/18/25 08:12 Fluticasone/Salmeterol 115-21 Mcg Inhaler 1 Puff INHALATION 2 puff Q12HRT DANIELA Administration Spironolactone 25 mg 01/16/25 09:00 01/18/25 08:30 Spironolactone 25 Mg Tablet PO 25 mg DAILY DANIELA Administration Torsemide 40 mg 01/16/25 09:00 01/18/25 08:30 Torsemide 20 Mg Tablet PO 40 mg DAILY DANIELA Administration Tramadol HCl 50 mg 01/16/25 07:09 01/17/25 21:18 Tramadol Hcl (*Crx) 50 Mg Tablet PO 50 mg Q8H PRN Administration Pain Vitamin D 25 mcg 01/16/25 09:00 01/18/25 08:30 Cholecalciferol (Vitamin D3) 25 Mcg (1,000 Units) Tablet PO 25 mcg DAILY DANIELA Administration Radiology Results: ITS Impressions Head CT 01/15/25 18:42 IMPRESSION: 1. Normal aging brain. No acute intracranial process. Chest X-Ray 01/15/25 19:21 IMPRESSION: 1. Small lung volumes with opacities in the bilateral lower lung zones which could represent atelectasis or pneumonia. 2. Masslike enlargement of the right hilum which could represent persistent or recurrent lymphadenopathy which could be reactive, metastatic or due to lymphoma. Correlate with clinical history and consider follow-up post contrast chest CT for further evaluation. Chest/Abdomen/Pelvis CTA 01/16/25 06:44 IMPRESSION: 1. No evidence for pulmonary embolism. 2: Extensive mediastinal and hilar lymphadenopathy, chronic. 3: Multiple fractures of the thoracic and lumbar spine, most of which are likely chronic. Consider correlation with MRI if there is concern for acute fracture. 4: Intermediate density 14 mm right renal mass. Recommend correlation with MRI. 5: Patchy groundglass opacities of the lung. Differential diagnosis includes pneumonia, hypersensitivity pneumonitis and edema. 6: Mild gastric wall thickening which may be due to under distention or gastritis. Brain MRI 01/16/25 11:54 IMPRESSION: 1. No acute intracranial abnormality. Carotid Doppler Study 01/16/25 12:27 IMPRESSION: 1. <50% stenosis in the right internal carotid artery. 2. <50% stenosis in the left internal carotid artery. Labs Labs: Laboratory Results - last 24 hr 01/17/25 01/18/25 01/18/25 20:46 05:12 08:24 WBC 4.7 RBC 3.86 L Hgb 11.1 L Hct 35.9 L MCV 93.0 MCH 28.8 MCHC 30.9 L RDW 15.3 H Plt Count 195 MPV 9.3 Immature Gran % (Auto) 0.2 Neut % (Auto) 74.9 H Lymph % (Auto) 10.5 L [place] % (Auto) 10.3 H Eos % (Auto) 3.2 Baso % (Auto) 0.9 Lymph # (Auto) 0.49 L [place] # (Auto) 0.5 Eos # (Auto) 0.2 Baso # (Auto) 0.0 Abs Immat Gran (auto) 0.01 Absolute Neuts (auto) 3.5 Absolute Nucleated RBC 0.000 Nucleated RBC % 0.0 Sodium 131 L Potassium 4.0 Chloride 96 L Carbon Dioxide 28 Anion Gap 7 BUN 40 H Creatinine 1.15 H Estim Creat Clear Calc Not Reportable Estimated GFR 46 L Glucose 110 POC Capillary Glucose 147 H 111 H Calcium 7.2 L Magnesium 2.0 Total Bilirubin 0.2 AST 23 ALT 15 Alkaline Phosphatase 87 Total Protein 6.3 Albumin 3.3 L 01/18/25 01/18/25 12:04 17:12 WBC RBC Hgb Hct MCV MCH MCHC RDW Plt Count MPV Immature Gran % (Auto) Neut % (Auto) Lymph % (Auto) [place] % (Auto) Eos % (Auto) Baso % (Auto) Lymph # (Auto) [place] # (Auto) Eos # (Auto) Baso # (Auto) Abs Immat Gran (auto) Absolute Neuts (auto) Absolute Nucleated RBC Nucleated RBC % Sodium Potassium Chloride Carbon Dioxide Anion Gap BUN Creatinine Estim Creat Clear Calc Estimated GFR Glucose POC Capillary Glucose 173 H 129 H Calcium Magnesium Total Bilirubin AST ALT Alkaline Phosphatase Total Protein Albumin
[2025-01-18] MEDS: PRAVASTATIN SODIUM 20 MG TABLET 40 MG PO (21:51)
[2025-01-18] MEDS: BACLOFEN 5 MG TABLET PO (21:52)
[2025-01-18] MEDS: METOPROLOL TARTRATE 50 MG TAB PO (21:52)
[2025-01-18] MEDS: ISOSORBIDE MONONITRATE 30 MG TAB.ER.24H PO (21:53)
[2025-01-18] MEDS: ACETAMINOPHEN 325 MG TABLET 650 MG PO (23:20)
[2025-01-19] VITALS (8 sets, daily range): BP systolic 108–115; BP diastolic 60–68; PULSE 65–78; RESP 16–18; TEMP 36.1–36.6; O2SAT 96–99
[2025-01-19 04:56] LABS: Hematocrit 35.9 % (37.0-47.0); Hemoglobin 11.0 g/dL (12.0-15.0); Immature Granulocyte Percent A 0.4 % (0-0.5); Lymphocytes Absolute Auto 0.43 K/mm3 (0.9-3.2); Mean Corpuscular HGB Conc 30.6 g/dl (32-36); Mean Corpuscular Hemoglobin 29.1 pg (26-34); Mean Corpuscular Volume 95.0 fl (80-100); Nucleated Red Blood Cells Absolute Auto 0.000 K/mm3 (0.0-0.012); Nucleated Red Blood Cells Perc 0.0 % (0.0-0.2); Platelet Count Result 202 k/mm3 (150-375); Red Blood Count 3.78 M/mm3 (4.2-5.4); White Blood Count 4.5 K/mm3 (4.5-10.0)
[2025-01-19 05:13] LABS: Alanine Aminotransferase 13 U/L (6-35); Albumin Level 3.4 g/dL (3.5-5.1); Alkaline Phosphatase 90 U/L (38-126); Anion Gap 8 mmol/L (4-12); Aspartate Amino Transferase 21 U/L (14-36); Bilirubin,Total 0.3 mg/dL (0.2-1.3); Blood Urea Nitrogen 39 mg/dL (7-17); Calcium 7.8 mg/dL (8.4-10.2); Carbon Dioxide 28 mmol/L (22-30); Chloride 97 mmol/L (98-107); Estimated Glomerular Filt Rate 42; Glucose 116 mg/dL (65-110); Magnesium 2.0 mg/dL (1.6-2.3); Potassium 3.8 mmol/L (3.4-5.0); Sodium 133 mmol/L (137-145); Total Protein 6.2 g/dL (6.3-8.2)
[2025-01-19] MEDS: LEVOTHYROXINE SODIUM 125 MCG TABLET PO (05:56)
[2025-01-19] MEDS: LEVOTHYROXINE SODIUM 50 MCG TABLET PO (05:56)
[2025-01-19] MEDS: FLUTICASONE/SALMETEROL 115-21 MCG INHALER 1 PUFF 2 PUFF INHALATION (07:21)
[2025-01-19] MEDS: DOCUSATE SODIUM 100 MG CAPSULE PO (08:47)
[2025-01-19] MEDS: TORSEMIDE 20 MG TABLET 40 MG PO (08:47)
[2025-01-19] MEDS: APIXABAN 5 MG TABLET PO (08:47)
[2025-01-19] MEDS: SPIRONOLACTONE 25 MG TABLET PO (08:48)
[2025-01-19] MEDS: PANTOPRAZOLE 40 MG TABLET PO (08:48)
[2025-01-19] MEDS: EMPAGLIFLOZIN 10 MG TABLET PO (08:48)
[2025-01-19] MEDS: GABAPENTIN 300 MG CAPSULE PO (08:48)
[2025-01-19] MEDS: METOPROLOL TARTRATE 50 MG TAB 100 MG PO (08:48)
[2025-01-19] MEDS: CHOLECALCIFEROL (VITAMIN D3) 25 MCG (1,000 UNITS) TABLET PO (08:48)
[2025-01-19] MEDS: ASPIRIN 81 MG ENTERIC TABLET PO (08:48)
--- NOTE | 2025-01-19 12:34 | PM.DS ---
DS: Admitting Diagnosis Discharge Date 01/19/25 Admitting Diagnosis Syncope DS: Discharge Diagnosis Discharge Diagnosis (1) Syncope: Qualifiers: Syncope type: unspecified Qualified Code(s): R55 - Syncope and collapse Code(s): R55 - Syncope and collapse Status: Acute (2) Generalized weakness: Code(s): R53.1 - Weakness Status: Acute (3) Pneumonia: Code(s): J18.9 - Pneumonia, unspecified organism Status: Acute (4) History of CHF (congestive heart failure): Code(s): Z86.79 - Personal history of other diseases of the circulatory system Status: Acute (5) Hypertension: Code(s): I10 - Essential (primary) hypertension Status: Acute (6) Hyperlipidemia: Code(s): E78.5 - Hyperlipidemia, unspecified Status: Acute (7) Atrial fibrillation: Code(s): I48.91 - Unspecified atrial fibrillation Status: Acute DS: Summary Hospital Course Reason for hospitalization: 79yo female who presents to the ED after a syncopal episode at her facility. She has been having generalized weakness and was recently evaluated at [facility] 3 days ago. She was discharged back to facility. However she is reported to have a syncopal episode while at [facility]. Please see H&P for details. Hospital Course: Patient was recently admitted for CHF exacerbation was treated with IV Lasix. Could be over-diuresis an orthostatic hypotension. Not orthostatic after admission. Brain MRI showing no acute findings. Carotid US showing <50% stenosis bilateral ICA. Echo shows pulmonary HTN, severe PATRICIA and RV enlargement with decreased fxn. Normal LV. We considered MIKKI. Apnea link showing elevated AHI and RI concerning for sleep apnea. Recent normal LHC a few years ago by report so doubt ACS. Seizure felt less likely. Syncope could be related to HoTN and/or daytime somnolence. Metoprolol dose was decreased. She worked with PT/OT. She has chronic diastolic CHF and is on torsemide. Chest x-ray with cardiomegaly. EKG with atrial fibrillation nonspecific ST-T changes no prior EKG available to compare. She was monitored on tele and her heart rate remained well controlled. No active chest pain. Troponin negative. BNP elevated in 3518 01/10/25 but not felt to be in acute flare. 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 Also with patchy ground-glass opacities lung possible pneumonia vs edema vs hypersensitivity pneumonitis. PCT normal. No cultures drawn. WBC normal. No fevers or cough. Started on ceftriaxone and doxycycline but felt PNA less likely. Antibiotics stopped. Multiple fractures of thoracic and lumbar spine chronic noted by CT. History of vertebral augmentation at L1 and L2-3 in the past. Right renal mass 14 mm which is unchanged compared to previous scans nonspecific may be proteinaceous or hemorrhagic cyst per prior provider so no follow up needed. Patient was up ambulating in room with therapy. She overall did well and was able to be discharged on 01/19/25. Status at Discharge Cognitive/behavioral status at discharge: stable Time Spent with Patient Time attestation: Total time spent providing and/or coordinating discharge services: 34 minutes Time spent: Greater than 30 minutes Exam Narrative: AF 97.2 115/64 78 18 96% ra Gen - NARD Chest - CTA bilaterally, nml RR CV -irregularly irregular. Telemetry showing atrial fibrillation with controlled rate Abd - Soft, NT/ND, Positive BS Ext - No pedal edema Psych - Nml mood and affect Skin - Warm and dry. small dime sized red spot right posterior heel DS: Data Data Completed and Pending Labs on day of discharge: Labs from last 24 hours 01/19/25 01/19/25 01/19/25 12:01 07:54 04:33 WBC 4.5 RBC 3.78 L Hgb 11.0 L Hct 35.9 L MCV 95.0 MCH 29.1 MCHC 30.6 L RDW 15.2 H Plt Count 202 MPV 9.4 Immature Gran % (Auto) 0.4 Neut % (Auto) 76.1 H Lymph % (Auto) 9.6 L [place] % (Auto) 9.4 H Eos % (Auto) 3.6 Baso % (Auto) 0.9 Lymph # (Auto) 0.43 L [place] # (Auto) 0.4 Eos # (Auto) 0.2 Baso # (Auto) 0.0 Abs Immat Gran (auto) 0.02 Absolute Neuts (auto) 3.4 Absolute Nucleated RBC 0.000 Nucleated RBC % 0.0 Sodium 133 L Potassium 3.8 Chloride 97 L Carbon Dioxide 28 Anion Gap 8 BUN 39 H Creatinine 1.25 H Estim Creat Clear Calc Not Reportable Estimated GFR 42 L Glucose 116 H POC Capillary Glucose 142 H 121 H Calcium 7.8 L Magnesium 2.0 Total Bilirubin 0.3 AST 21 ALT 13 Alkaline Phosphatase 90 Total Protein 6.2 L Albumin 3.4 L 01/18/25 01/18/25 22:33 17:12 WBC RBC Hgb Hct MCV MCH MCHC RDW Plt Count MPV Immature Gran % (Auto) Neut % (Auto) Lymph % (Auto) [place] % (Auto) Eos % (Auto) Baso % (Auto) Lymph # (Auto) [place] # (Auto) Eos # (Auto) Baso # (Auto) Abs Immat Gran (auto) Absolute Neuts (auto) Absolute Nucleated RBC Nucleated RBC % Sodium Potassium Chloride Carbon Dioxide Anion Gap BUN Creatinine Estim Creat Clear Calc Estimated GFR Glucose POC Capillary Glucose 145 H 129 H Calcium Magnesium Total Bilirubin AST ALT Alkaline Phosphatase Total Protein Albumin Discharge Plan Discharge Attending physician on discharge: Luis Chris Discharging Clinician: Luis Chris Anticipated Discharge Date/Time: 01/19/25 12:50 Patient Disposition: SNF Activity: as tolerated Diet: diabetic Discharge Instructions: Please check glucose before meals and before bed. Record for the doctor's review. Check blood pressure 1 to 2 times a day. Record for the doctor's review. Take precautions to avoid falls. Rise slowly from a lying or sitting position. Pause before standing or walking. Heel protectors when in bed. Check daily morning weights after voiding. Call the doctor if the patient gains more than 3 lb in 2 days or 5 lb in 1 week. Contact the doctor if the patient has fevers or other worrisome symptoms. Avoid NSAIDs (ibuprofen, naproxen, Aleve). Tylenol is safe to take. Please arrange for outpatient split night sleep study for an abnormal Apnea Link Follow-up with the provider at the facility. Thank you for using [facility] for your health care needs. Patient Language: Yoruba Stand Alone Forms: General Discharge Information Follow-up/Referrals: Yas,Bruno Parra M.D. [Primary Care Provider] - Other Discharge Medications: New metoprolol tartrate 50 mg Tablet 100 mg PO QAM Qty: 30 0RF metoprolol tartrate 50 mg Tablet 50 mg PO QHS Qty: 30 0RF Continued fluticasone propion-salmeterol 250-50 mcg/dose blister with device 1 inh INHALATION BID albuterol sulfate 90 mcg/actuation HFA aerosol inhaler 2 puff INHALATION Q6H PRN (Reason: shortness of breath or wheezing) aspirin [Adult Low Dose Aspirin] 81 mg tablet,delayed release (DR/EC) 81 mg PO DAILY docusate sodium 100 mg capsule 100 mg PO BID Eliquis 5 mg tablet 5 mg PO Q12H dapagliflozin propanediol [Farxiga] 10 mg tablet 10 mg PO DAILY gabapentin 300 mg capsule 300 mg PO Q12H ipratropium-albuterol 0.5 mg-3 mg(2.5 mg base)/3 mL solution for nebulization 3 ml inhalation Q6H PRN (Reason: shortness of breath or wheezing) isosorbide mononitrate 30 mg tablet extended release 24 hr 30 mg PO HS levothyroxine [Synthroid] 175 mcg tablet 175 mcg PO DAILY omeprazole 40 mg capsule,delayed release(DR/EC) 40 mg PO DAILY pravastatin 40 mg tablet 40 mg PO HS spironolactone 25 mg tablet 25 mg PO DAILY torsemide 20 mg tablet 40 mg PO DAILY tramadol 50 mg tablet 50 mg PO Q8H PRN (Reason: pain) cholecalciferol (vitamin D3) 25 mcg (1,000 unit) capsule 1,000 unit PO DAILY fluocinonide 0.05 % solution 1 applic TOPICAL BID Rx Instructions: to scalp Changed baclofen 10 mg tablet 5 mg PO HS Qty: 10 0RF Discontinued metoprolol tartrate 100 mg tablet 100 mg PO Q12H Rx Instructions: takes one tab in morning and 1/2 tab at hs Date of admission: 01/17/25 16:03 Primary Care Provider: LinwoodBruno Admitting Provider: Jerome Paige Attending physician on admission: Jerome Paige Condition: Guarded Prognosis Hospitalist MIPS Heart Failure (Exclusion) Patient has history of Heart Transplant or Left Ventricular Assistive Device?: No IF YES, STOP HERE Heart Failure (Qualifier) Patient has current or prior documentation of LVEF less than or equal to 40%, or mod/servere depressed LVSF?: No IF NO, STOP HERE
--- OUTSIDE RECORDS SUMMARY | 2025-03-07 19:00 | XMS_ITS | Clinical Summary ---
Author Organization Unknown Care Team Providers Care Emergency Medical Technician/Driver Name Role Phone HEIKE HARDIN, LUIS ALBERTO Unavailable Unavailable ARAVIND PT, JUAN CARLOS Unavailable Unavailambika MATIAS RN, MALIHA Unavailable Unavailable Payers Payer Name Policy Type Policy Number Effective Date Expira tion Date [employer] MEDICARE ADVANTAGE FFS - ORDER DRIVEN [id number] MEDICARE - [place] - PDGM [id number] Problems Condition Name Condition Details Condition Category Status Onset Date Resolution Date Last Treatment Date Treating Clinician Comments HYPOVOLEMIA Active 05-24 00:00: 00 HYPERTENSIVE HEART DISEASE WITH HEART FAILURE Active 05-24 00:00: 00 CHRONIC DIASTOLIC (CONGESTIVE) HEART FAILURE Active 05-24 00:00: 00 TYPE 2 DIABETES MELLITUS WITHOUT COMPLICATION S Active 05-24 00:00: 00 MALIGNANT NEOPLASM OF THYROID GLAND Active 05-24 00:00: 00 PERMANENT ATRIAL FIBRILLATION Active 05-24 00:00: 00 SARCOIDOSIS, UNSPECIFIED Active 05-24 00:00: 00 AGE-RELATED OSTEOPOROSIS 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 PATHOLOGICAL FRACTURE Active 05-24 00:00: 00 MILD INTERMITTENT ASTHMA, UNCOMPLICATE D Active 05-24 00:00: 00 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 Active 05-24 00:00: 00 HYPOTHYROIDI SM, UNSPECIFIED Active 05-24 00:00: 00 MONOCLONAL GAMMOPATHY Active 05-24 00:00: 00 Problems related to health literacy Active 05-24 00:00: 00 MIXED HYPERLIPIDEM IA Active 05-24 00:00: 00 ACQUIRED ABSENCE OF BOTH CERVIX AND UTERUS Active 05-24 00:00: 00 ACQUIRED ABSENCE OF OTHER ORGANS Active 05-24 00:00: 00 ACQUIRED ABSENCE OF OTHER SPECIFIED PARTS OF DIGESTIVE TRACT Active 05-24 00:00: 00 PRSNL HX OF TIA (TIA), AND CEREB INFRC W/O RESID DEFICITS Active 05-24 00:00: 00 OR DIRECTOR (CURRENT) USE OF ASPIRIN Active 05-24 00:00: 00 HALF-WAY (CURRENT) USE OF ANTICOAGULAN TS Active 05-24 00:00: 00 HALF-WAY (CURRENT) USE OF SYSTEMIC STEROIDS Active 05-24 00:00: 00 Allergies, Adverse Reactions, Alerts Allergy Name Allergy Type Status Severity Reaction(s) Onset Date Inactive Date Treating Clinician Comments PENICILLIN Propensity to adverse reactions Active 11-09 15:45: 44 ADHERENT TAPE Propensity to adverse reactions Active 11-09 15:46: 16 SULFA DRUGS CROSS REACTORS Propensity to adverse reactions Active 11-09 15:45: 54 Medications Ordered Medication Name Filled Medication Name Start Date Stop Date Current Medication? Ordering Clinician Indication Dosage Frequency Signature (SIG) Comments Components spironolact one 25 mg tablet 2023-05 00:00: 00 03-01 00:00 :00 No [id number] Per instruc tions Per instructio ns (route: oral) Med Classific ation: Cardiovas cular Therapy Agents acetaminoph en 500 mg tablet 2023-05 00:00: 00 07-11 23:59 :00 No [id number] 2 tablet EVERY 6 HOURS 2 tablet EVERY 6 HOURS (route: oral) Med Classific ation: Analgesic , Anti-infl ammatory or Antipyret ic albuterol sulfate HFA 90 mcg/actuati on aerosol inhaler 2023-05 00:00: 00 07-11 23:59 :00 No [id number] 2 puff EVERY 6 HOURS 2 puff EVERY 6 HOURS (route: inhalation ) Med Classific ation: Respirato ry Therapy Agents aspirin 81 mg tablet,quintin yed release 2023-05 00:00: 00 07-11 23:59 :00 No [id number] 1 tablet DAILY 1 tablet DAILY (route: oral) Med Classific ation: Hematolog ical Agents baclofen 10 mg tablet 2023-05 0 00:00: 00 07-11 23:59 :00 No [id number] 1 tablet BEDTIME 1 tablet BEDTIME (route: oral) Med Classific ation: Locomotor System budesonide- formoterol HFA 160 mcg-4.5 mcg/actuati on aerosol inhaler 2023-05 0 00:00: 00 07-11 23:59 :00 No [id number] 2 puff 2 TIMES DAILY 2 puff 2 TIMES DAILY (route: inhalation ) Med Classific ation: Respirato ry Therapy Agents diltiazem 30 mg tablet 2023-05 0 00:00: 00 07-11 23:59 :00 No [id number] 1 tablet 2 TIMES DAILY 1 tablet 2 TIMES DAILY (route: oral) Med Classific ation: Cardiovas cular Therapy Agents docusate sodium 100 mg tablet 2023-05 00:00: 00 07-11 23:59 :00 No [id number] 1 tablet 2 TIMES DAILY 1 tablet 2 TIMES DAILY (route: oral) Med Classific ation: Gastroint estinal Therapy Agents Eliquis 5 mg tablet 2023-05 0 00:00: 00 07-11 23:59 :00 No [id number] 1 tablet 2 TIMES DAILY 1 tablet 2 TIMES DAILY (route: oral) Med Classific ation: Hematolog ical Agents Farxiga 10 mg tablet 2023-05 0 00:00: 00 07-11 23:59 :00 No [id number] 1 tablet DAILY 1 tablet DAILY (route: oral) Med Classific ation: Endocrine gabapentin 100 mg capsule 2023-05 0 00:00: 00 07-11 23:59 :00 No [id number] 1 capsule BEDTIME 1 capsule BEDTIME (route: oral) Med Classific ation: Central Nervous System Agents ipratropium 0.5 mg-albutero l 3 mg (2.5 mg base)/3 mL nebulizatio n soln 2023-05 0- 00:00: 00 07-11 23:59 :00 No [id number] 3 mL EVERY 6 HOURS 3 mL EVERY 6 HOURS (route: inhalation ) Med Classific ation: Respirato ry Therapy Agents isosorbide mononitrate ER 30 mg tablet,exte nded release 24 hr 2023-05 00:00: 00 07-11 23:59 :00 No [id number] 1 tablet BEDTIME 1 tablet BEDTIME (route: oral) Med Classific ation: Cardiovas cular Therapy Agents ketoconazol e 2 % shampoo 2023-05 00:00: 00 07-11 23:59 :00 No [id number] Per instruc tions 2 TIMES A WEEK Per instructio ns 2 TIMES A WEEK (route: topical) Med Classific ation: Dermatolo gical levothyroxi ne 175 mcg tablet 2023-05 00:00: 00 07-11 23:59 :00 No [id number] 1 tablet DAILY 1 tablet DAILY (route: oral) Med Classific ation: Endocrine lidocaine 5 % topical patch 2023-05 00:00: 00 07-11 23:59 :00 No [id number] 1 adhesiv e patch, medicat ed 2 TIMES DAILY 1 adhesive patch, medicated 2 TIMES DAILY (route: topical) Med Classific ation: Dermatolo gical metolazone 2.5 mg tablet 2023-05 00:00: 00 07-11 23:59 :00 No [id number] 1 tablet DAILY 1 tablet DAILY (route: oral) Med Classific ation: Cardiovas cular Therapy Agents metoprolol tartrate 100 mg tablet 2023-05 00:00: 00 07-11 23:59 :00 No [id number] 1 tablet DAILY 1 tablet DAILY (route: oral) Med Classific ation: Cardiovas cular Therapy Agents metoprolol tartrate 50 mg tablet 2023-05 00:00: 00 07-11 23:59 :00 No [id number] 1 tablet BEDTIME 1 tablet BEDTIME (route: oral) Med Classific ation: Cardiovas cular Therapy Agents nitroglycer in 0.4 mg sublingual tablet 2023-05 00:00: 00 07-11 23:59 :00 No [id number] 1 tablet NEEDED 1 tablet NEEDED (route: sublingual ) Med Classific ation: Cardiovas cular Therapy Agents omeprazole 20 mg capsule,del ayed release 2023-05 0 00:00: 00 07-11 23:59 :00 No [id number] 2 capsule DAILY 2 capsule DAILY (route: oral) Med Classific ation: Gastroint estinal Therapy Agents potassium chloride ER 20 mEq tablet,exte nded release 2023-05 0 00:00: 00 07-11 23:59 :00 No [id number] 1 tablet DAILY 1 tablet DAILY (route: oral) Med Classific ation: Electroly te Balance-N utritiona l Products pravastatin 40 mg tablet 2023-05 0 00:00: 00 07-11 23:59 :00 No [id number] 1 tablet DAILY 1 tablet DAILY (route: oral) Med Classific ation: Cardiovas cular Therapy Agents prednisone 5 mg tablet 2023-05 00:00: 00 07-11 23:59 :00 No [id number] 1 tablet EVERY OTHER DAY 1 tablet EVERY OTHER DAY (route: oral) Med Classific ation: Endocrine spironolact one 25 mg tablet 2023-05 00:00: 00 07-11 23:59 :00 No [id number] 1 tablet DAILY 1 tablet DAILY (route: oral) Med Classific ation: Cardiovas cular Therapy Agents torsemide 20 mg tablet 2023-05 0 00:00: 00 07-11 23:59 :00 No [id number] 1 tablet DAILY 1 tablet DAILY (route: oral) Med Classific ation: Cardiovas cular Therapy Agents tramadol 50 mg tablet 2023-05 0 00:00: 00 07-11 23:59 :00 No [id number] 1 tablet EVERY 8 HOURS 1 tablet EVERY 8 HOURS (route: oral) Med Classific ation: Analgesic , Anti-infl ammatory or Antipyret ic Tylenol Arthritis Pain 650 mg tablet,exte nded release 2023-05 0 00:00: 00 07-11 23:59 :00 No [id number] 1 tablet DAILY 1 tablet DAILY (route: oral) Med Classific ation: Analgesic , Anti-infl ammatory or Antipyret ic vitamin E 268 mg (400 unit) capsule 2023-05 00:00: 00 07-11 23:59 :00 No [id number] 1 capsule DAILY 1 capsule DAILY (route: oral) Med Classific ation: Electroly te Balance-N utritiona l Products ketoconazol e 2 % topical cream 11-09 00:00: 00 Yes [id number] Per instruc tions DAILY Per instructio ns DAILY (route: topical) Med Classific ation: Dermatolo gical Klor-Con M20 mEq tablet,exte nded release 11-09 00:00: 00 Yes [id number] 1 tablet DAILY 1 tablet DAILY (route: oral) Med Classific ation: Electroly te Balance-N utritiona l Products lidocaine 5 % topical patch 11-09 00:00: 00 11-18 23:59 :00 No [id number] 1 adhesiv e patch, medicat ed DAILY 1 adhesive patch, medicated DAILY (route: topical) Med Classific ation: Dermatolo gical Lopressor 100 mg tablet 11-09 00:00: 00 Yes [id number] 1 tablet 2 TIMES DAILY 1 tablet 2 TIMES DAILY (route: oral) Med Classific ation: Cardiovas cular Therapy Agents Lopressor 50 mg tablet 11-09 00:00: 00 Yes [id number] 1 tablet 2 TIMES DAILY 1 tablet 2 TIMES DAILY (route: oral) Med Classific ation: Cardiovas cular Therapy Agents nitroglycer in 0.4 mg sublingual tablet 11-09 00:00: 00 11-18 23:59 :00 No [id number] 1 tablet NEEDED 1 tablet NEEDED (route: sublingual ) Med Classific ation: Cardiovas cular Therapy Agents omeprazole 40 mg capsule,del ayed release 11-09 00:00: 00 Yes [id number] 1 capsule DAILY 1 capsule DAILY (route: oral) Med Classific ation: Gastroint estinal Therapy Agents pravastatin 40 mg tablet 11-09 00:00: 00 Yes [id number] 1 tablet DAILY 1 tablet DAILY (route: oral) Med Classific ation: Cardiovas cular Therapy Agents prednisone 5 mg tablet 11-09 00:00: 00 Yes [id number] 1 tablet EVERY OTHER DAY 1 tablet EVERY OTHER DAY (route: oral) Med Classific ation: Endocrine spironolact one 25 mg tablet 11-09 00:00: 00 Yes [id number] 1 tablet DAILY 1 tablet DAILY (route: oral) Med Classific ation: Cardiovas cular Therapy Agents Symbicort 160 mcg-4.5 mcg/actuati on HFA aerosol inhaler 11-09 00:00: 00 Yes [id number] 2 puff 2 TIMES DAILY 2 puff 2 TIMES DAILY (route: inhalation ) Med Classific ation: Respirato ry Therapy Agents Synthroid 175 mcg tablet 11-09 00:00: 00 Yes [id number] 1 tablet DAILY 1 tablet DAILY (route: oral) Med Classific ation: Endocrine tramadol 50 mg tablet 11-09 00:00: 00 Yes [id number] 1 tablet EVERY 8 HOURS 1 tablet EVERY 8 HOURS (route: oral) Med Classific ation: Analgesic , Anti-infl ammatory or Antipyret ic triamcinolo ne acetonide 0.5 % topical ointment 11-09 00:00: 00 Yes [id number] Per instruc tions DIRECTED Per instructio ns DIRECTED (route: topical) Med Classific ation: Dermatolo gical Tylenol Extra Strength 500 mg tablet 11-09 00:00: 00 Yes [id number] 2 tablet EVERY 6 HOURS 2 tablet EVERY 6 HOURS (route: oral) Med Classific ation: Analgesic , Anti-infl ammatory or Antipyret ic vitamin E 268 mg (400 unit) capsule 11-09 00:00: 00 Yes [id number] 1 capsule DAILY 1 capsule DAILY (route: oral) Med Classific ation: Electroly te Balance-N utritiona l Products albuterol sulfate HFA 90 mcg/actuati on aerosol inhaler 11-09 00:00: 00 Yes [id number] 2 puff EVERY 6 HOURS 2 puff EVERY 6 HOURS (route: inhalation ) Med Classific ation: Respirato ry Therapy Agents Eliquis 5 mg tablet 11-09 00:00: 00 Yes [id number] 1 tablet 2 TIMES DAILY 1 tablet 2 TIMES DAILY (route: oral) Med Classific ation: Hematolog ical Agents azithromyci n 500 mg tablet 11-09 00:00: 00 Yes [id number] 1 tablet DAILY 1 tablet DAILY (route: oral) Med Classific ation: Anti-Infe ctive Agents baclofen 10 mg tablet 11-09 00:00: 00 Yes [id number] 1 tablet 3 TIMES DAILY 1 tablet 3 TIMES DAILY (route: oral) Med Classific ation: Locomotor System aspirin 81 mg tablet,quintin yed release 11-09 00:00: 00 Yes [id number] 1 tablet DAILY 1 tablet DAILY (route: oral) Med Classific ation: Hematolog ical Agents clobetasol 0.05 % lotion 11-09 00:00: 00 Yes [id number] Per instruc tions 2 TIMES DAILY Per instructio ns 2 TIMES DAILY (route: topical) Med Classific ation: Dermatolo gical clotrimazol e 1 % topical cream 11-09 00:00: 00 Yes [id number] Per instruc tions 2 TIMES DAILY Per instructio ns 2 TIMES DAILY (route: topical) Med Classific ation: Dermatolo gical docusate sodium 100 mg capsule 11-09 00:00: 00 Yes [id number] 1 capsule 2 TIMES DAILY 1 capsule 2 TIMES DAILY (route: oral) Med Classific ation: Gastroint estinal Therapy Agents Farxiga 10 mg tablet 11-09 00:00: 00 Yes [id number] 1 tablet DAILY 1 tablet DAILY (route: oral) Med Classific ation: Endocrine fluocinonid e 0.05 % topical cream 11-09 00:00: 00 Yes [id number] Per instruc tions DAILY Per instructio ns DAILY (route: topical) Med Classific ation: Dermatolo gical gabapentin 100 mg capsule 11-09 00:00: 00 Yes [id number] 1 capsule BEDTIME 1 capsule BEDTIME (route: oral) Med Classific ation: Central Nervous System Agents gabapentin 300 mg capsule 11-09 00:00: 00 Yes [id number] 1 capsule 2 TIMES DAILY 1 capsule 2 TIMES DAILY (route: oral) Med Classific ation: Central Nervous System Agents ipratropium 0.5 mg-albutero l 3 mg (2.5 mg base)/3 mL nebulizatio n soln 11-09 00:00: 00 Yes [id number] 3 mL EVERY 6 HOURS 3 mL EVERY 6 HOURS (route: inhalation ) Med Classific ation: Respirato ry Therapy Agents isosorbide mononitrate ER 30 mg tablet,exte nded release 24 hr 11-09 00:00: 00 Yes [id number] 1 tablet BEDTIME 1 tablet BEDTIME (route: oral) Med Classific ation: Cardiovas cular Therapy Agents ketoconazol e 2 % shampoo 11-09 00:00: 00 Yes [id number] Per instruc tions 2 TIMES A WEEK Per instructio ns 2 TIMES A WEEK (route: topical) Med Classific ation: Dermatolo gical metolazone 2.5 mg tablet 11-14 00:00: 00 Yes [id number] Per instruc tions DIRECTED Per instructio ns DIRECTED (route: oral) Med Classific ation: Cardiovas cular Therapy Agents torsemide 20 mg tablet 11-14 00:00: 00 Yes [id number] 2 tablet DAILY 2 tablet DAILY (route: oral) Med Classific ation: Cardiovas cular Therapy Agents Immunizations Ordered Immunization Name Filled Immunization Name Date Status Comments Refusal Reason REFUSED PNEUMONIA, PPV 2024-11-09 00:00:00 Plan of Treatment Planned Activity Planned Date Details Comments Future Scheduled Test PHYSICAL T HERAPIST TO EVALUATE PATIENT SECONDARY TO FUNCTIONAL DEFICITS/SAFETY CONCERNS. [code = PHYSICAL THERAPIST TO EVALUATE PATIENT SECONDARY TO FUNCTIONAL DEFICITS/SAFETY CONCERNS.] Future Scheduled Test PHYSICAL T HERAPIST TO ASSESS BEST PRACTICE INTERVENTIONS TO ASSIST PATIENTS TO IMPROVE OR STABILIZE MEDICAL STATUS AND PREVENT RE-HOSPITALIZATION. MEASURES INCLUDING REVIEW AND IDENTIFICATION OF CONCERNS FOR THE FOLLOWING AREAS: DRUG REGIMEN, DIABETIC FOOT CARE, ENVIRONMENTAL SAFETY ISSUES AND FALLS, PRESSURE ULCERS, PAIN, AND DISEASE MANAGEMENT. [code = PHYSICAL THERAPIST TO ASSESS BEST PRACTICE INTERVENTIONS TO ASSIST PATIENTS TO IMPROVE OR STABILIZE MEDICAL STATUS AND PREVENT RE-HOSPITALIZATION. MEASURES INCLUDING REVIEW AND IDENTIFICATION OF CONCERNS FOR THE FOLLOWING AREAS: DRUG REGIMEN, DIABETIC FOOT CARE, ENVIRONMENTAL SAFETY ISSUES AND FALLS, PRESSURE ULCERS, PAIN, AND DISEASE MANAGEMENT.] Future Scheduled Test PHYSICAL T HERAPY TO ESTABLISH /UPGRADE/DOWNGRADE THERAPEUTIC EXERCISE PROGRAM AND INSTRUCT PATIENT/CAREGIVER ON EXERCISE PRECAUTIONS WITH WRITTEN HOME PROGRAM. MAY INCLUDE PROM, AAROM, AROM, RROM APPROPRIATE TO IMPROVE FUNCTIONAL STRENGTH AND RANGE OF MOTION. [code = PHYSICAL THERAPY TO ESTABLISH /UPGRADE/DOWNGRADE THERAPEUTIC EXERCISE PROGRAM AND INSTRUCT PATIENT/CAREGIVER ON EXERCISE PRECAUTIONS WITH WRITTEN HOME PROGRAM. MAY INCLUDE PROM, AAROM, AROM, RROM APPROPRIATE TO IMPROVE FUNCTIONAL STRENGTH AND RANGE OF MOTION.] Future Scheduled Test PHYSICAL T HERAPY TO INSTRUCT PATIENT/CAREGIVER ON SAFE TRANSFER TECHNIQUES USING PROPER BODY MECHANICS AND EQUIPMENT. [code = PHYSICAL THERAPY TO INSTRUCT PATIENT/CAREGIVER ON SAFE TRANSFER TECHNIQUES USING PROPER BODY MECHANICS AND EQUIPMENT.] Future Scheduled Test PHYSICAL T HERAPY TO INSTRUCT PATIENT/CAREGIVER ON GAIT TRAINING TECHNIQUES USING APPROPRIATE ASSISTIVE DEVICE, PROPER BODY MECHANICS TO IMPROVE MOBILITY, AND PREVENT INJURY OF PATIENT AND/OR CAREGIVER. [code = PHYSICAL THERAPY TO INSTRUCT PATIENT/CAREGIVER ON GAIT TRAINING TECHNIQUES USING APPROPRIATE ASSISTIVE DEVICE, PROPER BODY MECHANICS TO IMPROVE MOBILITY, AND PREVENT INJURY OF PATIENT AND/OR CAREGIVER.] Future Scheduled Test PHYSICAL T HERAPY TO INSTRUCT PATIENT/CAREGIVER ON BALANCE AND BALANCE STRATEGIES TO IMPROVE SAFE MOBILITY AND REDUCE RISK FOR FALL AND INJURY [code = PHYSICAL THERAPY TO INSTRUCT PATIENT/CAREGIVER ON BALANCE AND BALANCE STRATEGIES TO IMPROVE SAFE MOBILITY AND REDUCE RISK FOR FALL AND INJURY] Future Scheduled Test [facility] MAY ACCEPT ORDERS FROM THE FOLLOWING PHYSICIANS: MACHINE FORMER/TREATING PROVIDERS [code = HOME HEALTH AGENCY MAY ACCEPT ORDERS FROM THE FOLLOWING PHYSICIANS: MACHINE FORMER/TREATING PROVIDERS] Future Scheduled Test OCCUPATION AL THERAPIST TO EVALUATE PATIENT SECONDARY TO FUNCTIONAL DEFICITS/SAFETY CONCERNS IDENTIFIED DURING EVALUATION OCCUPATIONAL THERAPY TO ESTABLISH /UPGRADE/DOWNGRADE THERAPEUTIC EXERCISE PROGRAM AND INSTRUCT PATIENT/CAREGIVER ON EXERCISE PRECAUTIONS WITH WRITTEN HOME PROGRAM. MAY INCLUDE AAROM, AROM, RROM APPROPRIATE TO IMPROVE FUNCTIONAL STRENGTH AND/OR RANGE OF MOTION. OCCUPATIONAL THERAPY TO PROVIDE PATIENT/CAREGIVER FINE MOTOR COORDINATION TRAINING TECHNIQUES TO ENHANCE PARTICIPATION IN ADLS. OCCUPATIONAL THERAPY TO PROVIDE PATIENT/CAREGIVER WITH INSTRUCTIONS AND RECOMMENDATIONS TO IMPROVE ADLS INCLUDING DRESSING, MANIPULATION OF FASTENERS, AND TOILETING WHILE USING APPROPRIATE ADAPTIVE DEVICES RECOMMENDED. OCCUPATIONAL THERAPY TO PROVIDE PATIENT/CAREGIVER WITH INSTRUCTIONS AND RECOMMENDATIONS TO IMPROVE IADLS INCLUDING CLOTHING CARE, LIGHT HOUSEKEEPING, SIMPLE MEAL PREP WHILE USING APPROPRIATE ADAPTIVE DEVICES RECOMMENDED. OCCUPATIONAL THERAPIST TO ASSESS BEST PRACTICE INTERVENTIONS TO ASSIST PATIENTS TO IMPROVE OR STABILIZE MEDICAL STATUS AND PREVENT RE-HOSPITALIZATION. MEASURES INCLUDING REVIEW AND IDENTIFICATION OF CONCERNS FOR THE FOLLOWING AREAS: DRUG REGIMEN, DIABETIC FOOT CARE, ENVIRONMENTAL SAFETY ISSUES AND FALLS, PRESSURE ULCERS, PAIN, AND DISEASE MANAGEMENT. [code = OCCUPATIONAL THERAPIST TO EVALUATE PATIENT SECONDARY TO FUNCTIONAL DEFICITS/SAFETY CONCERNS IDENTIFIED DURING EVALUATION OCCUPATIONAL THERAPY TO ESTABLISH /UPGRADE/DOWNGRADE THERAPEUTIC EXERCISE PROGRAM AND INSTRUCT PATIENT/CAREGIVER ON EXERCISE PRECAUTIONS WITH WRITTEN HOME PROGRAM. MAY INCLUDE AAROM, AROM, RROM APPROPRIATE TO IMPROVE FUNCTIONAL STRENGTH AND/OR RANGE OF MOTION. OCCUPATIONAL THERAPY TO PROVIDE PATIENT/CAREGIVER FINE MOTOR COORDINATION TRAINING TECHNIQUES TO ENHANCE PARTICIPATION IN ADLS. OCCUPATIONAL THERAPY TO PROVIDE PATIENT/CAREGIVER WITH INSTRUCTIONS AND RECOMMENDATIONS TO IMPROVE ADLS INCLUDING DRESSING, MANIPULATION OF FASTENERS, AND TOILETING WHILE USING APPROPRIATE ADAPTIVE DEVICES RECOMMENDED. OCCUPATIONAL THERAPY TO PROVIDE PATIENT/CAREGIVER WITH INSTRUCTIONS AND RECOMMENDATIONS TO IMPROVE IADLS INCLUDING CLOTHING CARE, LIGHT HOUSEKEEPING, SIMPLE MEAL PREP WHILE USING APPROPRIATE ADAPTIVE DEVICES RECOMMENDED. OCCUPATIONAL THERAPIST TO ASSESS BEST PRACTICE INTERVENTIONS TO ASSIST PATIENTS TO IMPROVE OR STABILIZE MEDICAL STATUS AND PREVENT RE-HOSPITALIZATION. MEASURES INCLUDING REVIEW AND IDENTIFICATION OF CONCERNS FOR THE FOLLOWING AREAS: DRUG REGIMEN, DIABETIC FOOT CARE, ENVIRONMENTAL SAFETY ISSUES AND FALLS, PRESSURE ULCERS, PAIN, AND DISEASE MANAGEMENT. ] Goal 2025-01-05 Patient Goal - TO GET BACK T O MY OLD SELF Goal Patient Goal - P ATIENT WANTS TO BE ABLE TO NEGOTIATE A CURB IN ORDER TO ACCESS BUILDINGS/ESTABLISHMENTS THAT ARE NOT HANDICAP ACCESSIBLE. Goal Provider Goal - PHYSICAL THERAPY EVALUATION TO BE COMPLETED WITH RECOMMENDATIONS AND/OR WRITTEN TREATMENT PLAN OF CARE ESTABLISHED FOR THE PHYSICIANS SIGNATURE Goal Provider Goal - PATIENT/CAREGIVER VERBALIZES UNDERSTANDING OF THE INITIAL BEST PRACTICE RECOMMENDATIONS. PHYSICIAN TO BE NOTIFIED APPROPRIATE FOR ANY CHANGES OR COMPLICATIONS THROUGHOUT THE CERTIFICATION PERIOD. Goal Provider Goal - PATIENT/CAREGIVER WILL PERFORM THERAPEUTIC EXERCISE/S AND DEMONSTRATE PARTICIPATION IN A HOME PROGRAM. Goal Provider Goal - PATIENT/CAREGIVER WILL DEMONSTRATE SAFE TRANSFERS USING APPROPRIATE ASSISTIVE DEVICE, BODY MECHANICS AND EQUIPMENT. Goal Provider Goal - PATIENT/CAREGIVER WILL DEMONSTRATE IMPROVED GAIT TECHNIQUES TO MINIMIZE RISK OF INJURY. Goal Provider Goal - PATIENT/CAREGIVER WILL DEMONSTRATE IMPROVED BALANCE AND REDUCE THE RISK OF FALLS AND INJURY. Goal Provider Goal - ADDITIONAL ORDERS WILL BE RECEIVED FROM ALTERNATE PHYSICIAN IN A TIMELY MANNER THROUGHOUT THE CERTIFICATION PERIOD. Goal Provider Goal - OCCUPATIONAL THERAPIST TO EVALUATE PATIENT SECONDARY TO FUNCTIONAL DEFICITS/SAFETY CONCERNS IDENTIFIED DURING EVALUATION. PATIENT/CAREGIVER WILL PERFORM THERAPEUTIC EXERCISE/S AND DEMONSTRATE PARTICIPATION IN A HOME PROGRAM. PATIENT/CAREGIVER WILL DEMONSTRATE IMPROVED FINE MOTOR COORDINATION. PATIENT/CAREGIVER WILL DEMONSTRATE IMPROVED ABILITY TO PERFORM ACTIVITIES OF DAILY LIVING. PATIENT/CAREGIVER WILL DEMONSTRATE IMPROVED ABILITY TO PERFORM INSTRUMENTAL ACTIVITIES OF DAILY LIVING. PATIENT/CAREGIVER VERBALIZES UNDERSTANDING OF THE INITIAL BEST PRACTICE RECOMMENDATIONS. PHYSICIAN TO BE NOTIFIED APPROPRIATE FOR ANY CHANGES OR COMPLICATIONS THROUGHOUT THE CERTIFICATION PERIOD. Encounters Start Date/Time End Date/Time Encounter Type Admission Type Attending [facility] Department Encounter ID Discharge Date Discharge Status Discharge Condition Discharge Reason Percent Goals Met 2025-01-08 00:00:00 2025-03-08 00:00:00 Outpatient RECERTIFIC [facility] [id number]
--- OUTSIDE RECORDS SUMMARY | 2025-03-07 19:00 | XMS_ITS | Clinical Summary ---
Author Organization Unknown Care Team Providers Care Director Of Rehabilitation Name Role Phone HEIKE HARDIN, LUIS ALBERTO Unavailable Unavailable ARAVIND PT, JUAN CARLOS Unavailable Unavailambika MATIAS RN, MALIHA Unavailable Unavailable Payers Payer Name Policy Type Policy Number Effective Date Expira tion Date [employer] MEDICARE ADVANTAGE FFS - ORDER DRIVEN [id number] MEDICARE - [place] - PDGM [id number] Problems Condition Name Condition Details Condition Category [...] 05-24 00:00: 00 ATHSCL HEART DISEASE OF [place] [facility] ART W OTH ANG PCTRS Active [...] W/O RESID DEFICITS Active 05-24 00:00: 00 ACETYLENE [facility] (CURRENT) USE OF ASPIRIN Active 05-24 00:00: 00 [facility] (CURRENT) USE OF ANTICOAGULAN TS Active 05-24 00:00: 00 [facility] (CURRENT) USE OF SYSTEMIC STEROIDS Active 05-24 [...] 2023-05 00:00: 00 03-01 00:00 :00 No [id number] Per instruc tions Per instructio ns (route: oral) Med Classific ation: Cardiovas cular Therapy Agents acetaminoph en 500 mg tablet 2023-05 00:00: 00 07-11 23:59 :00 No [id number] 2 tablet EVERY 6 HOURS 2 tablet EVERY 6 HOURS (route: oral) Med Classific ation: Analgesic , Anti-infl ammatory or Antipyret ic albuterol sulfate HFA 90 mcg/actuati on aerosol inhaler 2023-05 00:00: 00 07-11 23:59 :00 No [id number] 2 puff EVERY 6 HOURS 2 puff EVERY 6 HOURS (route: inhalation ) Med Classific ation: Respirato ry Therapy Agents aspirin 81 mg tablet,quintin yed release 2023-05 00:00: 00 07-11 23:59 :00 No [id number] 1 tablet DAILY 1 tablet DAILY (route: oral) Med Classific ation: Hematolog ical Agents baclofen 10 mg tablet 2023-05 0 00:00: 00 07-11 23:59 :00 No [id number] 1 tablet BEDTIME 1 tablet BEDTIME (route: oral) Med Classific ation: Locomotor System budesonide- formoterol HFA 160 mcg-4.5 mcg/actuati on aerosol inhaler 2023-05 0 00:00: 00 07-11 23:59 :00 No [id number] 2 puff 2 TIMES DAILY 2 puff 2 TIMES DAILY (route: inhalation ) Med Classific ation: Respirato ry Therapy Agents diltiazem 30 mg tablet 2023-05 0 00:00: 00 07-11 23:59 :00 No [id number] 1 tablet 2 TIMES DAILY 1 tablet 2 TIMES DAILY (route: oral) Med Classific ation: Cardiovas cular Therapy Agents docusate sodium 100 mg tablet 2023-05 00:00: 00 07-11 23:59 :00 No [id number] 1 tablet 2 TIMES DAILY 1 tablet 2 TIMES DAILY (route: oral) Med Classific ation: Gastroint estinal Therapy Agents Eliquis 5 mg tablet 2023-05 0 00:00: 00 07-11 23:59 :00 No [id number] 1 tablet 2 TIMES DAILY 1 tablet 2 TIMES DAILY (route: oral) Med Classific ation: Hematolog ical Agents Farxiga 10 mg tablet 2023-05 0 00:00: 00 07-11 23:59 :00 No [id number] 1 tablet DAILY 1 tablet DAILY (route: oral) Med Classific ation: Endocrine gabapentin 100 mg capsule 2023-05 0 00:00: 00 07-11 23:59 :00 No [id number] 1 capsule BEDTIME 1 capsule BEDTIME (route: oral) Med Classific ation: Central Nervous System Agents ipratropium 0.5 mg-albutero l 3 mg (2.5 mg base)/3 mL nebulizatio n soln 2023-05 0- 00:00: 00 07-11 23:59 :00 No [id number] 3 mL EVERY 6 HOURS 3 mL EVERY 6 HOURS (route: inhalation ) Med Classific ation: Respirato ry Therapy Agents isosorbide mononitrate ER 30 mg tablet,exte nded release 24 hr 2023-05 00:00: 00 07-11 23:59 :00 No [id number] 1 tablet BEDTIME 1 tablet BEDTIME (route: oral) Med Classific ation: Cardiovas cular Therapy Agents ketoconazol e 2 % shampoo 2023-05 00:00: 00 07-11 23:59 :00 No [id number] Per instruc tions 2 TIMES A WEEK Per instructio ns 2 TIMES A WEEK (route: topical) Med Classific ation: Dermatolo gical levothyroxi ne 175 mcg tablet 2023-05 00:00: 00 07-11 23:59 :00 No [id number] 1 tablet DAILY 1 tablet DAILY (route: oral) Med Classific ation: Endocrine lidocaine 5 % topical patch 2023-05 00:00: 00 07-11 23:59 :00 No [id number] 1 adhesiv e patch, medicat ed 2 TIMES DAILY 1 adhesive patch, medicated 2 TIMES DAILY (route: topical) Med Classific ation: Dermatolo gical metolazone 2.5 mg tablet 2023-05 00:00: 00 07-11 23:59 :00 No [id number] 1 tablet DAILY 1 tablet DAILY (route: oral) Med Classific ation: Cardiovas cular Therapy Agents metoprolol tartrate 100 mg tablet 2023-05 00:00: 00 07-11 23:59 :00 No [id number] 1 tablet DAILY 1 tablet DAILY (route: oral) Med Classific ation: Cardiovas cular Therapy Agents metoprolol tartrate 50 mg tablet 2023-05 00:00: 00 07-11 23:59 :00 No [id number] 1 tablet BEDTIME 1 tablet BEDTIME (route: oral) Med Classific ation: Cardiovas cular Therapy Agents nitroglycer in 0.4 mg sublingual tablet 2023-05 00:00: 00 07-11 23:59 :00 No [id number] 1 tablet NEEDED 1 tablet NEEDED (route: sublingual ) Med Classific ation: Cardiovas cular Therapy Agents omeprazole 20 mg capsule,del ayed release 2023-05 0 00:00: 00 07-11 23:59 :00 No [id number] 2 capsule DAILY 2 capsule DAILY (route: oral) Med Classific ation: Gastroint estinal Therapy Agents potassium chloride ER 20 mEq tablet,exte nded release 2023-05 0 00:00: 00 07-11 23:59 :00 No [id number] 1 tablet DAILY 1 tablet DAILY (route: oral) Med Classific ation: Electroly te Balance-N utritiona l Products pravastatin 40 mg tablet 2023-05 0 00:00: 00 07-11 23:59 :00 No [id number] 1 tablet DAILY 1 tablet DAILY (route: oral) Med Classific ation: Cardiovas cular Therapy Agents prednisone 5 mg tablet 2023-05 00:00: 00 07-11 23:59 :00 No [id number] 1 tablet EVERY OTHER DAY 1 tablet EVERY OTHER DAY (route: oral) Med Classific ation: Endocrine spironolact one 25 mg tablet 2023-05 00:00: 00 07-11 23:59 :00 No [id number] 1 tablet DAILY 1 tablet DAILY (route: oral) Med Classific ation: Cardiovas cular Therapy Agents torsemide 20 mg tablet 2023-05 0 00:00: 00 07-11 23:59 :00 No [id number] 1 tablet DAILY 1 tablet DAILY (route: oral) Med Classific ation: Cardiovas cular Therapy Agents tramadol 50 mg tablet 2023-05 0 00:00: 00 07-11 23:59 :00 No [id number] 1 tablet EVERY 8 HOURS 1 tablet EVERY 8 HOURS (route: oral) Med Classific ation: Analgesic , Anti-infl ammatory or Antipyret ic Tylenol Arthritis Pain 650 mg tablet,exte nded release 2023-05 0 00:00: 00 07-11 23:59 :00 No [id number] 1 tablet DAILY 1 tablet DAILY (route: oral) Med Classific ation: Analgesic , Anti-infl ammatory or Antipyret ic vitamin E 268 mg (400 unit) capsule 2023-05 00:00: 00 07-11 23:59 :00 No [id number] 1 capsule DAILY 1 capsule DAILY (route: oral) Med Classific ation: Electroly te Balance-N utritiona l Products ketoconazol e 2 % topical cream 11-09 00:00: 00 Yes [id number] Per instruc tions DAILY Per instructio ns DAILY (route: topical) Med Classific ation: Dermatolo gical Klor-Con M20 mEq tablet,exte nded release 11-09 00:00: 00 Yes [id number] 1 tablet DAILY 1 tablet DAILY (route: oral) Med Classific ation: Electroly te Balance-N utritiona l Products lidocaine 5 % topical patch 11-09 00:00: 00 11-18 23:59 :00 No [id number] 1 adhesiv e patch, medicat ed DAILY 1 adhesive patch, medicated DAILY (route: topical) Med Classific ation: Dermatolo gical Lopressor 100 mg tablet 11-09 00:00: 00 Yes [id number] 1 tablet 2 TIMES DAILY 1 tablet 2 TIMES DAILY (route: oral) Med Classific ation: Cardiovas cular Therapy Agents Lopressor 50 mg tablet 11-09 00:00: 00 Yes [id number] 1 tablet 2 TIMES DAILY 1 tablet 2 TIMES DAILY (route: oral) Med Classific ation: Cardiovas cular Therapy Agents nitroglycer in 0.4 mg sublingual tablet 11-09 00:00: 00 11-18 23:59 :00 No [id number] 1 tablet NEEDED 1 tablet NEEDED (route: sublingual ) Med Classific ation: Cardiovas cular Therapy Agents omeprazole 40 mg capsule,del ayed release 11-09 00:00: 00 Yes [id number] 1 capsule DAILY 1 capsule DAILY (route: oral) Med Classific ation: Gastroint estinal Therapy Agents pravastatin 40 mg tablet 11-09 00:00: 00 Yes [id number] 1 tablet DAILY 1 tablet DAILY (route: oral) Med Classific ation: Cardiovas cular Therapy Agents prednisone 5 mg tablet 11-09 00:00: 00 Yes [id number] 1 tablet EVERY OTHER DAY 1 tablet EVERY OTHER DAY (route: oral) Med Classific ation: Endocrine spironolact one 25 mg tablet 11-09 00:00: 00 Yes [id number] 1 tablet DAILY 1 tablet DAILY (route: oral) Med Classific ation: Cardiovas cular Therapy Agents Symbicort 160 mcg-4.5 mcg/actuati on HFA aerosol inhaler 11-09 00:00: 00 Yes [id number] 2 puff 2 TIMES DAILY 2 puff 2 TIMES DAILY (route: inhalation ) Med Classific ation: Respirato ry Therapy Agents Synthroid 175 mcg tablet 11-09 00:00: 00 Yes [id number] 1 tablet DAILY 1 tablet DAILY (route: oral) Med Classific ation: Endocrine tramadol 50 mg tablet 11-09 00:00: 00 Yes [id number] 1 tablet EVERY 8 HOURS 1 tablet EVERY 8 HOURS (route: oral) Med Classific ation: Analgesic , Anti-infl ammatory or Antipyret ic triamcinolo ne acetonide 0.5 % topical ointment 11-09 00:00: 00 Yes [id number] Per instruc tions DIRECTED Per instructio ns DIRECTED (route: topical) Med Classific ation: Dermatolo gical Tylenol Extra Strength 500 mg tablet 11-09 00:00: 00 Yes [id number] 2 tablet EVERY 6 HOURS 2 tablet EVERY 6 HOURS (route: oral) Med Classific ation: Analgesic , Anti-infl ammatory or Antipyret ic vitamin E 268 mg (400 unit) capsule 11-09 00:00: 00 Yes [id number] 1 capsule DAILY 1 capsule DAILY (route: oral) Med Classific ation: Electroly te Balance-N utritiona l Products albuterol sulfate HFA 90 mcg/actuati on aerosol inhaler 11-09 00:00: 00 Yes [id number] 2 puff EVERY 6 HOURS 2 puff EVERY 6 HOURS (route: inhalation ) Med Classific ation: Respirato ry Therapy Agents Eliquis 5 mg tablet 11-09 00:00: 00 Yes [id number] 1 tablet 2 TIMES DAILY 1 tablet 2 TIMES DAILY (route: oral) Med Classific ation: Hematolog ical Agents azithromyci n 500 mg tablet 11-09 00:00: 00 Yes [id number] 1 tablet DAILY 1 tablet DAILY (route: oral) Med Classific ation: Anti-Infe ctive Agents baclofen 10 mg tablet 11-09 00:00: 00 Yes [id number] 1 tablet 3 TIMES DAILY 1 tablet 3 TIMES DAILY (route: oral) Med Classific ation: Locomotor System aspirin 81 mg tablet,quintin yed release 11-09 00:00: 00 Yes [id number] 1 tablet DAILY 1 tablet DAILY (route: oral) Med Classific ation: Hematolog ical Agents clobetasol 0.05 % lotion 11-09 00:00: 00 Yes [id number] Per instruc tions 2 TIMES DAILY Per instructio ns 2 TIMES DAILY (route: topical) Med Classific ation: Dermatolo gical clotrimazol e 1 % topical cream 11-09 00:00: 00 Yes [id number] Per instruc tions 2 TIMES DAILY Per instructio ns 2 TIMES DAILY (route: topical) Med Classific ation: Dermatolo gical docusate sodium 100 mg capsule 11-09 00:00: 00 Yes [id number] 1 capsule 2 TIMES DAILY 1 capsule 2 TIMES DAILY (route: oral) Med Classific ation: Gastroint estinal Therapy Agents Farxiga 10 mg tablet 11-09 00:00: 00 Yes [id number] 1 tablet DAILY 1 tablet DAILY (route: oral) Med Classific ation: Endocrine fluocinonid e 0.05 % topical cream 11-09 00:00: 00 Yes [id number] Per instruc tions DAILY Per instructio ns DAILY (route: topical) Med Classific ation: Dermatolo gical gabapentin 100 mg capsule 11-09 00:00: 00 Yes [id number] 1 capsule BEDTIME 1 capsule BEDTIME (route: oral) Med Classific ation: Central Nervous System Agents gabapentin 300 mg capsule 11-09 00:00: 00 Yes [id number] 1 capsule 2 TIMES DAILY 1 capsule 2 TIMES DAILY (route: oral) Med Classific ation: Central Nervous System Agents ipratropium 0.5 mg-albutero l 3 mg (2.5 mg base)/3 mL nebulizatio n soln 11-09 00:00: 00 Yes [id number] 3 mL EVERY 6 HOURS 3 mL EVERY 6 HOURS (route: inhalation ) Med Classific ation: Respirato ry Therapy Agents isosorbide mononitrate ER 30 mg tablet,exte nded release 24 hr 11-09 00:00: 00 Yes [id number] 1 tablet BEDTIME 1 tablet BEDTIME (route: oral) Med Classific ation: Cardiovas cular Therapy Agents ketoconazol e 2 % shampoo 11-09 00:00: 00 Yes [id number] Per instruc tions 2 TIMES A WEEK Per instructio ns 2 TIMES A WEEK (route: topical) Med Classific ation: Dermatolo gical metolazone 2.5 mg tablet 11-14 00:00: 00 Yes [id number] Per instruc tions DIRECTED Per instructio ns DIRECTED (route: oral) Med Classific ation: Cardiovas cular Therapy Agents torsemide 20 mg tablet 11-14 00:00: 00 Yes [id number] 2 tablet DAILY 2 tablet DAILY (route: [...] FALL AND INJURY] Future Scheduled Test [facility] MAY ACCEPT ORDERS FROM THE FOLLOWING PHYSICIANS: WARRANTY CLERK/TREATING PROVIDERS [code = HOME HEALTH AGENCY MAY ACCEPT ORDERS FROM THE FOLLOWING PHYSICIANS: WARRANTY CLERK/TREATING PROVIDERS] 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 Department Encounter ID Discharge Date Discharge Status Discharge Condition Discharge Reason Percent Goals Met 2025-01-08 00:00:00 2025-03-08 00:00:00 Outpatient RECERTIFIC MALIHA GUNTER [facility] [id number]
== END 2025-01-19 15:45 | DRG 312 ==
LOC: ANHED 01-16 00:47 → ANH2MED 01-16 00:56
PROVIDERS: Nurse Practitioner; Admitting Provider Internal Medicine; Emergency Provider Physician Assistant; PCP Family Medicine; Visit Provider Internal Medicine
DX: R55 Syncope and collapse (principal); I48.20 Chronic atrial fibrillation, unspecified; I50.32 Chronic diastolic (congestive) heart failure; J44.0 Chronic obstructive pulmonary disease with (acute) lower respiratory infection; I11.0 Hypertensive heart disease with heart failure; I25.10 Atherosclerotic heart disease of native coronary artery without angina pectoris; I27.20 Pulmonary hypertension, unspecified; I07.1 Rheumatic tricuspid insufficiency; D86.9 Sarcoidosis, unspecified; E78.5 Hyperlipidemia, unspecified; K74.60 Unspecified cirrhosis of liver; Z79.82 Long term (current) use of aspirin; Z79.01 Long term (current) use of anticoagulants; Z85.850 Personal history of malignant neoplasm of thyroid
CPT/HCPCS: 36415; 70450; 70551; 71046; 71275; 74177; 80053; 81003; 82948; 83036; 83735; 84145; 84484; 85025; 93005; 93880; 94640; 94762; 96374; 97110; 97116; 97162; 97166; 97530; 97535; 99285; A9270; C8929; G0378; J0696; J7040; Q9957; Q9967

== ENCOUNTER 2025-02-08 13:45 | Inpatient (IN) | payer MEDICARE, SELFPAY ==
--- OUTSIDE RECORDS SUMMARY | 2013-11-29 09:45 | XMS_ITS | Continuity of Care Document ---
Author Organization [facility]Saint [facility] Address [address] [place] [address] Phone Care Team Providers Care Water Mechanic Name Role Phone Carlos Eduardo Liang MD [...] Diagnoses Date Provider Providers Copied on Encounter [facility], [address] [place] [address] [address], [place], [place], [address], [phone] SEC [place] Professional Blurry vision (chief complaint) SENILE NUCLEAR CATARACTDiabet es (high blood sugar disease) affecting the eye 4 Azul Thibodeaux. [address], [address] [place], [place], [address], [place]. tel:[phone] Referring Provider: Carlos Eduardo Omer, [address], [place], [address] . tel:[phone] [facility], [address], [place], [place], [address], tel:[phone] [place] SENILE NUCLEAR CATARACTPRIMAR Y IRIDOCYCLITIS 2 Azul Thibodeaux. [address], [address] [place], [place], [address], . tel:[phone] Referring Provider: Carlos Eduardo Omer, [address], [place], [address] . tel:[phone] [facility], [address], [place], [place], [address], [place] tel:[phone] SEC Be [place] Professional No Information 7-201 2 [place] Carlos Eduardo. [address] [facility], [facility] A, [place], [place], [address], [place]. tel:[phone] Office/outpa tient Visit, [facility] Eye [facility], [address], [place], [place], [address], [place] tel:[phone] SEC Be [place] Professional No Information 3-201 2 [place] Carlos Eduardo. [address] [facility], [facility] [place], [place], [address], [place]. tel:[phone] Referring Provider: Carlos Eduardo Omer, [address] [facility] [address], [place], [address] . tel:[phone] [facility] Eye [facility], [address], [place], [place], [address], [place] tel:[phone] SEC Be M[place] Professional No Information Dec-0 2-201 1 [place] Carlos Eduardo. [address] [facility], [facility] [place], [address], [place]. tel:[phone] [facility] Eye [facility], [address], [place], [place], [address], [place] tel:[phone] SEC [place] MARTINA Professional No Information 6-201 0 [place] Carlos Eduardo. [address] [facility], [facility] [place], [address], [place]. tel:[phone] [facility] Eye [facility], [address], [place], [place], [address], [place] tel:[phone] SEC [place] Professional No Information Duran-0 1-200 9 Wankoscar Thibodeaux. [address], [address], [place], [place], [address], [place]. tel:[phone] Office/outpa tient Visit, [facility], [address], [place], [place], [address], [place] tel:[phone] [place] Professional No Information Apr-2 7-200 9 [place] Carlos Eduardo. [address], [address], [place], [place], [address], [place]. tel:[phone] Office/outpa tient Visit, [facility] Eye [facility], [address], [place], [place], [address], [place] tel:[phone] SEC [place] Professional No Information Mar-0 4-200 8 [place] Carlos Eduardo. [address], [address], [place], [place], [address], [place]. tel:[phone] [facility]pa [facility]ient [facility], [facility], [address], [place], [place], [address], [place] tel:[phone] SEC [place] Professional No Information Feb-0 4-200 8 [place] Carlos Eduardo. [address], [address] [place], [place], [address], [place]. tel:[phone] [facility], [address], [place], [place], [address], [place] tel:[phone] [place] No Information Dec-2 6-200 7 Jeison Cote. [address] [facility], [place], [address], [place]. tel:[phone] Office/outpa tient Visit, [facility] Eye [facility], [address], [place], [place], [address], tel:[phone] SEC [place] MARTINA Professional No Information 2 9200 7 [place] Carlos Eduardo. [address], [facility] [place], [place], [address], . tel:[phone] Office/outpa tient Visit, [facility], [address], [place], [place], [address], tel:[phone] SEC [place] Professional No Information 2 8-200 7 [place] Carlos Eduardo. [address], [facility] [place], [place], [address], . tel:[phone] Office/outpa tient Visit, [facility], [address], [place], [place], [address], tel:[phone] SEC Be [place] Professional No Information 0 8-200 7 [place] Carlos Eduardo. [address], [facility] [place], [place], [address], . tel:[phone] Office/outpa tient Visit, [facility], [address], [place], [place], [address], tel:[phone] SEC [place] MARTINA Professional No Information 3 1-200 7 [place] Carlos Eduardo. [address], [facility] [place], [place], [address], . 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 No treatment needed. Will monitor. DM letter to Dr. Sorenson. Related to Diabetes Type II Assessments Type Assessment Date assessment SENILE NUCLEAR CATARACT 014 assessment Diabetes (high blood sugar disea se) affecting the eye Patient Care Teams Name Effective Dates (start - stop) Status Members No Information
--- OUTSIDE RECORDS SUMMARY | 2013-11-29 09:45 | XMS_ITS | Continuity of Care Document ---
Author Organization [facility] Address [address] [place] [address] Phone Care Team Providers Care Warp Spinner Name Role Phone Carlos Eduardo Liang MD [...] Diagnoses Date Provider Providers Copied on Encounter [facility], [address] [place] [address] [address], [place], [place], [address], [phone] SEC [place] Blurry vision (chief complaint) SENILE NUCLEAR CATARACTDiabet es (high blood sugar disease) affecting the eye 4 Azul Thibodeaux. [address], [address] [place], [place], [address], [place]. tel:[phone] Referring Provider: Carlos Eduardo Omer, [address], [place], [address] . tel:[phone] [facility], [address], [place], [place], [address], tel:[phone] [place] SENILE NUCLEAR CATARACTPRIMAR Y IRIDOCYCLITIS 2 Azul Thibodeaux. [address], [address] [place], [place], [address], . tel:[phone] Referring Provider: Carlos Eduardo Omer, [address], [place], [address] . tel:[phone] [facility], [address], [place], [place], [address], [place] tel:[phone] SEC Be [place] Professional No Information 7-201 2 [place] Carlos Eduardo. [address] [facility], [facility] [address], [place], [place], [address], [place]. tel:[phone] Office/outpa tient Visit, [facility], [address], [place], [place], [address], [place] tel:[phone] SEC Be [place] Professional No Information 3-201 2 [place] Carlos Eduardo. [address] [facility], [facility] [place], [address], [place]. tel:[phone] Referring Provider: Carlos Eduardo Omer, [address] [facility] [address], [place], [address] . tel:[phone] [facility], [address], [place], [place], [address], [place] tel:[phone] SEC Be [place] Professional No Information Dec-0 2-201 1 [place] Carlos Eduardo. [address] [facility], [facility] [place], [address], [place]. tel:[phone] [facility], [address], [place], [place], [address], [place] tel:[phone] SEC [place] Professional No Information 6-201 0 [place] Carlos Eduardo. [address] [facility], [facility] [place], [address], [place]. tel:[phone] [facility], [address], [place], [place], [address], [place] tel:[phone] SEC Be [place] Professional No Information Duran-0 1-200 9 [place] Thibodeaux. [address], [place], [place], [address], [place]. tel:[phone] Office/outpa tient Visit, [facility], [address], [place], [place], [address], [place] tel:[phone] [place] No Information Apr-2 7-200 9 [place] Carlos Eduardo. [address], [address], [place], [place], [address], [place]. tel:[phone] Office/outpa tient Visit, [facility], [address], [place], [place], [address], [place] tel:[phone] SEC [place] No Information Mar-0 4-200 8 [place] Carlos Eduardo. [address], [address], [place], [place], [address], [place]. tel:[phone] [facility], [address], [place], [place], [address], [place] tel:[phone] SEC Be [place] Professional No Information Feb-0 4-200 8 [place] Carlos Eduardo. [address], [address] [place], [address], [place]. tel:[phone] [facility], [address], [place], [place], [address], [place] tel:[phone] [place] No Information Dec-2 6-200 7 Jeison Cote. [address] [facility], [place], [address], [place]. tel:[phone] Office/outpa tient Visit, [facility], [address], [place], [place], [address], tel:[phone] SEC [place] Professional No Information 2 9200 7 [place] Carlos Eduardo. [address], [facility] [place], [address], . tel:[phone] Office/outpa tient Visit, [facility], [address], [place], [place], [address], tel:[phone] [place] No Information 2 8-200 7 [place] Carlos Eduardo. [address], [facility] [place], [address], . tel:[phone] Office/outpa tient Visit, [facility], [address], [place], [place], [address], tel:[phone] SEC Be [place] Professional No Information 0 8-200 7 [place] Carlos Eduardo. [address], [facility] [place], [address], . tel:[phone] Office/outpa tient Visit, [facility], [address], [place], [place], [address], tel:[phone] SEC [place] Professional No Information 3 1-200 7 [place] Carlos Eduardo. [address], [facility] [place], [address], . tel:[phone] Family History Family Member Type Diagnosis Age At Onset Mother Problem (finding) Strabismus Father Problem (finding) diabetes melli tus in first degree relative Brother Problem (finding) diabetes melli tus in first degree relative Payers Payer name Insurance type Covered constitution party ID Mamta solis(s) [facility] Mdcr Adv CI [id number] Social History Type Description Quantity Date Captured [...] Instructions Date Instruction Additional Infor lianne - RTC as scheduled f or cataracts evaluation Related to See list of assessments above - Cataracts account for the patient's complaints. Discussed all risks, benefits, procedures and recovery. Schedule cataracts evaluation. No diabetic changes. Letter sent to Dr. Sorenson. Educational materials provided:about today's exam. 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 No treatment needed. Will monitor. DM letter to Dr. Sorenson. Related to Diabetes Type II - 1 year complete Related to Ceci betes Type II Cataract, Nuclear Sc lerosis, OU - established, worsening - vision affected - will continue to monitor - No treatment currently recommended, patient will monitor vision changes and contact us with any decrease in vision. Pt may call for cataract eval. Related to Cataract, Nuclear Sclerosis PRIMARY IRIDOCYCLITI S, OU - will continue to monitor - Quiet. Will monitor. Related to PRIMARY IRIDOCYCLITIS Assessments Type Assessment Date assessment SENILE NUCLEAR CATARACT 014 assessment Diabetes (high blood sugar disea se) affecting the eye Patient Care Teams Name Effective Dates (start - stop) Status Members No Information
[2025-02-08] VITALS (8 sets, daily range): BP systolic 103–120; BP diastolic 51–83; PULSE 80–95; RESP 13–18; TEMP 36.1–36.8; O2SAT 100; BMI 34.4
--- NOTE | ~2025-02-08 | XR_ITS ---
Examination: XR chest 1V portable Clinical History: Congestion Comparison: 02/08/2025 Technique: Portable AP Findings: Cardiomegaly. Persistent bibasilar streaky opacities. Right CP angle blunting. No acute bony abnormality. IMPRESSION: 1. No significant change from prior. 2. Bibasilar atelectasis and/or airspace disease, small right effusion. Reviewed, dictated and finalized at location R.
--- NOTE | ~2025-02-08 | XR_ITS ---
Examination: XR chest 2V Clinical History: chf Comparison: 6 x-rays and CTA 01/15/2025 Technique: PA and Lateral Findings: Cardiomegaly. Persistent significant bibasilar airspace opacities. Right CP angle blunting. No acute bony abnormality. IMPRESSION: 1. Mild worsening bibasilar atelectasis and/or airspace disease. 2. Small right pleural effusion. Reviewed, dictated and finalized at location R.
--- OUTSIDE RECORDS SUMMARY | 2025-02-08 13:48 | XMS_ITS | Encounter Summary ---
Author Organization [facility] Address [address] [place] [address] Care Team Providers Care Raw Stock Drier Tender Name Role Phone Unavailable Primary Care Provider Unavailabl e Encounter Details Date Type Department Care Team (Late st Contact Info) Description 04/18/2024 Lab Requisition [facility] - DermPath Lab [address] [place] [id number] Sunita Madden MD [address] [place] [address] Social History Tobacco Use Types Packs/Day Years Used Date Smoking Tobacco: Never Assessed Comments Unknown Sex and Gender Information Value Date Recorded Sex Assigned at Not on file Legal Sex Female 6:04 AM HAND INSPECTOR Gender Identity Not on file Sexual Orientation Not on file documented as of this encounter Plan of Treatment Not on file documented as of this encounter Procedures Procedure Name Priority Date/Time Associated Diagnosis Comments DERMATOPATHOLOGY Routine 04/17/2024 12:0 0 AM HAND INSPECTOR documented in this encounter Results * DERMATOPATHOLOGY (04/17/2024 12:00 AM HAND INSPECTOR) Case Report Dermatopathology Report Case: [id number] Authorizing Provider: Sunita Madden MD Collected: 04/17/2024 12:00 AM Ordering Location: [facility] - Received: 04/18/2024 10:45 AM DermPath Lab Pathologist: Karla Epps MD Specimen: Skin, right mid upper back 1:25 PM HAND INSPECTOR DERMATOPATHOLOGY LABORATORY Final Diagnosis Specimen A. 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 The specimen consists of a shave biopsy measuring [id number] mm. Jar 0. 4 1:25 PM [facility] DERMATOPATHOLOGY LABORATORY Microscopic Description Specimen A. SKIN, [...] structures.(Compoun d Chano's Nevus) 4 1:25 PM [facility] DERMATOPATHOLOGY LABORATORY Disclaimer An external and internal positive and negative controls are appropriate for the histochemical, immunohistochemical and immunofluorescence stain(s) in this case (if any), except where stated explicitly. The performance characteristics of the stain(s) cited in this report were developed and its performance characteristic determined by the Dermatopathology Laboratory at [facility], directed by Dr. Rj Viera. These tests need not be, and therefore are not, approved by the [place] Food and Drug Administration. The tests are used for clinical purposes. Billing Codes Specimen Charges Stain Charges 22488 1 4 1:25 PM [facility] DERMATOPATHOLOGY LABORATORY Embedded Images 4 1:25 PM [facility] DERMATOPATHOLOGY LABORATORY Pathology/Cytolog y TISSUE SPECIMEN FROM SKIN / Unknown 04/17/2024 04/18/2024 10:45 AM [facility] us Sunita Madden MD LAB - PATHOLOGY/CYTOLOGY ORD ERABLES Final Result DERMATOPATHOLOGY LABORATORY [facility] - Department of Dermatology [facility] [address] [place] [address], [address] [phone] documented in this encounter Visit Diagnoses Not on filedocumented in this encounter
--- OUTSIDE RECORDS SUMMARY | 2025-02-08 13:48 | XMS_ITS | Clinical Summary ---
Author Organization [facility] Address [address] [place] [address] Care Team Providers Care Bushler Name Role Phone Unavailable Primary Care Provider Unavailabl e Source Comments [facility],non-owned Affiliates and Associated Physician Practices is amultiple site organization consisting of ambulatory clinics and hospital sitesin [place], [place], [place] and [place]. This disclosure is being madepursuant to the Care Everywhere program and may not contain all information available regarding this patient. 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
--- OUTSIDE RECORDS SUMMARY | 2025-02-08 13:48 | XMS_ITS | Clinical Summary ---
Author Organization [facility] Address [address] [place] [address] Phone Care Team Providers Care Sales Associate Key Holder Name Role Phone Bruno Sorenson MD Primary Care Provider [phone] Allergies Active Allergy Reactions Criticality Noted Date [...] on file Legal Sex Female 6:02 AM INTERACTIVE DEVELOPER Gender Identity Not on file Sexual Orientation [...] Colonography Q 5 years Discontinued Care Teams Sales Associate Key Holder Relationship Specialty Start Date End Date Bruno Sorenson MD PCP - General Family Practice 10/29/10
--- OUTSIDE RECORDS SUMMARY | 2025-02-08 13:48 | XMS_ITS | Encounter Summary ---
Author Organization [facility] Address [address] [place] [address] Care Team Providers Care Sales Vendor Name Role Phone Unavailable Primary Care Provider Unavailabl e Encounter Details Date Type Department Care Team (Late st Contact Info) Description 03/09/2024 Lab Requisition [facility] - DermPath Lab [address] [place] [phone] Sunita Madden MD [address] [place] [id number] Neoplasm of uncertain behavior of skin Social History Tobacco Use Types Packs/Day Years Used Date Smoking Tobacco: Never Assessed Comments Unknown Sex and Gender Information Value Date Recorded Sex Assigned at Not on file Legal Sex Female 6:04 AM CHECK SCALER Gender Identity Not on file Sexual Orientation Not on file documented as of this encounter Plan of Treatment Not on file documented as of this encounter Visit Diagnoses Diagnosis Neoplasm of uncertain behavior of skin documented in this encounter
--- OUTSIDE RECORDS SUMMARY | 2025-02-08 13:48 | XMS_ITS | Encounter Summary ---
Author Organization [facility] Address [address] [place] [address] Care Team Providers Care Continuous Process Tanner Rotary Drum Name Role Phone Unavailable Primary Care Provider Unavailabl e Encounter Details Date Type Department Care Team (Late st Contact Info) Description 03/07/2024 Lab Requisition [facility] - DermPath Lab [address] [place] [phone] Sunita Madden MD [address] [place] [address] Social History Tobacco Use Types Packs/Day Years Used Date Smoking Tobacco: Never Assessed Comments Unknown Sex and Gender Information Value Date Recorded Sex Assigned at Not on file Legal Sex Female 6:04 AM TWINE WINDER Gender Identity Not on file Sexual Orientation Not on file documented as of this encounter Plan of Treatment Not on file documented as of this encounter Procedures Procedure Name Priority Date/Time Associated Diagnosis Comments DERMATOPATHOLOGY Routine 03/06/2024 3:33 AM CDT documented in this encounter Results * DERMATOPATHOLOGY (03/06/2024 3:33 AM CDT) Case Report Dermatopathology Report Case: [id number] Authorizing Provider: Sunita Madden MD Collected: 03/06/2024 03:33 AM Ordering Location: [facility] - Received: 03/07/2024 11:05 AM [...] specimen consists of a shave biopsy measuring 79p06m0 mm. Jar 0. 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 [place] [facility] [employer] Journal. 2015;6(4):277-279. Specimen B. 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 [place] [facility] Journal. 2015;6(4):277-279. 4 3:04 PM CDT DERMATOPATHOLOGY LABORATORY Disclaimer An external and internal positive and negative controls are appropriate for the histochemical, immunohistochemical and immunofluorescence stain(s) in this case (if any), except where stated explicitly. The performance characteristics of the stain(s) cited in this report were developed and its performance characteristic determined by the Dermatopathology Laboratory at [facility], directed by Dr. Rj Viera. These tests need not be, and therefore are not, approved by the [place] Food and Drug Administration. The tests are used for clinical purposes. Billing Codes Specimen Charges Stain Charges 33197 49884 1 1 40033 97793 68056 01687 1 1 1 1 4 3:04 PM CDT DERMATOPATHOLOGY LABORATORY Embedded Images 4 3:04 PM CDT DERMATOPATHOLOGY LABORATORY Pathology/Cytology TISSUE SPECIMEN FROM SKIN / Unknown 03/06/2024 3:33 AM CDT 03/07/2024 11:05 AM CDT Miscellaneous samples (specimen) TISSUE SPECIMEN FROM SKIN / Unknown 03/06/2024 3:33 AM CDT 03/07/2024 11:05 AM CDT us Sunita Madden MD LAB - PATHOLOGY/CYTOLOGY ORD ERABLES Final Result DERMATOPATHOLOGY LABORATORY [facility] - Department of Dermatology [address], [address] [phone] documented in this encounter Visit Diagnoses Not on filedocumented in this encounter
--- OUTSIDE RECORDS SUMMARY | 2025-02-08 13:48 | XMS_ITS | Encounter Summary ---
Author Organization [facility] Address [address] [place] [address] Care Team Providers Care Stoker Installer Name Role Phone Unavailable Primary Care Provider Unavailabl e Encounter Details Date Type Department Care Team (Late st Contact Info) Description 04/19/2024 Lab Requisition [facility] - DermPath Lab [address] [place] [phone] Sunita Madden MD [address] [place] [address] Neoplasm of uncertain behavior of skin Social History Tobacco Use Types Packs/Day Years Used Date Smoking Tobacco: Never Assessed Comments Unknown Sex and Gender Information Value Date Recorded Sex Assigned at Not on file Legal Sex Female 6:04 AM DIRECTOR CORRECTIONAL AGENCY Gender Identity Not on file Sexual Orientation [...]
--- OUTSIDE RECORDS SUMMARY | 2025-02-08 13:49 | XMS_ITS ---
Author Organization [facility] Address [address] [place] [address] Care Team Providers Care Residential Fee Appraiser Name Role Phone Bruno Sorenson MD Primary Care Provider [phone] Janice Zimmerman PT Unavailable Unavailab Tatum Hilliard INVESTMENT BROKER Unavailable Unavailab Saniya Salcedo INVESTMENT BROKER Unavailable Unavailable Felipe Neff MD Unavailable [phone] Alex Jauregui MD Unavailable [phone] Una Guallpa DNP Unavailable [phone] Active Problems Problem Noted Date Diagnosed Date Bilateral lower extremity edema 01/29/2025 Bilateral knee swelling 01/11/2025 Arthritis of carpometacarpal [...] status closely. Coronary artery disease invo lving [place] coronary artery of [place] heart without angina pectoris 11/10/2024 Assessment & [...] 07/13/2024 Assessment & Plan (07/13/2024 9:42 AM BUSINESS OFFICE ASSISTANT): Check imaging and will poncho frederick. Reivwed and will pranay jones. Trochanteric bursitis of right hip 03/15/2024 Annual physical exam 03/13/2024 Heart failure with preserved ejection fraction 1 Iron deficiency anemia 02/17/2024 Assessment & Plan (07/17/2024 11:06 AM BUSINESS OFFICE ASSISTANT): Labs stable; MAY has been ongoing since [...] 01/15/2024 Assessment & Plan (07/17/2024 11:03 AM BUSINESS OFFICE ASSISTANT): 01/17 calcium=9.4. Repeat labs ordered today. Hypothyroidism 08/18/2023 Assessment & Plan (08/18/2023 11:18 AM CDT): Patient continues follow-up with Endocrinology will repeat TFTs to monitor replacement level. 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 Trochanteric [...] PFT 05/10/2023 Atherosclerotic heart diseas e of [place] coronary artery with other forms of angina [...] 03/11/2023 Assessment & Plan (07/13/2024 9:42 AM BUSINESS OFFICE ASSISTANT): DOaC and rate control. 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 Assessment & Plan (08/18/2023 11:18 AM CDT): Refill on ketoconazole shampoo to good effect. 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 08/09/19 A1C=6.1% AB=663 HDL=39 EK=093 LDL=66 TC/HDL=3.9 Reviewed above results w/Mrs Olson. Has f/u appt w/Dr Perez in 3 mos (cardio at [facility]) Denies any SE from statin therapy. 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 She and her are agreeable with plan and will go to the emergency department. Assessment & Plan (07/13/2024 9:41 AM BUSINESS OFFICE ASSISTANT): No acute s/s of lfuid overload and [...] diet. Assessment & Plan (07/15/2017 10:31 AM BUSINESS OFFICE ASSISTANT): Congestive heart failure due to coronary artery [...] the medical records was 2017 per her leather softener note and EF was 64%. Bronchitis 07/14/2017 Assessment & Plan (07/14/2019 8:26 AM BUSINESS OFFICE ASSISTANT): Zpack sent. Currently taking predinsone (pulm Dr Rodriguez) & albuterol inhaler. discussed expectorant (ie mucinex). Reviewed med Ses & scheduling. Aware to complete antibiotic. Instructed in albuterol inhaler use. Aware to rinse mouth after use. Push fluids. Discussed saline nasal spray. Reviewed red flags; what would warrant rtc or ED for further eval. Assessment & Plan (07/14/2017 12:58 PM BUSINESS OFFICE ASSISTANT): Take your antibiotic as directed You may [...] 02/05/2017 Assessment & Plan (07/13/2024 9:42 AM BUSINESS OFFICE ASSISTANT): Supportive caretheand econtinues on forteol. Stenosis of lateral recess of lumbar spine 01/22 Acquired kyphoscoliosis 01/22/2017 History of fracture of vertebra 01/22/2017 Postlaminectomy syndrome of lumbar region 2016 Malignant neoplasm of thyroid gland 01/20/2017 Assessment & Plan (07/13/2024 9:41 AM BUSINESS OFFICE ASSISTANT): Ciontinue f/uw with endocrinology. Reviewed suppressive therapy and clinically euthryoid. Atrial fibrillation 01/20/2017 Assessment & Plan (11/10/2024 3:22 PM CDT): By Dr. Jones. Rate controlled. Holding diltiazem. Continue Eliquis 5 mg b.i.d.. Assessment & Plan (08/18/2023 11:17 AM CDT): Patient continues follow-up with Dr. Jones cardiology. No change in anticoagulation or rate control. Assessment & Plan (07/15/2017 9:48 AM BUSINESS OFFICE ASSISTANT): Pt. Has long time hx of a-fib [...] time. Assessment & Plan (07/14/2019 8:24 AM BUSINESS OFFICE ASSISTANT): Followed by Dr Oma nix at 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 Next appt 08/06/19. Assessment & Plan (07/15/2017 10:01 AM BUSINESS OFFICE ASSISTANT): Pt will need to f/u with Pulmonary for possible sarcoidosis flare up in lungs Hypertension, essential 01/20/2017 Assessment & Plan (07/13/2024 9:41 AM BUSINESS OFFICE ASSISTANT): Stable and will montiro resopnse. NO change [...] 11/2022 Assessment & Plan (07/14/2019 8:26 AM BUSINESS OFFICE ASSISTANT): DEXA ordered. Will contact with results once received. Encounter for screening for lipoid disorders 0 04/29/2023 Assessment & Plan (07/14/2019 8:27 AM BUSINESS OFFICE ASSISTANT): 07/10/19 MA=450 HDL=26 AE=187 LDL=59 TC/HDL=5.2 ABX=125 Copy of results given to mrs Olson. Written explanations given. Dietary changes discussed as well as increasing activity as tolerated. BMI 29.0-29.9,adult 07/14/2019 09/26/19 Assessment & Plan (07/14/2019 8:27 AM BUSINESS OFFICE ASSISTANT): Reviewed need to lose weight, reviewed health benefits. Reviewed recommendations for daily intake & activity 20-30 minutes/day. Discussed healthy diet and importance of regular physical activity. Trochanteric bursitis of right hip 03/08/2018 04/29/2023 Iliotibial band syndrome of right side 03/08/2018 04/29/2023 Iliotibial band syndrome of left side 03/08/2018 04/29/2023 No diagnosis on [place] I 03/18/201707/14 Pulmonary embolism 01/20/2017 4 Diabetes [...] evaluation. Assessment & Plan (07/14/2019 8:24 AM BUSINESS OFFICE ASSISTANT): Microalbumin, POC 80 mg/L Final CRE 100 mg/dL; A:C 30-300 mg/g Lumbago 12/07/2016 04/29/2023 Hypotension due to drugs 10/22/2015 Overview (08/27/2016): Hypotension due to medication Candidiasis of mouth 10/22/2015 020 Overview (08/27/2016): Oral thrush
--- OUTSIDE RECORDS SUMMARY | 2025-02-08 13:49 | XMS_ITS | Encounter Summary ---
Author Organization formerly [facility] Address [address] [place] [address] Care Team Providers Care Industrial Engineering Manager Name Role Phone Bruno Sorenson MD Primary Care Provider [phone] Janice Zimmerman PT Unavailable Unavailab Tatum Hilliard SUPERINTENDENT MARINE OIL TERMINAL Unavailable Unavailab Saniya Salcedo SUPERINTENDENT MARINE OIL TERMINAL Unavailable Unavailable Felipe Neff MD Unavailable [phone] Alex Jauregui MD Unavailable Una Gulalpa DNP Unavailable [phone] Encounter Details Date Type Department Care Team (Late st Contact Info) Description 01/30/2025 Results Follow-Up [facility] [address] [address] Ada Obrien, ASSESSOR [address] [place] [address] Hemoglobin A1c, Lipid panel, Albumin Creatinine Ratio, Urine Social History Tobacco Use Types Packs/Day Years [...] often do you attend chur ch or denominational services? More than 4 times per year 11/06/2024 Do you belong to any clubs o r organizations such as jew groups, unions, fraternal or athletic groups, or [...] place to sleep or slept in a fdc (including now)? No 05/20/2023 Housing Stability Vital [...] time in the past 12 m [facility], were you homeless or living in a fdc (including now)? No 11/06/2024 Social Connection and Isolation Panel Answer Date Recorded In a typical week, how many times do you talk on the phone with family, friends, or neighbors? More than three times a week 01/12/2025 How often do you get togethe r with friends or relatives? More than three times a week 01/12/2025 How often do you attend chur ch or denominational services? More than 4 times per year 01/12/2025 Do you belong to any clubs o r organizations such as jew groups, unions, fraternal or athletic groups, or [...] time in the past 12 m [facility], were you homeless or living in a fdc (including now)? 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 Author -Pain [facility]al [facility] Karoline Mes[place], DAYO Note: Patient will establish a comfort-function goal and identify the pain level that will allow the patient to perform desired activities and achieve an acceptable quality of life. documented as of this encounter Visit Diagnoses Not on filedocumented in this encounter Care Teams Industrial Engineering Manager Relationship Specialty Start Date End [place] [address] PCP - General 08/21/16 Janice Zimmerman, PT Physical Therapist Physical Therapy 11/01/17 Tatum Moon, SUPERINTENDENT MARINE OIL TERMINAL Cross Cut Saw Operator Physical Therapy 11/12/17 Saniya Greenwood, SUPERINTENDENT MARINE OIL TERMINAL Cross Cut Saw Operator Physical Therapy 11/17/17 Felipe Neff MD [address] [place] [id number] Referring Physician Endocrinology Diabetes & Metabolism 04/28/22 Alex Jauregui MD [address] [place] [id number] Consulting Physician Cardiology 03/07/23 Una Guallpa DNP [address] [place] [id number] Nurse Practitioner Neurology 05/27/23 documented as of this encounter
--- OUTSIDE RECORDS SUMMARY | 2025-02-08 13:49 | XMS_ITS | Encounter Summary ---
Author Organization [facility] Address [address] [place] [address] Care Team Providers Care Care Manager Name Role Phone Bruno Sorenson MD Primary Care Provider [phone] Janice Zimmerman PT Unavailable Unavailab Tatum Hilliard ORACLE DATABASE ADMINISTRATOR Unavailable Unavailab Saniya Salcedo ORACLE DATABASE ADMINISTRATOR Unavailable Unavailable Felipe Neff MD Unavailable [phone] Alex Jauregui MD Unavailable [phone] Una Guallpa DNP Unavailable [phone] Encounter Details Date Type Department Care Team (Late st Contact Info) Description 11/16/2024 Telephone [facility] Case Management [address] [place] [address] Maria M Michaels RN Social History Tobacco Use Types Packs/Day Years Used Date Smoking Tobacco: Never Passive Smoke Exposure: Never Smokeless Tobacco: Never Alcohol Use Standard Drinks/Week Comments No 0 (1 standard drink = 0.6 oz pur e alcohol) [facility] Utilities Answer Date Recorded In the [...] often do you attend chur ch or hinduism services? More than 4 times per year 11/06/2024 Do you belong to any clubs o r organizations such as mosque groups, unions, fraternal or athletic groups, or [...] place to sleep or slept in a group home (including now)? No 05/20/2023 Housing Stability Vital [...] time in the past 12 m [facility], were you homeless or living in a group home (including now)? No 11/06/2024 Personal Safety Answer [...] Master's degree (e.g., MA, MS, Berna, MEd, FARMER CASH GRAIN, LAYO) 01/31/2024 Comments No Sex and Gender Information Value Date Recorded Sex Assigned at Not on file Legal Sex Female 11:50 PM ORACLE HYPERION CONSULTANT Gender Identity Not on file Sexual Orientation [...] on filedocumented in this encounter Care Teams Care Manager Relationship Specialty Start Date End Date Bruno Sorenson MD [address] [place] [address] PCP - General 08/21/16 Janice Zimmerman, PT Physical Therapist Physical Therapy 11/01/17 Tatum Moon, ORACLE DATABASE ADMINISTRATOR Dental Chairside Assistant Physical Therapy 11/12/17 Saniya Greenwood, ORACLE DATABASE ADMINISTRATOR Dental Chairside Assistant Physical Therapy 11/17/17 Felipe Neff MD [address] [place] [address] Referring Physician Endocrinology Diabetes & Metabolism 04/28/22 Alex Jauregui MD [address] [place] [address] Consulting Physician Cardiology 03/07/23 Una Guallpa DNP [address] [place] [address] Nurse Practitioner Neurology 05/27/23 documented as of this encounter
--- OUTSIDE RECORDS SUMMARY | 2025-02-08 13:49 | XMS_ITS | Encounter Summary ---
Author Organization [facility] Healthcare Address [address] [place] [address] Care Team Providers Care Power Line Lineman Name Role Phone Bruno Sorenson MD Primary Care Provider [phone] Janice Zimmerman PT Unavailable Unavailab Tatum Hilliard NUCLEAR MEDICAL TECH Unavailable Unavailab Saniya Salcedo NUCLEAR MEDICAL TECH Unavailable Unavailable Felipe Neff MD Unavailable [phone] Alex Jauregui MD Unavailable [phone] Una Guallpa DNP Unavailable [phone] Encounter Details Date Type Department Care Team (Late st Contact Info) Description 11/15/2024 Telephone [facility] Case Management [address] [place] [address] Maria M Michaels RN Social History Tobacco Use Types Packs/Day Years Used Date Smoking Tobacco: Never Passive Smoke Exposure: Never Smokeless Tobacco: Never Alcohol Use Standard Drinks/Week Comments No 0 (1 standard drink = 0.6 oz pur e alcohol) [facility] Utilities Answer Date Recorded In the past [...] often do you attend chur ch or buddhism services? More than 4 times per year [...] place to sleep or slept in a fpc (including now)? No 05/20/2023 Housing Stability Vital [...] were you homeless or living in a fpc (including now)? No 11/06/2024 Personal Safety Answer [...] Master's degree (e.g., MA, MS, Berna, MEd, JEWELRY REPAIRER, LAYO) 01/31/2024 Comments No Sex and Gender Information Value Date Recorded Sex Assigned at Not on file Legal Sex Female 11:50 PM CELL MAKER Gender Identity Not on file Sexual [...] on filedocumented in this encounter Care Teams Power Line Lineman Relationship Specialty Start Date End Date Bruno Sorenson MD [address] [place] [address] PCP - General 08/21/16 Janice Zimmerman, PT Physical Therapist Physical Therapy 11/01/17 Tatum Moon, NUCLEAR MEDICAL TECH Enterprise Project Manager Physical Therapy 11/12/17 Saniya Greenwood, NUCLEAR MEDICAL TECH Enterprise Project Manager Physical Therapy 11/17/17 Felipe Neff MD [address] [place] [address] Referring Physician Endocrinology Diabetes & Metabolism 04/28/22 Alex Jauregui MD [address] [place] [address] Consulting Physician Cardiology 03/07/23 Una Guallpa DNP [address] [place] [address] Nurse Practitioner Neurology 05/27/23 documented as of this encounter
--- OUTSIDE RECORDS SUMMARY | 2025-02-08 13:49 | XMS_ITS | Clinical Summary ---
Author Organization [facility] Address [address] [place] [address] Care Team Providers Care Public Transportation Inspector Name Role Phone Bruno Sorenson MD Primary Care Provider [phone] Janice Zimmerman PT Unavailable Unavailab [facility] CHIEF EXECUTIVE OFFICER Unavailable Unavailab Saniya Sal[facility]o [facility] CHIEF EXECUTIVE OFFICER Unavailable Unavailable Felipe Neff MD Unavailable [phone] Alex Jauregui MD Unavailable [phone] Una Guallpa DNP Unavailable [phone] Allergies Active Allergy Reactions Criticality Noted Date Comments Adhesive Tape-Silicones Other (See comments) Reaction: Blisters, Penicillin G Penicillins Other (See comments),Rash Medium 12/29/2010 Reaction: Itching, , , Sulfa (Sulfonamide Antibiotics) Other (See comments),Rash Medium 12/29/2010 Reaction: Swelling, , , , Medications pravastatin (PRAVACHOL) 40 mg tablet Take 1 tablet (40 mg total) by mouth daily after dinner 020 Active albuterol HFA (PROVENTIL HFA,VENTOLIN HFA,PROAIR HFA) [...] total) by mouth every 12 (twelve) hours 024 Active acetaminophen (TYLENOL) 500 mg tablet Take 2 tablets (1,000 mg total) by mouth every 6 (six) hours as needed for pain Active fluocinonide (LIDEX) 0.05 % creamIndications: Scalp psoriasis APPLY ONCE DAILY TO SCALP THE NIGHT BEFORE WASHING HAIR 024 Active Synthroid 175 mcg tabletIndications :Hypothyroidism, unspecified type Take 1 tablet (175 mcg total) by mouth daily 025 Active docusate sodium (COLACE) 100 mg capsule [...] (1,000 Units total) by mouth daily Active omeprazole (PriLOSEC) 40 mg capsule Take 1 capsule (40 mg total) by mouth daily before breakfast Active torsemide (DEMADEX) 20 mg tablet Take 2 tablets (40 mg total) by mouth daily Active midodrine (PROAMATINE) 2.5 mg tabletIndications :Symptomatic Orthostatic Hypotension,for systolic 105 or lower Take 1 tablet (2.5 mg total) by mouth 3 (three) times a day 90 tablet 025 2024 Active metoprolol tartrate (LOPRESSOR) 25 mg immediate release tabletIndications :Heart failure with preserved ejection fraction (HFpEF), unspecified HF chronicity Take 1 tablet (25 mg total) by mouth 2 (two) times a day 60 tablet 11 025 2025 Active aspirin (ASPIRIN LOW DOSE) 81 mg tablet take 1 tablet (81MG) by oral route every day 0 013 2024 Discontinued vitamin E (AQUASOL E) 400 unit capsule take 1 capsule by oral route once a day 0 0 013 2024 Discontinued(S top Taking at Discharge) Symbicort 160-4.5 mcg/actuation inhaler Inhale 2 puffs 2 (two) times a day 020 2024 Discontinued spironolactone (ALDACTONE) 25 mg tablet Take 1 tablet (25 mg total) by mouth daily 021 2024 Discontinued(T herapy completed) metoprolol (LOPRESSOR) 100 mg tablet Take 1 [...] minutes, and rinse 120 mL 3 024 08/23/ 2025 Discontinued(S top Taking at Discharge) Pogo Automatic Blood Gluc Sys misc 2024 Discontinued Pogo Automatic Test Cartridge 30 gauge combo pack 2024 Discontinued isosorbide mononitrate ER (IMDUR) 30 mg 24 hr tablet Take 1 tablet (30 mg total) by mouth nightly 30 tablet 11 2024 Discontinued(T herapy completed) torsemide (DEMADEX) 20 mg tablet Take 1 tablet (20 mg total) by mouth 2 (two) times a day At 7 am and 2 pm 60 tablet 2024 Discontinued lidocaine (LIDODERM) 5 % Place 1 patch on the skin daily for 10 days Remove & discard patch within 12 hours or as directed by MD. 10 patch 2024 Discontinued nitroglycerin (NITROSTAT) 0.4 [...] at Discharge) lancets (Accu-Chek Fastclix Lancet Drum) [facility] [place] DIRECTED ONCE D FOR 90 DAYS [...] topically daily For 2-3 weeks 60 g 024 2024 Discontinued metOLazone (ZAROXOLYN) 2.5 mg tabletIndications :Heart failure with preserved ejection fraction, unspecified HF chronicity 1 tablet (2.5 mg total) as needed 024 2024 Discontinued metoprolol tartrate (LOPRESSOR) 50 mg immediate release tabletIndications :Heart failure with preserved ejection fraction, unspecified HF chronicity Take 1 tablet (50 mg total) by mouth nightly 100mg qam 50mg qpm 024 2024 Discontinued(R eorder) teriparatide (FORTEO) 20 mcg/dose (620mcg/2.48mL) pen injector [...] DAILY 200 capsule 1 025 2024 Discontinued baclofen (LIORESAL) 10 mg tablet TAKE 1 TABLET(10 MG) BY MOUTH THREE TIMES DAILY 90 tablet 025 2024 Discontinued vit S-C-haglpp-zinc-l utein 226-90-0.8-5 mg capsule Take 1 each [...] 025 2024 Discontinued(S top Taking at Discharge) metoprolol (LOPRESSOR) 100 mg tablet Take 1 tablet (100 mg total) by mouth daily 100mg qam 50mg qpm 2024 Discontinued(T herapy completed) metoprolol tartrate (LOPRESSOR) 25 mg immediate release tabletIndications :Heart failure with preserved ejection fraction (HFpEF), unspecified HF chronicity Take 2 tablets (50 mg total) by mouth 2 (two) times a day 100mg qam 50mg qpm 360 tablet 3 025 2024 Discontinued(R eorder) Active Problems Problem Noted Date Diagnosed Date [...] status closely. Coronary artery disease invo lving [place] coronary artery of [place] heart without angina pectoris 11/10/2024 Assessment & [...] 07/13/2024 Assessment & Plan (07/13/2024 9:42 AM GARAGE CONSTRUCTION EQUIPMENT MECHANIC): Check imaging and will poncho frederick. Reivwed and will pranay jones. Trochanteric bursitis of right hip 03/15/2024 Annual physical exam 03/13/2024 Heart failure with preserved ejection fraction 1 Iron deficiency anemia 02/17/2024 Assessment & Plan (07/17/2024 11:06 AM GARAGE CONSTRUCTION EQUIPMENT MECHANIC): Labs stable; MAY has been ongoing since [...] 01/15/2024 Assessment & Plan (07/17/2024 11:03 AM GARAGE CONSTRUCTION EQUIPMENT MECHANIC): 01/17 calcium=9.4. Repeat labs ordered today. Hypothyroidism 08/18/2023 Assessment & Plan (08/18/2023 11:18 AM CDT): Patient continues follow-up with Endocrinology will repeat TFTs to monitor replacement level. Mixed hyperlipidemia 06/18/2023 Heart failure, unspecified 06/11/2023 Cerebrovascular accident (CV A) due to embolism of left middle cerebral artery 05/24/2023 Athscl heart disease of jovon ve coronary artery w/o ang pctrs 05/24/2023 Pneumonia 05/20/2023 prison current use of anticoagulant Assessment & Plan [...] 05/10/2023 Assessment & Plan (07/17/2024 11:01 AM GARAGE CONSTRUCTION EQUIPMENT MECHANIC): Rate controlled; continues diltiazem and eliquis. Trochanteric [...] PFT 05/10/2023 Atherosclerotic heart diseas e of [place] coronary artery with other forms of angina [...] 03/11/2023 Assessment & Plan (07/13/2024 9:42 AM GARAGE CONSTRUCTION EQUIPMENT MECHANIC): DOaC and rate control. Hypertensive heart disease with heart failure Chest pain, unspecified type 03/06/2023 Pulmonary infiltrate 07/23/2022 prison (current) use of 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 07/23 Arthritis of right acromioclavicular joint 08/14 Recurrent acute serous otitis media of left ear 06/16/2021 Assessment & Plan (06/16/2021 1:59 PM GARAGE CONSTRUCTION EQUIPMENT MECHANIC): Avoid ear cleaning techniques Avoid water to ears Follow up with Dentist Referred otalgia of left ear 06/16/2021 Assessment & Plan (06/16/2021 1:59 PM GARAGE CONSTRUCTION EQUIPMENT MECHANIC): Avoid ear cleaning techniques Avoid water to ears Follow up with Dentist Scalp psoriasis 07/19/2020 Overview (07/19/2020): Contniue triamcinolone. Assessment & Plan (08/18/2023 11:18 AM CDT): Refill on ketoconazole shampoo to good effect. prison current use of anticoagulant 0 Mixed hyperlipidemia 09/26/2019 Assessment & Plan (09/26/2019 2:08 PM CDT): Dr Perez started Mrs Olson on pravastatin 40mg at her last appt. 08/09/19 A1C=6.1% QZ=650 HDL=39 HY=271 LDL=66 TC/HDL=3.9 Reviewed above results w/Mrs Olson. Has f/u appt w/Dr Perez in 3 mos (cardio at [facility]) Denies any SE from statin therapy. 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 She and her are agreeable with plan and will go to the emergency department. Assessment & Plan (07/13/2024 9:41 AM GARAGE CONSTRUCTION EQUIPMENT MECHANIC): No acute s/s of lfuid overload and [...] diet. Assessment & Plan (07/15/2017 10:31 AM GARAGE CONSTRUCTION EQUIPMENT MECHANIC): Congestive heart failure due to coronary artery [...] the medical records was 2017 per her civil engineering technician note and EF was 64%. Bronchitis 07/14/2017 Assessment & Plan (07/14/2019 8:26 AM GARAGE CONSTRUCTION EQUIPMENT MECHANIC): Zpack sent. Currently taking predinsone (pulben Rodriguez) & albuterol inhaler. discussed expectorant (ie mucinex). Reviewed med Ses & scheduling. Aware to complete antibiotic. Instructed in albuterol inhaler use. Aware to rinse mouth after use. Push fluids. Discussed saline nasal spray. Reviewed red flags; what would warrant rtc or ED for further eval. Assessment & Plan (07/14/2017 12:58 PM GARAGE CONSTRUCTION EQUIPMENT MECHANIC): Take your antibiotic as directed You may [...] 02/05/2017 Assessment & Plan (07/13/2024 9:42 AM GARAGE CONSTRUCTION EQUIPMENT MECHANIC): Supportive caretheand econtinues on forteol. Stenosis of lateral recess of lumbar spine 01/22 Acquired kyphoscoliosis 01/22/2017 History of fracture of vertebra 01/22/2017 Postlaminectomy syndrome of lumbar region 2016 Malignant neoplasm of thyroid gland 01/20/2017 Assessment & Plan (07/13/2024 9:41 AM GARAGE CONSTRUCTION EQUIPMENT MECHANIC): Devonte f/uw with endocrinology. Reviewed suppressive therapy and clinically euthryoid. Atrial fibrillation 01/20/2017 Assessment & Plan (11/10/2024 3:22 PM CDT): By Dr. Jones. Rate controlled. Holding diltiazem. Continue Eliquis 5 mg b.i.d.. Assessment & Plan (08/18/2023 11:17 AM CDT): Patient continues follow-up with Dr. Jones cardiology. No change in anticoagulation or rate control. Assessment & Plan (07/15/2017 9:48 AM GARAGE CONSTRUCTION EQUIPMENT MECHANIC): Pt. Has long time hx of a-fib [...] time. Assessment & Plan (07/14/2019 8:24 AM GARAGE CONSTRUCTION EQUIPMENT MECHANIC): Followed by Dr Oma nix at [facility] for sarcoidoisis. Next appt 08/06/19. Assessment & Plan (07/15/2017 10:01 AM GARAGE CONSTRUCTION EQUIPMENT MECHANIC): Pt will need to f/u with Pulmonary for possible sarcoidosis flare up in lungs Hypertension, essential 01/20/2017 Assessment & Plan (07/13/2024 9:41 AM GARAGE CONSTRUCTION EQUIPMENT MECHANIC): Stable and will terranceiro resopnse. NO change and will montior repsnose. [...] pain 07/16/2021 04/29/2023 BMI 33.0-33.9,adult 01/21/2021 04/29/20 23 Sacroiliitis 03/29/2020 04/29/2023 DDD (degenerative disc disease), lumbar 03/29/2020 04/29/2023 Lumbar radiculopathy 03/29/2020 023 Encounter for osteoporosis s creening in asymptomatic postmenopausal patient 07/14/201911/2022 Assessment & Plan (07/14/2019 8:26 AM GARAGE CONSTRUCTION EQUIPMENT MECHANIC): DEXA ordered. Will contact with results once received. Encounter for screening for lipoid disorders 0 04/29/2023 Assessment & Plan (07/14/2019 8:27 AM GARAGE CONSTRUCTION EQUIPMENT MECHANIC): 07/10/19 RN=880 HDL=26 LH=443 LDL=59 TC/HDL=5.2 YYA=050 Copy of results given to mrs Olson. Written explanations given. Dietary changes discussed as well as increasing activity as tolerated. BMI 29.0-29.9,adult 07/14/2019 09/26/19 Assessment & Plan (07/14/2019 8:27 AM GARAGE CONSTRUCTION EQUIPMENT MECHANIC): Reviewed need to lose weight, reviewed health benefits. Reviewed recommendations for daily intake & activity 20-30 minutes/day. Discussed healthy diet and importance of regular physical activity. Trochanteric bursitis of right hip 03/08/2018 04/29/2023 Iliotibial band syndrome of right side 03/08/2018 04/29/2023 Iliotibial band syndrome of left side 03/08/2018 04/29/2023 No diagnosis on [place] I 03/18/201707/14 Pulmonary embolism 01/20/2017 4 Diabetes [...] evaluation. Assessment & Plan (07/14/2019 8:24 AM GARAGE CONSTRUCTION EQUIPMENT MECHANIC): Microalbumin, POC 80 mg/L Final CRE 100 mg/dL; A:C 30-300 mg/g Lumbago 12/07/2016 04/29/2023 Hypotension due to drugs 10/22/2015 Overview (08/27/2016): Hypotension due to medication Candidiasis of mouth 10/22/2015 020 Overview (08/27/2016): Oral thrush Encounters Date Type Department Care Team Description 01/30/2025 Results Follow-Up [facility] at [address] [place] [phone] Bobby Ragsdale MA Pro B-type natriuretic peptide, Basic metabolic panel, eGFR 01/30/2025 Results Follow-Up [facility] [address] [place] [phone] Ada Obrien NP Hemoglobin A1c, Lipid panel, Albumin Creatinine Ratio, Urine 01/29/2025 1:25 PM CDT Lab [address] [address] Type 2 diabetes mellitus with diabetic polyneuropathy, without long-term current use of insulin (HCC); Lipid screening 01/29/2025 1:20 PM CDT Lab [address] [phone] Heart failure with preserved ejection fraction (HFpEF), unspecified HF chronicity 01/29/2025 11:45 AM CDT Office Visit [facility] at [address] [place] [phone] James Lin MD Longstanding persistent atrial fibrillation (HCC) (Primary Dx); Heart failure with preserved ejection fraction (HFpEF), unspecified HF chronicity; Bilateral lower extremity edema 01/17/2025 Telephone [facility] [address] [place] [phone] Bruno Sorenson MD 01/16/2025 Orders Only [facility] Health Information Management [address] [place] [phone] Scanning, Provider 01/15/2025 Orders Only [facility] at [address] [place] [phone] James Lin MD Acute diastolic congestive heart failure (HCC) (Primary Dx); Coronary artery disease of kaguy[place] artery of [place] heart with stable angina pectoris 01/15/2025 Orders Only [facility] at [address] [place] [phone] James Lin MD Acute on chronic diastolic congestive heart failure (HCC) (Primary Dx); Coronary artery disease of k[place]uy[place] artery of [place] heart with stable angina pectoris 01/13/2025 3:10 PM CDT - 01/13/2025 11:59 PM CDT Hospital Encounter AMBULANCE BILLING [address] [place] [address] Marcello Dasilva MD Discharge Disposition: Discharge to home or self care 01/12/2025 Telephone [facility] [address] [address] Bruno Sorenson MD 01/09/2025 9:55 PM CDT - 01/13/2025 4:57 PM CDT Hospital Encounter [address] [address] Marcello Dasilva MD Acute on chronic diastolic congestive heart failure (HCC) (Primary Dx); Arthralgia, unspecified joint; Elevated erythrocyte sedimentation rate; Elevated C-reactive protein (CRP); Bilateral knee swelling [M25.461, M25.462]; Arthritis of carpometacarpal (CMC) joint of left thumb [M18.12] Discharge Disposition: Discharge to [facility] 01/09/2025 3:25 PM CDT - 01/09/2025 11:59 PM CDT Hospital Encounter [facility] AMBULANCE BILLING Emergency, Room R Discharge Disposition: Discharge to home or self care 01/08/2025 Telephone [facility] [address] [phone] Bruno Sorenson MD 01/05/2025 Telephone [facility] [address] [phone] Bruno Sorenson MD Additional Services Or Orders 12/28/2024 2:00 PM CDT Infusion [address] [place] [phone] Dina Baxter RN Age-related osteoporosis without current pathological fracture (Primary Dx) 12/18/2024 Telephone [facility] [address] [phone] Bruno Sorenson MD 12/14/2024 1:00 PM CDT Office Visit [facility] Orthopedics and Sports Medicine [address] [place] [address] [address] [place] [address] Lisa Lam PA Rotator cuff arthropathy of right shoulder (Primary Dx); Primary osteoarthritis of right shoulder; Biceps tendonitis on right 12/14/[address] [place] [phone] Felipe Neff MD 12/13/2024 Orders Only [address] [place] [phone] Zenia Sepulveda RN 12/08/2024 10:00 AM CDT Office Visit [facility] [address] [place] [address] [address] [place] [address] Woodrow Teague MD Primary osteoarthritis of left knee (Primary Dx) 12/08/2024 Telephone [facility] [address] [phone] Bruno Sorenson MD 12/08/2024 Telephone [facility] [address] [place] [address] Bruno Sorenson MD 12/08/2024 Telephone [facility] [address] [place] [address] Bruno Sorenson MD 12/07/2024 Telephone [facility] [address] [phone] Bruno Sorenson MD 12/05/2024 Orders Only [facility] Health Information Management [address] [place] [address] Bruno Sorenson MD 12/04/2024 Orders Only [address] [place] [address] Felipe Neff MD 12/04/[address] [place] [address] Zenia Sepulveda RN 12/04/2024 Telephone [facility] [address] [place] [address] Medical Office Bld[address] [place] [address] Angy Bray, T 11/30/2024 Telephone [facility] [address] [phone] Bruno Sorenson MD 11/30/2024 Telephone [facility] [address] [place] [address] Bruno Sorenson MD 11/30/2024 Telephone [facility] [address] [place] [address] Bruno Sorenson MD 11/29/2024 Telephone [facility] [address] [phone] Bruno Sorenson MD 11/29/2024 Telephone [facility] [address] [phone] Bruno Sorenson MD Medical Question/Miscellaneous 11/21/2024 11:15 AM CDT Office Visit [facility] Orthopedics and Sports Medicine [address] [facility] [address] [place] [address] Woodrow Teague MD Trochanteric bursitis, right hip (Primary Dx) 11/17/2024 1:00 PM CDT Office Visit [facility] [address] [phone] Ada Obrien NP Acute on chronic diastolic congestive heart failure (HCC) (Primary Dx); Dizziness; Class 1 obesity due to excess calories with serious comorbidity and body mass index (BMI) of 30.0 to 30.9 in adult; Hypokalemia 11/17/2024 Telephone [facility] [address] [phone] Ada Obrien NP 11/16/2024 Telephone [facility] [address] [phone] Bruno Sorenson MD 11/16/2024 Telephone [facility] Case Management [address] [place] [address] Maria M Michaels, RN 11/15/2024 Telephone [facility] [address] [place] [address] Maria M Michaels, RN 11/14/2024 Telephone [facility] [address] [address] Bruno Sorenson MD Medical Question/Miscellaneous 11/14/2024 Telephone [facility] [address] [address] Bruno Sorenson MD Appointment Request 11/10/2024 1:00 PM CDT Office Visit [facility] [address] [phone] Ada Obrien NP Chronic diastolic congestive heart failure (HCC) (Primary Dx); Dizziness; Paroxysmal atrial fibrillation (HCC); Coronary artery disease involving [place] coronary artery of [place] heart without angina pectoris; Hypokalemia; Abnormal liver CT 11/10/2024 Telephone [facility] [address] [phone] Tierney Rosas 11/10/2024 Telephone [facility] [address] [address] Bruno Sorenson MD 11/09/2024 Telephone [facility] [address] [phone] Bruno Sorenson MD Additional Services Or Orders 11/09/2024 Telephone [facility] [address] [address] Bruno Sorenson MD YONG Questions 11/08/2024 Telephone [facility] [address] [address] Bruno Sorenson MD Medical Question/Miscellaneous 11/03/2024 8:30 PM CDT - 11/08/2024 3:36 PM CDT Hospital Encounter [facility] [address] [place] [address] Lupe Lawton MD Huynh, Kiet T., MD Nations, Matthew Austin, DO Fasick, Victoria Rose, DO Dizziness (Primary Dx); Weakness; Abnormal liver CT Discharge Disposition: Discharge to home, home health skilled care from Last 3 Months Immunizations Immunization Administration [...] thyroi d gland (HCC) Cancer, thyroid; Comments: Lindsay REHMAN 02/10/2016 - Atrial fibrillation (HCC) Atrial fibrillation [...] week 11/06/2024 How often do you attend [facility] or mandaeism services? More than 4 times per year 11/06/2024 Do you belong to any clubs o r organizations such as islam groups, unions, fraternal or athletic groups, or [...] place to sleep or slept in a care home (including now)? No 05/20/2023 Housing Stability [...] time in the past 12 m [facility], were you homeless or living in a care home (including now)? No 11/06/2024 Social Connection and Isolation Panel Answer Date Recorded In a typical week, how many times do you talk on the phone with family, friends, or neighbors? More than three times a week 01/12/2025 How often do you get togethe r with friends or relatives? More than three times a week 01/12/2025 How often do you attend chur ch or mandaeism services? More than 4 times per year 01/12/2025 Do you belong to any clubs o r organizations such as islam groups, unions, fraternal or athletic groups, or [...] time in the past 12 m [facility], were you homeless or living in a care home (including now)? No 01/12/2025 [facility] Utilities Answer Date Recorded In the past 12 months has th [employer], gas, oil, or water [employer] threatened to shut off services in your [...] Master's degree (e.g., MA, MS, Berna, MEd, WORK COUNSELOR, LAYO) 01/31/2024 Comments No Sex and Gender Information Value Date Recorded Sex Assigned at Not on file Legal Sex Female 11:50 PM GARAGE CONSTRUCTION EQUIPMENT MECHANIC Gender Identity Not on file Sexual Orientation Not on file Obstetrics History Last Filed Vital Signs Vital Sign Reading Time Taken Comments Blood Pressure 120/72 01/29/2025 12:40 PM CDT Pulse 105 01/29/2025 12:40 PM CDT Temperature 37.1 C (98.8 F) 01/13/2025 11:53 AM CDT Respiratory Rate 18 01/29/2025 12:40 PM CDT Oxygen Saturation 94% 01/13/2025 11:53 AM CDT Inhaled Oxygen Concentration - - Weight 69.4 kg (153 lb) 01/29/2025 12:40 PM CDT Height 149.9 cm (4' 11) 01/29/2025 12:40 PM CDT Body Mass Index 30.9 01/29/2025 12:40 PM CDT Plan of Treatment Health Maintenance Due Date Last Done Comments Hepatitis C Screening 1945 Hepatitis B Screening 1965 Zoster Vaccine (1 of 2) 1997 DTaP/Tdap/Td Vaccine (2 - Td or Tdap) 02/24/2023 02/24/2013 Foot Exam 07/20/2023 07/20/2022, 11/0 10/2019, 07/12/2018, Additional history exists Well Visit 65+ 07/20/2023 07/20/2022, 12/23, 09/27/2020, Additional history exists Covid-19 Vaccine (4 - 2024-2 6 season) 2025 05/27/2021, 08/07/2020, 07/10/2020 Influenza Vaccine (#1) 2025 , 03/16/2023, 02/21/2022, Additional history exists Dilated Eye Exam 06/28/2025 06/28/2024, , 01/28/2022, Additional history exists Hemoglobin A1C 07/29/2025 01/29/2025, 12/23, 05/20/2023, Additional history exists Depression Screening 11/17/2025 11/17/2024, 11/10/2024, 03/13/2024, Additional history exists Fall Risk Assessment 01/13/2026 01/13/2025, 11/17/2024, 11/10/2024, Additional history exists Albumin Creatinine Ratio, Urine 01/29/2026 01/29/2025, 01/14/2024, 03/19/2023, Additional history exists Lipid Panel 01/29/2026 01/29/2025, 12/23, 05/25/2023, Additional history exists eGFR 01/29/2026 01/29/2025, 12/23, 01/09/2025, Additional history exists Osteoporosis Screening-Bone Density Scan 10/13/2026 10/13/2024, 05/05/2022, 11/29/2019, Additional history exists Pneumococcal vaccine 65+ Completed 017, 02/10/2016, 02/21/2015, Additional history exists Breast Cancer Screening-Mammogram Discontinued 06/14/2018, 01/26/2017, 03/19/2016, Additional history exists Goals Goal Patient Goal Type Associated Problems Recent Progress Patient-Stated? Author -Pain Behavioral Health No Karoline Betancourt, RN Note: Patient will establish a comfort-function goal and identify the pain level that will allow the patient to perform desired activities and achieve an acceptable quality of life. Procedures Procedure Name Priority Date/Time Associated Diagnosis Comments EGFR Routine 01/29/2025 1:32 PM CDT Heart failure with preserved ejection fraction (HFpEF), unspecified HF chronicity ALBUMIN CREATININE RATIO, URINE Routine 01/29/2025 1:32 PM CDT Type 2 diabetes mellitus with diabetic polyneuropathy, without long-term current use of insulin (HCC) LIPID PANEL Routine 01/29/2025 1:32 PM CDT Lipid screening HEMOGLOBIN A1C Routine 01/29/2025 1:32 PM CDT Type 2 diabetes mellitus with diabetic polyneuropathy, without long-term current use of insulin (HCC) BASIC METABOLIC PANEL Routine 01/29/2025 1:32 PM CDT Heart failure with preserved ejection fraction (HFpEF), unspecified HF chronicity PRO B-TYPE NATRIURETIC PEPTIDE Routine 01/29/2025 1:32 PM CDT Heart failure with preserved ejection fraction (HFpEF), unspecified HF chronicity CARDIOLOGY DOCUMENT SCAN 01/16/2025 SCAN - RADIOLOGY/IMAGING 01/16/2025 POCT GLUCOSE DEVICE Routine 01/13/2025 11:18 AM [...] deficiency anemia, unspecified iron deficiency anemia type MD ARTHROCENTESIS ASPIR&/INJ MAJOR JT/BURSA W/O US Routine 12/14/2024 1:00 PM CDT Rotator cuff arthropathy of right shoulder Primary osteoarthritis of right shoulder Biceps tendonitis on right MD ARTHROCENTESIS ASPIR&/INJ MAJOR JT/BURSA W/O US Routine 12/08/2024 10:00 AM CDT Primary osteoarthritis of left knee CARDIOLOGY DOCUMENT SCAN 12/05/2024 MD ARTHROCENTESIS ASPIR&/INJ MAJOR JT/BURSA W/O US Routine 11/21/2024 11:15 AM CDT Trochanteric bursitis, right hip EGFR Routine 11/08/2024 3:06 AM CDT BASIC METABOLIC PANEL Routine 11/08/2024 3:06 AM CDT DEXA AXIAL SKELETON BONE DENSITY 1 OR MORE SITES Schedule Routine, Read Routine (OP Routine) 10/13/2024 2:40 PM CDT Encounter for screening for osteoporosis Collapsed vertebra, not elsewhere classified, thoracolumbar region, initial encounter for fracture (HCC) DIABETIC EYE EXAM Routine 06/28/2024 10:18 AM [employer] SCREENING MAMMOGRAM Schedule Routine, Read Routine (OP Routine) 06/14/2018 from Last 3 Months or Most Recently Relevant to Health Maintenance Results * (ABNORMAL) eGFR (01/29/2025 1:32 PM CDT) eGFR 59(L) >=60 mL/min/1. 73 m2 Comment: Interpretive Data [...] interpretive data was last reviewed 2021. Blood 01/29/2025 1:32 PM CDT 01/29/2025 2:03 PM CDT us James Lin MD LAB BLOOD ORDERABLES Final Resu lt APRYL TORI ([place]ART) 1 [facility] [place] [address] * (ABNORMAL) Pro B-type natriuretic peptide (01/29/2025 1:32 PM CDT) NT-proBNP 5,181(H) <=450 pg/mL APRYL VALLE ([place]) Comment: Interpretive Comments: A. Dyspnea in Acute [...] Heart J. 2006:27:330-337. 2. Trell RW, Tina TENORIO. J. AM Jordan Cardiol: Cardiovasc Imag. 2009;2: 216- 225. Interpretive Data Last Revised Date: 2018. Blood 01/29/2025 1:32 PM CDT 01/29/2025 2:03 PM CDT us James Lin MD LAB BLOOD ORDERABLES Final Resu lt Performing Organization Address City/[facility]/ZIP Co de Phone Number APRYL VALLE ([place]) 1 [facility] [place] [place] [address] * (ABNORMAL) Albumin Creatinine Ratio, Urine (01/29/2025 1:32 PM CDT) Albumin Ur 20.4 mg/L Comment: Interpretive Data No reference range established. Current interpretive data was last revised 2018. Testing performed by: [facility], [address] [place] [address]., [id number] Creatinine Ur 66.2 mg/dL [facility] ([place] Comment: Interpretive Data No reference range established. Current interpretive data was last revised 2018. Testing performed by: [facility], [address] [place] [address]., [id number] Albumin Creatinine Ratio, Ur 31(H) 1 - 29 mg/g [facility] ([place]) Comment:Testing performed by : [address] [address] Urine 01/29/2025 1:32 PM CDT 01/29/2025 5:26 PM CDT us Ada Obrien NP LAB URINE ORDERABLES Final Result Performing Organization Address City/[facility] Co de Phone Number APRYL VALLE ([place]) 1 [facility] [place] [address] * (ABNORMAL) Hemoglobin A1c (01/29/2025 1:32 PM CDT) Hgb A1C 6.6(H) 4.0 - 5.6 % APRYL VALLE ([place]ART) Estimated Average Glucose 143 mg/dL APRYL [facility] ([place]ART) Comment: The ADA recommends reporting an estimated Average Glucose (eAG) with all Hemoglobin A1c results using the equation derived from a study of 507 normal and diabetic adults. Minority populations were underrepresented and children were not included. (Diabetes Care 31:6641-7411, 2008). The eAG is not equivalent to a fasting glucose. Testing performed by: [facility], [facility], [place], [address] Blood 01/29/2025 1:32 PM CDT 01/29/2025 2:03 PM CDT Ada Obrien NP LAB BLOOD ORDERABLES Final Result [facility] 1 [facility] [place] [address] * (ABNORMAL) Lipid panel (01/29/2025 1:32 PM CDT) Cholesterol 82 30 - 199 mg/dL [facility] VALLE ([place]ART) Comment: Interpretive Data Ages < or = [...] Interpretive Data was last revised on 2018. Triglycerides 125 <=149 mg/dL [facility]LE ([place]) Comment: Interpretive Data Ages < or = [...] Interpretive Data was last revised on 2018. HDL 33(L) >=40 mg/dL APRYL Pierre ([place]) Comment: Interpretive Data Ages < or [...] Interpretive Data was last revised on 2018. LDL, calculated 27 <=129 mg/dL APR[facility]LE ([place]) Comment: Interpretive Data Ages < or = [...] NCEP Expert Panel. Circulation 2004;110:227 3. Angel Tavarez al. GEOFFREY Cardiol. 2020 September 21;5(5):540-548. doi: 10.1001/[email or web address].2020.0013 Current Interpretive Data was last revised on 2024. Testing performed by: [facility], [facility], [place], [address] Non-HDL Cholesterol 49 mg/dL APRYL VALLE ([place]) Comment: Interpretive Data Ages < or = [...] last revised on 2018. Testing performed by: [place], [address] Chol/HDL ratio 2 CERNE R [facility] ([place]ART) Comment:Testing performed by : [facility], [place], [address] Blood 01/29/2025 1:32 PM CDT 01/29/2025 2:03 PM CDT Ada Obrien NP LAB BLOOD ORDERABLES Final Result [facility] ([place]ART) [address] [place] [address] [place] [address] * (ABNORMAL) Basic metabolic panel (01/29/2025 1:32 PM CDT) Sodium 138 135 - 145 mmol/L [facility] ([place]) Potassium, pl 3.6 3.3 - 4.9 mmol/L [facility] ([place]) Chloride 96(L) 97 - 110 mmol/L [facility] ([place]) CO2 29 22 - 32 mmol/L [facility] ([place]) Anion gap 13 2 - 15 mmol/L [facility] ([place]) BUN 20 6 - 25 mg/dL [facility] ([place]) Creatinine 0.99 0.60 - 1.10 mg/dL [facility] ([place]) Glucose 90 70 - 199 mg/dL [facility] ([place]) [...] interpretive data was last revised 2022. Calcium 7.7(L) 8.5 - 10.3 mg/dL [facility] ([place]) Blood 01/29/2025 1:32 PM CDT 01/29/2025 2:03 PM CDT James Lin MD LAB BLOOD ORDERABLES Final Resu lt APRYL VALLE ([place]) 1 [facility] [place] [address] * SCAN - RADIOLOGY/IMAGING (01/16/2025) Anatomical Region Laterality Modality Other Provider Scanning Edited Result - Final * Cardiology Document Scan (01/16/2025) Anatomical Region Laterality Modality Other Provider Scanning CV CARDIAC SERVICES PROCEDURES Final Result * POCT glucose (01/13/2025 11:18 AM CDT) Glucose, POC 164 70 - 199 mg/dL Blood 01/13/2025 11:1 8 AM CDT 01/13/2025 11:18 AM CDT Marcello Dasilva MD LAB POCT ORDERABLES - DEVICE Fi nal Result Performing Organization Address City/[facility]/ZIP Co de Phone Number APRYL [address] Department [place] [address] * POCT glucose (01/13/2025 6:31 AM CDT) Glucose, POC 109 70 - 199 mg/dL Blood 01/13/2025 6:31 AM CDT 01/13/2025 6:31 AM CDT Marcello Dasilva MD LAB POCT ORDERABLES - [place] [address] [address] [place] [address] * POCT glucose (01/12/2025 8:14 PM CDT) Glucose, POC 136 70 - 199 mg/dL Blood 01/12/2025 8:14 PM CDT 01/12/2025 8:14 PM CDT us Marcello Dasilva MD LAB POCT ORDERABLES - DEVICE Fi nal Result Performing Organization Address [facility] Co de Phone Number APRYL FISH [phone] [address] [place] [address] * XR Ankle Left 3 or More [...] COMPARISON: None. Procedure Note Marco Myers II, DO - 01/12/2025 EXAMINATION: XR ANKLE LEFT 3 OR MORE VIEWS DATE: 01/12/2025 6:05 PM HISTORY: Impaired mobility. COMPARISON: None. IMPRESSION: No acute fracture. Atherosclerotic peripheral vascular disease. There is a tibiotalar joint effusion. No significant soft tissue swelling. Small calcaneal spur and Achilles enthesophyte. Electronically signed by: Edison Goetz IIOHarlan us Marcello Dasilva MD IMG XR PROCEDURES Final Result * XR Ankle [...] Ankle pain. COMPARISON: 07/21/2024. Procedure Note Marco Myesr II, DO - 01/12/2025 EXAMINATION: XR ANKLE RIGHT 3 OR MORE VIEWS DATE: 01/12/2025 6:00 PM HISTORY: Ankle pain. COMPARISON: 07/21/2024. IMPRESSION: No acute fracture. Soft tissues are unremarkable. Atherosclerotic peripheral vascular disease. Electronically signed by: Marco Myers II, D.O. us Marcello Dasilva MD IMG XR PROCEDURES Final Result * POCT glucose (01/12/2025 5:47 PM CDT) Glucose, POC 109 70 - 199 mg/dL Blood 01/12/2025 5:47 PM CDT 01/12/2025 5:47 PM CDT us Marcello Dasilva MD LAB POCT ORDERABLES - DEVICE Fi nal Result [facility] [address] Department [place] [address] * (ABNORMAL) eGFR (01/12/2025 3:24 PM CDT) [...] MD LAB BLOOD ORDERABLES Final Resu lt [facility] [address] [address] Department [place] [address] * (ABNORMAL) Renal function panel (01/12/2025 3:24 PM CDT) Sodium 136 135 - 145 mmol/L Potassium, pl 3.8 3.3 - 4.9 mmol/L [facility] Chloride 96(L) 97 - 110 mmol/L [facility] CO2 25 22 - 32 mmol/L [facility] Anion gap 15 2 - 15 mmol/L [facility] BUN 49(H) 6 - 25 mg/dL [facility] Creatinine 1.41(H) 0.60 - 1.10 mg/dL [facility] Glucose 155 70 - 199 mg/dL [facility] Comment: Interpretive Data Fasting glucose >/= 126 [...] Calcium 7.9(L) 8.5 - 10.3 mg/dL [facility] Phosphorus, pl 2.9 2.3 - 4.5 mg/dL [facility] Albumin 3.7 3.5 - 5.0 g/dL [facility] Blood 01/12/2025 3:24 PM CDT 01/12/2025 3:51 PM CDT us Marcello Dasilva MD LAB BLOOD ORDERABLES Final Resu lt APRYL FISH [address] [address] Department [place] [address] * US Vein Duplex Lower Extremity Bilateral [...] signed by: Renee Skinner M.D. Abdirahman Recinos MANAGER HEART IMG US PROCEDURES Final Resu lt * POCT glucose (01/12/2025 12:27 PM CDT) Glucose, POC 127 70 - 199 mg/dL Blood 01/12/2025 12:2 7 PM CDT 01/12/2025 12:27 PM CDT us Marcello Dasilva MD LAB POCT ORDERABLES - DEVICE Fi nal Result Performing Organization Address [facility] de Phone Number APRYL [phone] [address] [address] * POCT glucose (01/12/2025 6:42 AM CDT) Glucose, POC 103 70 - 199 mg/dL Blood 01/12/2025 6:42 AM CDT 01/12/2025 6:42 AM CDT us Marcello Dasilva MD LAB POCT ORDERABLES - DEVICE Fi nal Result Performing Organization Address [facility] [place] [address] [address] [facility] [place] [address] * POCT glucose (01/11/2025 8:03 PM CDT) Glucose, POC 179 70 - 199 mg/dL Blood 01/11/2025 8:03 PM CDT 01/11/2025 8:03 PM CDT us Marecllo Dasilva MD LAB POCT ORDERABLES - DEVICE Fi nal Result Performing Organization Address [facility]/ZIP Co de Phone Number APRYL FISH [address] [address] [facility] [place] [address] * POCT glucose (01/11/2025 4:35 PM CDT) Glucose, POC 132 70 - 199 mg/dL Blood 01/11/2025 4:35 PM CDT 01/11/2025 4:35 PM CDT us Marcello Dasilva MD LAB POCT ORDERABLES - DEVICE Fi nal Result Performing Organization Address [facility] Co de Phone Number APRYL FISH [address] [address] [facility] [place] [address] * POCT glucose (01/11/2025 11:34 AM CDT) Glucose, POC 121 70 - 199 mg/dL Blood 01/11/2025 11:3 4 AM CDT 01/11/2025 11:34 AM CDT us Marcello Dasilva MD LAB POCT ORDERABLES - DEVICE Fi nal Result Performing Organization Address [facility] Co de Phone Number APRYL FISH [address] [address] [facility] [place] [address] * POCT glucose (01/11/2025 5:57 AM CDT) Glucose, POC 116 70 - 199 mg/dL Blood 01/11/2025 5:57 AM CDT 01/11/2025 5:57 AM CDT us Marcello Dasilva MD LAB POCT ORDERABLES - DEVICE Fi nal Result Performing Organization Address [facility] Co de Phone Number APRYL FISH [address] [address] [facility] [place] [address] * POCT glucose (01/10/2025 11:22 PM CDT) Glucose, POC 151 70 - 199 mg/dL Blood 01/10/2025 11:2 2 PM CDT 01/10/2025 11:22 PM CDT us Marcello Dasilva MD LAB POCT ORDERABLES - DEVICE Fi nal Result Performing Organization Address [facility] de Phone Number APRYL FISH [phone] [address] [facility] [place] [employer] [place] [address] * POCT glucose (01/10/2025 8:08 PM CDT) Glucose, POC 118 70 - 199 mg/dL Blood 01/10/2025 8:08 PM CDT 01/10/2025 8:08 PM CDT us Marcello Dasilva MD LAB POCT ORDERABLES - DEVICE Fi nal Result Performing Organization Address [facility] de Phone Number APRYL [address] [address] [facility] [place] [address] * POCT glucose (01/10/2025 5:45 PM CDT) Glucose, POC 147 70 - 199 mg/dL Blood 01/10/2025 5:45 PM CDT 01/10/2025 5:45 PM CDT us Marcello Dasilva MD LAB POCT ORDERABLES - DEVICE Fi nal Result Performing Organization Address [facility] de Phone Number APRYL [address] [address] [facility] [place] [address] * POCT glucose (01/10/2025 1:10 PM CDT) Glucose, POC 177 70 - 199 mg/dL Blood 01/10/2025 1:10 PM CDT 01/10/2025 1:10 PM CDT us Notinfile Unknown LAB POCT ORDERABLES - DEVICE F inal Result Performing Organization Address [facility] Co de Phone Number APRYL FISH [address] [address] [place] [address] * POCT glucose (01/10/2025 8:10 AM CDT) Glucose, POC 153 70 - 199 mg/dL Blood 01/10/2025 8:10 AM CDT 01/10/2025 8:10 AM CDT us Notinfile Unknown LAB POCT ORDERABLES - DEVICE F inal Result Performing Organization Address [facility] Co de Phone Number APRYL FISH [phone] [address] [facility] [place] [address] * POCT glucose (01/10/2025 4:25 AM CDT) Glucose, POC 109 70 - 199 mg/dL Blood 01/10/2025 4:25 AM CDT 01/10/2025 4:25 AM CDT us Notinfile Unknown LAB POCT ORDERABLES - DEVICE F inal Result Performing Organization Address [facility] de Phone Number APRYL FISH [phone] [facility] [place] [address] * (ABNORMAL) Pro B-type natriuretic peptide (01/10/2025 [...] Heart J. 2006:27:330-337. 2. Trell RW, Tina TENORIO. J. AM Jordan Cardiol: Cardiovasc Imag. 2009;2: 216- 225. Interpretive Data Last Revised Date: 2018. Blood 01/10/2025 12:1 5 AM CDT 01/10/2025 12:22 AM CDT Miguel Angel GOMEZ LAB BLOOD ORDERABLES Final Result Performing Organization Address City/[facility] Co de Phone Number [facility] [phone] [employer] [place], [place] [id number] * (ABNORMAL) Erythrocyte sedimentation rate (01/10/2025 12:15 AM CDT) Erythrocyte sedimentation rate 32(H) 1 - 30 mm/hr Blood 01/10/2025 12:1 5 AM CDT 01/10/2025 12:22 AM CDT Miguel Angel GOMEZ LAB BLOOD ORDERABLES Final Result Performing Organization Address City/[facility] [place] [address] [address] [place] [address] * (ABNORMAL) CRP (acute phase) (01/10/2025 12:15 AM CDT) CRP 71.1(H) <=10.0 mg/L Blood 01/10/2025 12:1 5 AM CDT 01/10/2025 12:22 AM CDT Miguel Angel GOMEZ LAB BLOOD ORDERABLES Final Result Performing Organization Address City/[facility]/ZIP Co de Phone Number APRYL FISH [phone] [address] [facility] [place] [address] * Uric acid (01/10/2025 12:15 AM CDT) Uric acid 7.0 2.5 - 7.0 mg/dL Blood 01/10/2025 12:1 5 AM CDT 01/10/2025 12:22 AM CDT Miguel Angel GOMEZ LAB BLOOD ORDERABLES Final Result Performing Organization Address [facility] Co de Phone Number [facility] [phone] [address] [facility] [place] [address] * Potassium (01/10/2025 12:15 AM CDT) Potassium, pl 4.0 3.3 - 4.9 mmol/L Blood 01/10/2025 12:1 5 AM CDT 01/10/2025 12:22 AM CDT Miguel Angel GOMEZ LAB BLOOD ORDERABLES Final Result Performing Organization Address [facility] Co de Phone Number [facility] [phone] [address] [facility] [place] [address] * POCT glucose (01/10/2025 12:08 AM CDT) Glucose, POC 143 70 - 199 mg/dL Blood 01/10/2025 12:0 8 AM CDT 01/10/2025 12:08 AM CDT Notinfile Unknown LAB POCT ORDERABLES - DEVICE F inal Result Performing Organization Address City/[facility] Co de Phone Number [facility] [phone] [address] Department [place] [address] * XR Wrist Left 3 or More [...] changes. Electronically signed by: Renee Skinner M.D. Miguel Angel GOMEZ IMG XR PROCEDURES [...] by: Segundo Guaman M.D. Miguel Angel GOMEZ [facility] XR PROCEDURES Fin al Result * XR [...] by: Segundo Guaman M.D. Miguel Angel GOMEZ [facility] XR PROCEDURES Fin al Result * (ABNORMAL) Urinalysis reflex to microscopic and culture Urine (01/09/2025 11:36 PM CDT) Color, ur Yellow Yellow Clarity, ur Clear Clear [facility] Specific gravity, ur 1.021 1.003 - 1.030 [facility] pH, urine 6.0 [facility] Comment: Interpretive Data U rine pH is affected by diet, medications, systemic acid-base disturbances, and renal tubular function. pH may affect urinary stone formation. For example, urine pH below 6.0 may help reduce the tendency for calcium phosphate stones and pH greater than 6.0 may reduce the tendency for uric acid stone formation. Source: [facility] Current Interpretive Data was last revised on [...] Reflex to microscopic UA will be performed. [facility] Urine 01/09/2025 11:3 6 PM CDT 01/09/2025 11:57 PM CDT us Marcello Dasilva MD LAB [facility]OLOGY [facility] Final Result Performing Organization Address City/[facility] Co de Phone Number APRYL FISH [phone] [address] Department [place] [address] * (ABNORMAL) Urinalysis, microscopic only (01/09/2025 11:36 PM CDT) WBC, ur 11-20(A) 0 - 5 /HPF RBC, ur 3-5(A) 0 - 2 /HPF [facility] Epithelial cells, squamous, ur 1-5 0 - 5 /HPF [facility] Culture Reflex Comment Reflex to urine culture will be performed. [facility] Urine 01/09/2025 11:3 6 PM CDT 01/09/2025 11:57 PM CDT us Marcello Dasilva MD LAB URINE ORDERABLES Final Resu lt Performing Organization Address City/[facility] Co de Phone Number APRYL FISH [phone] [address] Department of [employer] [place], [place] [id number] * Urine culture Urine (01/09/2025 11:36 PM CDT) Report Final Report: Less than 100,000 colonies/mL (clinically insignificant growth based on current clinical standards) Comment:Testing performed by : [facility], [address] [place]., [address] Organism (CLINICALLY INSIGNIFICANT GROWTH [facility] Urine 01/09/2025 11:3 6 PM CDT 01/10/2025 6:11 AM CDT Narrative [facility] - 01/11/2025 8:32 AM CDT Urine culture reflexed based upon urinalysis results. Testing performed by [facility] Microbiology Laboratory ([phone]) us Henry Beal MD LAB MICROBIOLOGY - GENE RAL ORDERABLES Final Result [facility] [address] [address] Department [place] [address] * ECG 12 lead (01/09/2025 5:26 PM CDT) 01/09/2025 5:26 PM CDT Narrative [facility] - 01/09/2025 7:35 PM CDT Vent Rate: 82 bpm RR Interval: 730 msec MD Interval: 0 msec QRS Duration: 104 msec QT Interval: 381 msec QTC Interval: 419 msec P-R-T [place]: 0 - -35 - 140 degrees IMPRESSION: [...] Marcello Dasilva MD ECG ORDERABLES Final Result [facility] * eGFR (01/09/2025 5:23 PM CDT) eGFR [...] ORDERABLES Final Resu lt Performing Organization Address City/[facility]/ZIP Co de Phone Number APRYL FISH [address] [address] Department [place] [address] * (ABNORMAL) Differential, auto (01/09/2025 5:23 PM CDT) Neutrophil abs 4.81 1.50 - 6.50 K/cumm Imm gran abs 0.04 0.00 - 0.10 K/cumm [facility] Lymphocyte abs 0.52(L) 0.80 - 3.30 K/cumm [facility] Monocyte abs 0.80 0.20 - 0.80 K/cumm [facility] Eosinophil abs 0.08 0.00 - 0.50 K/cumm [facility] Basophil abs 0.03 0.00 - 0.10 K/cumm [facility] Neutrophil pct 76.6 % [facility] Comment: Interpretive Data Percent cell count reference ranges are not reported, since discordance with absolute values may lead to misinterpretation of CBC data. Current Interpretive Data was last revised on 2017. Imm gran pct 0.6 % [facility] Comment: Interpretive Data Percent cell count reference ranges are not reported, since discordance with absolute values may lead to misinterpretation of CBC data. Current Interpretive Data was last revised on 2017. Lymphocyte pct 8.3 % [facility] Comment: Interpretive Data Percent cell count reference ranges are not reported, since discordance with absolute values may lead to misinterpretation of CBC data. Current Interpretive Data was last revised on 2017. Monocyte pct 12.7 % [facility] Comment: Interpretive Data Percent cell count reference ranges are not reported, since discordance with absolute values may lead to misinterpretation of CBC data. Current Interpretive Data was last revised on 2017. Eosinophil pct 1.3 % [facility] Comment: Interpretive Data Percent cell count reference ranges are not reported, since discordance with absolute values may lead to misinterpretation of CBC data. Current Interpretive Data was last revised on 2017. Basophil pct 0.5 % [facility] Comment: Interpretive Data Percent cell count reference ranges are not reported, since discordance with absolute values may lead to misinterpretation of CBC data. Current Interpretive Data was last revised on 2017. Blood 01/09/2025 5:23 PM CDT 01/09/2025 5:25 PM CDT us Marcello Dasilva MD LAB BLOOD ORDERABLES Final Resu lt [facility] [address] [address] Department [place] [address] * (ABNORMAL) CBC with auto differential (01/09/2025 5:23 PM CDT) Pathologist [facility] WBC 6.28 3.80 - 9.90 K/cumm Hgb [...] MD LAB BLOOD ORDERABLES Final Resu lt [facility] [address] [address] Department [place] [address] * (ABNORMAL) Comprehensive metabolic panel (01/09/2025 5:23 PM CDT) [facility] Sodium 137 135 - 145 mmol/L Potassium, pl 5.6(H) 3.3 - 4.9 mmol/L [facility] Comment:Hemolysis present. R esults may be affected. Chloride 100 97 - 110 mmol/L [facility] CO2 22 22 - 32 mmol/L [facility] Anion gap 15 2 - 15 mmol/L [facility] BUN 48(H) 6 - 25 mg/dL [facility] Creatinine 0.97 0.60 - 1.10 mg/dL [facility] Glucose 125 70 - 199 mg/dL [facility] [...] 5:23 PM CDT 01/09/2025 5:25 PM CDT Marcello Dasilva MD LAB BLOOD ORDERABLES Final Resu lt [facility] FISH [address] [address] Department [place] [address] * Iron profile w/ IBC (12/15/2024 1:39 PM CDT) Iron 73 45 - 160 mcg/dL [facility] TIBC 272 250 - 450 mcg/dL (calc) [facility] Iron saturation 27 16 - 45 % (calc) [facility] Blood 12/15/2024 1:39 PM CDT 12/15/2024 1:40 PM CDT Quinn Jensen MD LAB BLOOD ORDERABLES Final R esult [facility] [address] [phone] * (ABNORMAL) CBC with auto differential (12/15/2024 1:39 PM CDT) [facility] WBC 9.8 3.8 - 10.8 Thousand/u L [...] ORDERABLES Final R esult Performing Organization Address [facility] de Phone Number [facility] [address] [place] [address] * (ABNORMAL) Reticulocyte Count (12/15/2024 1:39 PM CDT) Pathologist [facility] Reticulocyte count, automated 2.0 % [facility] Reticulocyte, absolute 90,200(H) 20,000 - 80,000 cells/uL [facility] Blood 12/15/2024 1:39 PM CDT 12/15/2024 1:40 PM CDT Quinn Jensen MD LAB BLOOD ORDERABLES Final R esult Performing Organization Address [facility] Phone Number [facility] [address] [place] [address] * Ferritin (12/15/2024 1:39 PM CDT) Pathologist [facility] Ferritin 155 16 - 288 ng/mL [facility] Blood 12/15/2024 1:39 PM CDT 12/15/2024 1:40 PM CDT Quinn Jensen MD LAB BLOOD ORDERABLES Final R esult Performing Organization Address [facility] de Phone Number [facility] [address] [place] [address] * MD ARTHROCENTESIS ASPIR&/INJ MAJOR JT/BURSA W/O US (12/14/2024 [...] IN CLINIC/BEDSIDE BLAKE BOJORQUEZ Final Result * MD ARTHROCENTESIS ASPIR&/INJ MAJOR JT/BURSA W/O US (12/08/2024 10:00 AM CDT) Narrative Woodrow Teague MD - 12/08/2024 10:00 AM CDT Woodrow [...] Scan (12/05/2024) Anatomical Region Laterality Modality Other us Bruno Sorenson MD [facility] CARDI[facility] SHADI MYERS Final Result * MD ARTHROCENTESIS ASPIR&/INJ MAJOR JT/BURSA W/O US (11/21/2024 [...] the procedure well with no immediate complications Woodrow Teague MD IN CLINIC/BEDSIDE ORDERA BLES [...] CDT 11/08/2024 4:01 AM CDT Rommel Oates [facility] DO LAB BLOOD ORDERABLES F inal Result [facility] ([place]) [address] [facility] [place] [address] * (ABNORMAL) Basic metabolic panel (11/08/2024 3:06 AM CDT) Sodium 136 135 - 145 mmol/L Potassium, pl 4.4 3.3 - 4.9 mmol/L [facility] ([place]) Comment:Moderately Hemolyzed Specimen. Results may be affected. Chloride 100 97 - 110 mmol/L [facility] CO2 22 22 - 32 mmol/L [facility] Anion gap 14 2 - 15 mmol/L [facility] ([place]) BUN 23 6 - 25 mg/dL [facility] ([place]) Creatinine 1.27(H) 0.60 - 1.10 mg/dL [facility] ([place]) Glucose 135 70 - 199 mg/dL [facility] ([place]) [...] - 10.3 mg/dL [facility] Blood 11/08/2024 3:06 AM CDT 11/08/2024 4:01 AM CDT us Rommel Wiley DO LAB BLOOD ORDERABLES F inal Result [facility] [place]) [address] [facility] [place] [address] * Dexa Axial Skeleton Bone Density 1 Or 2 Site (10/13/2024 2:40 PM CDT) Anatomical Region Laterality Modality Body N/A Other 10/15/2024 10:1 6 AM CDT Narrative 10/15/2024 10:19 AM CDT EXAM DESCRIPTION: DEXA AXIAL SKELETON BONE DENSITY 1 OR MORE SITES REASON FOR STUDY: 79 y/o year old F with given history of: Low bone mineral density, surveillance Screening. 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 MF: ERIN Report ID: [id number] Reading Location: [address] Note Cedric Nam MD - 10/15/2024 EXAM DESCRIPTION: DEXA AXIAL SKELETON BONE DENSITY 1 OR MORE SITES REASON FOR STUDY: 79 y/o year old F with given history of: Low bone mineral density, surveillance Screening. 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) Historical Provider HEALTH MAINTENANCE Final Result * Screening Mammogram (06/14/2018) Anatomical Region Laterality Modality Breast N/A Mammography Historical Provider IMG MAMMO PROCEDURES Jalyn l Result from Last 3 Months or Most Recently Relevant to Health Maintenance Insurance [facility] MEDICARE [id number] MEDICARE [address] [place] [address] [employer] MEDICARE Advance Directives For more information, please contact: [phone] Documents on File Type Date Recorded 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 02/04/2024 9:00 AM Cedric Avilez ower of Industrial Design Intern-Medical * Full Code (Latest Code Status on [...] Name Relationship Healthcare Agent Relationship Communication Cedric Olson Son Health Care Agent m Care Teams Public Transportation Inspector Relationship Specialty Start Date End Date [place] [address] [place] [address] PCP - General 08/21/16 Janice Zimmerman, PT Physical Therapist Physical Therapy 11/01/17 Tatum Moon, HOSPITAL CHIEF EXECUTIVE OFFICER Catering Chef Physical Therapy 11/12/17 Saniya Greenwood, HOSPITAL CHIEF EXECUTIVE OFFICER Catering Chef Physical Therapy 11/17/17 Felipe Neff MD [address] [place] [address] Referring Physician Endocrinology Diabetes & Metabolism 04/28/22 Alex Jauregui MD [address] [place] [address] Consulting Physician Cardiology 03/07/23 Una Guallpa DNP [facility] [address] [place] [address] Nurse Practitioner Neurology 05/27/23
--- NOTE | 2025-02-08 13:53 | ECG_ITS ---
Test Date: 2025-02-08 14:00:44 Measurements Intervals [place] Rate: 81 P: 0 MD: 0 QRS: -20 QRSD: 117 T: 152 QT: 395 QTc: 460 Interpretive Statements ATRIAL FIBRILLATION LOW QRS VOLTAGE IN PRECORDIAL LEADS [QRS DEFLECTION < 1.0 mV IN CHEST LEADS] PATTERN CONSISTENT WITH PULMONARY DISEASE INCOMPLETE RIGHT BUNDLE BRANCH BLOCK [90+ ms QRS DURATION, TERMINAL R IN V1/V2, 40+ ms S IN I/aVL/V4/V5/V6] ANTEROSEPTAL INFARCTION , AGE INDETERMINATE MODERATE VOLTAGE CRITERIA FOR LVH, CONSIDER NORMAL VARIANT [MEETS CRITERIA IN ONE OF: R(aVL), S(V1), R(V5), R(V5/V6)+S(V1)] ST DEVIATION AND MODERATE T-WAVE ABNORMALITY, CONSIDER LATERAL ISCHEMIA [-0.1+ mV T-WAVE IN I/aVL/V5/V6] ABNORMAL ECG Electronically Signed On 02-08-2025 17:58:06 CDT by Rommel Bernal M.D.
--- OUTSIDE RECORDS SUMMARY | 2025-02-08 15:10 | XMS_ITS | Encounter Summary ---
Author Organization [facility] Healthcare Address [address] [place] [address] Care Team Providers Care Meat And Poultry Inspector Name Role Phone Bruno Sorenson MD Primary Care Provider [phone] Janice Zimmerman PT Unavailable Unavailab Tatum Hilliard ROTARY FURNACE OPERATOR Unavailable Unavailab Saniya Salcedo ROTARY FURNACE OPERATOR Unavailable Unavailable Felipe Neff MD Unavailable [phone] Alex Jauregui MD Unavailable [phone] Una Guallpa DNP Unavailable [phone] Encounter Details Date Type Department Care Team (Late st Contact Info) Description 11/15/2024 Telephone [facility] Case Management [address] [place] [address] Maria M Michaels RN Social History Tobacco Use Types Packs/Day Years Used Date Smoking Tobacco: Never Passive Smoke Exposure: Never Smokeless Tobacco: Never Alcohol Use Standard Drinks/Week Comments No 0 (1 standard drink = 0.6 oz pur e alcohol) [facility] Utilities Answer Date Recorded In the [...] often do you attend chur ch or restorationism services? More than 4 times per year 11/06/2024 Do you belong to any clubs o r organizations such as worship groups, unions, fraternal or athletic groups, or [...] any time in the past 12 m [facility], were you homeless or living in a [...] Master's degree (e.g., MA, MS, Berna, MEd, MANAGER CONVENTION, LAYO) 01/31/2024 Comments No Sex and Gender Information Value Date Recorded Sex Assigned at Not on file Legal Sex Female 11:50 PM CERTIFIED LOW VISION THERAPIST Gender Identity Not on file Sexual Orientation [...] on filedocumented in this encounter Care Teams Meat And Poultry Inspector Relationship Specialty Start Date End Date Bruno Sorenson MD [address] [place] [address] PCP - General 08/21/16 Janice Zimmerman, PT Physical Therapist Physical Therapy 11/01/17 Tatum Moon, ROTARY FURNACE OPERATOR [employer] Physical Therapy 11/12/17 Saniya Greenwood, ROTARY FURNACE OPERATOR [employer] [place] Physical Therapy 11/17/17 Felipe Neff MD [address] [place] [address] Referring Physician Endocrinology Diabetes & Metabolism 04/28/22 Alex Jauregui MD [address] [place] [address] Consulting Physician Cardiology 03/07/23 Una Guallpa DNP [address] [place] [address] Nurse Practitioner Neurology 05/27/23 documented as of this encounter
--- OUTSIDE RECORDS SUMMARY | 2025-02-08 15:10 | XMS_ITS | Encounter Summary ---
Author Organization [facility] Health Address [address] [place] [address] Care Team Providers Care Associate Quality Engineer Name Role Phone Unavailable Primary Care Provider Unavailabl e Encounter Details Date Type Department Care Team (Late st Contact Info) Description 03/09/2024 Lab Requisition [facility] - DermPath Lab [address] 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
--- OUTSIDE RECORDS SUMMARY | 2025-02-08 15:10 | XMS_ITS | Encounter Summary ---
Author Organization [facility] Healthcare Address [address] [place] [address] Care Team Providers Care Pediatrician Name Role Phone Bruno Sorenson MD Primary Care Provider [phone] Janice Zimmerman PT Unavailable Unavailab Tatum Hilliard GEOSPATIAL ENGINEER Unavailable Unavailab Saniya Salcedo GEOSPATIAL ENGINEER Unavailable Unavailable Felipe Neff MD Unavailable [phone] Alex Jauregui MD Unavailable [phone] Una Guallpa DNP Unavailable [phone] Encounter Details Date Type Department Care Team (Late st Contact Info) Description 11/16/2024 Telephone [facility] Case Management [address] [place] [address] Maria M Michaels RN Social History Tobacco Use Types Packs/Day Years Used Date Smoking Tobacco: Never Passive Smoke Exposure: Never Smokeless Tobacco: Never Alcohol Use Standard Drinks/Week Comments No 0 (1 standard drink = 0.6 oz pur e alcohol) [facility] Utilities Answer Date Recorded In the past [...] often do you attend chur ch or shinto services? More than 4 times per year 11/06/2024 Do you belong to any clubs o r organizations such as rastafarian groups, unions, fraternal or athletic groups, or [...] place to sleep or slept in a senior living (including now)? No 05/20/2023 Housing Stability Vital Sign Answer Vasu e Recorded In the last 12 months, was t here a time when you were not able to pay the mortgage or rent on time? No 11/06/2024 In the past 12 months, how m any times have you moved where you were living? 0 11/06/2024 At any time in the past 12 m [facility], were you homeless or living in a senior living (including now)? No 11/06/2024 Personal Safety Answer [...] Master's degree (e.g., MA, MS, Berna, MEd, SUPERINTENDENT [employer]ANDFILL OPERATIONS, LAYO) 01/31/2024 Comments No Sex and Gender Information Value Date Recorded Sex Assigned at Not on file Legal Sex Female 11:50 PM RADIOLOGY TECHNICIAN Gender Identity Not on file Sexual [...] on filedocumented in this encounter Care Teams Pediatrician Relationship Specialty Start Date End Date Bruno Sorenson MD [address] [place] [address] PCP - General 08/21/16 Janice Zimmerman, PT Physical Therapist Physical Therapy 11/01/17 Tatum Moon, GEOSPATIAL ENGINEER Tightening Machine Operator Physical Therapy 11/12/17 Saniya Greenwood, GEOSPATIAL ENGINEER Tightening Machine Operator Physical Therapy 11/17/17 Felipe Neff MD [address] [place] [address] Referring Physician Endocrinology Diabetes & Metabolism 04/28/22 Alex Jauregui MD [address] [place] [address] Consulting Physician Cardiology 03/07/23 Una Guallpa DNP [address] [place] [address] Nurse Practitioner Neurology 05/27/23 documented as of this encounter
--- OUTSIDE RECORDS SUMMARY | 2025-02-08 15:10 | XMS_ITS | Clinical Summary ---
Author Organization [facility] Address [address] [place] [address] Care Team Providers Care Food Safety Auditor Name Role Phone Unavailable Primary Care Provider Unavailabl e Source Comments [facility],non-owned Affiliates and Associated Physician Practices is amultiple site organization consisting of ambulatory clinics and hospital sitesin [place], [place], [place] and [place]. This disclosure is being madepursuant to the Care Everywhere program and may not contain all information available regarding this patient. 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
--- OUTSIDE RECORDS SUMMARY | 2025-02-08 15:10 | XMS_ITS | Encounter Summary ---
Author Organization [facility] Address [address] [place] [address] Care Team Providers Care Hide Handler Name Role Phone Unavailable Primary Care Provider Unavailabl e Encounter Details Date Type Department Care Team (Late st Contact Info) Description 03/07/2024 Lab Requisition [facility] - DermPath Lab [address] [facility] [place] [phone] Sunita Madden MD [address] [place] [address] Social History Tobacco Use Types Packs/Day Years Used Date Smoking Tobacco: Never Assessed Comments Unknown Sex and Gender Information Value Date Recorded Sex Assigned at Not on file Legal Sex Female 6:04 AM BATTER OUT Gender Identity Not on file Sexual Orientation Not on file documented as of this encounter Plan of Treatment Not on file documented as of this encounter Procedures Procedure Name Priority Date/Time Associated Diagnosis Comments DERMATOPATHOLOGY Routine 03/06/2024 3:33 AM CDT documented in this encounter Results * DERMATOPATHOLOGY (03/06/2024 3:33 AM CDT) Case Report Dermatopathology Report Case: [id number] Authorizing Provider: Sunita Madden MD Collected: 03/06/2024 03:33 AM Ordering Location: [facility] - Received: 03/07/2024 11:05 [...] specimen consists of a shave biopsy measuring 42u27j8 mm. Jar 0. 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 [facility] Journal. 2015;6(4):277-279. Specimen B. 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 [employer] [facility] Journal. 2015;6(4):277-279. 4 3:04 PM CDT DERMATOPATHOLOGY LABORATORY Disclaimer An external and internal positive and negative controls are appropriate for the histochemical, immunohistochemical and immunofluorescence stain(s) in this case (if any), except where stated explicitly. The performance characteristics of the stain(s) cited in this report were developed and its performance characteristic determined by the Dermatopathology Laboratory at [facility], directed by Dr. Rj Viera. These tests need not be, and therefore are not, approved by the [place] Food and Drug Administration. The tests are used for clinical purposes. Billing Codes Specimen Charges Stain Charges 90995 69304 1 1 96101 11511 15172 32964 1 1 1 1 4 3:04 PM CDT DERMATOPATHOLOGY LABORATORY Embedded Images 4 3:04 PM CDT DERMATOPATHOLOGY LABORATORY Pathology/Cytology TISSUE SPECIMEN FROM SKIN / Unknown 03/06/2024 3:33 AM CDT 03/07/2024 11:05 AM CDT Miscellaneous samples (specimen) TISSUE SPECIMEN FROM SKIN / Unknown 03/06/2024 3:33 AM CDT 03/07/2024 11:05 AM CDT us Sunita Madden MD LAB - PATHOLOGY/CYTOLOGY ORD ERABLES Final Result DERMATOPATHOLOGY LABORATORY [facility] - Department of Dermatology [address], [address] [phone] documented in this encounter Visit Diagnoses Not on filedocumented in this encounter
--- OUTSIDE RECORDS SUMMARY | 2025-02-08 15:10 | XMS_ITS | Clinical Summary ---
Author Organization [facility] Address [address] [place] [address] Care Team Providers Care Taxi Driver Supervisor Name Role Phone Bruno Sorenson MD Primary Care Provider [phone] Janice Zimmerman PT Unavailable Unavailab Tatum Hilliard SURVEY ENGINEER Unavailable Unavailab Saniya Salcedo SURVEY ENGINEER Unavailable Unavailable Felipe Neff MD Unavailable [phone] Alex Jauregui MD Unavailable [phone] Una Guallpa DNP Unavailable [phone] Allergies Active Allergy Reactions Criticality Noted [...] at Discharge) lancets (Accu-Chek Fastclix Lancet Drum) [facility] USE DIRECTED ONCE D FOR 90 DAYS [...] DAILY 90 tablet 025 2024 Discontinued vit M-T-ivlalp-zinc-l utein 226-90-0.8-5 mg capsule Take 1 each [...] status closely. Coronary artery disease invo lving [place] coronary artery of [place] heart without angina pectoris 11/10/2024 Assessment & [...] 07/13/2024 Assessment & Plan (07/13/2024 9:42 AM NEON INSTALLER): Check imaging and will poncho frederick. Reivwed and will pranay jones. Trochanteric bursitis of right hip 03/15/2024 Annual physical exam 03/13/2024 Heart failure with preserved ejection fraction 1 Iron deficiency anemia 02/17/2024 Assessment & Plan (07/17/2024 11:06 AM NEON INSTALLER): Labs stable; MAY has been ongoing since [...] 01/15/2024 Assessment & Plan (07/17/2024 11:03 AM NEON INSTALLER): 01/17 calcium=9.4. Repeat labs ordered today. Hypothyroidism 08/18/2023 Assessment & Plan (08/18/2023 11:18 AM CDT): Patient continues follow-up with Endocrinology will repeat TFTs to monitor replacement level. Mixed hyperlipidemia 06/18/2023 Heart failure, unspecified 06/11/2023 Cerebrovascular accident (CV A) due to embolism of left middle cerebral artery 05/24/2023 Athscl heart disease of jovon ve coronary artery w/o ang pctrs 05/24/2023 Pneumonia 05/20/2023 [facility] current use of anticoagulant Assessment & Plan [...] 05/10/2023 Assessment & Plan (07/17/2024 11:01 AM NEON INSTALLER): Rate controlled; continues diltiazem and eliquis. Trochanteric [...] PFT 05/10/2023 Atherosclerotic heart diseas e of [place] coronary artery with other forms of angina [...] 03/11/2023 Assessment & Plan (07/13/2024 9:42 AM NEON INSTALLER): DOaC and rate control. Hypertensive heart disease with heart failure Chest pain, unspecified type 03/06/2023 Pulmonary infiltrate 07/23/2022 [facility] (current) use of 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 07/23 Arthritis of right acromioclavicular joint 08/14 Recurrent acute serous otitis media of left ear 06/16/2021 Assessment & Plan (06/16/2021 1:59 PM NEON INSTALLER): Avoid ear cleaning techniques Avoid water to ears Follow up with Dentist Referred otalgia of left ear 06/16/2021 Assessment & Plan (06/16/2021 1:59 PM NEON INSTALLER): Avoid ear cleaning techniques Avoid water to ears Follow up with Dentist Scalp psoriasis 07/19/2020 Overview (07/19/2020): Contniue triamcinolone. Assessment & Plan (08/18/2023 11:18 AM CDT): Refill on ketoconazole shampoo to good effect. [facility] current use of anticoagulant 0 Mixed hyperlipidemia 09/26/2019 Assessment & Plan (09/26/2019 2:08 PM CDT): Dr Perez started Mrs Olson on pravastatin 40mg at her last appt. 08/09/19 A1C=6.1% CV=255 HDL=39 QL=517 LDL=66 TC/HDL=3.9 Reviewed above results w/Mrs Olson. [...] she go to the emergency room, recommended [facility] as patient's donor processor is from [facility] and she will need cardiac consult. She and her are agreeable with plan and will go to the emergency department. Assessment & Plan (07/13/2024 9:41 AM NEON INSTALLER): No acute s/s of lfuid overload and [...] diet. Assessment & Plan (07/15/2017 10:31 AM NEON INSTALLER): Congestive heart failure due to coronary artery [...] the medical records was 2017 per her donor processor note and EF was 64%. Bronchitis 07/14/2017 Assessment & Plan (07/14/2019 8:26 AM NEON INSTALLER): Zpack sent. Currently taking predinsone (pulben Rodriguez) & albuterol inhaler. discussed expectorant (ie mucinex). Reviewed med Ses & scheduling. Aware to complete antibiotic. Instructed in albuterol inhaler use. Aware to rinse mouth after use. Push fluids. Discussed saline nasal spray. Reviewed red flags; what would warrant rtc or ED for further eval. Assessment & Plan (07/14/2017 12:58 PM NEON INSTALLER): Take your antibiotic as directed You may [...] 02/05/2017 Assessment & Plan (07/13/2024 9:42 AM NEON INSTALLER): Supportive caretheand econtinues on forteol. Stenosis of lateral recess of lumbar spine 01/22 Acquired kyphoscoliosis 01/22/2017 History of fracture of vertebra 01/22/2017 Postlaminectomy syndrome of lumbar region 2016 Malignant neoplasm of thyroid gland 01/20/2017 Assessment & Plan (07/13/2024 9:41 AM NEON INSTALLER): Devonte f/uw with endocrinology. Reviewed suppressive therapy and clinically euthryoid. Atrial fibrillation 01/20/2017 Assessment & Plan (11/10/2024 3:22 PM CDT): By Dr. Jones. Rate controlled. Holding diltiazem. Continue Eliquis 5 mg b.i.d.. Assessment & Plan (08/18/2023 11:17 AM CDT): Patient continues follow-up with Dr. Jones cardiology. No change in anticoagulation or rate control. Assessment & Plan (07/15/2017 9:48 AM NEON INSTALLER): Pt. Has long time hx of a-fib [...] time. 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 Next appt 08/06/19. Assessment & Plan (07/15/2017 10:01 AM NEON INSTALLER): Pt will need to f/u with Pulmonary for possible sarcoidosis flare up in lungs Hypertension, essential 01/20/2017 Assessment & Plan (07/13/2024 9:41 AM NEON INSTALLER): Stable and will terranceiro resopnse. NO change [...] 07/14/201911/2022 Assessment & Plan (07/14/2019 8:26 AM NEON INSTALLER): DEXA ordered. Will contact with results once received. Encounter for screening for lipoid disorders 0 04/29/2023 Assessment & Plan (07/14/2019 8:27 AM NEON INSTALLER): 07/10/19 OW=489 HDL=26 VM=842 LDL=59 TC/HDL=5.2 ZRO=075 Copy of results given to mrs Olson. Written explanations given. Dietary changes discussed as well as increasing activity as tolerated. BMI 29.0-29.9,adult 07/14/2019 09/26/19 Assessment & Plan (07/14/2019 8:27 AM NEON INSTALLER): Reviewed need to lose weight, reviewed health benefits. Reviewed recommendations for daily intake & activity 20-30 minutes/day. Discussed healthy diet and importance of regular physical activity. Trochanteric bursitis of right hip 03/08/2018 04/29/2023 Iliotibial band syndrome of right side 03/08/2018 04/29/2023 Iliotibial band syndrome of left side 03/08/2018 04/29/2023 No diagnosis on [place] I 03/18/201707/14 Pulmonary embolism 01/20/2017 4 Diabetes [...] evaluation. Assessment & Plan (07/14/2019 8:24 AM NEON INSTALLER): Microalbumin, POC 80 mg/L Final CRE 100 mg/dL; A:C 30-300 mg/g Lumbago 12/07/2016 04/29/2023 Hypotension due to drugs 10/22/2015 Overview (08/27/2016): Hypotension due to medication Candidiasis of mouth 10/22/2015 020 Overview (08/27/2016): Oral thrush Encounters Date Type Department Care Team Description 01/30/2025 Results Follow-Up [facility] at [address] [place] [phone] Bobby Ragsdale MA Pro B-type natriuretic peptide, Basic metabolic panel, eGFR 01/30/2025 Results Follow-Up [facility] [address] [place] [phone] Ada Obrien NP Hemoglobin A1c, Lipid panel, Albumin Creatinine Ratio, Urine 01/29/2025 1:25 PM CDT Lab [address] [phone] Type 2 diabetes mellitus with diabetic polyneuropathy, without long-term current use of insulin (HCC); Lipid screening 01/29/2025 1:20 PM CDT Lab [address] [phone] Heart failure with preserved ejection fraction (HFpEF), unspecified HF chronicity 01/29/2025 11:45 AM CDT Office Visit [facility] [employer] [facility] at [address] [place] [phone] James Lin MD Longstanding persistent atrial fibrillation (HCC) (Primary Dx); Heart failure with preserved ejection fraction (HFpEF), unspecified HF chronicity; Bilateral lower extremity edema 01/17/2025 Telephone [facility] [address] [place] [phone] Bruno Sorenson MD 01/16/2025 Orders Only [facility] Information Management [address] [place] [phone] Scanning, Provider 01/15/2025 Orders Only [facility] [employer] [facility] at [address] [place] [phone] James Lin MD Acute diastolic congestive heart failure (HCC) (Primary Dx); Coronary artery disease of [place] artery of [place] heart with stable angina pectoris 01/15/2025 Orders Only [facility] [employer] [facility] at [address] [place] [phone] James Lin MD Acute on chronic diastolic congestive heart failure (HCC) (Primary Dx); Coronary artery disease of [place] artery of [place] heart with stable angina pectoris 01/13/2025 3:10 PM CDT - 01/13/2025 11:59 PM CDT Hospital Encounter AMBULANCE BILLING [address] [place] [phone] Marcello Dasilva MD Discharge Disposition: Discharge to home or self care 01/12/2025 Telephone [facility] [address] [phone] Bruno Sorenson MD 01/09/2025 9:55 PM CDT - 01/13/2025 4:57 PM CDT Hospital Encounter [address] [address] Marcello Dasilva MD Acute on chronic diastolic congestive heart failure (HCC) (Primary Dx); Arthralgia, unspecified joint; Elevated erythrocyte sedimentation rate; Elevated C-reactive protein (CRP); Bilateral knee swelling [M25.461, M25.462]; Arthritis of carpometacarpal (CMC) joint of left thumb [M18.12] Discharge Disposition: Discharge to [facility] 01/09/2025 3:25 PM CDT - 01/09/2025 11:59 PM CDT Hospital Encounter [facility]ANCE BILLING Emergency, Room R Discharge Disposition: Discharge to home or self care 01/08/2025 Telephone [facility] [address] [phone] Bruno Sorenson MD 01/05/2025 Telephone [facility] [address] [phone] Bruno Sorenson MD Additional Services Or Orders 12/28/2024 2:00 PM CDT Infusion [address] [place] [phone] Dina Baxter RN Age-related osteoporosis without current pathological fracture (Primary Dx) 12/18/2024 Telephone [facility] [address] [phone] Bruno Sorenson MD 12/14/2024 1:00 PM CDT Office Visit [facility] Orthoped[facility] Sports Medicine [address] [place] [address] [address] [place] [address] Lisa Lam PA Rotator cuff arthropathy of right shoulder (Primary Dx); Primary osteoarthritis of right shoulder; Biceps tendonitis on right 12/14/[address] [place] [phone] Felipe Neff MD 12/13/2024 Orders Only [address] [place] [phone] Zenia Sepulveda RN 12/08/2024 10:00 AM CDT Office Visit [facility] [address] [place] [address] [address] [place] [address] Woodrow Teague MD Primary osteoarthritis of left knee (Primary Dx) 12/08/2024 Telephone [facility] [address] [phone] Bruno Sorenson MD 12/08/2024 Telephone [facility] [address] [place] [address] Bruno Sorenson MD 12/08/2024 Telephone [facility] [address] [place] [address] Bruno Sorenson MD 12/07/2024 Telephone [facility] [address] [phone] Bruno Sorenson MD 12/05/2024 Orders Only [facility] [address] [place] [address] Bruno Sorenson MD 12/04/2024 Orders Only [address] [place] [address] Felipe Neff MD 12/04/[address] [place] [address] Zenia Sepulveda RN 12/04/2024 Telephone [facility] [place] [facility] [address] [place] [address] Medical Office Bld[address] [place] [address] Angy Bray, T 11/30/2024 Telephone [facility] [address] [phone] Bruno Sorenson MD 11/30/2024 Telephone [facility] [address] [place] [address] Bruno Sorenson MD 11/30/2024 Telephone [facility] [address] [place] [address] Bruno Sorenson MD 11/29/2024 Telephone [facility] [address] [phone] Bruno Sorenson MD 11/29/2024 Telephone [facility] [address] [phone] Bruno Sorenson MD Medical Question/Miscellaneous 11/21/2024 11:15 AM CDT Office Visit [facility] [address] [facility] [address] [place] [address] Woodrow Teague MD Trochanteric bursitis, right hip (Primary Dx) 11/17/2024 1:00 PM CDT Office Visit [facility] [address] [phone] Ada Obrien NP Acute on chronic diastolic congestive heart failure (HCC) (Primary Dx); Dizziness; Class 1 obesity due to excess calories with serious comorbidity and body mass index (BMI) of 30.0 to 30.9 in adult; Hypokalemia 11/17/2024 Telephone [facility] [address] [phone] Ada Obrien NP 11/16/2024 Telephone [facility] [address] [phone] Bruno Sorenson MD 11/16/2024 Telephone [facility] Case Management [address] [place] [address] Maria M Michaels, RN 11/15/2024 Telephone [facility] Case Management [address] [place] [address] Maria M Michaels, RN 11/14/2024 Telephone [facility] [address] [phone] Bruno Sorenson MD Medical Question/Miscellaneous 11/14/2024 Telephone [facility] [address] [phone] Bruno Sorenson MD Appointment Request 11/10/2024 1:00 PM CDT Office Visit [facility] [address] [phone] Ada Obrien NP Chronic diastolic congestive heart failure (HCC) (Primary Dx); Dizziness; Paroxysmal atrial fibrillation (HCC); Coronary artery disease involving [place] coronary artery of [place] heart without angina pectoris; Hypokalemia; Abnormal liver CT 11/10/2024 Telephone [facility] [address] [phone] Tierney Rosas 11/10/2024 Telephone [facility] [address] [phone] Bruno Sorenson MD 11/09/2024 Telephone [facility] [address] [phone] Bruno Sorenson MD Additional Services Or Orders 11/09/2024 Telephone [facility] [address] [phone] Bruno Sorenson MD YONG Questions 11/08/2024 Telephone [facility] [address] [phone] Bruno Sorenson MD Medical Question/Miscellaneous 11/03/2024 8:30 PM CDT - 11/08/2024 3:36 PM CDT Hospital Encounter [facility] IMU [address] [place] [address] Lupe Lawton MD Huynh, Kiet T., MD [...] week 11/06/2024 How often do you attend [facility] or zoroastrian services? More than 4 times per year 11/06/2024 Do you belong to any clubs o r organizations such as christianity groups, unions, fraternal or athletic groups, or [...] any time in the past 12 m [facility], were you homeless or living in a [...] often do you attend chur ch or zoroastrian services? More than 4 times per year 01/12/2025 Do you belong to any clubs o r organizations such as christianity groups, unions, fraternal or athletic groups, or [...] any time in the past 12 m [facility], were you homeless or living in a detention (including now)? No 01/12/2025 [facility] Utilities Answer Date Recorded In the past 12 months has th [employer], gas, oil, or water [employer] threatened to shut off services in your [...] Master's degree (e.g., MA, MS, Berna, MEd, DESIGN VERIFICATION ENGINEER, LAYO) 01/31/2024 Comments No Sex and Gender Information Value Date Recorded Sex Assigned at Not on file Legal Sex Female 11:50 PM NEON INSTALLER Gender Identity Not on file Sexual Orientation [...] deficiency anemia, unspecified iron deficiency anemia type GA ARTHROCENTESIS ASPIR&/INJ MAJOR JT/BURSA W/O US Routine 12/14/2024 1:00 PM CDT Rotator cuff arthropathy of right shoulder Primary osteoarthritis of right shoulder Biceps tendonitis on right GA ARTHROCENTESIS ASPIR&/INJ MAJOR JT/BURSA W/O US Routine 12/08/2024 10:00 AM CDT Primary osteoarthritis of left knee CARDIOLOGY DOCUMENT SCAN 12/05/2024 GA ARTHROCENTESIS ASPIR&/INJ MAJOR JT/BURSA W/O US Routine [...] DIABETIC EYE EXAM Routine 06/28/2024 10:18 AM NEON INSTALLER SCREENING MAMMOGRAM Schedule Routine, Read Routine (OP [...] BLOOD ORDERABLES Final Resu lt APRYL TORI ([place]) 1 [facility] [place] [address] * (ABNORMAL) Pro B-type natriuretic peptide (01/29/2025 [...] ORDERABLES Final Resu lt Performing Organization Address City/[facility]/ZIP Co de Phone Number APRYL VALLE ([place]) 1 [facility] [place] [address] * (ABNORMAL) Albumin Creatinine Ratio, Urine (01/29/2025 1:32 PM CDT) Albumin Ur 20.4 mg/L Comment: Interpretive Data No reference range established. Current interpretive data was last revised 2018. Testing performed by: [facility], [address] [place] [address]., [address] Creatinine Ur 66.2 mg/dL [facility] ([place]) Comment: Interpretive Data No reference range established. Current interpretive data was last revised 2018. Testing performed by: [facility], [address] [place] [address]., [address] Albumin Creatinine Ratio, Ur 31(H) 1 - 29 mg/g [facility] ([place]) Comment:Testing performed by : [address] [address] Urine 01/29/2025 1:32 PM CDT 01/29/2025 5:26 PM CDT us Ada Obrien NP LAB URINE ORDERABLES Final Result Performing Organization Address City/[facility] Co de Phone Number APRYL VALLE ([place]) 1 [facility] [place] [address] * (ABNORMAL) Hemoglobin A1c (01/29/2025 1:32 PM CDT) Hgb A1C 6.6(H) 4.0 - 5.6 % APRYL VALLE ([place]) Estimated Average Glucose 143 mg/dL APRYL [facility] ([place]) Comment: The ADA recommends reporting an estimated Average Glucose (eAG) with all Hemoglobin A1c results using the equation derived from a study of 507 normal and diabetic adults. Minority populations were underrepresented and children were not included. (Diabetes Care 31:6369-0459, 2008). The eAG is not equivalent to a fasting glucose. Testing performed by: [facility], [facility], [place], [address] Blood 01/29/2025 1:32 PM CDT 01/29/2025 2:03 PM CDT Ada Obrien NP LAB BLOOD ORDERABLES Final Result [facility] ([place]) 1 [facility] [place] [address] * (ABNORMAL) Lipid panel (01/29/2025 1:32 PM CDT) Cholesterol 82 30 - 199 mg/dL APRYL VALLE ([place]) Comment: Interpretive Data Ages < or = [...] 2018. Triglycerides 125 <=149 mg/dL APRYL VALLE ([place]) Comment: Interpretive Data Ages < or = [...] LDL, calculated 27 <=129 mg/dL APRYL [facility]LE ([place]) Comment: Interpretive Data Ages < or = [...] last revised on 2024. Testing performed by: [facility], [facility], [place], [address] Non-HDL Cholesterol 49 mg/dL APRYL VALLE ([place]) Comment: Interpretive Data Ages < or = [...] last revised on 2018. Testing performed by: [place], [address] Chol/HDL ratio 2 CERNE R [facility] ([place]) Comment:Testing performed by : [facility], [place], [address] Blood 01/29/2025 1:32 PM CDT 01/29/2025 2:03 PM CDT Ada Obrien NP LAB BLOOD ORDERABLES Final Result [facility] (MA[place]) [address] [place] [address] [place] [address] * (ABNORMAL) Basic metabolic panel (01/29/2025 1:32 PM CDT) Sodium 138 135 - 145 mmol/L [facility] ([place]) Potassium, pl 3.6 3.3 - 4.9 mmol/L [facility] ([place]) Chloride 96(L) 97 - 110 mmol/L [facility] ([place]) CO2 29 22 - 32 mmol/L [facility] ([place]) Anion gap 13 2 - 15 mmol/L [facility] ([place]) BUN 20 6 - 25 mg/dL [facility] ([place]) Creatinine 0.99 0.60 - 1.10 [...] Final Resu lt APRYL VALLE ([place]) 1 [facility] [place] [address] * SCAN - RADIOLOGY/IMAGING (01/16/2025) Anatomical Region [...] DEVICE Fi nal Result Performing Organization Address City/[facility]/ZIP Co de Phone Number APRYL [address] [address] [place] [address] * POCT glucose (01/13/2025 6:31 AM CDT) Glucose, POC 109 70 - 199 mg/dL Blood 01/13/2025 6:31 AM CDT 01/13/2025 6:31 AM CDT Marcello Dasilva MD LAB POCT ORDERABLES - [place] [address] [address] [place] [address] * POCT glucose (01/12/2025 8:14 PM CDT) Glucose, POC 136 70 - 199 mg/dL Blood 01/12/2025 8:14 PM CDT 01/12/2025 8:14 PM CDT us Marcello Dasilva MD LAB POCT ORDERABLES - DEVICE Fi nal Result Performing Organization Address [facility] Co de Phone Number APRYL FISH [address] [address] [place] [address] * XR Ankle Left 3 or More [...] COMPARISON: 07/21/2024. Procedure Note Marco Myers II, DO - [...] ORDERABLES - DEVICE Fi nal Result [facility] [address] [place] [address] * (ABNORMAL) eGFR (01/12/2025 3:24 [...] MD LAB BLOOD ORDERABLES Final Resu lt [facility] [address] [address] [place] [address] * (ABNORMAL) Renal function panel (01/12/2025 3:24 PM CDT) Sodium 136 135 - 145 mmol/L Potassium, pl 3.8 3.3 - 4.9 mmol/L [facility] Chloride 96(L) 97 - 110 mmol/L [facility] CO2 25 22 - 32 mmol/L [facility] Anion gap 15 2 - 15 mmol/L [facility] BUN 49(H) 6 - 25 mg/dL [facility] Creatinine 1.41(H) 0.60 - 1.10 mg/dL [facility] Glucose 155 70 - 199 mg/dL [facility] Comment: Interpretive Data Fasting glucose >/= [...] BLOOD ORDERABLES Final Resu lt APRYL FISH [address] [address] [place] [address] * US Vein Duplex Lower Extremity Bilateral [...] signed by: Renee Skinner M.D. Abdirahman Recinos BOOK REPAIRER IMG US PROCEDURES Final Resu lt * POCT glucose (01/12/2025 12:27 PM CDT) Glucose, POC 127 70 - 199 mg/dL Blood 01/12/2025 12:2 7 PM CDT 01/12/2025 12:27 PM CDT us Marcello Dasilva MD LAB POCT ORDERABLES - DEVICE Fi nal Result Performing Organization Address [facility] de Phone Number APRYL [address] [place] [address] * POCT glucose (01/12/2025 6:42 AM CDT) Glucose, POC 103 70 - 199 mg/dL Blood 01/12/2025 6:42 AM CDT 01/12/2025 6:42 AM CDT us Marcello Dasilva MD LAB POCT ORDERABLES - DEVICE Fi nal Result Performing Organization Address [facility] [place] [address] [address] [facility] [place] [address] * POCT glucose (01/11/2025 8:03 PM CDT) Glucose, POC 179 70 - 199 mg/dL Blood 01/11/2025 8:03 PM CDT 01/11/2025 8:03 PM CDT us Marcello Dasilva MD LAB POCT ORDERABLES - DEVICE Fi nal Result Performing Organization Address [facility]/ZIP Co de Phone Number APRYL FISH [address] [address] [facility] [place] [address] * POCT glucose (01/11/2025 4:35 PM CDT) Glucose, POC 132 70 - 199 mg/dL Blood 01/11/2025 4:35 PM CDT 01/11/2025 4:35 PM CDT us Marcello Dasilva MD LAB POCT ORDERABLES - DEVICE Fi nal Result Performing Organization Address [facility] Co de Phone Number APRYL FISH [address] [address] [facility] [place] [address] * POCT glucose (01/11/2025 11:34 AM CDT) Glucose, POC 121 70 - 199 mg/dL Blood 01/11/2025 11:3 4 AM CDT 01/11/2025 11:34 AM CDT us Marcello Dasilva MD LAB POCT ORDERABLES - DEVICE Fi nal Result Performing Organization Address [facility] Co de Phone Number APRYL FISH [address] [address] [facility] [place] [address] * POCT glucose (01/11/2025 5:57 AM CDT) Glucose, POC 116 70 - 199 mg/dL Blood 01/11/2025 5:57 AM CDT 01/11/2025 5:57 AM CDT us Marcello Dasilva MD LAB POCT ORDERABLES - DEVICE Fi nal Result Performing Organization Address [facility] Co de Phone Number APRYL FISH [address] [address] [facility] [place] [address] * POCT glucose (01/10/2025 11:22 PM CDT) Glucose, POC 151 70 - 199 mg/dL Blood 01/10/2025 11:2 2 PM CDT 01/10/2025 11:22 PM CDT us Marcello Dasilva MD LAB POCT ORDERABLES - DEVICE Fi nal Result Performing Organization Address [facility] de Phone Number APRYL FISH [address] [address] [facility] [place] [address] * POCT glucose (01/10/2025 8:08 PM CDT) Glucose, POC 118 70 - 199 mg/dL Blood 01/10/2025 8:08 PM CDT 01/10/2025 8:08 PM CDT us aMrcello Dasilva MD LAB POCT ORDERABLES - DEVICE Fi nal Result Performing Organization Address [facility] de Phone Number APRYL [address] [address] [facility] [place] [address] * POCT glucose (01/10/2025 5:45 PM CDT) Glucose, POC 147 70 - 199 mg/dL Blood 01/10/2025 5:45 PM CDT 01/10/2025 5:45 PM CDT us Marcello Dasilva MD LAB POCT ORDERABLES - DEVICE Fi nal Result Performing Organization Address [facility] de Phone Number APRYL [address] [address] [facility] [place] [address] * POCT glucose (01/10/2025 1:10 PM CDT) Glucose, POC 177 70 - 199 mg/dL Blood 01/10/2025 1:10 PM CDT 01/10/2025 1:10 PM CDT us Notinfile Unknown LAB POCT ORDERABLES - DEVICE F inal Result Performing Organization Address [facility] Co de Phone Number APRYL FISH [address] [address] [address] * POCT glucose (01/10/2025 8:10 AM CDT) Glucose, POC 153 70 - 199 mg/dL Blood 01/10/2025 8:10 AM CDT 01/10/2025 8:10 AM CDT us Notinfile Unknown LAB POCT ORDERABLES - DEVICE F inal Result Performing Organization Address [facility] Co de Phone Number APRYL FISH [address] [address] [facility] [place] [address] * POCT glucose (01/10/2025 4:25 AM CDT) Glucose, POC 109 70 - 199 mg/dL Blood 01/10/2025 4:25 AM CDT 01/10/2025 4:25 AM CDT us Notinfile Unknown LAB POCT ORDERABLES - DEVICE F inal Result Performing Organization Address [facility] de Phone Number APRYL FISH [address] [address] [facility] [place] [address] * (ABNORMAL) Pro B-type natriuretic peptide (01/10/2025 [...] BLOOD ORDERABLES Final Result Performing Organization Address City/[facility] Co de Phone Number STEWARTASHLIE FISH [address] [address] [employer] [place], [place] [id number] * (ABNORMAL) Erythrocyte sedimentation rate (01/10/2025 12:15 AM CDT) Erythrocyte sedimentation rate 32(H) 1 - 30 mm/hr Blood 01/10/2025 12:1 5 AM CDT 01/10/2025 12:22 AM CDT Miguel Angel GOMEZ LAB BLOOD ORDERABLES Final Result Performing Organization Address City/[facility] [place] [address] [address] [address] * (ABNORMAL) CRP (acute phase) (01/10/2025 12:15 AM CDT) CRP 71.1(H) <=10.0 mg/L Blood 01/10/2025 12:1 5 AM CDT 01/10/2025 12:22 AM CDT Miguel Angel GOMEZ LAB BLOOD ORDERABLES Final Result Performing Organization Address City/[facility]/ZIP Co de Phone Number APRYL FISH [address] [address] [facility] [place] [address] * Uric acid (01/10/2025 12:15 AM CDT) Uric acid 7.0 2.5 - 7.0 mg/dL Blood 01/10/2025 12:1 5 AM CDT 01/10/2025 12:22 AM CDT Miguel Angel GOMEZ LAB BLOOD ORDERABLES Final Result Performing Organization Address [facility] Co de Phone Number STEWARTASHLIE FISH [address] [address] [facility] [place] [address] * Potassium (01/10/2025 12:15 AM CDT) Potassium, pl 4.0 3.3 - 4.9 mmol/L Blood 01/10/2025 12:1 5 AM CDT 01/10/2025 12:22 AM CDT Miguel Angel GOMEZ LAB BLOOD ORDERABLES Final Result Performing Organization Address [facility] Co de Phone Number STEWARTASHLIE FISH [address] [address] [facility] [place] [address] * POCT glucose (01/10/2025 12:08 AM CDT) Glucose, POC 143 70 - 199 mg/dL Blood 01/10/2025 12:0 8 AM CDT 01/10/2025 12:08 AM CDT Notinfile Unknown LAB POCT ORDERABLES - DEVICE F inal Result Performing Organization Address City/[facility] Co de Phone Number STEWARTASHLIE FISH [address] [address] [place] [address] * XR Wrist Left 3 or More [...] by: Segundo Guaman M.D. Miguel Angel GOMEZ [facility]EDURES Fin al Result * XR [...] by: Segundo Guaman M.D. Miguel Angel GOMEZ [facility] [place]R PROCEDURES Fin al Result * (ABNORMAL) [...] tendency for uric acid stone formation. Source: [facility] Current Interpretive Data was last revised [...] Reflex to microscopic UA will be performed. [facility] Urine 01/09/2025 11:3 6 PM CDT 01/09/2025 11:57 PM CDT us Marcello Dasilva MD [facility] Final Result Performing Organization Address City/[facility] Co de Phone Number APRYL FISH [address] [address] [place] [address] * (ABNORMAL) Urinalysis, microscopic only (01/09/2025 11:36 PM CDT) WBC, ur 11-20(A) 0 - 5 /HPF RBC, ur 3-5(A) 0 - 2 /HPF [facility] Epithelial cells, squamous, ur 1-5 0 - 5 /HPF [facility] Culture Reflex Comment Reflex to urine culture will be performed. [facility] Urine 01/09/2025 11:3 6 PM CDT 01/09/2025 11:57 PM CDT us Marcello Dasilva MD LAB URINE ORDERABLES Final Resu lt Performing Organization Address City/[facility] Co de Phone Number APRYL FISH [address] [address] [facility] [employer] [place], [place] [id number] * Urine culture Urine (01/09/2025 11:36 PM CDT) Report Final Report: Less than 100,000 colonies/mL (clinically insignificant growth based on current clinical standards) Comment:Testing performed by : [facility], [address] [place]., [address] Organism (CLINICALLY INSIGNIFICANT GROWTH [facility] Urine 01/09/2025 11:3 6 PM CDT 01/10/2025 6:11 AM CDT Narrative [facility] - 01/11/2025 8:32 AM CDT Urine culture reflexed based upon urinalysis results. Testing performed by [facility] Microbiology Laboratory ([phone]) us Henry Beal MD LAB MICROBIOLOGY - GENE RAL ORDERABLES Final Result [facility] [address] [address] [place] [address] * ECG 12 lead (01/09/2025 5:26 PM CDT) 01/09/2025 5:26 PM CDT Narrative [facility] - 01/09/2025 7:35 PM CDT Vent Rate: 82 bpm RR Interval: 730 msec GA Interval: 0 msec QRS Duration: 104 msec QT Interval: 381 msec QTC Interval: 419 msec P-R-T [place]: 0 - -35 - 140 degrees IMPRESSION: [...] MD ECG ORDERABLES Final Result [facility] * eGFR (01/09/2025 5:23 PM CDT) eGFR [...] ORDERABLES Final Resu lt Performing Organization Address City/[facility]/ZIP Co de Phone Number APRYL FISH [address] [address] [place] [address] * (ABNORMAL) Differential, auto (01/09/2025 5:23 PM CDT) Neutrophil abs 4.81 1.50 - 6.50 K/cumm Imm gran abs 0.04 0.00 - 0.10 K/cumm CERNER Lymphocyte abs 0.52(L) 0.80 - 3.30 K/cumm [facility] Monocyte abs 0.80 0.20 - 0.80 K/cumm [facility] Eosinophil abs 0.08 0.00 - 0.50 K/cumm [facility] Basophil abs 0.03 0.00 - 0.10 K/cumm [facility] Neutrophil pct 76.6 % [facility] Comment: Interpretive Data Percent cell count reference ranges are not reported, since discordance with absolute values may lead to misinterpretation of CBC data. Current Interpretive Data was last revised on 2017. Imm gran pct 0.6 % [facility] Comment: Interpretive Data Percent cell count reference ranges are not reported, since discordance with absolute values may lead to misinterpretation of CBC data. Current Interpretive Data was last revised on 2017. Lymphocyte pct 8.3 % [facility] Comment: Interpretive Data Percent cell count reference ranges are not reported, since discordance with absolute values may lead to misinterpretation of CBC data. Current Interpretive Data was last revised on 2017. Monocyte pct 12.7 % [facility] Comment: Interpretive Data Percent cell count reference ranges are not reported, since discordance with absolute values may lead to misinterpretation of CBC data. Current Interpretive Data was last revised on 2017. Eosinophil pct 1.3 % [facility] Comment: Interpretive Data Percent cell count reference ranges are not reported, since discordance with absolute values may lead to misinterpretation of CBC data. Current Interpretive Data was last revised on 2017. Basophil pct 0.5 % [facility] Comment: Interpretive Data Percent cell count reference ranges are not reported, since discordance with absolute values may lead to misinterpretation of CBC data. Current Interpretive Data was last revised on 2017. Blood 01/09/2025 5:23 PM CDT 01/09/2025 5:25 PM CDT us Marcello Dasilva MD LAB BLOOD ORDERABLES Final Resu lt STEWARTASHLIE FISH [address] [address] [place] [address] * (ABNORMAL) CBC with auto differential (01/09/2025 5:23 PM CDT) Pathologist [facility] [place] WBC 6.28 3.80 - 9.90 K/cumm Hgb [...] MD LAB BLOOD ORDERABLES Final Resu lt [facility] [address] [address] [place] [address] * (ABNORMAL) Comprehensive metabolic panel (01/09/2025 5:23 PM CDT) [facility] Sodium 137 135 - 145 mmol/L Potassium, pl 5.6(H) 3.3 - 4.9 mmol/L [facility] Comment:Hemolysis present. R esults may be [...] BLOOD ORDERABLES Final Resu lt APRYL FISH [address] [address] [place] [address] * Iron profile w/ IBC (12/15/2024 1:39 PM CDT) Iron 73 45 - 160 mcg/dL [facility] TIBC 272 250 - 450 mcg/dL (calc) [facility] Iron saturation 27 16 - 45 % (calc) [facility] Blood 12/15/2024 1:39 PM CDT 12/15/2024 1:40 PM CDT Quinn Jensen MD LAB BLOOD ORDERABLES Final R esult [facility] [address] [place] [phone] * (ABNORMAL) CBC with auto differential (12/15/2024 1:39 PM CDT) [facility] WBC 9.8 3.8 - 10.8 Thousand/u L [...] ORDERABLES Final R esult Performing Organization Address [facility] de Phone Number [facility] [address] [place] [address] * (ABNORMAL) Reticulocyte Count (12/15/2024 1:39 PM CDT) Pathologist [facility] [place] Reticulocyte count, automated 2.0 % [facility] Reticulocyte, absolute 90,200(H) 20,000 - 80,000 cells/uL [facility] Blood 12/15/2024 1:39 PM CDT 12/15/2024 1:40 PM CDT Quinn Jensen MD LAB BLOOD ORDERABLES Final R esult Performing Organization Address [facility] Phone Number [facility] [address] [place] [address] * Ferritin (12/15/2024 1:39 PM CDT) Pathologist [facility] [place] Ferritin 155 16 - 288 ng/mL [facility] Blood 12/15/2024 1:39 PM CDT 12/15/2024 1:40 PM CDT Quinn Jensen MD LAB BLOOD ORDERABLES Final R esult Performing Organization Address [facility] de Phone Number [facility] [address] [place] [address] * GA ARTHROCENTESIS ASPIR&/INJ MAJOR JT/BURSA W/O US (12/14/2024 [...] IN CLINIC/BEDSIDE BLAKE BOJORQUEZ Final Result * GA ARTHROCENTESIS ASPIR&/INJ MAJOR JT/BURSA W/O US (12/08/2024 [...] CARDIAC SERVICES SHADI MYERS Final Result * GA ARTHROCENTESIS ASPIR&/INJ MAJOR JT/BURSA W/O US (11/21/2024 [...] CDT 11/08/2024 4:01 AM CDT Rommel Oates [facility] DO LAB BLOOD ORDERABLES F inal Result APRYL [facility] (SOPHIA) 1 [facility] [place] [address] * (ABNORMAL) Basic metabolic panel (11/08/2024 3:06 [...] ORDERABLES F inal Result APRYL VALLE SOPHIA) 6 [facility] [place] [address] * Dexa Axial Skeleton Bone Density 1 Or 2 Site (10/13/2024 2:40 PM CDT) Anatomical Region Laterality Modality Body N/A Other 10/15/2024 10:1 6 AM CDT Narrative 10/15/2024 10:19 AM CDT EXAM DESCRIPTION: DEXA AXIAL SKELETON BONE DENSITY 1 OR MORE SITES REASON FOR STUDY: 79 y/o year old F with given history of: Low bone mineral density, surveillance Screening. Hospice Office Coordinator/Model: 66. com [employer] SL (S/N [id number]) Facility LSC value of 0.022 for the [...] Cedric Nam M.D. MF: ERIN Report ID: [id number] Reading Location: [address] Note Cedric Nam MD - 10/15/2024 EXAM DESCRIPTION: DEXA AXIAL SKELETON BONE DENSITY 1 OR MORE SITES REASON FOR STUDY: 79 y/o year old F with given history of: Low bone mineral density, surveillance Screening. Hospice Office Coordinator/Model: [employer] SL (S/N [id number]) Facility LSC value of 0.022 for the [...] Cedric Nam M.D. MF: ERIN Report ID: [id number] Reading Location: [id number] Bruno Sorenson MD IMG DXA PROCEDURES Final Result * Diabetic Eye Exam (06/28/2024 10:18 AM NEON INSTALLER) Historical Provider HEALTH MAINTENANCE Final Result * Screening Mammogram (06/14/2018) Anatomical Region Laterality Modality Breast N/A Mammography Historical Provider IMG MAMMO PROCEDURES Jalyn l Result from Last 3 Months or Most Recently Relevant to Health Maintenance Insurance [facility]IC[facility] [employer] MEDICARE [employer] MEDICARE Advance Directives For more information, please contact: [phone] Documents on File Type Date Recorded Patient Fixed Interest Dealer Expl anation ADVANCE DIRECTIVE 02/04/2024 9:00 AM Cedric Avilez ower of Supervisor Shipping Room-Medical * Full Code (Latest Code Status on [...] Son Health Care Agent m Care Teams Taxi Driver Supervisor Relationship Specialty Start Date End Date [place] [id number] PCP - General 08/21/16 Janice Zimmerman, PT Physical Therapist Physical Therapy 11/01/17 Tatum Moon, SURVEY ENGINEER Privacy Manager Physical Therapy 11/12/17 Saniya Greenwood, SURVEY ENGINEER Privacy Manager Physical Therapy 11/17/17 Felipe Neff MD [address] [place] [address] Referring Physician Endocrinology Diabetes & Metabolism 04/28/22 Alex Jauregui MD [address] [facility] [place] [address] Consulting Physician Cardiology 03/07/23 Una Guallpa DNP [facility] [address] [facility] [place] [address] Nurse Practitioner Neurology 05/27/23
--- OUTSIDE RECORDS SUMMARY | 2025-02-08 15:10 | XMS_ITS | Encounter Summary ---
Author Organization [facility] Address [address] [facility] [place] [address] Care Team Providers Care Managing Cognitive Engineer Name Role Phone Unavailable Primary Care Provider Unavailabl e Encounter Details Date Type Department Care Team (Late st Contact Info) Description 04/18/2024 Lab Requisition [facility] - DermPath Lab [address] [facility] [place] [id number] Sunita Madden MD [address] [place] [address] Social History Tobacco Use Types Packs/Day Years Used Date Smoking Tobacco: Never Assessed Comments Unknown Sex and Gender Information Value Date Recorded Sex Assigned at Not on file Legal Sex Female 6:04 AM DRAFTER MARINE Gender Identity Not on file Sexual Orientation Not on file documented as of this encounter Plan of Treatment Not on file documented as of this encounter Procedures Procedure Name Priority Date/Time Associated Diagnosis Comments DERMATOPATHOLOGY Routine 04/17/2024 12:0 0 AM DRAFTER MARINE documented in this encounter Results * DERMATOPATHOLOGY (04/17/2024 12:00 AM DRAFTER MARINE) Case Report Dermatopathology Report Case: [id number] Authorizing Provider: Sunita Madden MD Collected: 04/17/2024 12:00 AM Ordering Location: [facility] - Received: 04/18/2024 10:45 AM DermPath Lab Pathologist: Karla Epsp MD Specimen: Skin, right mid upper back 1:25 PM DRAFTER MARINE DERMATOPATHOLOGY LABORATORY Final Diagnosis Specimen A. 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 The specimen consists of a shave biopsy measuring [id number] mm. Jar 0. 4 1:25 PM [facility] DERMATOPATHOLOGY LABORATORY Microscopic Description Specimen A. [...] structures.(Compoun d Chano's Nevus) 4 1:25 PM [facility] DERMATOPATHOLOGY LABORATORY Disclaimer An external and internal positive and negative controls are appropriate for the histochemical, immunohistochemical and immunofluorescence stain(s) in this case (if any), except where stated explicitly. The performance characteristics of the stain(s) cited in this report were developed and its performance characteristic determined by the Dermatopathology Laboratory at [facility], directed by Dr. Rj Viera. These tests need not be, and therefore are not, approved by the [place] Food and Drug Administration. The tests are used for clinical purposes. Billing Codes Specimen Charges Stain Charges 24319 1 4 1:25 PM [facility] DERMATOPATHOLOGY LABORATORY Embedded Images 4 1:25 PM [facility] DERMATOPATHOLOGY LABORATORY Pathology/Cytolog y TISSUE SPECIMEN FROM SKIN / Unknown 04/17/2024 04/18/2024 10:45 AM [facility] us Sunita Madden MD LAB - PATHOLOGY/CYTOLOGY ORD ERABLES Final Result DERMATOPATHOLOGY LABORATORY [facility] - Department of Dermatology [facility] [address] [place] [address], [address] [phone] documented in this encounter Visit Diagnoses Not on filedocumented in this encounter
--- OUTSIDE RECORDS SUMMARY | 2025-02-08 15:10 | XMS_ITS | Encounter Summary ---
Author Organization [facility] Address [address] [place] [address] Care Team Providers Care Juice Tester Name Role Phone Unavailable Primary Care Provider Unavailabl e Encounter Details Date Type Department Care Team (Late st Contact Info) Description 04/19/2024 Lab Requisition [facility] - DermPath Lab [address] [place] [id number] Sunita Madden MD [address] [place] [address] Neoplasm of uncertain behavior of skin Social History Tobacco Use Types Packs/Day Years Used Date Smoking Tobacco: Never Assessed Comments Unknown Sex and Gender Information Value Date Recorded Sex Assigned at Not on file Legal Sex Female 6:04 AM VESSEL LINER Gender Identity Not on file Sexual Orientation [...]
--- OUTSIDE RECORDS SUMMARY | 2025-02-08 15:10 | XMS_ITS | Encounter Summary ---
Author Organization [facility] Address [address] [place] [address] Care Team Providers Care Auditing Control Clerk Name Role Phone Bruno Sorenson MD Primary Care Provider [phone] Janice Zimmerman PT Unavailable Unavailab Tatum Hilliard TRUCK DRIVING INSTRUCTOR Unavailable Unavailab Saniya Salcedo TRUCK DRIVING INSTRUCTOR Unavailable Unavailable Felipe Neff MD Unavailable [phone] Alex Jauregui MD Unavailable Una Guallpa DNP Unavailable [phone] Encounter Details Date Type Department Care Team (Late st Contact Info) Description 01/30/2025 Results Follow-Up [facility] [address] [address] Ada Obrien, THEATER EDUCATION TEACHER [address] [place] [address] Hemoglobin A1c, Lipid panel, Albumin Creatinine Ratio, [...] often do you attend chur ch or muslim services? More than 4 times per year 11/06/2024 Do you belong to any clubs o r organizations such as yazidi groups, unions, fraternal or athletic groups, or [...] place to sleep or slept in a snf (including now)? No 05/20/2023 Housing Stability Vital Sign Answer Vasu e Recorded In the last 12 months, was t here a time when you were not able to pay the mortgage or rent on time? No 11/06/2024 In the past 12 months, how m any times have you moved where you were living? 0 11/06/2024 At any time in the past 12 m [facility], were you homeless or living in a snf (including now)? No 11/06/2024 Social Connection and Isolation Panel Answer Date Recorded In a typical week, how many times do you talk on the phone with family, friends, or neighbors? More than three times a week 01/12/2025 How often do you get togethe r with friends or relatives? More than three times a week 01/12/2025 How often do you attend chur ch or muslim services? More than 4 times per year 01/12/2025 Do you belong to any clubs o r organizations such as yazidi groups, unions, fraternal or athletic groups, or [...] any time in the past 12 m [facility], were you homeless or living in a snf (including now)? No 01/12/2025 [facility] Utilities Answer Date Recorded In the past [...] (e.g., MA, MS, Berna, MEd, DIRECTOR OF CORPORATE COMMUNICATIONS, LAYO) 01/31/2024 Comments No Sex and Gender Information Value Date Recorded Sex Assigned at Not on file Legal Sex Female 11:50 PM SERVICE DISPATCHER Gender Identity Not on file Sexual Orientation [...] on filedocumented in this encounter Care Teams Auditing Control Clerk Relationship Specialty Start Date End Date [place] [address] PCP - General 08/21/16 Janice Zimmerman, PT Physical Therapist Physical Therapy 11/01/17 Tatum Moon, TRUCK DRIVING INSTRUCTOR Child Care Sitter Physical Therapy 11/12/17 Saniya Greenwood, TRUCK DRIVING INSTRUCTOR Child Care Sitter Physical Therapy 11/17/17 Felipe Neff MD [address] [place] [address] Referring Physician Endocrinology Diabetes & Metabolism 04/28/22 Alex Jauregui MD [address] [place] [address] Consulting Physician Cardiology 03/07/23 Una Guallpa DNP [address] [place] [address] Nurse Practitioner Neurology 05/27/23 documented as of this encounter
--- OUTSIDE RECORDS SUMMARY | 2025-02-08 15:10 | XMS_ITS ---
Author Organization [facility] Address [address] [place] [address] Care Team Providers Care Scrap Wheeler Name Role Phone Bruno Sorenson MD Primary Care Provider [phone] Janice Zimmerman PT Unavailable Unavailab Tatum Hilliard BOLT LABELER Unavailable Unavailab Saniya Salcedo BOLT LABELER Unavailable Unavailable Felipe Neff MD Unavailable [phone] Alex Jauregui MD Unavailable [phone] Una Guallpa DNP Unavailable [phone] Active Problems Problem Noted Date Diagnosed [...] status closely. Coronary artery disease invo lving [place] coronary artery of [place] heart without angina pectoris 11/10/2024 Assessment & [...] 07/13/2024 Assessment & Plan (07/13/2024 9:42 AM SUPERVISOR TAN ROOM): Check imaging and will poncho frederick. Reivwed and will pranay jones. Trochanteric bursitis of right hip 03/15/2024 Annual physical exam 03/13/2024 Heart failure with preserved ejection fraction 1 Iron deficiency anemia 02/17/2024 Assessment & Plan (07/17/2024 11:06 AM SUPERVISOR TAN ROOM): Labs stable; MAY has been ongoing since [...] 01/15/2024 Assessment & Plan (07/17/2024 11:03 AM SUPERVISOR TAN ROOM): 01/17 calcium=9.4. Repeat labs ordered today. Hypothyroidism 08/18/2023 Assessment & Plan (08/18/2023 11:18 AM CDT): Patient continues follow-up with Endocrinology will repeat TFTs to monitor replacement level. Mixed hyperlipidemia 06/18/2023 Heart failure, unspecified 06/11/2023 Cerebrovascular accident (CV A) due to embolism of left middle cerebral artery 05/24/2023 Athscl heart disease of jov[place] ve coronary artery w/o ang pctrs 05/24/2023 Pneumonia 05/20/2023 terminal operator current use of anticoagulant Assessment & Plan [...] 05/10/2023 Assessment & Plan (07/17/2024 11:01 AM SUPERVISOR TAN ROOM): Rate controlled; continues diltiazem and eliquis. Trochanteric [...] PFT 05/10/2023 Atherosclerotic heart diseas e of [place] coronary artery with other forms of angina [...] 03/11/2023 Assessment & Plan (07/13/2024 9:42 AM SUPERVISOR TAN ROOM): DOaC and rate control. Hypertensive heart disease with heart failure Chest pain, unspecified type 03/06/2023 Pulmonary infiltrate 07/23/2022 terminal operator (current) use of 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 07/23 Arthritis of right acromioclavicular joint 08/14 Recurrent acute serous otitis media of left ear 06/16/2021 Assessment & Plan (06/16/2021 1:59 PM SUPERVISOR TAN ROOM): Avoid ear cleaning techniques Avoid water to ears Follow up with Dentist Referred otalgia of left ear 06/16/2021 Assessment & Plan (06/16/2021 1:59 PM SUPERVISOR TAN ROOM): Avoid ear cleaning techniques Avoid water to ears Follow up with Dentist Scalp psoriasis 07/19/2020 Overview (07/19/2020): Contniue triamcinolone. Assessment & Plan (08/18/2023 11:18 AM CDT): Refill on ketoconazole shampoo to good effect. terminal operator current use of anticoagulant 0 Mixed hyperlipidemia 09/26/2019 Assessment & Plan (09/26/2019 2:08 PM CDT): Dr Perez started Mrs Olson on pravastatin 40mg at her last appt. 08/09/19 A1C=6.1% SB=215 HDL=39 ZP=100 LDL=66 TC/HDL=3.9 Reviewed above results w/Mrs Olson. 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 She and her are agreeable with plan and will go to the emergency department. Assessment & Plan (07/13/2024 9:41 AM SUPERVISOR TAN ROOM): No acute s/s of lfuid overload and [...] diet. Assessment & Plan (07/15/2017 10:31 AM SUPERVISOR TAN ROOM): Congestive heart failure due to coronary artery [...] the medical records was 2017 per her studio artist note and EF was 64%. Bronchitis 07/14/2017 Assessment & Plan (07/14/2019 8:26 AM SUPERVISOR TAN ROOM): Zpack sent. Currently taking predinsone (pulm Dr Rodrgiuez) & albuterol inhaler. discussed expectorant (ie mucinex). Reviewed med Ses & scheduling. Aware to complete antibiotic. Instructed in albuterol inhaler use. Aware to rinse mouth after use. Push fluids. Discussed saline nasal spray. Reviewed red flags; what would warrant rtc or ED for further eval. Assessment & Plan (07/14/2017 12:58 PM SUPERVISOR TAN ROOM): Take your antibiotic as directed You may [...] 02/05/2017 Assessment & Plan (07/13/2024 9:42 AM SUPERVISOR TAN ROOM): Supportive caretheand econtinues on forteol. Stenosis of lateral recess of lumbar spine 01/22 Acquired kyphoscoliosis 01/22/2017 History of fracture of vertebra 01/22/2017 Postlaminectomy syndrome of lumbar region 2016 Malignant neoplasm of thyroid gland 01/20/2017 Assessment & Plan (07/13/2024 9:41 AM SUPERVISOR TAN ROOM): Ciontinue f/uw with endocrinology. Reviewed suppressive therapy and clinically euthryoid. Atrial fibrillation 01/20/2017 Assessment & Plan (11/10/2024 3:22 PM CDT): By Dr. Jones. Rate controlled. Holding diltiazem. Continue Eliquis 5 mg b.i.d.. Assessment & Plan (08/18/2023 11:17 AM CDT): Patient continues follow-up with Dr. Jones cardiology. No change in anticoagulation or rate control. Assessment & Plan (07/15/2017 9:48 AM SUPERVISOR TAN ROOM): Pt. Has long time hx of a-fib [...] time. 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 Next appt 08/06/19. Assessment & Plan (07/15/2017 10:01 AM SUPERVISOR TAN ROOM): Pt will need to f/u with Pulmonary for possible sarcoidosis flare up in lungs Hypertension, essential 01/20/2017 Assessment & Plan (07/13/2024 9:41 AM SUPERVISOR TAN ROOM): Stable and will montiro resopnse. NO change [...] 11/2022 Assessment & Plan (07/14/2019 8:26 AM SUPERVISOR TAN ROOM): DEXA ordered. Will contact with results once received. Encounter for screening for lipoid disorders 0 04/29/2023 Assessment & Plan (07/14/2019 8:27 AM SUPERVISOR TAN ROOM): 07/10/19 GC=789 HDL=26 NF=392 LDL=59 TC/HDL=5.2 GFK=054 Copy of results given to mrs Olson. Written explanations given. Dietary changes discussed as well as increasing activity as tolerated. BMI 29.0-29.9,adult 07/14/2019 09/26/19 Assessment & Plan (07/14/2019 8:27 AM SUPERVISOR TAN ROOM): Reviewed need to lose weight, reviewed health benefits. Reviewed recommendations for daily intake & activity 20-30 minutes/day. Discussed healthy diet and importance of regular physical activity. Trochanteric bursitis of right hip 03/08/2018 04/29/2023 Iliotibial band syndrome of right side 03/08/2018 04/29/2023 Iliotibial band syndrome of left side 03/08/2018 04/29/2023 No diagnosis on Sarag[place] I 03/18/201707/14 Pulmonary embolism 01/20/2017 4 Diabetes [...] evaluation. Assessment & Plan (07/14/2019 8:24 AM SUPERVISOR TAN ROOM): Microalbumin, POC 80 mg/L Final CRE 100 mg/dL; A:C 30-300 mg/g Lumbago 12/07/2016 04/29/2023 Hypotension due to drugs 10/22/2015 Overview (08/27/2016): Hypotension due to medication Candidiasis of mouth 10/22/2015 020 Overview (08/27/2016): Oral thrush
--- OUTSIDE RECORDS SUMMARY | 2025-02-08 15:10 | XMS_ITS | Clinical Summary ---
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
[2025-02-08 15:49] LABS: Hematocrit 36.7 % (37.0-47.0); Hemoglobin 10.9 g/dL (12.0-15.0); Immature Granulocyte Percent A 0.2 % (0-0.5); Lymphocytes Absolute Auto 0.28 K/mm3 (0.9-3.2); Mean Corpuscular HGB Conc 29.7 g/dl (32-36); Mean Corpuscular Hemoglobin 27.7 pg (26-34); Mean Corpuscular Volume 93.1 fl (80-100); Nucleated Red Blood Cells Absolute Auto 0.000 K/mm3 (0.0-0.012); Nucleated Red Blood Cells Perc 0.0 % (0.0-0.2); Platelet Count Result 227 k/mm3 (150-375); Red Blood Count 3.94 M/mm3 (4.2-5.4); White Blood Count 4.6 K/mm3 (4.5-10.0)
[2025-02-08 16:00] LABS: Alanine Aminotransferase 12 U/L (6-35); Albumin Level 3.8 g/dL (3.5-5.1); Alkaline Phosphatase 114 U/L (38-126); Anion Gap 8 mmol/L (4-12); Aspartate Amino Transferase 22 U/L (14-36); Bilirubin,Total 0.2 mg/dL (0.2-1.3); Blood Urea Nitrogen 37 mg/dL (7-17); Calcium 6.6 mg/dL (8.4-10.2); Carbon Dioxide 36 mmol/L (22-30); Chloride 91 mmol/L (98-107); Estimated Glomerular Filt Rate 50; Glucose 125 mg/dL (65-110); Potassium 2.9 mmol/L (3.4-5.0); Sodium 135 mmol/L (137-145); Total Protein 7.1 g/dL (6.3-8.2)
[2025-02-08 16:01] LABS: INR 1.5; Partial Thromboplastin Time 40.8 Seconds (22.3-36.8); Prothrombin Time 18.2 Seconds (11.1-14.7)
[2025-02-08 16:11] LABS: NT Pro B Type Natriuretic Pept 10300 pg/mL (19.9-100); Troponin I < 0.012 ng/mL (0.000-0.034)
--- NOTE | 2025-02-08 16:30 | ED.SOB ---
HPI - SOB/Dyspnea General Chief Complaint: Shortness of Breath/Dyspnea Stated Complaint: SHOB-fluid retention Time Seen by Provider: 02/08/25 15:03 Source: patient Mode of arrival: EMS Limitations: no limitations History of Present Illness HPI Narrative: 79-year-old with a history of CHF on torsemide twice a day, diabetes, this atrial fibrillation, hypertension was brought in from [facility] with a complains of 20 lb weight gain for past 1 week. She denies any chest pain or shortness of breath ,she endorses Dr. Zan Perez at [facility] Onset (ago): week(s) (1) Timing: constant Exacerbating factors: nothing Relieving factors: nothing Known history of: congestive heart failure Associated symptoms: denies other symptoms Related Data Home oxygen amount: none Home Medications ?Medication ?Instructions ?Recorded ?Confirmed ?Last Taken ?Type albuterol sulfate 90 mcg/actuation 2 puff inhalation Q6H PRN 01/16/25 01/16/25 Unknown History aerosol inhaler shortness of breath or wheezing apixaban 5 mg tablet (Eliquis) 5 mg PO Q12H 01/16/25 01/16/25 Unknown History aspirin 81 mg tablet,delayed 81 mg PO DAILY 01/16/25 01/16/25 Unknown History release (Adult Low Dose Aspirin) cholecalciferol (vitamin D3) 25 1,000 unit PO DAILY 01/16/25 01/16/25 Unknown History mcg (1,000 unit) capsule dapagliflozin propanediol 10 mg 10 mg PO DAILY 01/16/25 01/16/25 Unknown History tablet (Farxiga) docusate sodium 100 mg capsule 100 mg PO BID 01/16/25 01/16/25 Unknown History fluocinonide 0.05 % topical 1 applic topical BID 01/16/25 01/16/25 Unknown History solution fluticasone 250 mcg-salmeterol 50 1 inh inhalation BID 01/16/25 01/16/25 Unknown History mcg/dose blistr powdr for inhalation gabapentin 300 mg capsule 300 mg PO Q12H 01/16/25 01/16/25 Unknown History ipratropium 0.5 mg-albuterol 3 mg 3 ml inhalation Q6H PRN shortness 01/16/25 01/16/25 Unknown History (2.5 mg base)/3 mL nebulization of breath or wheezing soln isosorbide mononitrate 30 mg 30 mg PO HS 01/16/25 01/16/25 Unknown History tablet,extended release 24 hr levothyroxine 175 mcg tablet 175 mcg PO DAILY 01/16/25 01/16/25 Unknown History (Synthroid) omeprazole 40 mg capsule,delayed 40 mg PO DAILY 01/16/25 01/16/25 Unknown History release pravastatin 40 mg tablet 40 mg PO HS 01/16/25 01/16/25 Unknown History spironolactone 25 mg tablet 25 mg PO DAILY 01/16/25 01/16/25 Unknown History torsemide 20 mg tablet 40 mg PO DAILY 01/16/25 01/16/25 Unknown History tramadol 50 mg tablet 50 mg PO Q8H PRN pain 01/16/25 01/16/25 Unknown History Allergies Allergy/AdvReac Type Severity Reaction Status Date / Time Penicillins Allergy Unknown RASH/EDEMA Verified 02/08/25 15:23 Sulfa (Sulfonamide Allergy Swelling Verified 02/08/25 15:23 Antibiotics) Review of Systems Review of Systems: All systems reviewed & are unremarkable except as noted in HPI and below Constitutional: Constitutional: Reports no additional constitutional complaints Eyes: Eyes: Reports no additional eye complaints ENT: Reports system reviewed and no additional complaints, except as documented Cardiovascular: Cardiovascular: Reports as per HPI Respiratory: Respiratory: Reports no additional respiratory complaints Gastrointestinal: Gastrointestinal: Reports no additional gastrointestinal complaints Musculoskeletal: Musculoskeletal: Reports no additional musculoskeletal complaints Neurologic: Reports system reviewed and no additional complaints, except as documented Endocrine: Endocrine: Reports no additional endocrine complaints [facility] Past Medical History Medical History Atrial fibrillation History of hyperlipidemia History of CHF (congestive heart failure) History of hypertension Family History Family History Father Acute myocardial infarction Cerebrovascular accident Diabetes mellitus Hypertension Mother Acute myocardial infarction Cerebrovascular accident Hypertension Sibling History of blood clots Cerebrovascular accident Diabetes mellitus Hypertension Prostate carcinoma Social History Social History Smoking status: Never smoker Alcohol intake: never Substance use: never Lack of Transportation: No Lack of Food: Never True Current Housing: I Have Housing Concerned About Future Housing: No Difficulty Paying Gas/Electric Bills: No Difficulty Paying for Meds: No Currently Unemployed: No Education: Master's Degree or Higher Difficulty w/ Childcare or Family Care: No Spiritual care concerns: No Exam Narrative: GENERAL: Well-appearing, well-nourished, and in no acute distress. HEAD: Normocephalic, atraumatic. EYES: PERRLA and EOMI. ENT: Nares clear, no rhinorrhea or epistaxis. Mucous membranes moist. NECK: Supple. CHEST: Clear to auscultation. No respiratory distress. HEART: Regular rate and rhythm. No murmur heard. Normal peripheral pulses. ABDOMEN: Soft, nontender, nondistended, normal active bowel sounds. EXTREMITIES: Normal range of motion. has chronic edema SKIN: Warm, dry, no rash. NEURO: No focal deficits. Alert and oriented x3. PSYCH: Normal mood and affect. Course Course Emergency Course: Discussed lab work with the patient. Agreeable with admission. I did give her 1 mg of Bumex. Vital Signs Vital signs: Vital Signs Temperature 36.8 C 02/08/25 13:50 Pulse Rate 80 02/08/25 13:50 Respiratory Rate 16 02/08/25 13:50 Blood Pressure 109/51 L 02/08/25 13:50 Pulse Oximetry 100 02/08/25 13:50 Temperature 36.8 C 02/08/25 13:50 Pulse Rate 83 02/08/25 15:21 Respiratory Rate 16 02/08/25 13:50 Blood Pressure 109/51 L 02/08/25 13:50 Pulse Oximetry 100 02/08/25 15:22 Oxygen Delivery Room Air 02/08/25 15:28 Oxygen Flow Rate 3 02/08/25 15:22 MDM - SOB/Dyspnea Differential Diagnosis Differential diagnosis: Likely acute exacerbation of chronic obstructive airways disease, congestive heart failure and pulmonary embolism Medical Records Attestation: I reviewed the patient's medical records. Lab Data Attestation: I reviewed the patient's lab results. 02/08/25 15:33 02/08/25 15:33 Labs: Lab Results 02/08/25 Range/Units 15:33 WBC 4.6 (4.5-10.0) K/mm3 RBC 3.94 L (4.2-5.4) M/mm3 Hgb 10.9 L (12.0-15.0) g/dL Hct 36.7 L (37.0-47.0) % MCV 93.1 (80-100) fl MCH 27.7 (26-34) pg MCHC 29.7 L (32-36) g/dl RDW 16.1 H (11.5-14.5) % Plt Count 227 (150-375) k/mm3 MPV 9.8 (7.4-10.4) fl Immature Gran % (Auto) 0.2 (0-0.5) % Neut % (Auto) 83.0 H (45.5-73.1) % Lymph % (Auto) 6.1 L (18.3-44.2) % [place] % (Auto) 7.2 (2.6-8.5) % Eos % (Auto) 2.8 (0-4.4) % Baso % (Auto) 0.7 (0.2-1.2) % Lymph # (Auto) 0.28 L (0.9-3.2) K/mm3 [place] # (Auto) 0.3 (0.1-0.6) K/mm3 Eos # (Auto) 0.1 (0-0.3) K/mm3 Baso # (Auto) 0.0 (0.0-0.1) K/mm3 Abs Immat Gran (auto) 0.01 (0.00-0.031) K/mm3 Absolute Neuts (auto) 3.8 (1.3-6.7) K/mm3 Absolute Nucleated RBC 0.000 (0.0-0.012) K/mm3 Nucleated RBC % 0.0 (0.0-0.2) % PT 18.2 H (11.1-14.7) Seconds INR 1.5 APTT 40.8 H (22.3-36.8) Seconds Sodium 135 L (137-145) mmol/L Potassium 2.9 L (3.4-5.0) mmol/L Chloride 91 L (98-107) mmol/L Carbon Dioxide 36 H (22-30) mmol/L Anion Gap 8 (4-12) mmol/L BUN 37 H (7-17) mg/dL Creatinine 1.06 H (0.7-1.0) mg/dL Estim Creat Clear Calc Not Reportable Estimated GFR 50 L (59 - ) Glucose 125 H (65-110) mg/dL Calcium 6.6 L (8.4-10.2) mg/dL Total Bilirubin 0.2 (0.2-1.3) mg/dL AST 22 (14-36) U/L ALT 12 (6-35) U/L Alkaline Phosphatase 114 (38-126) U/L Troponin I < 0.012 (0.000-0.034) ng/mL NT-Pro-B Natriuret Pep 57517 H (19.9-100) pg/mL Total Protein 7.1 (6.3-8.2) g/dL Albumin 3.8 (3.5-5.1) g/dL ABG Data Attestation: I personally reviewed and interpreted this ABG as follows: Imaging Data Attestation: I personally reviewed and interpreted this imaging study as follows: Radiologist's impression: ITS Impressions Chest X-Ray 02/08/25 14:39 IMPRESSION: 1. Mild worsening bibasilar atelectasis and/or airspace disease. 2. Small right pleural effusion. ECG Data EKG #1: ECG completion date: 02/08/25 ECG completion time: 14:04 EKG Interpretation: normal rate (81), atrial fibrillation, no ectopy, RBBB and no acute changes Critical Care Time Critical Care Time Total Critical Care Time: 45 Discharge Plan Discharge Clinical Impression: CHF (congestive heart failure) Qualifiers: Heart failure type: combined systolic and diastolic Heart failure chronicity: acute on chronic Qualified Code(s): I50.43 - Acute on chronic combined systolic (congestive) and diastolic (congestive) heart failure Patient Disposition: Still a Patient Condition: Stable Patient Language: Greenlandic Prescriptions: No Action fluticasone propion-salmeterol 250-50 mcg/dose blister with device 1 inh INHALATION BID albuterol sulfate 90 mcg/actuation HFA aerosol inhaler 2 puff INHALATION Q6H PRN (Reason: shortness of breath or wheezing) aspirin [Adult Low Dose Aspirin] 81 mg tablet,delayed release (DR/EC) 81 mg PO DAILY docusate sodium 100 mg capsule 100 mg PO BID Eliquis 5 mg tablet 5 mg PO Q12H dapagliflozin propanediol [Farxiga] 10 mg tablet 10 mg PO DAILY gabapentin 300 mg capsule 300 mg PO Q12H ipratropium-albuterol 0.5 mg-3 mg(2.5 mg base)/3 mL solution for nebulization 3 ml inhalation Q6H PRN (Reason: shortness of breath or wheezing) isosorbide mononitrate 30 mg tablet extended release 24 hr 30 mg PO HS levothyroxine [Synthroid] 175 mcg tablet 175 mcg PO DAILY omeprazole 40 mg capsule,delayed release(DR/EC) 40 mg PO DAILY pravastatin 40 mg tablet 40 mg PO HS spironolactone 25 mg tablet 25 mg PO DAILY torsemide 20 mg tablet 40 mg PO DAILY tramadol 50 mg tablet 50 mg PO Q8H PRN (Reason: pain) cholecalciferol (vitamin D3) 25 mcg (1,000 unit) capsule 1,000 unit PO DAILY fluocinonide 0.05 % solution 1 applic TOPICAL BID Rx Instructions: to scalp metoprolol tartrate 50 mg Tablet 50 mg PO QHS Qty: 30 0RF metoprolol tartrate 50 mg Tablet 100 mg PO QAM Qty: 30 0RF baclofen 10 mg tablet 5 mg PO HS Qty: 10 0RF Follow-up/Referrals: Harms,Bruno Parra M.D. [Primary Care Provider] Time of Disposition: 16:31
--- NOTE | 2025-02-08 16:45 | PM.IMHP ---
H&P: HPI History of Present Illness Date/Time: 02/08/25 16:45 Chief Complaint: Weight Gain Narrative: 79 y/o F with PMH of atrial fibrillation, hyperlipidemia, CHF, DM2, and hypertension presents here with 20 lb of weight gain. The patient presents here from at [facility] on 02/08 for further evaluation of fluid retention and weight gain. She reports 20 lb of weight gain over the past 2 weeks. This is accompanied by significant bilateral lower extremity edema. She reports she has had by new pants due to the amount of weight gain in the last few weeks. She denies chest pain, shortness a breath, cough, fever, chills, body aches. She follows with Margarito Fountain MD at [facility] for her cardiac care. She was previously on metoprolol and spironolactone. However she was recently seen at [facility] for a CHF exacerbation. At that time her metoprolol was decreased, she was taken off spironolactone, and she was started on midodrine t.i.d. approximately 1 week ago. She reports compliance to these medications. Initial VS at presentation: 98.2? F, HR 80, RR 16, 109/51, and 100% on RA. ED workup showed: No leukocytosis, hemoglobin 10.9 (11.0 on 01/19/2025), INR 1.5, sodium 135, potassium 2.9, creatinine 1.06 and GFR 50 (1.25 and GFR 42 on 01/19/2025), initial troponin negative, calcium 6.6/albumin 3.8, BNP 68380. CXR showed mild worsening bibasilar atelectasis and/or airspace disease and a small right pleural effusion. Review of Systems Review of Systems: All systems reviewed & are unremarkable except as noted in HPI and below [facility] Past Medical History Medical History (Updated 02/08/25 @ 18:42 by Megan Harper APRN) History of CHF (congestive heart failure) Psoriasis Hypothyroidism DM2 (diabetes mellitus, type 2) GERD (gastroesophageal reflux disease) Asthma Atrial fibrillation History of hyperlipidemia History of hypertension Surgical History Surgical History (Updated 02/08/25 @ 17:13 by Megan Harper APRN) History of hysterectomy History of cataract extraction with lens replacement History of thyroidectomy History of spinal surgery History of cholecystectomy Family History Family History Father Acute myocardial infarction Cerebrovascular accident Diabetes mellitus Hypertension Mother Acute myocardial infarction Cerebrovascular accident Hypertension Sibling History of blood clots Cerebrovascular accident Diabetes mellitus Hypertension Prostate carcinoma Social History Social History Smoking status: Never smoker Alcohol intake: never Substance use: never Substance use type: does not use Lack of Transportation: No Lack of Food: Never True Current Housing: I Have Housing Concerned About Future Housing: No Difficulty Paying Gas/Electric Bills: No Difficulty Paying for Meds: No Currently Unemployed: No Education: Master's Degree or Higher Difficulty w/ Childcare or Family Care: No Spiritual care concerns: No Meds Home Medications and Allergies Home Medications ?Medication ?Instructions ?Recorded ?Confirmed ?Type albuterol sulfate 90 mcg/actuation 2 puff inhalation Q6H PRN 01/16/25 02/08/25 History aerosol inhaler shortness of breath or wheezing apixaban 5 mg tablet (Eliquis) 5 mg PO Q12H 01/16/25 02/08/25 History aspirin 81 mg tablet,delayed 81 mg PO DAILY 01/16/25 02/08/25 History release (Adult Low Dose Aspirin) cholecalciferol (vitamin D3) 25 1,000 unit PO DAILY 01/16/25 02/08/25 History mcg (1,000 unit) capsule dapagliflozin propanediol 10 mg 10 mg PO DAILY 01/16/25 02/08/25 History tablet (Farxiga) docusate sodium 100 mg capsule 100 mg PO BID 01/16/25 02/08/25 History fluocinonide 0.05 % topical 1 applic topical BID 01/16/25 02/08/25 History solution fluticasone 250 mcg-salmeterol 50 1 inh inhalation BID 01/16/25 02/08/25 History mcg/dose blistr powdr for inhalation gabapentin 300 mg capsule 300 mg PO Q12H 01/16/25 02/08/25 History ipratropium 0.5 mg-albuterol 3 mg 3 ml inhalation Q6H PRN shortness 01/16/25 02/08/25 History (2.5 mg base)/3 mL nebulization of breath or wheezing soln isosorbide mononitrate 30 mg 30 mg PO HS 01/16/25 02/08/25 History tablet,extended release 24 hr Held on 02/08/25. Instructions: .Provider Order levothyroxine 175 mcg tablet 175 mcg PO DAILY 01/16/25 02/08/25 History (Synthroid) omeprazole 40 mg capsule,delayed 40 mg PO DAILY 01/16/25 02/08/25 History release pravastatin 40 mg tablet 40 mg PO HS 01/16/25 02/08/25 History spironolactone 25 mg tablet 25 mg PO DAILY 01/16/25 02/08/25 History torsemide 20 mg tablet 40 mg PO DAILY 01/16/25 02/08/25 History tramadol 50 mg tablet 50 mg PO Q8H PRN pain 01/16/25 02/08/25 History baclofen 10 mg tablet 5 mg (1/2 x 10 mg) PO HS #10 tabs 01/19/25 02/08/25 Rx metoprolol tartrate 50 mg tablet 100 mg (2 x 50 mg) PO QAM #30 tabs 01/19/25 02/08/25 Rx Held on 02/08/25. Instructions: Order Change metoprolol tartrate 50 mg tablet 50 mg PO .Q12HR 02/08/25 02/08/25 History midodrine 2.5 mg tablet 2.5 mg PO TID 02/08/25 02/08/25 History Allergies Allergy/AdvReac Type Severity Reaction Status Date / Time Penicillins Allergy Unknown RASH/EDEMA Verified 02/08/25 17:49 Sulfa (Sulfonamide Allergy Swelling Verified 02/08/25 17:49 Antibiotics) Vital Signs Vital Signs - 24 hr 02/08/25 13:50 02/08/25 15:21 02/08/25 15:22 Temperature 98.2 F Pulse Rate 80 83 Respiratory Rate 16 Blood Pressure 109/51 L Pulse Oximetry 100 100 Oxygen Delivery Nasal Cannula Oxygen Flow Rate 3 02/08/25 15:28 Temperature Pulse Rate Respiratory Rate Blood Pressure Pulse Oximetry Oxygen Delivery Room Air Oxygen Flow Rate Exam Const: General: comfortable and no acute distress Other: , female, elderly, nontoxic appearance HENMT: Face/Nose/Sinus: Normal nares present Mouth: Yes moist mucous membranes Eyes: General: appearance normal, both eyes and all related structures Sclera: sclerae normal Pupils: Equal, round and reactive pupils present EOM: EOMs intact bilaterally Resp: Effort & Inspection: normal respiratory effort Auscultation: clear to auscultation bilaterally Other: Nasal cannula place, tolerating well. Cardio: Rate: regular rate Rhythm: abnormal rhythm Other: S1-S2 present without murmur, rub, ectopy GI: Other: Abdomen soft, nondistended, nontender. Normoactive bowel sounds in all quadrants. Skin: General skin exam: normal color and no rashes or lesions noted Wounds: no wounds Neuro: Speech: normal speech Motor exam (neuro): 5/5 motor strength present throughout Sensory Exam: normal sensation Other: A&O x4 Extrem: Other: 2-3+ pitting edema from the knees bilaterally to her ankles and 2+ nonpitting edema to her bilateral thighs, symmetric. Psych: Mental Status: mental status grossly normal Affect: normal affect Other: Good insight and judgment, very pleasant H&P: Results Labs Labs: Short CBC 02/08/25 Range/Units 15:33 WBC 4.6 (4.5-10.0) K/mm3 Hgb 10.9 L (12.0-15.0) g/dL Hct 36.7 L (37.0-47.0) % Plt Count 227 (150-375) k/mm3 BMP 02/08/25 15:33 Sodium 135 L Potassium 2.9 L Chloride 91 L Carbon Dioxide 36 H BUN 37 H Creatinine 1.06 H Glucose 125 H Calcium 6.6 L Cardiac Enzymes 02/08/25 Range/Units 15:33 Troponin I < 0.012 (0.000-0.034) ng/mL Liver Function 02/08/25 Range/Units 15:33 Total Bilirubin 0.2 (0.2-1.3) mg/dL AST 22 (14-36) U/L ALT 12 (6-35) U/L Alkaline Phosphatase 114 (38-126) U/L Albumin 3.8 (3.5-5.1) g/dL Assessment and Plan Assessment and plan (1) CHF (congestive heart failure): Qualifiers: Heart failure chronicity: acute on chronic Heart failure type: combined systolic and diastolic Qualified Code(s): I50.43 - Acute on chronic combined systolic (congestive) and diastolic (congestive) heart failure Code(s): I50.9 - Heart failure, unspecified Status: Acute Assessment and Plan: - acute on chronic CHF, reported 20 lbs of weight gain in the last week and has new O2 requirement (3L NC) w/no reported SOB - CXR: 1. Mild worsening bibasilar atelectasis and/or airspace disease. 2. Small right pleural effusion. >> reviewed imaging compared to previous on 01/15/2025, in favor of pulmonary edema verses pneumonia - BNP 74924 - most recent echo (01/16/25): normal LV size with vigorous systolic contracted lady, mild RV enlargement with reduced systolic function, severe biatrial enlargement, AFib, tricuspid regurgitant jet velocity consistent with RV systolic pressure of 62 mmHg - on torsemide 40 mg daily and recently taken off spironolactone outpatient, will restart spironolactone and continue as Lasix 40 mg b.i.d. inpatient. Hold her home torsemide dose. Patient also recently started on midodrine 2.5 mg t.i.d., monitor BP, may need to increase. - monitor I&Os and daily weights - trend renal function (2) Hypokalemia: Code(s): E87.6 - Hypokalemia Status: Acute Assessment and Plan: - K 2.9 upon admission - initial repletion with 40 KCl PO, recheck this evening - monitor (3) Atrial fibrillation: Qualifiers: Atrial fibrillation type: unspecified chronic Qualified Code(s): I48.20 - Chronic atrial fibrillation, unspecified Code(s): I48.91 - Unspecified atrial fibrillation Status: Chronic Assessment and Plan: - EKG, initial: AFib, rate 81, low QRS voltage in precordial leads, pattern consistent with pulmonary disease, incomplete right bundle branch block, moderate voltage criteria for LVH, ST deviation and moderate T-wave abnormality consider lateral ischemia - continue home medications: Metoprolol, Eliquis (4) Hypertension: Qualifiers: Hypertension type: primary hypertension Qualified Code(s): I10 - Essential (primary) hypertension Code(s): I10 - Essential (primary) hypertension Status: Resolved Assessment and Plan: - recently started on midodrine, continue TID - chronic, currently 103/63 - monitor (5) DM2 (diabetes mellitus, type 2): Qualifiers: Diabetes mellitus custodial insulin use: without custodial use Diabetes mellitus complication status: without complication Qualified Code(s): E11.9 - Type 2 diabetes mellitus without complications Code(s): E11.9 - Type 2 diabetes mellitus without complications Status: Acute Assessment and Plan: - hypoglycemia protocol - POC blood glucose ACHS - home medication: Farixga - correct regimen ordered - high dose TIDWM, based off BMI - A1C 6.3% on 01/16/2025 (6) Hyperlipidemia: Qualifiers: Hyperlipidemia type: mixed hyperlipidemia Qualified Code(s): E78.2 - Mixed hyperlipidemia Code(s): E78.5 - Hyperlipidemia, unspecified Status: Chronic Assessment and Plan: - continue pravastatin Plan Diet: heart healthy GI Prophylaxis: n/a DVT Prophylaxis: SCDs IV fluids: none Lines/Tubes: Peripheral IV Code Status: Full code Quality VTE Prophylaxis VTE prophylaxis: mechanical ordered and pharmacologic ordered Hospitalist MIPS Advance Care Plan I have confirmed that the patient's Advanced Care Plan is present, code status is documented, or surrogate decision maker is listed in patient medical record.: Yes Medication Reconciliation I have utilized all available resources to obtain, update and review the patients current medications (includes all prescriptions, OTC, herbals, cannabis, and nutritional supplements).: Yes
[2025-02-08] MEDS: BUMETANIDE INJ 1 MG/4 ML VIAL IV PUSH (16:54)
--- NOTE | 2025-02-08 17:45 | ADMGEN ---
This patient, Gemma Olson, was admitted to Medical Room 346-01. Patient/family oriented to hospital policies and general routines including ID bracelet, bed and alarms, visiting hours, pain management, procedures, bathroom and other care routines, personal items, smoking policy, room service/diet, and visiting hours. Information on how to activate the Rapid Response Team has been discussed. Patient/Family are encouraged to report perceived risks to care and to ask questions if they do not understand what they are told or what they should do.
[2025-02-08] MEDS: POTASSIUM CHLORIDE 20 MEQ ER TABLET 40 MEQ PO (18:03)
[2025-02-08] MEDS: CALCIUM GLUC 2,000 MG/NS 100ML 2,000 MG/100 ML BAG 100 MG IVPB (18:03)
[2025-02-08 19:09] LABS: Anion Gap 9 mmol/L (4-12); Blood Urea Nitrogen 36 mg/dL (7-17); Calcium 7.1 mg/dL (8.4-10.2); Carbon Dioxide 34 mmol/L (22-30); Chloride 92 mmol/L (98-107); Estimated Glomerular Filt Rate 53; Glucose 118 mg/dL (65-110); Potassium 3.3 mmol/L (3.4-5.0); Sodium 135 mmol/L (137-145)
[2025-02-08 19:42] LABS: Troponin I 0.012 ng/mL (0.000-0.034)
[2025-02-08] MEDS: APIXABAN 5 MG TABLET PO (20:40)
[2025-02-08] MEDS: BACLOFEN 5 MG TABLET PO (20:40)
[2025-02-08] MEDS: GABAPENTIN 300 MG CAPSULE PO (20:40)
[2025-02-08] MEDS: PRAVASTATIN SODIUM 20 MG TABLET 40 MG PO (20:41)
[2025-02-08] MEDS: ACETAMINOPHEN 325 MG TABLET 650 MG PO (20:44)
[2025-02-08] MEDS: METOPROLOL TARTRATE 50 MG TAB PO (20:45)
[2025-02-08 22:11] LABS: Troponin I < 0.012 ng/mL (0.000-0.034)
[2025-02-09] VITALS (16 sets, daily range): BP systolic 108–123; BP diastolic 64–69; PULSE 69–101; RESP 18–22; TEMP 36.1–37.2; O2SAT 92–98
[2025-02-09] MEDS: ACETAMINOPHEN 325 MG TABLET 650 MG PO (03:00)
[2025-02-09 05:57] LABS: Hematocrit 32.5 % (37.0-47.0); Hemoglobin 9.6 g/dL (12.0-15.0); Immature Granulocyte Percent A 0.5 % (0-0.5); Lymphocytes Absolute Auto 0.27 K/mm3 (0.9-3.2); Mean Corpuscular HGB Conc 29.5 g/dl (32-36); Mean Corpuscular Hemoglobin 27.9 pg (26-34); Mean Corpuscular Volume 94.5 fl (80-100); Nucleated Red Blood Cells Absolute Auto 0.000 K/mm3 (0.0-0.012); Nucleated Red Blood Cells Perc 0.0 % (0.0-0.2); Platelet Count Result 192 k/mm3 (150-375); Red Blood Count 3.44 M/mm3 (4.2-5.4); White Blood Count 3.9 K/mm3 (4.5-10.0)
[2025-02-09] MEDS: LEVOTHYROXINE SODIUM 100 MCG TABLET PO (06:00)
[2025-02-09] MEDS: LEVOTHYROXINE SODIUM 75 MCG TABLET PO (06:01)
[2025-02-09 06:09] LABS: Anion Gap 7 mmol/L (4-12); Blood Urea Nitrogen 35 mg/dL (7-17); Calcium 6.7 mg/dL (8.4-10.2); Carbon Dioxide 33 mmol/L (22-30); Chloride 94 mmol/L (98-107); Estimated Glomerular Filt Rate 53; Glucose 106 mg/dL (65-110); Potassium 3.4 mmol/L (3.4-5.0); Sodium 134 mmol/L (137-145)
[2025-02-09 06:41] LABS: Anisocytosis 1+; Hypochromasia 1+; Ovalocytes 1+; Schistocytes None Seen; Tear Drop Cells 1+
[2025-02-09] MEDS: APIXABAN 5 MG TABLET PO ×2 (08:21→21:29)
[2025-02-09] MEDS: ASPIRIN 81 MG ENTERIC TABLET PO (08:22)
[2025-02-09] MEDS: METOPROLOL TARTRATE 50 MG TAB PO ×2 (08:22→21:29)
[2025-02-09] MEDS: GABAPENTIN 300 MG CAPSULE PO ×2 (08:22→21:29)
[2025-02-09] MEDS: CHOLECALCIFEROL (VITAMIN D3) 25 MCG (1,000 UNITS) TABLET PO (08:22)
[2025-02-09] MEDS: DOCUSATE SODIUM 100 MG CAPSULE PO ×2 (08:23→16:50)
[2025-02-09] MEDS: PANTOPRAZOLE 40 MG TABLET PO ×2 (08:23→21:29)
[2025-02-09] MEDS: MIDODRINE HCL 2.5 MG TABLET PO ×3 (08:23→16:50)
[2025-02-09] MEDS: FUROSEMIDE INJ 40 MG/4 ML VIAL IV PUSH ×2 (08:24→16:50)
[2025-02-09] MEDS: EMPAGLIFLOZIN 10 MG TABLET BY MOUTH (08:24)
[2025-02-09] MEDS: SPIRONOLACTONE 25 MG TABLET PO (08:24)
--- NOTE | 2025-02-09 14:15 | PM.IMPN ---
Progress Note: A&P Assessment and Plan (1) CHF (congestive heart failure): Qualifiers: Heart failure chronicity: acute on chronic Heart failure type: combined systolic and diastolic Qualified Code(s): I50.43 - Acute on chronic combined systolic (congestive) and diastolic (congestive) heart failure Code(s): I50.9 - Heart failure, unspecified Status: Acute (2) Hypokalemia: Code(s): E87.6 - Hypokalemia Status: Acute (3) Atrial fibrillation: Qualifiers: Atrial fibrillation type: unspecified chronic Qualified Code(s): I48.20 - Chronic atrial fibrillation, unspecified Code(s): I48.91 - Unspecified atrial fibrillation Status: Chronic (4) Hypertension: Qualifiers: Hypertension type: primary hypertension Qualified Code(s): I10 - Essential (primary) hypertension Code(s): I10 - Essential (primary) hypertension Status: Resolved (5) DM2 (diabetes mellitus, type 2): Qualifiers: Diabetes mellitus shelter 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 The patient presents here from at [facility] on 02/08 for further evaluation of fluid retention and weight gain. She reports 20 lb of weight gain over the past 2 weeks. This is accompanied by significant bilateral lower extremity edema. She reports she has had by new pants due to the amount of weight gain in the last few weeks. She denies chest pain, shortness a breath, cough, fever, chills, body aches. She follows with Margarito Fountain MD at [facility] for her cardiac care. She was previously on metoprolol and spironolactone. However she was recently seen at [facility] for a CHF exacerbation. At that time her metoprolol was decreased, she was taken off spironolactone, and she was started on midodrine t.i.d. approximately 1 week ago. She reports compliance to these medications. Initial VS at presentation: 98.2? F, HR 80, RR 16, 109/51, and 100% on RA. ED workup showed: No leukocytosis, hemoglobin 10.9 (11.0 on 01/19/2025), INR 1.5, sodium 135, potassium 2.9, creatinine 1.06 and GFR 50 (1.25 and GFR 42 on 01/19/2025), initial troponin negative, calcium 6.6/albumin 3.8, BNP 81681. CXR showed mild worsening bibasilar atelectasis and/or airspace disease and a small right pleural effusion. Acute on chronic diastolic CHF. Reported 20 lb weight gain in the last week. New O2 requirement 3 L via nasal cannula reported short of breath. Chest x-ray with mild worsening bibasilar atelectasis and/or airspace disease. Small right pleural effusion. BNP 39039. Echo 01/16/2025 with normal LV size with vigorous systolic contracted LV, mild RV enlargement with reduced systolic function, severe biatrial enlargement, AFib, tricuspid regurgitation jet velocity consistent with RV systolic pressure of 62 mm Hg. On torsemide 40 mg daily. Recently taken off spironolactone outpatient. Restart spironolactone along with Lasix 40 mg b.i.d.. Hold torsemide home dose. Patient recently started on midodrine 2.5 mg t.i.d.. Trend renal function Hypokalemia replace and monitor Atrial fibrillation on metoprolol Eliquis Hypertension Type 2 diabetes A1c of 6.3% on 01/16/2025 Hyperlipidemia on pravastatin DVT prophylaxis apixaban Code status full code Subjective Date/time seen: 02/09/25 14:15 Interval history: Chart reviewed. Feels a little better. Swelling is still persistent. Review of Systems Review of Systems: All systems reviewed & are unremarkable except as noted in HPI and below Exam Narrative: GENERAL: Well-appearing, well-nourished, and in no acute distress. HEAD: Normocephalic, atraumatic. EYES: PERRLA and EOMI. ENT: Nares clear, no rhinorrhea or epistaxis. Mucous membranes moist. NECK: Supple. CHEST: Clear to auscultation. No respiratory distress. HEART: Regular rate and rhythm. No murmur heard. Normal peripheral pulses. ABDOMEN: Soft, nontender, nondistended, normal active bowel sounds. EXTREMITIES: Normal range of motion. has chronic edema SKIN: Warm, dry, no rash. NEURO: No focal deficits. Alert and oriented x3. PSYCH: Normal mood and affect. Objective Data Vital Signs Vital Signs: Vital Signs - 24 hr 02/08/25 15:21 02/08/25 15:22 02/08/25 15:28 Temperature Pulse Rate 83 Respiratory Rate Blood Pressure Pulse Oximetry 100 Oxygen Delivery Nasal Cannula Room Air Oxygen Flow Rate 3 02/08/25 16:56 02/08/25 17:30 02/08/25 20:00 Temperature 98.2 F 98.2 F Pulse Rate 81 81 94 Respiratory Rate 13 13 18 Blood Pressure 103/63 110/83 Pulse Oximetry 100 100 100 Oxygen Delivery Room Air Oxygen Flow Rate 02/08/25 20:00 02/08/25 20:45 02/08/25 22:10 Temperature 97.0 F L Pulse Rate 95 81 94 Respiratory Rate 18 Blood Pressure 120/71 Pulse Oximetry 100 Oxygen Delivery Oxygen Flow Rate 02/09/25 00:00 02/09/25 04:00 02/09/25 06:00 Temperature 97.0 F L Pulse Rate 69 81 75 Respiratory Rate 18 Blood Pressure 108/69 Pulse Oximetry 98 Oxygen Delivery Oxygen Flow Rate 02/09/25 08:05 02/09/25 08:22 02/09/25 08:25 Temperature Pulse Rate 82 84 Respiratory Rate Blood Pressure Pulse Oximetry 98 Oxygen Delivery Nasal Cannula Oxygen Flow Rate 2 02/09/25 14:05 Temperature Pulse Rate Respiratory Rate Blood Pressure Pulse Oximetry 97 Oxygen Delivery Nasal Cannula Oxygen Flow Rate 1 Intake/Output Intake/Output: Intake & Output 02/06/25 02/07/25 02/08/25 02/09/25 23:59 23:59 23:59 23:59 Intake Total 1280 Output Total 1100 500 Balance -1100 780 Meds/Results Medications: Active Medications Generic Name Dose Route Start Last Admin Trade Name Freq PRN Reason Stop Dose Admin Acetaminophen 650 mg 02/08/25 16:28 02/09/25 03:00 Acetaminophen 325 Mg Tablet PO 650 mg Q4H PRN Administration Mild Pain (1-3) or Fever Albuterol 2 puff 02/08/25 18:39 Albuterol Sulfate (*Sp) Aerosol 1 Puff INHALATION On Hold: 02/08/25 19:05 Q6HRT PRN Comment: USING NEBS Shortness Of Breath Or Wheezing Albuterol/Ipratropium 3 ml 02/08/25 18:39 Ipratropium 0.5 Mg/Albuterol Sulfate 2.5 Mg Ampul.Neb 3 Ml INHALATION Q6HRT PRN Shortness Of Breath Or Wheezing Apixaban 5 mg 02/08/25 21:00 02/09/25 08:21 Apixaban 5 Mg Tablet PO 5 mg Q12HR DANIELA Administration Aspirin 81 mg 02/09/25 09:00 02/09/25 08:22 Aspirin 81 Mg Enteric Tablet PO 81 mg DAILY DANIELA Administration Baclofen 5 mg 02/08/25 21:00 02/08/25 20:40 Baclofen 5 Mg Tablet PO 5 mg HS DANIELA Administration Dextrose 12.5 gm 02/08/25 18:41 Dextrose 50% 25 Gm/50 Ml Syringe IV PUSH PRN PRN Hypoglycemia Protocol Docusate Sodium 100 mg 02/09/25 09:00 02/09/25 08:23 Docusate Sodium 100 Mg Capsule PO 100 mg BID DANIELA Administration Empagliflozin 10 mg 02/09/25 09:00 02/09/25 08:24 Empagliflozin 10 Mg Tablet BY MOUTH 10 mg DAILY DANIELA Administration Furosemide 40 mg 02/09/25 09:00 02/09/25 08:24 Furosemide Inj 40 Mg/4 Ml Vial IV PUSH 40 mg BID DANIELA Administration Gabapentin 300 mg 02/08/25 21:00 02/09/25 08:22 Gabapentin 300 Mg Capsule PO 300 mg Q12HR DANIELA Administration Glucagon 1 mg 02/08/25 18:41 Glucagon For Inj 1 Mg Vial IM PRN PRN Hypoglycemia Protocol Glucose 15 gm 02/08/25 18:41 Glucose Oral Gel 15 Gm Of Glucse In 37.5 Gm Tube PO PRN PRN Hypoglycemia Protocol Dextrose 1,000 mls @ 100 mls/hr 02/08/25 18:41 Dextrose 5% 1,000 Ml IVPB PRN PRN Hypoglycemia Protocol Insulin Aspart 4 - 8 units 02/09/25 08:00 02/09/25 12:24 Insulin Aspart (*Bkc) 100 Units/Ml SUB-Q Not Given TIDWM DANIELA Protocol Levothyroxine Sodium 75 mcg 02/09/25 06:30 02/09/25 06:01 Levothyroxine Sodium 75 Mcg Tablet PO 75 mcg DAILY@0630 DANIELA Administration Levothyroxine Sodium 100 mcg 02/09/25 06:30 02/09/25 06:00 Levothyroxine Sodium 100 Mcg Tablet PO 100 mcg DAILY@0630 DANIELA Administration Metoprolol Tartrate 50 mg 02/08/25 21:00 02/09/25 08:22 Metoprolol Tartrate 50 Mg Tab PO 50 mg Q12HR DANIELA Administration Midodrine 2.5 mg 02/09/25 09:00 02/09/25 12:19 Midodrine Hcl 2.5 Mg Tablet PO 2.5 mg TID DANIELA Administration Pantoprazole Sodium 40 mg 02/09/25 09:00 02/09/25 08:23 Pantoprazole 40 Mg Tablet PO 40 mg Q12HR DANIELA Administration Pravastatin Sodium 40 mg 02/08/25 21:00 02/08/25 20:41 Pravastatin Sodium 20 Mg Tablet PO 40 mg HS [facility] Administration Fluticasone/Salmeterol 2 puff 02/08/25 20:00 Fluticasone/Salmeterol 115-21 Mcg Inhaler 1 Puff INHALATION Q12HRT [facility] Spironolactone 25 mg 02/09/25 09:00 02/09/25 08:24 Spironolactone 25 Mg Tablet PO 25 mg DAILY [facility] Administration Tramadol HCl 50 mg 02/08/25 18:39 Tramadol Hcl (*Crx) 50 Mg Tablet PO Q8H PRN Pain 4-6 Vitamin D 25 mcg 02/09/25 09:00 02/09/25 08:22 Cholecalciferol (Vitamin D3) 25 Mcg (1,000 Units) Tablet PO 25 mcg DAILY DANIELA Administration Radiology Results: ITS Impressions Chest X-Ray 02/08/25 14:39 IMPRESSION: 1. Mild worsening bibasilar atelectasis and/or airspace disease. 2. Small right pleural effusion. Labs Labs: Laboratory Results - last 24 hr 02/08/25 02/08/25 02/08/25 15:33 18:44 21:35 WBC 4.6 RBC 3.94 L Hgb 10.9 L Hct 36.7 L MCV 93.1 MCH 27.7 MCHC 29.7 L RDW 16.1 H Plt Count 227 MPV 9.8 Immature Gran % (Auto) 0.2 Neut % (Auto) 83.0 H Lymph % (Auto) 6.1 L [place] % (Auto) 7.2 Eos % (Auto) 2.8 Baso % (Auto) 0.7 Lymph # (Auto) 0.28 L [place] # (Auto) 0.3 Eos # (Auto) 0.1 Baso # (Auto) 0.0 Abs Immat Gran (auto) 0.01 Absolute Neuts (auto) 3.8 Absolute Nucleated RBC 0.000 Band Neutrophils % Nucleated RBC % 0.0 Platelet Estimate Hypochromasia Anisocytosis Tear Drop Cells Ovalocytes Schistocytes PT 18.2 H INR 1.5 APTT 40.8 H Sodium 135 L 135 L Potassium 2.9 L 3.3 L Chloride 91 L 92 L Carbon Dioxide 36 H 34 H Anion Gap 8 9 BUN 37 H 36 H Creatinine 1.06 H 1.02 H Estim Creat Clear Calc Not Reportable Not Reportable Estimated GFR 50 L 53 L Glucose 125 H 118 H POC Capillary Glucose Calcium 6.6 L 7.1 L Total Bilirubin 0.2 AST 22 ALT 12 Alkaline Phosphatase 114 Troponin I < 0.012 0.012 < 0.012 NT-Pro-B Natriuret Pep 37056 H Total Protein 7.1 Albumin 3.8 02/09/25 02/09/25 02/09/25 05:41 08:23 12:24 WBC 3.9 L RBC 3.44 L Hgb 9.6 L Hct 32.5 L MCV 94.5 MCH 27.9 MCHC 29.5 L RDW 16.2 H Plt Count 192 MPV 9.8 Immature Gran % (Auto) 0.5 Neut % (Auto) 75.2 H Lymph % (Auto) 7.0 L [place] % (Auto) 11.4 H Eos % (Auto) 4.9 H Baso % (Auto) 1.0 Lymph # (Auto) 0.27 L [place] # (Auto) 0.4 Eos # (Auto) 0.2 Baso # (Auto) 0.0 Abs Immat Gran (auto) 0.02 Absolute Neuts (auto) 2.9 Absolute Nucleated RBC 0.000 Band Neutrophils % Not Reportable Nucleated RBC % 0.0 Platelet Estimate Adequate Hypochromasia 1+ Anisocytosis 1+ Tear Drop Cells 1+ Ovalocytes 1+ Schistocytes None seen PT INR APTT Sodium 134 L Potassium 3.4 Chloride 94 L Carbon Dioxide 33 H Anion Gap 7 BUN 35 H Creatinine 1.01 H Estim Creat Clear Calc Not Reportable Estimated GFR 53 L Glucose 106 POC Capillary Glucose 95 143 H Calcium 6.7 L Total Bilirubin AST ALT Alkaline Phosphatase Troponin I NT-Pro-B Natriuret Pep Total Protein Albumin
[2025-02-09] MEDS: traMADol HCL (*CRX) 50 MG TABLET PO ×2 (14:38→22:16)
[2025-02-09] MEDS: POTASSIUM CHLORIDE 20 MEQ ER TABLET 40 MEQ PO (14:38)
[2025-02-09] MEDS: FLUTICASONE/SALMETEROL 115-21 MCG INHALER 1 PUFF 2 PUFF INHALATION ×2 (14:50→20:40)
[2025-02-09] MEDS: LIDOCAINE 5% PATCH 2 PATCH TRANSDERM (18:30)
[2025-02-09] MEDS: BACLOFEN 5 MG TABLET PO (21:29)
[2025-02-09] MEDS: PRAVASTATIN SODIUM 20 MG TABLET 40 MG PO (21:30)
[2025-02-10] VITALS (13 sets, daily range): BP systolic 104–114; BP diastolic 68–77; PULSE 66–100; RESP 16–22; TEMP 36.1–36.6; O2SAT 93–99
[2025-02-10] MEDS: LEVOTHYROXINE SODIUM 75 MCG TABLET PO (05:41)
[2025-02-10] MEDS: LEVOTHYROXINE SODIUM 100 MCG TABLET PO (05:41)
[2025-02-10 06:00] LABS: Hematocrit 33.7 % (37.0-47.0); Hemoglobin 9.7 g/dL (12.0-15.0); Immature Granulocyte Percent A 0.2 % (0-0.5); Lymphocytes Absolute Auto 0.41 K/mm3 (0.9-3.2); Mean Corpuscular HGB Conc 28.8 g/dl (32-36); Mean Corpuscular Hemoglobin 27.5 pg (26-34); Mean Corpuscular Volume 95.5 fl (80-100); Nucleated Red Blood Cells Absolute Auto 0.000 K/mm3 (0.0-0.012); Nucleated Red Blood Cells Perc 0.0 % (0.0-0.2); Platelet Count Result 203 k/mm3 (150-375); Red Blood Count 3.53 M/mm3 (4.2-5.4); White Blood Count 4.4 K/mm3 (4.5-10.0)
[2025-02-10 06:16] LABS: Alanine Aminotransferase 13 U/L (6-35); Albumin Level 3.2 g/dL (3.5-5.1); Alkaline Phosphatase 97 U/L (38-126); Anion Gap 7 mmol/L (4-12); Aspartate Amino Transferase 28 U/L (14-36); Bilirubin,Total 0.2 mg/dL (0.2-1.3); Blood Urea Nitrogen 36 mg/dL (7-17); Calcium 6.9 mg/dL (8.4-10.2); Carbon Dioxide 31 mmol/L (22-30); Chloride 95 mmol/L (98-107); Estimated Glomerular Filt Rate 56; Glucose 160 mg/dL (65-110); Magnesium 2.0 mg/dL (1.6-2.3); Potassium 3.9 mmol/L (3.4-5.0); Sodium 133 mmol/L (137-145); Total Protein 6.0 g/dL (6.3-8.2)
[2025-02-10 06:35] LABS: Anisocytosis 1+; Hypochromasia 1+; Ovalocytes Occasional; Schistocytes None Seen; Tear Drop Cells Occasional
[2025-02-10] MEDS: FLUTICASONE/SALMETEROL 115-21 MCG INHALER 1 PUFF 2 PUFF INHALATION ×2 (07:09→20:40)
[2025-02-10] MEDS: EMPAGLIFLOZIN 10 MG TABLET BY MOUTH (09:46)
[2025-02-10] MEDS: METOPROLOL TARTRATE 50 MG TAB PO ×2 (09:47→20:00)
[2025-02-10] MEDS: SPIRONOLACTONE 25 MG TABLET PO (09:47)
[2025-02-10] MEDS: PANTOPRAZOLE 40 MG TABLET PO ×2 (09:47→20:00)
[2025-02-10] MEDS: GABAPENTIN 300 MG CAPSULE PO ×2 (09:48→20:00)
[2025-02-10] MEDS: APIXABAN 5 MG TABLET PO ×2 (09:48→20:00)
[2025-02-10] MEDS: ASPIRIN 81 MG ENTERIC TABLET PO (09:48)
[2025-02-10] MEDS: FUROSEMIDE INJ 40 MG/4 ML VIAL IV PUSH ×2 (09:48→17:52)
[2025-02-10] MEDS: LIDOCAINE 5% PATCH 2 PATCH TRANSDERM (09:48)
[2025-02-10] MEDS: CHOLECALCIFEROL (VITAMIN D3) 25 MCG (1,000 UNITS) TABLET PO (09:48)
[2025-02-10] MEDS: MIDODRINE HCL 2.5 MG TABLET PO ×3 (09:48→17:52)
[2025-02-10] MEDS: DOCUSATE SODIUM 100 MG CAPSULE PO ×2 (09:48→17:52)
--- NOTE | 2025-02-10 13:06 | P.PNIM_ITS ---
Progress Note: A&P Assessment and Plan (1) CHF (congestive heart failure): Qualifiers: Heart failure chronicity: acute on chronic Heart failure type: combined systolic and diastolic Qualified Code(s): I50.43 - Acute on chronic combined systolic (congestive) and diastolic (congestive) heart failure Code(s): I50.9 - Heart failure, unspecified Status: Acute (2) Hypokalemia: Code(s): E87.6 - Hypokalemia Status: Acute (3) Atrial fibrillation: Qualifiers: Atrial fibrillation type: unspecified chronic Qualified Code(s): I48.20 - Chronic atrial fibrillation, unspecified Code(s): I48.91 - Unspecified atrial fibrillation Status: Chronic (4) Hypertension: Qualifiers: Hypertension type: primary hypertension Qualified Code(s): I10 - Essential (primary) hypertension Code(s): I10 - Essential (primary) hypertension Status: Resolved (5) DM2 (diabetes mellitus, type 2): Qualifiers: Diabetes mellitus half-way insulin use: without 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 The patient presents here from at [facility] on 02/08 for further evaluation of fluid retention and weight gain. She reports 20 lb of weight gain over the past 2 weeks. This is accompanied by significant bilateral lower extremity edema. She reports she has had by new pants due to the amount of weight gain in the last few weeks. She denies chest pain, shortness a breath, cough, fever, chills, body aches. She follows with Margarito Fountain MD at [facility] for her cardiac care. She was previously on metoprolol and spironolactone. However she was recently seen at [facility] for a CHF exacerbation. At that time her metoprolol was decreased, she was taken off spironolactone, and she was started on midodrine t.i.d. approximately 1 week ago. She reports compliance to these medications. Initial VS at presentation: 98.2? F, HR 80, RR 16, 109/51, and 100% on RA. ED workup showed: No leukocytosis, hemoglobin 10.9 (11.0 on 01/19/2025), INR 1.5, sodium 135, potassium 2.9, creatinine 1.06 and GFR 50 (1.25 and GFR 42 on 01/19/2025), initial troponin negative, calcium 6.6/albumin 3.8, BNP 24670. CXR showed mild worsening bibasilar atelectasis and/or airspace disease and a small right pleural effusion. Acute on chronic diastolic CHF. Reported 20 lb weight gain in the last week. New O2 requirement 3 L via nasal cannula reported short of breath. Chest x-ray with mild worsening bibasilar atelectasis and/or airspace disease. Small right pleural effusion. BNP 31403. Echo 01/16/2025 with normal LV size with vigorous systolic contracted LV, mild RV enlargement with reduced systolic function, severe biatrial enlargement, AFib, tricuspid regurgitation jet velocity consistent with RV systolic pressure of 62 mm Hg. On torsemide 40 mg daily. Recently taken off spironolactone outpatient. Restart spironolactone along with Lasix 40 mg b.i.d.. Hold torsemide home dose. Patient recently started on midodrine 2.5 mg t.i.d.. Trend renal function. Fluid restriction Hypokalemia replace and monitor Atrial fibrillation on metoprolol Eliquis Hypertension Type 2 diabetes A1c of 6.3% on 01/16/2025 Hyperlipidemia on pravastatin DVT prophylaxis apixaban Code status full code Subjective Date/time seen: 02/10/25 13:06 Interval history: No overnight events. Swelling still persists. Intake and output reviewed. Labs reviewed. Discussed with nursing staff. Complains of knee pain which is chronic due to osteoarthritis. Review of Systems Review of Systems: All systems reviewed & are unremarkable except as noted in HPI and below Exam Narrative: GENERAL: Well-appearing, well-nourished, and in no acute distress. HEAD: Normocephalic, atraumatic. EYES: PERRLA and EOMI. ENT: Nares clear, no rhinorrhea or epistaxis. Mucous membranes moist. NECK: Supple. CHEST: Clear to auscultation. No respiratory distress. HEART: Regular rate and rhythm. No murmur heard. Normal peripheral pulses. ABDOMEN: Soft, nontender, nondistended, normal active bowel sounds. EXTREMITIES: Normal range of motion. has chronic edema SKIN: Warm, dry, no rash. NEURO: No focal deficits. Alert and oriented x3. PSYCH: Normal mood and affect. Objective Data Vital Signs Vital Signs: Vital Signs - 24 hr 02/09/25 13:20 02/09/25 14:05 02/09/25 14:50 Temperature Pulse Rate Respiratory Rate Blood Pressure Pulse Oximetry 97 Oxygen Delivery Nasal Cannula Nasal Cannula Nasal Cannula Oxygen Flow Rate 1 1 1 02/09/25 14:52 02/09/25 16:05 02/09/25 16:36 Temperature 98.8 F Pulse Rate 83 92 89 Respiratory Rate 20 22 H Blood Pressure 111/66 Pulse Oximetry 97 Oxygen Delivery Oxygen Flow Rate 02/09/25 20:00 02/09/25 20:00 02/09/25 20:43 Temperature 98.9 F Pulse Rate 93 101 H 91 Respiratory Rate 20 Blood Pressure 123/64 Pulse Oximetry 96 92 Oxygen Delivery Room Air Oxygen Flow Rate 02/09/25 21:28 02/09/25 21:29 02/10/25 00:00 Temperature Pulse Rate 91 76 Respiratory Rate Blood Pressure Pulse Oximetry 96 Oxygen Delivery Room Air Oxygen Flow Rate 02/10/25 04:00 02/10/25 04:50 02/10/25 07:09 Temperature 97.0 F L Pulse Rate 75 66 95 Respiratory Rate 22 H 20 Blood Pressure 104/68 Pulse Oximetry 98 99 Oxygen Delivery Room Air Oxygen Flow Rate 02/10/25 07:09 02/10/25 08:00 02/10/25 08:00 Temperature Pulse Rate 95 88 Respiratory Rate 20 Blood Pressure Pulse Oximetry Oxygen Delivery Room Air Oxygen Flow Rate 02/10/25 09:47 Temperature Pulse Rate 100 Respiratory Rate Blood Pressure Pulse Oximetry Oxygen Delivery Oxygen Flow Rate Intake/Output Intake/Output: Intake & Output 02/07/25 02/08/25 02/09/25 02/10/25 23:59 23:59 23:59 23:59 Intake Total 3500 440 Output Total 1100 2024 1500 Balance -1100 1475 -1060 Meds/Results Medications: Active Medications Generic Name Dose Route Start Last Admin Trade Name Freq PRN Reason Stop Dose Admin Acetaminophen 650 mg 02/08/25 16:28 02/09/25 03:00 Acetaminophen 325 Mg Tablet PO 650 mg Q4H PRN Administration Mild Pain (1-3) or Fever Albuterol 2 puff 02/08/25 18:39 Albuterol Sulfate (*Sp) Aerosol 1 Puff INHALATION On Hold: 02/08/25 19:05 Q6HRT PRN Comment: USING NEBS Shortness Of Breath Or Wheezing Albuterol/Ipratropium 3 ml 02/08/25 18:39 Ipratropium 0.5 Mg/Albuterol Sulfate 2.5 Mg Ampul.Neb 3 Ml INHALATION Q6HRT PRN Shortness Of Breath Or Wheezing Apixaban 5 mg 02/08/25 21:00 02/10/25 09:48 Apixaban 5 Mg Tablet PO 5 mg Q12HR DANIELA Administration Aspirin 81 mg 02/09/25 09:00 02/10/25 09:48 Aspirin 81 Mg Enteric Tablet PO 81 mg DAILY DANIELA Administration Baclofen 5 mg 02/08/25 21:00 02/09/25 21:29 Baclofen 5 Mg Tablet PO 5 mg HS DANIELA Administration Dextrose 12.5 gm 02/08/25 18:41 Dextrose 50% 25 Gm/50 Ml Syringe IV PUSH PRN PRN Hypoglycemia Protocol Docusate Sodium 100 mg 02/09/25 09:00 02/10/25 09:48 Docusate Sodium 100 Mg Capsule PO 100 mg BID DANIELA Administration Empagliflozin 10 mg 02/09/25 09:00 02/10/25 09:46 Empagliflozin 10 Mg Tablet BY MOUTH 10 mg DAILY DANIELA Administration Furosemide 40 mg 02/09/25 09:00 02/10/25 09:48 Furosemide Inj 40 Mg/4 Ml Vial IV PUSH 40 mg BID DANIELA Administration Gabapentin 300 mg 02/08/25 21:00 02/10/25 09:48 Gabapentin 300 Mg Capsule PO 300 mg Q12HR DANIELA Administration Glucagon 1 mg 02/08/25 18:41 Glucagon For Inj 1 Mg Vial IM PRN PRN Hypoglycemia Protocol Glucose 15 gm 02/08/25 18:41 Glucose Oral Gel 15 Gm Of Glucse In 37.5 Gm Tube PO PRN PRN Hypoglycemia Protocol Dextrose 1,000 mls @ 100 mls/hr 02/08/25 18:41 Dextrose 5% 1,000 Ml IVPB PRN PRN Hypoglycemia Protocol Insulin Aspart 4 - 8 units 02/09/25 08:00 02/10/25 12:26 Insulin Aspart (*Bkc) 100 Units/Ml SUB-Q Not Given TIDWM [facility] Protocol Levothyroxine Sodium 75 mcg 02/09/25 06:30 02/10/25 05:41 Levothyroxine Sodium 75 Mcg Tablet PO 75 mcg DAILY@0630 DANIELA Administration Levothyroxine Sodium 100 mcg 02/09/25 06:30 02/10/25 05:41 Levothyroxine Sodium 100 Mcg Tablet PO 100 mcg DAILY@0630 DANIELA Administration Lidocaine 2 patch 02/09/25 18:10 02/10/25 09:48 Lidocaine 5% Patch TRANSDERM 2 patch DAILY DANIELA Administration Metoprolol Tartrate 50 mg 02/08/25 21:00 02/10/25 09:47 Metoprolol Tartrate 50 Mg Tab PO 50 mg Q12HR DANIELA Administration Midodrine 2.5 mg 02/09/25 09:00 02/10/25 13:00 Midodrine Hcl 2.5 Mg Tablet PO 2.5 mg TID DANIELA Administration Pantoprazole Sodium 40 mg 02/09/25 09:00 02/10/25 09:47 Pantoprazole 40 Mg Tablet PO 40 mg Q12HR DANIELA Administration Pravastatin Sodium 40 mg 02/08/25 21:00 02/09/25 21:30 Pravastatin Sodium 20 Mg Tablet PO 40 mg HS DANIELA Administration Fluticasone/Salmeterol 2 puff 02/08/25 20:00 02/10/25 07:09 Fluticasone/Salmeterol 115-21 Mcg Inhaler 1 Puff INHALATION 2 puff Q12HRT DANIELA Administration Spironolactone 25 mg 02/09/25 09:00 02/10/25 09:47 Spironolactone 25 Mg Tablet PO 25 mg DAILY DANIELA Administration Tramadol HCl 50 mg 02/08/25 18:39 02/09/25 22:16 Tramadol Hcl (*Crx) 50 Mg Tablet PO 50 mg Q8H PRN Administration Pain 4-6 Vitamin D 25 mcg 02/09/25 09:00 02/10/25 09:48 Cholecalciferol (Vitamin D3) 25 Mcg (1,000 Units) Tablet PO 25 mcg DAILY DANIELA Administration Radiology Results: ITS Impressions Chest X-Ray 02/08/25 14:39 IMPRESSION: 1. Mild worsening bibasilar atelectasis and/or airspace disease. 2. Small right pleural effusion. Labs Labs: Laboratory Results - last 24 hr 02/09/25 02/09/25 02/10/25 17:13 20:55 05:40 WBC 4.4 L RBC 3.53 L Hgb 9.7 L Hct 33.7 L MCV 95.5 MCH 27.5 MCHC 28.8 L RDW 16.2 H Plt Count 203 MPV 9.5 Immature Gran % (Auto) 0.2 Neut % (Auto) 74.1 H Lymph % (Auto) 9.3 L [place] % (Auto) 11.4 H Eos % (Auto) 4.1 Baso % (Auto) 0.9 Lymph # (Auto) 0.41 L [place] # (Auto) 0.5 Eos # (Auto) 0.2 Baso # (Auto) 0.0 Abs Immat Gran (auto) 0.01 Absolute Neuts (auto) 3.3 Absolute Nucleated RBC 0.000 Band Neutrophils % Not Reportable Nucleated RBC % 0.0 Platelet Estimate Adequate Hypochromasia 1+ Anisocytosis 1+ Tear Drop Cells Occasional Ovalocytes Occasional Schistocytes None seen Sodium 133 L Potassium 3.9 Chloride 95 L Carbon Dioxide 31 H Anion Gap 7 BUN 36 H Creatinine 0.96 Estim Creat Clear Calc Not Reportable Estimated GFR 56 L Glucose 160 H POC Capillary Glucose 144 H 140 H Calcium 6.9 L Magnesium 2.0 Total Bilirubin 0.2 AST 28 ALT 13 Alkaline Phosphatase 97 Total Protein 6.0 L Albumin 3.2 L 02/10/25 02/10/25 08:28 12:09 WBC RBC Hgb Hct MCV MCH MCHC RDW Plt Count MPV Immature Gran % (Auto) Neut % (Auto) Lymph % (Auto) [place] % (Auto) Eos % (Auto) Baso % (Auto) Lymph # (Auto) [place] # (Auto) Eos # (Auto) Baso # (Auto) Abs Immat Gran (auto) Absolute Neuts (auto) Absolute Nucleated RBC Band Neutrophils % Nucleated RBC % Platelet Estimate Hypochromasia Anisocytosis Tear Drop Cells Ovalocytes Schistocytes Sodium Potassium Chloride Carbon Dioxide Anion Gap BUN Creatinine Estim Creat Clear Calc Estimated GFR Glucose POC Capillary Glucose 123 H 176 H Calcium Magnesium Total Bilirubin AST ALT Alkaline Phosphatase Total Protein Albumin
[2025-02-10] MEDS: PRAVASTATIN SODIUM 20 MG TABLET 40 MG PO (20:00)
[2025-02-10] MEDS: BACLOFEN 5 MG TABLET PO (20:00)
[2025-02-10] MEDS: ACETAMINOPHEN 325 MG TABLET 650 MG PO (20:00)
[2025-02-10] MEDS: traMADol HCL (*CRX) 50 MG TABLET PO (20:01)
[2025-02-11] VITALS (11 sets, daily range): BP systolic 112–123; BP diastolic 57–67; PULSE 71–105; RESP 16–18; TEMP 36.8–37.2; O2SAT 93–96
[2025-02-11] MEDS: LEVOTHYROXINE SODIUM 75 MCG TABLET PO (05:30)
[2025-02-11] MEDS: LEVOTHYROXINE SODIUM 100 MCG TABLET PO (05:30)
[2025-02-11 05:56] LABS: Hematocrit 35.6 % (37.0-47.0); Hemoglobin 10.5 g/dL (12.0-15.0); Immature Granulocyte Percent A 0.6 % (0-0.5); Lymphocytes Absolute Auto 0.37 K/mm3 (0.9-3.2); Mean Corpuscular HGB Conc 29.5 g/dl (32-36); Mean Corpuscular Hemoglobin 27.8 pg (26-34); Mean Corpuscular Volume 94.2 fl (80-100); Nucleated Red Blood Cells Absolute Auto 0.000 K/mm3 (0.0-0.012); Nucleated Red Blood Cells Perc 0.0 % (0.0-0.2); Platelet Count Result 208 k/mm3 (150-375); Red Blood Count 3.78 M/mm3 (4.2-5.4); White Blood Count 3.4 K/mm3 (4.5-10.0)
[2025-02-11 06:19] LABS: Alanine Aminotransferase 12 U/L (6-35); Albumin Level 3.4 g/dL (3.5-5.1); Alkaline Phosphatase 104 U/L (38-126); Anion Gap 7 mmol/L (4-12); Aspartate Amino Transferase 21 U/L (14-36); Bilirubin,Total 0.5 mg/dL (0.2-1.3); Blood Urea Nitrogen 28 mg/dL (7-17); Calcium 7.1 mg/dL (8.4-10.2); Carbon Dioxide 32 mmol/L (22-30); Chloride 95 mmol/L (98-107); Estimated Glomerular Filt Rate 55; Glucose 102 mg/dL (65-110); Magnesium 2.2 mg/dL (1.6-2.3); Potassium 4.0 mmol/L (3.4-5.0); Sodium 134 mmol/L (137-145); Total Protein 6.5 g/dL (6.3-8.2)
[2025-02-11 06:35] LABS: Anisocytosis 1+; Hypochromasia 1+
[2025-02-11 06:36] LABS: Ovalocytes 1+; Schistocytes None Seen; Tear Drop Cells 1+
[2025-02-11] MEDS: FLUTICASONE/SALMETEROL 115-21 MCG INHALER 1 PUFF 2 PUFF INHALATION ×2 (07:28→19:52)
[2025-02-11] MEDS: APIXABAN 5 MG TABLET PO ×2 (09:08→20:32)
[2025-02-11] MEDS: MIDODRINE HCL 2.5 MG TABLET PO ×3 (09:08→17:16)
[2025-02-11] MEDS: EMPAGLIFLOZIN 10 MG TABLET BY MOUTH (09:08)
[2025-02-11] MEDS: DOCUSATE SODIUM 100 MG CAPSULE PO ×2 (09:08→17:16)
[2025-02-11] MEDS: PANTOPRAZOLE 40 MG TABLET PO ×2 (09:08→20:31)
[2025-02-11] MEDS: CHOLECALCIFEROL (VITAMIN D3) 25 MCG (1,000 UNITS) TABLET PO (09:09)
[2025-02-11] MEDS: ASPIRIN 81 MG ENTERIC TABLET PO (09:09)
[2025-02-11] MEDS: GABAPENTIN 300 MG CAPSULE PO ×2 (09:09→20:32)
[2025-02-11] MEDS: SPIRONOLACTONE 25 MG TABLET PO (09:09)
[2025-02-11] MEDS: METOPROLOL TARTRATE 50 MG TAB PO ×2 (09:09→20:31)
[2025-02-11] MEDS: LIDOCAINE 5% PATCH 2 PATCH TRANSDERM (09:10)
[2025-02-11] MEDS: FUROSEMIDE INJ 40 MG/4 ML VIAL IV PUSH ×2 (09:10→17:16)
--- NOTE | 2025-02-11 14:14 | P.PNIM_ITS ---
Progress Note: A&P Assessment and Plan (1) CHF (congestive heart failure): Qualifiers: Heart failure chronicity: acute on chronic Heart failure type: combined systolic and diastolic Qualified Code(s): I50.43 - Acute on chronic combined systolic (congestive) and diastolic (congestive) heart failure Code(s): I50.9 - Heart failure, unspecified Status: Acute (2) Hypokalemia: Code(s): E87.6 - Hypokalemia Status: Acute (3) Atrial fibrillation: Qualifiers: Atrial fibrillation type: unspecified chronic Qualified Code(s): I48.20 - Chronic atrial fibrillation, unspecified Code(s): I48.91 - Unspecified atrial fibrillation Status: Chronic (4) Hypertension: Qualifiers: Hypertension type: primary hypertension Qualified Code(s): I10 - Essential (primary) hypertension Code(s): I10 - Essential (primary) hypertension Status: Resolved (5) DM2 (diabetes mellitus, type 2): Qualifiers: Diabetes mellitus senior living insulin use: without manager long term care use Diabetes mellitus complication status: without complication Qualified Code(s): E11.9 - Type 2 diabetes mellitus without complications Code(s): E11.9 - Type 2 diabetes mellitus without complications Status: Acute (6) Hyperlipidemia: Qualifiers: Hyperlipidemia type: mixed hyperlipidemia Qualified Code(s): E78.2 - Mixed hyperlipidemia Code(s): E78.5 - Hyperlipidemia, unspecified Status: Chronic Plan 79 y/o F with PMH of atrial fibrillation, hyperlipidemia, CHF, DM2, and hypertension presents here with 20 lb of weight gain. The patient presents here from at [facility] on 02/08 for further evaluation of fluid retention and weight gain. She reports 20 lb of weight gain over the past 2 weeks. This is accompanied by significant bilateral lower extremity edema. She reports she has had by new pants due to the amount of weight gain in the last few weeks. She denies chest pain, shortness a breath, cough, fever, chills, body aches. She follows with Margarito Fountain MD at [facility] for her cardiac care. She was previously on metoprolol and spironolactone. However she was recently seen at [facility] for a CHF exacerbation. At that time her metoprolol was decreased, she was taken off spironolactone, and she was started on midodrine t.i.d. approximately 1 week ago. She reports compliance to these medications. Initial VS at presentation: 98.2? F, HR 80, RR 16, 109/51, and 100% on RA. ED workup showed: No leukocytosis, hemoglobin 10.9 (11.0 on 01/19/2025), INR 1.5, sodium 135, potassium 2.9, creatinine 1.06 and GFR 50 (1.25 and GFR 42 on 01/19/2025), initial troponin negative, calcium 6.6/albumin 3.8, BNP 01863. CXR showed mild worsening bibasilar atelectasis and/or airspace disease and a small right pleural effusion. Acute on chronic diastolic CHF. Reported 20 lb weight gain in the last week. New O2 requirement 3 L via nasal cannula reported short of breath. Chest x-ray with mild worsening bibasilar atelectasis and/or airspace disease. Small right pleural effusion. BNP 60455. Echo 01/16/2025 with normal LV size with vigorous systolic contracted LV, mild RV enlargement with reduced systolic function, severe biatrial enlargement, AFib, tricuspid regurgitation jet velocity consistent with RV systolic pressure of 62 mm Hg. On torsemide 40 mg daily. Recently taken off spironolactone outpatient. Restart spironolactone along with Lasix 40 mg b.i.d.. Hold torsemide home dose. Patient recently started on midodrine 2.5 mg t.i.d.. Trend renal function. Fluid restriction as ordered. Diuresing well. Continue to monitor Hypokalemia replace and monitor Atrial fibrillation on metoprolol Eliquis Hypertension Type 2 diabetes A1c of 6.3% on 01/16/2025 Hyperlipidemia on pravastatin DVT prophylaxis apixaban Code status full code Subjective Date/time seen: 02/11/25 14:14 Interval history: No overnight events. Swelling has improved. Diuresing well. Labs reviewed. Review of Systems Review of Systems: All systems reviewed & are unremarkable except as noted in HPI and below Exam Narrative: GENERAL: Well-appearing, well-nourished, and in no acute distress. HEAD: Normocephalic, atraumatic. EYES: PERRLA and EOMI. ENT: Nares clear, no rhinorrhea or epistaxis. Mucous membranes moist. NECK: Supple. CHEST: Clear to auscultation. No respiratory distress. HEART: Regular rate and rhythm. No murmur heard. Normal peripheral pulses. ABDOMEN: Soft, nontender, nondistended, normal active bowel sounds. EXTREMITIES: Normal range of motion. has chronic edema SKIN: Warm, dry, no rash. NEURO: No focal deficits. Alert and oriented x3. PSYCH: Normal mood and affect. Objective Data Vital Signs Vital Signs: Vital Signs - 24 hr 02/10/25 16:00 02/10/25 20:00 02/10/25 20:00 Temperature Pulse Rate 84 91 85 Respiratory Rate 16 Blood Pressure Pulse Oximetry 93 Oxygen Delivery Room Air 02/10/25 20:00 02/10/25 20:41 02/10/25 20:42 Temperature Pulse Rate 75 79 79 Respiratory Rate 20 20 Blood Pressure Pulse Oximetry 93 Oxygen Delivery Room Air 02/10/25 22:44 02/11/25 00:00 02/11/25 04:00 Temperature 97.3 F L Pulse Rate 85 88 71 Respiratory Rate 16 Blood Pressure 114/69 Pulse Oximetry 93 Oxygen Delivery 02/11/25 06:27 02/11/25 07:32 02/11/25 08:00 Temperature 98.3 F Pulse Rate 76 Respiratory Rate 16 Blood Pressure 123/67 Pulse Oximetry 95 93 Oxygen Delivery Room Air Room Air 02/11/25 08:00 02/11/25 09:09 02/11/25 12:00 Temperature Pulse Rate 82 105 H 80 Respiratory Rate Blood Pressure Pulse Oximetry Oxygen Delivery Intake/Output Intake/Output: Intake & Output 02/08/25 02/09/25 02/10/25 02/11/25 23:59 23:59 23:59 23:59 Intake Total 3500 1770 640 Output Total 1100 2025 2100 2600 Balance -1100 6306 -001 -8743 Meds/Results Medications: Active Medications Generic Name Dose Route Start Last Admin Trade Name Freq PRN Reason Stop Dose Admin Acetaminophen 650 mg 02/08/25 16:28 02/10/25 20:00 Acetaminophen 325 Mg Tablet PO 650 mg Q4H PRN Administration Mild Pain (1-3) or Fever Albuterol 2 puff 02/08/25 18:39 Albuterol Sulfate (*Sp) Aerosol 1 Puff INHALATION On Hold: 02/08/25 19:05 Q6HRT PRN Comment: USING NEBS Shortness Of Breath Or Wheezing Albuterol/Ipratropium 3 ml 02/08/25 18:39 Ipratropium 0.5 Mg/Albuterol Sulfate 2.5 Mg Ampul.Neb 3 Ml INHALATION Q6HRT PRN Shortness Of Breath Or Wheezing Apixaban 5 mg 02/08/25 21:00 02/11/25 09:08 Apixaban 5 Mg Tablet PO 5 mg Q12HR DANIELA Administration Aspirin 81 mg 02/09/25 09:00 02/11/25 09:09 Aspirin 81 Mg Enteric Tablet PO 81 mg DAILY DANIELA Administration Baclofen 5 mg 02/08/25 21:00 02/10/25 20:00 Baclofen 5 Mg Tablet PO 5 mg HS DANIELA Administration Dextrose 12.5 gm 02/08/25 18:41 Dextrose 50% 25 Gm/50 Ml Syringe IV PUSH PRN PRN Hypoglycemia Protocol Docusate Sodium 100 mg 02/09/25 09:00 02/11/25 09:08 Docusate Sodium 100 Mg Capsule PO 100 mg BID DANIELA Administration Empagliflozin 10 mg 02/09/25 09:00 02/11/25 09:08 Empagliflozin 10 Mg Tablet BY MOUTH 10 mg DAILY DANIELA Administration Furosemide 40 mg 02/09/25 09:00 02/11/25 09:10 Furosemide Inj 40 Mg/4 Ml Vial IV PUSH 40 mg BID DANIELA Administration Gabapentin 300 mg 02/08/25 21:00 02/11/25 09:09 Gabapentin 300 Mg Capsule PO 300 mg Q12HR DANIELA Administration Glucagon 1 mg 02/08/25 18:41 Glucagon For Inj 1 Mg Vial IM PRN PRN Hypoglycemia Protocol Glucose 15 gm 02/08/25 18:41 Glucose Oral Gel 15 Gm Of Glucse In 37.5 Gm Tube PO PRN PRN Hypoglycemia Protocol Dextrose 1,000 mls @ 100 mls/hr 02/08/25 18:41 Dextrose 5% 1,000 Ml IVPB PRN PRN Hypoglycemia Protocol Insulin Aspart 4 - 8 units 02/09/25 08:00 02/11/25 12:46 Insulin Aspart (*Bkc) 100 Units/Ml SUB-Q Not Given TIDWM DANIELA Protocol Levothyroxine Sodium 75 mcg 02/09/25 06:30 02/11/25 05:30 Levothyroxine Sodium 75 Mcg Tablet PO 75 mcg DAILY@0630 DANIELA Administration Levothyroxine Sodium 100 mcg 02/09/25 06:30 02/11/25 05:30 Levothyroxine Sodium 100 Mcg Tablet PO 100 mcg DAILY@0630 DANIELA Administration Lidocaine 2 patch 02/09/25 18:10 02/11/25 09:10 Lidocaine 5% Patch TRANSDERM 2 patch DAILY DANIELA Administration Metoprolol Tartrate 50 mg 02/08/25 21:00 02/11/25 09:09 Metoprolol Tartrate 50 Mg Tab PO 50 mg Q12HR DANIELA Administration Midodrine 2.5 mg 02/09/25 09:00 02/11/25 12:58 Midodrine Hcl 2.5 Mg Tablet PO 2.5 mg TID DANIELA Administration Pantoprazole Sodium 40 mg 02/09/25 09:00 02/11/25 09:08 Pantoprazole 40 Mg Tablet PO 40 mg Q12HR DANIELA Administration Pravastatin Sodium 40 mg 02/08/25 21:00 02/10/25 20:00 Pravastatin Sodium 20 Mg Tablet PO 40 mg HS DANIELA Administration Fluticasone/Salmeterol 2 puff 02/08/25 20:00 02/11/25 07:28 Fluticasone/Salmeterol 115-21 Mcg Inhaler 1 Puff INHALATION 2 puff Q12HRT DANIELA Administration Spironolactone 25 mg 02/09/25 09:00 02/11/25 09:09 Spironolactone 25 Mg Tablet PO 25 mg DAILY DANIELA Administration Tramadol HCl 50 mg 02/08/25 18:39 02/10/25 20:01 Tramadol Hcl (*Crx) 50 Mg Tablet PO 50 mg Q8H PRN Administration Pain 4-6 Vitamin D 25 mcg 02/09/25 09:00 02/11/25 09:09 Cholecalciferol (Vitamin D3) 25 Mcg (1,000 Units) Tablet PO 25 mcg DAILY DANIELA Administration Radiology Results: ITS Impressions Chest X-Ray 02/08/25 14:39 IMPRESSION: 1. Mild worsening bibasilar atelectasis and/or airspace disease. 2. Small right pleural effusion. Labs Labs: Laboratory Results - last 24 hr 02/10/25 02/10/25 02/11/25 17:12 20:02 05:45 WBC 3.4 L RBC 3.78 L Hgb 10.5 L Hct 35.6 L MCV 94.2 MCH 27.8 MCHC 29.5 L RDW 16.3 H Plt Count 208 MPV 9.3 Immature Gran % (Auto) 0.6 H Neut % (Auto) 70.3 Lymph % (Auto) 10.8 L [place] % (Auto) 11.3 H Eos % (Auto) 5.8 H Baso % (Auto) 1.2 Lymph # (Auto) 0.37 L [place] # (Auto) 0.4 Eos # (Auto) 0.2 Baso # (Auto) 0.0 Abs Immat Gran (auto) 0.02 Absolute Neuts (auto) 2.4 Absolute Nucleated RBC 0.000 Band Neutrophils % Not Reportable Nucleated RBC % 0.0 Platelet Estimate Adequate Hypochromasia 1+ Anisocytosis 1+ Tear Drop Cells 1+ Ovalocytes 1+ Schistocytes None seen Sodium 134 L Potassium 4.0 Chloride 95 L Carbon Dioxide 32 H Anion Gap 7 BUN 28 H Creatinine 0.98 Estim Creat Clear Calc Not Reportable Estimated GFR 55 L Glucose 102 POC Capillary Glucose 120 H 151 H Calcium 7.1 L Magnesium 2.2 Total Bilirubin 0.5 AST 21 ALT 12 Alkaline Phosphatase 104 Total Protein 6.5 Albumin 3.4 L 02/11/25 02/11/25 08:35 12:20 WBC RBC Hgb Hct MCV MCH MCHC RDW Plt Count MPV Immature Gran % (Auto) Neut % (Auto) Lymph % (Auto) [place] % (Auto) Eos % (Auto) Baso % (Auto) Lymph # (Auto) [place] # (Auto) Eos # (Auto) Baso # (Auto) Abs Immat Gran (auto) Absolute Neuts (auto) Absolute Nucleated RBC Band Neutrophils % Nucleated RBC % Platelet Estimate Hypochromasia Anisocytosis Tear Drop Cells Ovalocytes Schistocytes Sodium Potassium Chloride Carbon Dioxide Anion Gap BUN Creatinine Estim Creat Clear Calc Estimated GFR Glucose POC Capillary Glucose 95 166 H Calcium Magnesium Total Bilirubin AST ALT Alkaline Phosphatase Total Protein Albumin
[2025-02-11] MEDS: PRAVASTATIN SODIUM 20 MG TABLET 40 MG PO (20:31)
[2025-02-11] MEDS: BACLOFEN 5 MG TABLET PO (20:32)
[2025-02-11] MEDS: ACETAMINOPHEN 325 MG TABLET 650 MG PO (23:19)
[2025-02-12] VITALS (13 sets, daily range): BP systolic 105–114; BP diastolic 50–72; PULSE 76–100; RESP 12–20; TEMP 35.9–36.8; O2SAT 91–96
[2025-02-12 05:51] LABS: Hematocrit 35.0 % (37.0-47.0); Hemoglobin 10.4 g/dL (12.0-15.0); Immature Granulocyte Percent A 0.3 % (0-0.5); Lymphocytes Absolute Auto 0.41 K/mm3 (0.9-3.2); Mean Corpuscular HGB Conc 29.7 g/dl (32-36); Mean Corpuscular Hemoglobin 28.0 pg (26-34); Mean Corpuscular Volume 94.1 fl (80-100); Nucleated Red Blood Cells Absolute Auto 0.000 K/mm3 (0.0-0.012); Nucleated Red Blood Cells Perc 0.0 % (0.0-0.2); Platelet Count Result 225 k/mm3 (150-375); Red Blood Count 3.72 M/mm3 (4.2-5.4); White Blood Count 3.8 K/mm3 (4.5-10.0)
[2025-02-12 06:09] LABS: Alanine Aminotransferase 11 U/L (6-35); Albumin Level 3.2 g/dL (3.5-5.1); Alkaline Phosphatase 101 U/L (38-126); Anion Gap 5 mmol/L (4-12); Aspartate Amino Transferase 35 U/L (14-36); Bilirubin,Total 0.4 mg/dL (0.2-1.3); Blood Urea Nitrogen 26 mg/dL (7-17); Calcium 7.1 mg/dL (8.4-10.2); Carbon Dioxide 33 mmol/L (22-30); Chloride 95 mmol/L (98-107); Estimated Glomerular Filt Rate 55; Glucose 106 mg/dL (65-110); Magnesium 2.1 mg/dL (1.6-2.3); Potassium 3.8 mmol/L (3.4-5.0); Sodium 133 mmol/L (137-145); Total Protein 6.2 g/dL (6.3-8.2)
[2025-02-12] MEDS: LEVOTHYROXINE SODIUM 100 MCG TABLET PO (06:35)
[2025-02-12] MEDS: LEVOTHYROXINE SODIUM 75 MCG TABLET PO (06:35)
[2025-02-12 06:45] LABS: Anisocytosis 1+; Hypochromasia 1+; Ovalocytes 1+; Schistocytes None Seen; Tear Drop Cells 1+
[2025-02-12] MEDS: FLUTICASONE/SALMETEROL 115-21 MCG INHALER 1 PUFF 2 PUFF INHALATION ×2 (07:32→19:33)
[2025-02-12] MEDS: MIDODRINE HCL 2.5 MG TABLET PO ×2 (09:19→17:44)
[2025-02-12] MEDS: EMPAGLIFLOZIN 10 MG TABLET BY MOUTH (09:19)
[2025-02-12] MEDS: SPIRONOLACTONE 25 MG TABLET PO (09:19)
[2025-02-12] MEDS: CHOLECALCIFEROL (VITAMIN D3) 25 MCG (1,000 UNITS) TABLET PO (09:19)
[2025-02-12] MEDS: APIXABAN 5 MG TABLET PO ×2 (09:19→20:37)
[2025-02-12] MEDS: DOCUSATE SODIUM 100 MG CAPSULE PO ×2 (09:19→17:44)
[2025-02-12] MEDS: ASPIRIN 81 MG ENTERIC TABLET PO (09:19)
[2025-02-12] MEDS: PANTOPRAZOLE 40 MG TABLET PO ×2 (09:19→20:37)
[2025-02-12] MEDS: LIDOCAINE 5% PATCH 2 PATCH TRANSDERM (09:19)
[2025-02-12] MEDS: GABAPENTIN 300 MG CAPSULE PO ×2 (09:19→20:37)
[2025-02-12] MEDS: FUROSEMIDE INJ 40 MG/4 ML VIAL IV PUSH (09:20)
[2025-02-12] MEDS: METOPROLOL TARTRATE 50 MG TAB PO ×2 (09:20→20:36)
--- NOTE | 2025-02-12 12:04 | P.PNIM_ITS ---
Progress Note: A&P Assessment and Plan (1) CHF (congestive heart failure): Qualifiers: Heart failure chronicity: acute on chronic Heart failure type: combined systolic and diastolic Qualified Code(s): I50.43 - Acute on chronic combined systolic (congestive) and diastolic (congestive) heart failure Code(s): I50.9 - Heart failure, unspecified Status: Acute (2) Hypokalemia: Code(s): E87.6 - Hypokalemia Status: Acute (3) Atrial fibrillation: Qualifiers: Atrial fibrillation type: unspecified chronic Qualified Code(s): I48.20 - Chronic atrial fibrillation, unspecified Code(s): I48.91 - Unspecified atrial fibrillation Status: Chronic (4) Hypertension: Qualifiers: Hypertension type: primary hypertension Qualified Code(s): I10 - Essential (primary) hypertension Code(s): I10 - Essential (primary) hypertension Status: Resolved (5) DM2 (diabetes mellitus, type 2): Qualifiers: Diabetes mellitus fci insulin use: without termite technician use Diabetes mellitus complication status: without complication Qualified Code(s): E11.9 - Type 2 diabetes mellitus without complications Code(s): E11.9 - Type 2 diabetes mellitus without complications Status: Acute (6) Hyperlipidemia: Qualifiers: Hyperlipidemia type: mixed hyperlipidemia Qualified Code(s): E78.2 - Mixed hyperlipidemia Code(s): E78.5 - Hyperlipidemia, unspecified Status: Chronic Plan 79 y/o F with PMH of atrial fibrillation, hyperlipidemia, CHF, DM2, and hypertension presents here with 20 lb of weight gain. The patient presents here from at [facility] on 02/08 for further evaluation of fluid retention and weight gain. She reports 20 lb of weight gain over the past 2 weeks. This is accompanied by significant bilateral lower extremity edema. She reports she has had by new pants due to the amount of weight gain in the last few weeks. She denies chest pain, shortness a breath, cough, fever, chills, body aches. She follows with Margarito Fountain MD at [facility] for her cardiac care. She was previously on metoprolol and spironolactone. However she was recently seen at [facility] for a CHF exacerbation. At that time her metoprolol was decreased, she was taken off spironolactone, and she was started on midodrine t.i.d. approximately 1 week ago. She reports compliance to these medications. Initial VS at presentation: 98.2? F, HR 80, RR 16, 109/51, and 100% on RA. ED workup showed: No leukocytosis, hemoglobin 10.9 (11.0 on 01/19/2025), INR 1.5, sodium 135, potassium 2.9, creatinine 1.06 and GFR 50 (1.25 and GFR 42 on 01/19/2025), initial troponin negative, calcium 6.6/albumin 3.8, BNP 32480. CXR showed mild worsening bibasilar atelectasis and/or airspace disease and a small right pleural effusion. Acute on chronic diastolic CHF. Reported 20 lb weight gain in the last week. New O2 requirement 3 L via nasal cannula reported short of breath. Chest x-ray with mild worsening bibasilar atelectasis and/or airspace disease. Small right pleural effusion. BNP 26690. Echo 01/16/2025 with normal LV size with vigorous systolic contracted LV, mild RV enlargement with reduced systolic function, severe biatrial enlargement, AFib, tricuspid regurgitation jet velocity consistent with RV systolic pressure of 62 mm Hg. On torsemide 40 mg daily. Recently taken off spironolactone outpatient. Restart spironolactone along with Lasix 40 mg b.i.d.. Hold torsemide home dose. Patient recently started on midodrine 2.5 mg t.i.d.. Trend renal function. Fluid restriction as ordered. Diuresing well. Continue to monitor. Will switch to torsemide from a.m. Hypokalemia replace and monitor Atrial fibrillation on metoprolol Eliquis Hypertension Type 2 diabetes A1c of 6.3% on 01/16/2025 Hyperlipidemia on pravastatin DVT prophylaxis apixaban Code status full code Subjective Date/time seen: 02/12/25 12:04 Interval history: No overnight events. swelling improved. no sob, chest pain. Review of Systems Review of Systems: All systems reviewed & are unremarkable except as noted in HPI and below Exam Narrative: GENERAL: Well-appearing, well-nourished, and in no acute distress. HEAD: Normocephalic, atraumatic. EYES: PERRLA and EOMI. ENT: Nares clear, no rhinorrhea or epistaxis. Mucous membranes moist. NECK: Supple. CHEST: Clear to auscultation. No respiratory distress. HEART: Regular rate and rhythm. No murmur heard. Normal peripheral pulses. ABDOMEN: Soft, nontender, nondistended, normal active bowel sounds. EXTREMITIES: Normal range of motion. has chronic edema SKIN: Warm, dry, no rash. NEURO: No focal deficits. Alert and oriented x3. PSYCH: Normal mood and affect. Objective Data Vital Signs Vital Signs: Vital Signs - 24 hr 02/11/25 14:00 02/11/25 16:11 02/11/25 20:00 Temperature 98.3 F Pulse Rate 78 87 Respiratory Rate 18 Blood Pressure 112/64 Pulse Oximetry 96 Oxygen Delivery Room Air 02/11/25 20:00 02/11/25 22:00 02/12/25 00:00 Temperature 98.9 F Pulse Rate 92 104 H 85 Respiratory Rate 16 Blood Pressure 113/57 L Pulse Oximetry 95 Oxygen Delivery 02/12/25 04:00 02/12/25 06:00 02/12/25 07:32 Temperature 97.3 F L Pulse Rate 77 84 94 Respiratory Rate 12 16 Blood Pressure 114/72 Pulse Oximetry 91 Oxygen Delivery 02/12/25 09:20 Temperature Pulse Rate 98 Respiratory Rate Blood Pressure Pulse Oximetry Oxygen Delivery Intake/Output Intake/Output: Intake & Output 02/09/25 02/10/25 02/11/25 02/12/25 23:59 23:59 23:59 23:59 Intake Total 3500 1770 1920 640 Output Total 2024 2100 2600 1200 Balance 4225 -330 -680 -560 Meds/Results Medications: Active Medications Generic Name Dose Route Start Last Admin Trade Name Freq PRN Reason Stop Dose Admin Acetaminophen 650 mg 02/08/25 16:28 02/11/25 23:19 Acetaminophen 325 Mg Tablet PO 650 mg Q4H PRN Administration Mild Pain (1-3) or Fever Albuterol 2 puff 02/08/25 18:39 Albuterol Sulfate (*Sp) Aerosol 1 Puff INHALATION On Hold: 02/08/25 19:05 Q6HRT PRN Comment: USING NEBS Shortness Of Breath Or Wheezing Albuterol/Ipratropium 3 ml 02/08/25 18:39 Ipratropium 0.5 Mg/Albuterol Sulfate 2.5 Mg Ampul.Neb 3 Ml INHALATION Q6HRT PRN Shortness Of Breath Or Wheezing Apixaban 5 mg 02/08/25 21:00 02/12/25 09:19 Apixaban 5 Mg Tablet PO 5 mg Q12HR DANIELA Administration Aspirin 81 mg 02/09/25 09:00 02/12/25 09:19 Aspirin 81 Mg Enteric Tablet PO 81 mg DAILY DANIELA Administration Baclofen 5 mg 02/08/25 21:00 02/11/25 20:32 Baclofen 5 Mg Tablet PO 5 mg HS DANIELA Administration Dextrose 12.5 gm 02/08/25 18:41 Dextrose 50% 25 Gm/50 Ml Syringe IV PUSH PRN PRN Hypoglycemia Protocol Docusate Sodium 100 mg 02/09/25 09:00 02/12/25 09:19 Docusate Sodium 100 Mg Capsule PO 100 mg BID DANIELA Administration Empagliflozin 10 mg 02/09/25 09:00 02/12/25 09:19 Empagliflozin 10 Mg Tablet BY MOUTH 10 mg DAILY DANIELA Administration Furosemide 40 mg 02/09/25 09:00 02/12/25 09:20 Furosemide Inj 40 Mg/4 Ml Vial IV PUSH 40 mg BID DANIELA Administration Gabapentin 300 mg 02/08/25 21:00 02/12/25 09:19 Gabapentin 300 Mg Capsule PO 300 mg Q12HR DANIELA Administration Glucagon 1 mg 02/08/25 18:41 Glucagon For Inj 1 Mg Vial IM PRN PRN Hypoglycemia Protocol Glucose 15 gm 02/08/25 18:41 Glucose Oral Gel 15 Gm Of Glucse In 37.5 Gm Tube PO PRN PRN Hypoglycemia Protocol Dextrose 1,000 mls @ 100 mls/hr 02/08/25 18:41 Dextrose 5% 1,000 Ml IVPB PRN PRN Hypoglycemia Protocol Insulin Aspart 4 - 8 units 02/09/25 08:00 02/12/25 08:19 Insulin Aspart (*Bkc) 100 Units/Ml SUB-Q Not Given TIDWM DANIELA Protocol Levothyroxine Sodium 75 mcg 02/09/25 06:30 02/12/25 06:35 Levothyroxine Sodium 75 Mcg Tablet PO 75 mcg DAILY@0630 DANIELA Administration Levothyroxine Sodium 100 mcg 02/09/25 06:30 02/12/25 06:35 Levothyroxine Sodium 100 Mcg Tablet PO 100 mcg DAILY@0630 DANIELA Administration Lidocaine 2 patch 02/09/25 18:10 02/12/25 09:19 Lidocaine 5% Patch TRANSDERM 2 patch DAILY DANIELA Administration Metoprolol Tartrate 50 mg 02/08/25 21:00 02/12/25 09:20 Metoprolol Tartrate 50 Mg Tab PO 50 mg Q12HR DANIELA Administration Midodrine 2.5 mg 02/09/25 09:00 02/12/25 09:19 Midodrine Hcl 2.5 Mg Tablet PO 2.5 mg TID DANIELA Administration Pantoprazole Sodium 40 mg 02/09/25 09:00 02/12/25 09:19 Pantoprazole 40 Mg Tablet PO 40 mg Q12HR DANIELA Administration Pravastatin Sodium 40 mg 02/08/25 21:00 02/11/25 20:31 Pravastatin Sodium 20 Mg Tablet PO 40 mg HS DANIELA Administration Fluticasone/Salmeterol 2 puff 02/08/25 20:00 02/12/25 07:32 Fluticasone/Salmeterol 115-21 Mcg Inhaler 1 Puff INHALATION 2 puff Q12HRT DANIELA Administration Spironolactone 25 mg 02/09/25 09:00 02/12/25 09:19 Spironolactone 25 Mg Tablet PO 25 mg DAILY DANIELA Administration Tramadol HCl 50 mg 02/08/25 18:39 02/10/25 20:01 Tramadol Hcl (*Crx) 50 Mg Tablet PO 50 mg Q8H PRN Administration Pain 4-6 Vitamin D 25 mcg 02/09/25 09:00 02/12/25 09:19 Cholecalciferol (Vitamin D3) 25 Mcg (1,000 Units) Tablet PO 25 mcg DAILY DANIELA Administration Radiology Results: ITS Impressions Chest X-Ray 02/08/25 14:39 IMPRESSION: 1. Mild worsening bibasilar atelectasis and/or airspace disease. 2. Small right pleural effusion. Labs Labs: Laboratory Results - last 24 hr 02/11/25 02/11/25 02/12/25 12:20 17:12 05:30 WBC 3.8 L RBC 3.72 L Hgb 10.4 L Hct 35.0 L MCV 94.1 MCH 28.0 MCHC 29.7 L RDW 16.4 H Plt Count 225 MPV 8.7 Immature Gran % (Auto) 0.3 Neut % (Auto) 71.3 Lymph % (Auto) 10.8 L [place] % (Auto) 12.1 H Eos % (Auto) 4.5 H Baso % (Auto) 1.0 Lymph # (Auto) 0.41 L [place] # (Auto) 0.5 Eos # (Auto) 0.2 Baso # (Auto) 0.0 Abs Immat Gran (auto) 0.01 Absolute Neuts (auto) 2.7 Absolute Nucleated RBC 0.000 Band Neutrophils % Not Reportable Nucleated RBC % 0.0 Platelet Estimate Adequate Hypochromasia 1+ Anisocytosis 1+ Tear Drop Cells 1+ Ovalocytes 1+ Schistocytes None seen Sodium 133 L Potassium 3.8 Chloride 95 L Carbon Dioxide 33 H Anion Gap 5 BUN 26 H Creatinine 0.98 Estim Creat Clear Calc Not Reportable Estimated GFR 55 L Glucose 106 POC Capillary Glucose 166 H 116 H Calcium 7.1 L Magnesium 2.1 Total Bilirubin 0.4 AST 35 ALT 11 Alkaline Phosphatase 101 Total Protein 6.2 L Albumin 3.2 L 02/12/25 08:19 WBC RBC Hgb Hct MCV MCH MCHC RDW Plt Count MPV Immature Gran % (Auto) Neut % (Auto) Lymph % (Auto) [place] % (Auto) Eos % (Auto) Baso % (Auto) Lymph # (Auto) [place] # (Auto) Eos # (Auto) Baso # (Auto) Abs Immat Gran (auto) Absolute Neuts (auto) Absolute Nucleated RBC Band Neutrophils % Nucleated RBC % Platelet Estimate Hypochromasia Anisocytosis Tear Drop Cells Ovalocytes Schistocytes Sodium Potassium Chloride Carbon Dioxide Anion Gap BUN Creatinine Estim Creat Clear Calc Estimated GFR Glucose POC Capillary Glucose 111 H Calcium Magnesium Total Bilirubin AST ALT Alkaline Phosphatase Total Protein Albumin
[2025-02-12] MEDS: ACETAMINOPHEN 325 MG TABLET 650 MG PO (20:36)
[2025-02-12] MEDS: traMADol HCL (*CRX) 50 MG TABLET PO (20:36)
[2025-02-12] MEDS: PRAVASTATIN SODIUM 20 MG TABLET 40 MG PO (20:37)
[2025-02-12] MEDS: BACLOFEN 5 MG TABLET PO (20:37)
[2025-02-13] VITALS (15 sets, daily range): BP systolic 108–133; BP diastolic 60–90; PULSE 73–104; RESP 16–20; TEMP 36.5–36.7; O2SAT 91–96
[2025-02-13] MEDS: LEVOTHYROXINE SODIUM 100 MCG TABLET PO (05:24)
[2025-02-13] MEDS: LEVOTHYROXINE SODIUM 75 MCG TABLET PO (05:24)
[2025-02-13 06:15] LABS: Hematocrit 35.7 % (37.0-47.0); Hemoglobin 10.6 g/dL (12.0-15.0); Immature Granulocyte Percent A 0.6 % (0-0.5); Lymphocytes Absolute Auto 0.32 K/mm3 (0.9-3.2); Mean Corpuscular HGB Conc 29.7 g/dl (32-36); Mean Corpuscular Hemoglobin 27.7 pg (26-34); Mean Corpuscular Volume 93.2 fl (80-100); Nucleated Red Blood Cells Absolute Auto 0.000 K/mm3 (0.0-0.012); Nucleated Red Blood Cells Perc 0.0 % (0.0-0.2); Platelet Count Result 236 k/mm3 (150-375); Red Blood Count 3.83 M/mm3 (4.2-5.4); White Blood Count 3.3 K/mm3 (4.5-10.0)
[2025-02-13 06:35] LABS: Alanine Aminotransferase 11 U/L (6-35); Albumin Level 3.2 g/dL (3.5-5.1); Alkaline Phosphatase 103 U/L (38-126); Anion Gap 6 mmol/L (4-12); Aspartate Amino Transferase 21 U/L (14-36); Bilirubin,Total 0.4 mg/dL (0.2-1.3); Blood Urea Nitrogen 24 mg/dL (7-17); Calcium 7.2 mg/dL (8.4-10.2); Carbon Dioxide 35 mmol/L (22-30); Chloride 94 mmol/L (98-107); Estimated Glomerular Filt Rate 55; Glucose 104 mg/dL (65-110); Magnesium 2.1 mg/dL (1.6-2.3); Potassium 3.6 mmol/L (3.4-5.0); Sodium 135 mmol/L (137-145); Total Protein 6.2 g/dL (6.3-8.2)
[2025-02-13 07:02] LABS: Anisocytosis 1+; Hypochromasia 1+; Ovalocytes 1+; Schistocytes None Seen; Tear Drop Cells 1+
[2025-02-13] MEDS: FLUTICASONE/SALMETEROL 115-21 MCG INHALER 1 PUFF 2 PUFF INHALATION ×2 (07:18→21:10)
[2025-02-13] MEDS: TORSEMIDE 20 MG TABLET 40 MG PO (09:27)
[2025-02-13] MEDS: PANTOPRAZOLE 40 MG TABLET PO ×2 (09:27→21:30)
[2025-02-13] MEDS: APIXABAN 5 MG TABLET PO ×2 (09:28→21:30)
[2025-02-13] MEDS: MIDODRINE HCL 2.5 MG TABLET PO ×3 (09:28→16:20)
[2025-02-13] MEDS: GABAPENTIN 300 MG CAPSULE PO ×2 (09:28→21:30)
[2025-02-13] MEDS: LIDOCAINE 5% PATCH 2 PATCH TRANSDERM (09:28)
[2025-02-13] MEDS: CHOLECALCIFEROL (VITAMIN D3) 25 MCG (1,000 UNITS) TABLET PO (09:28)
[2025-02-13] MEDS: ASPIRIN 81 MG ENTERIC TABLET PO (09:28)
[2025-02-13] MEDS: METOPROLOL TARTRATE 50 MG TAB PO ×2 (09:28→21:30)
[2025-02-13] MEDS: DOCUSATE SODIUM 100 MG CAPSULE PO ×2 (09:28→16:20)
[2025-02-13] MEDS: SPIRONOLACTONE 25 MG TABLET PO (09:28)
[2025-02-13] MEDS: EMPAGLIFLOZIN 10 MG TABLET BY MOUTH (09:28)
--- NOTE | 2025-02-13 14:04 | PM.IMPN ---
Progress Note: A&P Assessment and Plan (1) CHF (congestive heart failure): Qualifiers: Heart failure chronicity: acute on chronic Heart failure type: combined systolic and diastolic Qualified Code(s): I50.43 - Acute on chronic combined systolic (congestive) and diastolic (congestive) heart failure Code(s): I50.9 - Heart failure, unspecified Status: Acute (2) Hypokalemia: Code(s): E87.6 - Hypokalemia Status: Acute (3) Atrial fibrillation: Qualifiers: Atrial fibrillation type: unspecified chronic Qualified Code(s): I48.20 - Chronic atrial fibrillation, unspecified Code(s): I48.91 - Unspecified atrial fibrillation Status: Chronic (4) Hypertension: Qualifiers: Hypertension type: primary hypertension Qualified Code(s): I10 - Essential (primary) hypertension Code(s): I10 - Essential (primary) hypertension Status: Resolved (5) DM2 (diabetes mellitus, type 2): Qualifiers: Diabetes mellitus alf insulin use: 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 The patient presents here from at [facility] on 02/08 for further evaluation of fluid retention and weight gain. She reports 20 lb of weight gain over the past 2 weeks. This is accompanied by significant bilateral lower extremity edema. She reports she has had by new pants due to the amount of weight gain in the last few weeks. She denies chest pain, shortness a breath, cough, fever, chills, body aches. She follows with Margarito Fountain MD at [facility] for her cardiac care. She was previously on metoprolol and spironolactone. However she was recently seen at [facility] for a CHF exacerbation. At that time her metoprolol was decreased, she was taken off spironolactone, and she was started on midodrine t.i.d. approximately 1 week ago. She reports compliance to these medications. Initial VS at presentation: 98.2? F, HR 80, RR 16, 109/51, and 100% on RA. ED workup showed: No leukocytosis, hemoglobin 10.9 (11.0 on 01/19/2025), INR 1.5, sodium 135, potassium 2.9, creatinine 1.06 and GFR 50 (1.25 and GFR 42 on 01/19/2025), initial troponin negative, calcium 6.6/albumin 3.8, BNP 24519. CXR showed mild worsening bibasilar atelectasis and/or airspace disease and a small right pleural effusion. Acute on chronic diastolic CHF. Reported 20 lb weight gain in the last week. New O2 requirement 3 L via nasal cannula reported short of breath. Chest x-ray with mild worsening bibasilar atelectasis and/or airspace disease. Small right pleural effusion. BNP 73125. Echo 01/16/2025 with normal LV size with vigorous systolic contracted LV, mild RV enlargement with reduced systolic function, severe biatrial enlargement, AFib, tricuspid regurgitation jet velocity consistent with RV systolic pressure of 62 mm Hg. On torsemide 40 mg daily. Recently taken off spironolactone outpatient. Restart spironolactone along with Lasix 40 mg b.i.d.. Hold torsemide home dose. Patient recently started on midodrine 2.5 mg t.i.d.. Trend renal function. Fluid restriction as ordered. Diuresing well. Continue to monitor. Switched to torsemide 02/13 however not diuresing well with it. Will restart Lasix IV. Recheck chest x-ray today. Hypokalemia replace and monitor Atrial fibrillation on metoprolol Eliquis Hypertension Type 2 diabetes A1c of 6.3% on 01/16/2025 Hyperlipidemia on pravastatin DVT prophylaxis apixaban Code status full code Subjective Date/time seen: 02/13/25 14:04 Interval history: Does not diuresed much after switching to torsemide. Leg swelling is doing better. Some shortness of breath with exertion persist. Plans to work with therapy today. Review of Systems Review of Systems: All systems reviewed & are unremarkable except as noted in HPI and below Exam Narrative: GENERAL: Well-appearing, well-nourished, and in no acute distress. HEAD: Normocephalic, atraumatic. EYES: PERRLA and EOMI. ENT: Nares clear, no rhinorrhea or epistaxis. Mucous membranes moist. NECK: Supple. CHEST: Mild crackles at the bases. No respiratory distress. HEART: Regular rate and rhythm. No murmur heard. Normal peripheral pulses. ABDOMEN: Soft, nontender, nondistended, normal active bowel sounds. EXTREMITIES: Normal range of motion. has chronic edema SKIN: Warm, dry, no rash. NEURO: No focal deficits. Alert and oriented x3. PSYCH: Normal mood and affect. Objective Data Vital Signs Vital Signs: Vital Signs - 24 hr 02/12/25 14:35 02/12/25 15:57 02/12/25 19:33 Temperature 96.6 F L Pulse Rate 79 87 95 Respiratory Rate 17 20 Blood Pressure 107/50 L Pulse Oximetry 96 Oxygen Delivery Fraction of Inspired Oxygen 02/12/25 19:38 02/12/25 20:00 02/12/25 20:00 Temperature Pulse Rate 95 100 Respiratory Rate 20 Blood Pressure Pulse Oximetry 95 Oxygen Delivery Room Air Room Air Fraction of Inspired Oxygen 02/12/25 22:00 02/13/25 00:00 02/13/25 04:00 Temperature 98.3 F Pulse Rate 94 77 75 Respiratory Rate 18 Blood Pressure 105/59 L Pulse Oximetry 93 Oxygen Delivery Fraction of Inspired Oxygen 02/13/25 05:55 02/13/25 07:21 02/13/25 07:22 Temperature 97.7 F Pulse Rate 73 81 81 Respiratory Rate 16 20 Blood Pressure 117/67 Pulse Oximetry 91 91 Oxygen Delivery Room Air Fraction of Inspired Oxygen 02/13/25 09:14 02/13/25 09:14 02/13/25 09:28 Temperature Pulse Rate 75 104 H Respiratory Rate Blood Pressure Pulse Oximetry Oxygen Delivery Room Air Fraction of Inspired Oxygen 02/13/25 12:00 Temperature Pulse Rate 79 Respiratory Rate Blood Pressure Pulse Oximetry Oxygen Delivery Fraction of Inspired Oxygen Intake/Output Intake/Output: Intake & Output 02/10/25 02/11/25 02/12/25 02/13/25 23:59 23:59 23:59 23:59 Intake Total 1770 1920 760 240 Output Total 2100 2600 2400 1 Balance -655 -803 -0280 239 Meds/Results Medications: Active Medications Generic Name Dose Route Start Last Admin Trade Name Freq PRN Reason Stop Dose Admin Acetaminophen 650 mg 02/08/25 16:28 02/12/25 20:36 Acetaminophen 325 Mg Tablet PO 650 mg Q4H PRN Administration Mild Pain (1-3) or Fever Albuterol 2 puff 02/08/25 18:39 Albuterol Sulfate (*Sp) Aerosol 1 Puff INHALATION On Hold: 02/08/25 19:05 Q6HRT PRN Comment: USING NEBS Shortness Of Breath Or Wheezing Albuterol/Ipratropium 3 ml 02/08/25 18:39 Ipratropium 0.5 Mg/Albuterol Sulfate 2.5 Mg Ampul.Neb 3 Ml INHALATION Q6HRT PRN Shortness Of Breath Or Wheezing Apixaban 5 mg 02/08/25 21:00 02/13/25 09:28 Apixaban 5 Mg Tablet PO 5 mg Q12HR DANIELA Administration Aspirin 81 mg 02/09/25 09:00 02/13/25 09:28 Aspirin 81 Mg Enteric Tablet PO 81 mg DAILY DANIELA Administration Baclofen 5 mg 02/08/25 21:00 02/12/25 20:37 Baclofen 5 Mg Tablet PO 5 mg HS DANIELA Administration Dextrose 12.5 gm 02/08/25 18:41 Dextrose 50% 25 Gm/50 Ml Syringe IV PUSH PRN PRN Hypoglycemia Protocol Docusate Sodium 100 mg 02/09/25 09:00 02/13/25 09:28 Docusate Sodium 100 Mg Capsule PO 100 mg BID DANIELA Administration Empagliflozin 10 mg 02/09/25 09:00 02/13/25 09:28 Empagliflozin 10 Mg Tablet BY MOUTH 10 mg DAILY DANIELA Administration Gabapentin 300 mg 02/08/25 21:00 02/13/25 09:28 Gabapentin 300 Mg Capsule PO 300 mg Q12HR DANIELA Administration Glucagon 1 mg 02/08/25 18:41 Glucagon For Inj 1 Mg Vial IM PRN PRN Hypoglycemia Protocol Glucose 15 gm 02/08/25 18:41 Glucose Oral Gel 15 Gm Of Glucse In 37.5 Gm Tube PO PRN PRN Hypoglycemia Protocol Dextrose 1,000 mls @ 100 mls/hr 02/08/25 18:41 Dextrose 5% 1,000 Ml IVPB PRN PRN Hypoglycemia Protocol Insulin Aspart 4 - 8 units 02/09/25 08:00 02/13/25 12:11 Insulin Aspart (*Bkc) 100 Units/Ml SUB-Q Not Given TIDWM [facility] Protocol Levothyroxine Sodium 75 mcg 02/09/25 06:30 02/13/25 05:24 Levothyroxine Sodium 75 Mcg Tablet PO 75 mcg DAILY@0630 DANIELA Administration Levothyroxine Sodium 100 mcg 02/09/25 06:30 02/13/25 05:24 Levothyroxine Sodium 100 Mcg Tablet PO 100 mcg DAILY@0630 DANIELA Administration Lidocaine 2 patch 02/09/25 18:10 02/13/25 09:28 Lidocaine 5% Patch TRANSDERM 2 patch DAILY DANIELA Administration Metoprolol Tartrate 50 mg 02/08/25 21:00 02/13/25 09:28 Metoprolol Tartrate 50 Mg Tab PO 50 mg Q12HR DANIELA Administration Midodrine 2.5 mg 02/09/25 09:00 02/13/25 12:12 Midodrine Hcl 2.5 Mg Tablet PO 2.5 mg TID DANIELA Administration Pantoprazole Sodium 40 mg 02/09/25 09:00 02/13/25 09:27 Pantoprazole 40 Mg Tablet PO 40 mg Q12HR DANIELA Administration Pravastatin Sodium 40 mg 02/08/25 21:00 02/12/25 20:37 Pravastatin Sodium 20 Mg Tablet PO 40 mg HS DANIELA Administration Fluticasone/Salmeterol 2 puff 02/08/25 20:00 02/13/25 07:18 Fluticasone/Salmeterol 115-21 Mcg Inhaler 1 Puff INHALATION 2 puff Q12HRT DANIELA Administration Spironolactone 25 mg 02/09/25 09:00 02/13/25 09:28 Spironolactone 25 Mg Tablet PO 25 mg DAILY DANIELA Administration Torsemide 40 mg 02/13/25 09:00 02/13/25 09:27 Torsemide 20 Mg Tablet PO 40 mg DAILY DANIELA Administration Tramadol HCl 50 mg 02/08/25 18:39 02/12/25 20:36 Tramadol Hcl (*Crx) 50 Mg Tablet PO 50 mg Q8H PRN Administration Pain 4-6 Vitamin D 25 mcg 02/09/25 09:00 02/13/25 09:28 Cholecalciferol (Vitamin D3) 25 Mcg (1,000 Units) Tablet PO 25 mcg DAILY DANIELA Administration Radiology Results: ITS Impressions Chest X-Ray 02/08/25 14:39 IMPRESSION: 1. Mild worsening bibasilar atelectasis and/or airspace disease. 2. Small right pleural effusion. Labs Labs: Laboratory Results - last 24 hr 02/12/25 02/12/25 02/13/25 17:25 19:40 05:40 WBC 3.3 L RBC 3.83 L Hgb 10.6 L Hct 35.7 L MCV 93.2 MCH 27.7 MCHC 29.7 L RDW 16.6 H Plt Count 236 MPV 9.0 Immature Gran % (Auto) 0.6 H Neut % (Auto) 72.8 Lymph % (Auto) 9.8 L [place] % (Auto) 10.7 H Eos % (Auto) 5.5 H Baso % (Auto) 0.6 Lymph # (Auto) 0.32 L [place] # (Auto) 0.4 Eos # (Auto) 0.2 Baso # (Auto) 0.0 Abs Immat Gran (auto) 0.02 Absolute Neuts (auto) 2.4 Absolute Nucleated RBC 0.000 Band Neutrophils % Not Reportable Nucleated RBC % 0.0 Platelet Estimate Adequate Hypochromasia 1+ Anisocytosis 1+ Tear Drop Cells 1+ Ovalocytes 1+ Schistocytes None seen Sodium 135 L Potassium 3.6 Chloride 94 L Carbon Dioxide 35 H Anion Gap 6 BUN 24 H Creatinine 0.98 Estim Creat Clear Calc Not Reportable Estimated GFR 55 L Glucose 104 POC Capillary Glucose 109 H 154 H Calcium 7.2 L Magnesium 2.1 Total Bilirubin 0.4 AST 21 ALT 11 Alkaline Phosphatase 103 Total Protein 6.2 L Albumin 3.2 L 02/13/25 02/13/25 08:15 11:31 WBC RBC Hgb Hct MCV MCH MCHC RDW Plt Count MPV Immature Gran % (Auto) Neut % (Auto) Lymph % (Auto) [place] % (Auto) Eos % (Auto) Baso % (Auto) Lymph # (Auto) [place] # (Auto) Eos # (Auto) Baso # (Auto) Abs Immat Gran (auto) Absolute Neuts (auto) Absolute Nucleated RBC Band Neutrophils % Nucleated RBC % Platelet Estimate Hypochromasia Anisocytosis Tear Drop Cells Ovalocytes Schistocytes Sodium Potassium Chloride Carbon Dioxide Anion Gap BUN Creatinine Estim Creat Clear Calc Estimated GFR Glucose POC Capillary Glucose 103 144 H Calcium Magnesium Total Bilirubin AST ALT Alkaline Phosphatase Total Protein Albumin
[2025-02-13 15:50] LABS: NT Pro B Type Natriuretic Pept 7160 pg/mL (19.9-100)
[2025-02-13] MEDS: FUROSEMIDE INJ 40 MG/4 ML VIAL IV PUSH (16:20)
[2025-02-13] MEDS: BACLOFEN 5 MG TABLET PO (21:30)
[2025-02-13] MEDS: ACETAMINOPHEN 325 MG TABLET 650 MG PO (22:45)
[2025-02-13] MEDS: PRAVASTATIN SODIUM 20 MG TABLET 40 MG PO (22:46)
[2025-02-14] VITALS (14 sets, daily range): BP systolic 100–138; BP diastolic 70–79; PULSE 67–114; RESP 18; TEMP 36.6–36.7; O2SAT 93–98
[2025-02-14] MEDS: LEVOTHYROXINE SODIUM 100 MCG TABLET PO (05:32)
[2025-02-14] MEDS: LEVOTHYROXINE SODIUM 75 MCG TABLET PO (05:32)
[2025-02-14] MEDS: FLUTICASONE/SALMETEROL 115-21 MCG INHALER 1 PUFF 2 PUFF INHALATION ×2 (07:43→20:16)
[2025-02-14] MEDS: SPIRONOLACTONE 25 MG TABLET PO (08:46)
[2025-02-14] MEDS: APIXABAN 5 MG TABLET PO ×2 (08:46→20:23)
[2025-02-14] MEDS: MIDODRINE HCL 2.5 MG TABLET PO ×3 (08:46→17:16)
[2025-02-14] MEDS: GABAPENTIN 300 MG CAPSULE PO ×2 (08:46→20:23)
[2025-02-14] MEDS: DOCUSATE SODIUM 100 MG CAPSULE PO ×2 (08:46→17:16)
[2025-02-14] MEDS: ASPIRIN 81 MG ENTERIC TABLET PO (08:46)
[2025-02-14] MEDS: FUROSEMIDE INJ 40 MG/4 ML VIAL IV PUSH ×2 (08:47→17:16)
[2025-02-14] MEDS: EMPAGLIFLOZIN 10 MG TABLET BY MOUTH (08:47)
[2025-02-14] MEDS: CHOLECALCIFEROL (VITAMIN D3) 25 MCG (1,000 UNITS) TABLET PO (08:47)
[2025-02-14] MEDS: PANTOPRAZOLE 40 MG TABLET PO ×2 (08:47→20:24)
[2025-02-14] MEDS: LIDOCAINE 5% PATCH 2 PATCH TRANSDERM (08:49)
[2025-02-14] MEDS: METOPROLOL TARTRATE 50 MG TAB PO ×2 (09:03→20:24)
[2025-02-14 10:20] LABS: Hematocrit 37.1 % (37.0-47.0); Hemoglobin 11.0 g/dL (12.0-15.0); Immature Granulocyte Percent A 0.6 % (0-0.5); Lymphocytes Absolute Auto 0.33 K/mm3 (0.9-3.2); Mean Corpuscular HGB Conc 29.6 g/dl (32-36); Mean Corpuscular Hemoglobin 27.4 pg (26-34); Mean Corpuscular Volume 92.5 fl (80-100); Nucleated Red Blood Cells Absolute Auto 0.000 K/mm3 (0.0-0.012); Nucleated Red Blood Cells Perc 0.0 % (0.0-0.2); Platelet Count Result 243 k/mm3 (150-375); Red Blood Count 4.01 M/mm3 (4.2-5.4); White Blood Count 5.1 K/mm3 (4.5-10.0)
[2025-02-14 10:45] LABS: Iron 33 ug/dL (37-170)
[2025-02-14 10:47] LABS: Albumin Level 3.5 g/dL (3.5-5.1); Anion Gap 8 mmol/L (4-12); Blood Urea Nitrogen 22 mg/dL (7-17); Calcium 7.5 mg/dL (8.4-10.2); Carbon Dioxide 33 mmol/L (22-30); Chloride 94 mmol/L (98-107); Estimated Glomerular Filt Rate 53; Glucose 184 mg/dL (65-110); Potassium 3.5 mmol/L (3.4-5.0); Sodium 135 mmol/L (137-145)
[2025-02-14 10:55] LABS: Anisocytosis 1+; Hypochromasia 1+; Schistocytes None Seen
[2025-02-14 10:56] LABS: Percent Iron Saturation 14 % (20-50)
[2025-02-14 11:26] LABS: Ferritin 161.00 ng/mL (11.1-264)
[2025-02-14 12:06] LABS: Vitamin B12 764.0 pg/mL (239-931)
--- NOTE | 2025-02-14 14:30 | PM.IMPN ---
Progress Note: A&P Assessment and Plan (1) CHF (congestive heart failure): Qualifiers: Heart failure chronicity: acute on chronic Heart failure type: combined systolic and diastolic Qualified Code(s): I50.43 - Acute on chronic combined systolic (congestive) and diastolic (congestive) heart failure Code(s): I50.9 - Heart failure, unspecified Status: Acute (2) Hypokalemia: Code(s): E87.6 - Hypokalemia Status: Acute (3) Atrial fibrillation: Qualifiers: Atrial fibrillation type: unspecified chronic Qualified Code(s): I48.20 - Chronic atrial fibrillation, unspecified Code(s): I48.91 - Unspecified atrial fibrillation Status: Chronic (4) Hypertension: Qualifiers: Hypertension type: primary hypertension Qualified Code(s): I10 - Essential (primary) hypertension Code(s): I10 - Essential (primary) hypertension Status: Resolved (5) DM2 (diabetes mellitus, type 2): Qualifiers: Diabetes mellitus complication status: without complication Diabetes mellitus retirement insulin use: without retirement use Qualified Code(s): E11.9 - Type 2 diabetes mellitus without complications Code(s): E11.9 - Type 2 diabetes mellitus without complications Status: Acute (6) Hyperlipidemia: Qualifiers: Hyperlipidemia type: mixed hyperlipidemia Qualified Code(s): E78.2 - Mixed hyperlipidemia Code(s): E78.5 - Hyperlipidemia, unspecified Status: Chronic Plan 79 y/o F with PMH of atrial fibrillation, hyperlipidemia, CHF, DM2, and hypertension presents here with 20 lb of weight gain. The patient presents here from at [facility] on 02/08 for further evaluation of fluid retention and weight gain. She reports 20 lb of weight gain over the past 2 weeks. This is accompanied by significant bilateral lower extremity edema. She reports she has had by new pants due to the amount of weight gain in the last few weeks. She denies chest pain, shortness a breath, cough, fever, chills, body aches. She follows with Margarito Fountain MD at [facility] for her cardiac care. She was previously on metoprolol and spironolactone. However she was recently seen at [facility] for a CHF exacerbation. At that time her metoprolol was decreased, she was taken off spironolactone, and she was started on midodrine t.i.d. approximately 1 week ago. She reports compliance to these medications. Initial VS at presentation: 98.2? F, HR 80, RR 16, 109/51, and 100% on RA. ED workup showed: No leukocytosis, hemoglobin 10.9 (11.0 on 01/19/2025), INR 1.5, sodium 135, potassium 2.9, creatinine 1.06 and GFR 50 (1.25 and GFR 42 on 01/19/2025), initial troponin negative, calcium 6.6/albumin 3.8, BNP 12365. CXR showed mild worsening bibasilar atelectasis and/or airspace disease and a small right pleural effusion. ---- Acute on chronic diastolic CHF - Reported 20 lb weight gain in the last week. New O2 requirement and reported short of breath. Chest x-ray with mild worsening bibasilar atelectasis and/or airspace disease. Small right pleural effusion. BNP 63483. Echo 01/16/2025 with normal LV size with vigorous systolic contracted LV, mild RV enlargement with reduced systolic function, severe biatrial enlargement, AFib, tricuspid regurgitation jet velocity consistent with RV systolic pressure of 62 mm Hg. On torsemide 40 mg daily. Recently taken off spironolactone outpatient. Restarted spironolactone along with Lasix 40 mg IV b.i.d.. Held torsemide home dose. Patient recently started on midodrine 2.5 mg t.i.d.. Trend renal function. Fluid restriction as ordered. Switched to torsemide 02/13 however not diuresing well with it so Lasix IV restarted. Diuresing well with -2.2L fluid balance. Continue to monitor. NSVT - Tele showing 19 beat run of NSVT vs AFlutter with aberrancy. Potassium 3.5 and replacement ordered. Mag was 2.1 yesterday. Add on Mag level and replace if below 2. Cardiolgoy consult. Hypokalemia - replace and monitor Atrial fibrillation - on metoprolol and Eliquis Hypertension - BP well controlled. Continue to monitor Type 2 diabetes - A1c of 6.3% on 01/16/2025. Glucose remains well controlled. Continue to monitor. Hyperlipidemia -on pravastatin DVT prophylaxis apixaban Code status full code Subjective Date/time seen: 02/14/25 14:30 Interval history: 79 y/o F with PMH of atrial fibrillation, hyperlipidemia, CHF, DM2, and hypertension presents here with 20 lb of weight gain. Assuming care. Chart reviewed. Patient feeling better. Slept well overall. Eating fine. Shortness of breath is better. Exam Narrative: AF 979 131/78 75 18 95% ra GENERAL: No acute respiratory distress CHEST: Clear to auscultation bilaterally. HEART: Irregular. Telemetry showing AFib with a 1 episode of 19 beat run of nonsustained V-tach ABDOMEN: Soft, nontender, nondistended, normal active bowel sounds. EXTREMITIES: No edema SKIN: Warm, dry, no rash. NEURO: pleasant and cooperative. PSYCH: Normal mood and affect. Objective Data Vital Signs Vital Signs: Vital Signs - 24 hr 02/13/25 16:00 02/13/25 20:00 02/13/25 21:11 Temperature Pulse Rate 88 92 Respiratory Rate Blood Pressure Pulse Oximetry 96 Oxygen Delivery Room Air 02/13/25 21:12 02/13/25 21:30 02/13/25 22:00 Temperature 98.1 F Pulse Rate 86 88 91 Respiratory Rate 18 18 Blood Pressure 133/90 Pulse Oximetry 94 Oxygen Delivery 02/14/25 00:00 02/14/25 04:00 02/14/25 05:15 Temperature 97.9 F Pulse Rate 77 67 77 Respiratory Rate 18 Blood Pressure 131/78 Pulse Oximetry 98 Oxygen Delivery 02/14/25 07:45 02/14/25 07:46 02/14/25 08:00 Temperature Pulse Rate 93 Respiratory Rate 18 Blood Pressure Pulse Oximetry 95 Oxygen Delivery Room Air Room Air 02/14/25 08:00 02/14/25 09:03 02/14/25 12:00 Temperature Pulse Rate 82 114 H 75 Respiratory Rate Blood Pressure Pulse Oximetry Oxygen Delivery Intake/Output Intake/Output: Intake & Output 02/11/25 02/12/25 02/13/25 02/14/25 23:59 23:59 23:59 23:59 Intake Total 6872 992 3380 456 Output Total 2600 2400 1351 600 Balance -680 -1640 -131 -144 Meds/Results Medications: Active Medications Generic Name Dose Route Start Last Admin Trade Name Freq PRN Reason Stop Dose Admin Acetaminophen 650 mg 02/08/25 16:28 02/13/25 22:45 Acetaminophen 325 Mg Tablet PO 650 mg Q4H PRN Administration Mild Pain (1-3) or Fever Albuterol 2 puff 02/08/25 18:39 Albuterol Sulfate (*Sp) Aerosol 1 Puff INHALATION On Hold: 02/08/25 19:05 Q6HRT PRN Comment: USING NEBS Shortness Of Breath Or Wheezing Albuterol/Ipratropium 3 ml 02/08/25 18:39 Ipratropium 0.5 Mg/Albuterol Sulfate 2.5 Mg Ampul.Neb 3 Ml INHALATION Q6HRT PRN Shortness Of Breath Or Wheezing Apixaban 5 mg 02/08/25 21:00 02/14/25 08:46 Apixaban 5 Mg Tablet PO 5 mg Q12HR DANIELA Administration Aspirin 81 mg 02/09/25 09:00 02/14/25 08:46 Aspirin 81 Mg Enteric Tablet PO 81 mg DAILY DANIELA Administration Baclofen 5 mg 02/08/25 21:00 02/13/25 21:30 Baclofen 5 Mg Tablet PO 5 mg HS DANIELA Administration Dextrose 12.5 gm 02/08/25 18:41 Dextrose 50% 25 Gm/50 Ml Syringe IV PUSH PRN PRN Hypoglycemia Protocol Docusate Sodium 100 mg 02/09/25 09:00 02/14/25 08:46 Docusate Sodium 100 Mg Capsule PO 100 mg BID DANIELA Administration Empagliflozin 10 mg 02/09/25 09:00 02/14/25 08:47 Empagliflozin 10 Mg Tablet BY MOUTH 10 mg DAILY DANIELA Administration Furosemide 40 mg 02/13/25 17:00 02/14/25 08:47 Furosemide Inj 40 Mg/4 Ml Vial IV PUSH 40 mg BID DANIELA Administration Gabapentin 300 mg 02/08/25 21:00 02/14/25 08:46 Gabapentin 300 Mg Capsule PO 300 mg Q12HR DANIELA Administration Glucagon 1 mg 02/08/25 18:41 Glucagon For Inj 1 Mg Vial IM PRN PRN Hypoglycemia Protocol Glucose 15 gm 02/08/25 18:41 Glucose Oral Gel 15 Gm Of Glucse In 37.5 Gm Tube PO PRN PRN Hypoglycemia Protocol Dextrose 1,000 mls @ 100 mls/hr 02/08/25 18:41 Dextrose 5% 1,000 Ml IVPB PRN PRN Hypoglycemia Protocol Insulin Aspart 4 - 8 units 02/09/25 08:00 02/14/25 11:46 Insulin Aspart (*Bkc) 100 Units/Ml SUB-Q Not Given [facility] Protocol Levothyroxine Sodium 75 mcg 02/09/25 06:30 02/14/25 05:32 Levothyroxine Sodium 75 Mcg Tablet PO 75 mcg DAILY@0630 DANIELA Administration Levothyroxine Sodium 100 mcg 02/09/25 06:30 02/14/25 05:32 Levothyroxine Sodium 100 Mcg Tablet PO 100 mcg DAILY@0630 DANIELA Administration Lidocaine 2 patch 02/09/25 18:10 02/14/25 08:49 Lidocaine 5% Patch TRANSDERM 2 patch DAILY DANIELA Administration Metoprolol Tartrate 50 mg 02/08/25 21:00 02/14/25 09:03 Metoprolol Tartrate 50 Mg Tab PO 50 mg Q12HR DANIELA Administration Midodrine 2.5 mg 02/09/25 09:00 02/14/25 12:19 Midodrine Hcl 2.5 Mg Tablet PO 2.5 mg TID DANIELA Administration Pantoprazole Sodium 40 mg 02/09/25 09:00 02/14/25 08:47 Pantoprazole 40 Mg Tablet PO 40 mg Q12HR DANIELA Administration Potassium Chloride 40 meq 02/14/25 14:27 Potassium Chloride 20 Meq Er Tablet PO 02/14/25 14:28 ONCE ONE Pravastatin Sodium 40 mg 02/08/25 21:00 02/13/25 22:46 Pravastatin Sodium 20 Mg Tablet PO 40 mg HS DANIELA Administration Fluticasone/Salmeterol 2 puff 02/08/25 20:00 02/14/25 07:43 Fluticasone/Salmeterol 115-21 Mcg Inhaler 1 Puff INHALATION 2 puff Q12HRT DANIELA Administration Spironolactone 25 mg 02/09/25 09:00 02/14/25 08:46 Spironolactone 25 Mg Tablet PO 25 mg DAILY DANIELA Administration Tramadol HCl 50 mg 02/08/25 18:39 02/12/25 20:36 Tramadol Hcl (*Crx) 50 Mg Tablet PO 50 mg Q8H PRN Administration Pain 4-6 Vitamin D 25 mcg 02/09/25 09:00 02/14/25 08:47 Cholecalciferol (Vitamin D3) 25 Mcg (1,000 Units) Tablet PO 25 mcg DAILY DANIELA Administration Radiology Results: ITS Impressions Chest X-Ray 02/13/25 14:46 IMPRESSION: 1. No significant change from prior. 2. Bibasilar atelectasis and/or airspace disease, small right effusion. Labs Labs: Laboratory Results - last 24 hr 02/13/25 02/13/25 02/13/25 05:33 16:57 22:45 WBC RBC Hgb Hct MCV MCH MCHC RDW Plt Count MPV Immature Gran % (Auto) Neut % (Auto) Lymph % (Auto) [place] % (Auto) Eos % (Auto) Baso % (Auto) Lymph # (Auto) [place] # (Auto) Eos # (Auto) Baso # (Auto) Abs Immat Gran (auto) Absolute Neuts (auto) Absolute Nucleated RBC Band Neutrophils % Nucleated RBC % Platelet Estimate Hypochromasia Anisocytosis Schistocytes Sodium Potassium Chloride Carbon Dioxide Anion Gap BUN Creatinine Estim Creat Clear Calc Estimated GFR Glucose POC Capillary Glucose 125 H 176 H Calcium Phosphorus Iron TIBC % Saturation Ferritin NT-Pro-B Natriuret Pep 7160 H Albumin Vitamin B12 Folate 02/14/25 02/14/25 02/14/25 09:18 10:08 11:12 WBC 5.1 RBC 4.01 L Hgb 11.0 L Hct 37.1 MCV 92.5 MCH 27.4 MCHC 29.6 L RDW 16.5 H Plt Count 243 MPV 8.7 Immature Gran % (Auto) 0.6 H Neut % (Auto) 82.6 H Lymph % (Auto) 6.5 L [place] % (Auto) 6.3 Eos % (Auto) 3.4 Baso % (Auto) 0.6 Lymph # (Auto) 0.33 L [place] # (Auto) 0.3 Eos # (Auto) 0.2 Baso # (Auto) 0.0 Abs Immat Gran (auto) 0.03 Absolute Neuts (auto) 4.2 Absolute Nucleated RBC 0.000 Band Neutrophils % Not Reportable Nucleated RBC % 0.0 Platelet Estimate Adequate Hypochromasia 1+ Anisocytosis 1+ Schistocytes None seen Sodium 135 L Potassium 3.5 Chloride 94 L Carbon Dioxide 33 H Anion Gap 8 BUN 22 H Creatinine 1.01 H Estim Creat Clear Calc Not Reportable Estimated GFR 53 L Glucose 184 H POC Capillary Glucose 133 H 167 H Calcium 7.5 L Phosphorus 3.2 Iron 33 L TIBC 235 L % Saturation 14 L Ferritin 161.00 NT-Pro-B Natriuret Pep Albumin 3.5 Vitamin B12 764.0 Folate 15.0
[2025-02-14 14:44] LABS: Magnesium 1.9 mg/dL (1.6-2.3)
[2025-02-14] MEDS: POTASSIUM CHLORIDE 20 MEQ ER TABLET 40 MEQ PO (17:16)
[2025-02-14] MEDS: PRAVASTATIN SODIUM 20 MG TABLET 40 MG PO (20:23)
[2025-02-14] MEDS: BACLOFEN 5 MG TABLET PO (20:24)
[2025-02-14] MEDS: ACETAMINOPHEN 325 MG TABLET 650 MG PO (20:26)
[2025-02-14] MEDS: MAGNESIUM SULF 2 GM/WATER 50ML 2 GM/50 ML BAG IVPB (23:43)
[2025-02-15] VITALS (9 sets, daily range): BP systolic 92–115; BP diastolic 71; PULSE 69–99; RESP 16–20; TEMP 36.9; O2SAT 92–93
[2025-02-15] MEDS: LEVOTHYROXINE SODIUM 100 MCG TABLET PO (05:48)
[2025-02-15] MEDS: LEVOTHYROXINE SODIUM 75 MCG TABLET PO (05:48)
[2025-02-15 06:35] LABS: Albumin Level 3.6 g/dL (3.5-5.1); Anion Gap 6 mmol/L (4-12); Blood Urea Nitrogen 22 mg/dL (7-17); Calcium 7.7 mg/dL (8.4-10.2); Carbon Dioxide 34 mmol/L (22-30); Chloride 95 mmol/L (98-107); Estimated Glomerular Filt Rate 51; Glucose 112 mg/dL (65-110); Magnesium 2.8 mg/dL (1.6-2.3); Potassium 3.6 mmol/L (3.4-5.0); Sodium 135 mmol/L (137-145)
[2025-02-15] MEDS: FLUTICASONE/SALMETEROL 115-21 MCG INHALER 1 PUFF 2 PUFF INHALATION (07:08)
--- NOTE | 2025-02-15 09:03 | PM.CNCAR ---
Assessment and Plan Assessment and plan (1) Atrial fibrillation: Qualifiers: Atrial fibrillation type: unspecified chronic Qualified Code(s): I48.20 - Chronic atrial fibrillation, unspecified Code(s): I48.91 - Unspecified atrial fibrillation Status: Chronic Assessment and Plan: [id number] 5. on Eliquis. Rate controlled. (2) Hypertension: Qualifiers: Hypertension type: primary hypertension Qualified Code(s): I10 - Essential (primary) hypertension Code(s): I10 - Essential (primary) hypertension Status: Resolved Assessment and Plan: Stable. (3) Hyperlipidemia: Qualifiers: Hyperlipidemia type: mixed hyperlipidemia Qualified Code(s): E78.2 - Mixed hyperlipidemia Code(s): E78.5 - Hyperlipidemia, unspecified Status: Chronic Assessment and Plan: On Pravastatin. (4) CHF (congestive heart failure): Qualifiers: Heart failure chronicity: acute on chronic Heart failure type: combined systolic and diastolic Qualified Code(s): I50.43 - Acute on chronic combined systolic (congestive) and diastolic (congestive) heart failure Code(s): I50.9 - Heart failure, unspecified Status: Acute Assessment and Plan: Acute on chronic diastolic heart failure. Was on Torsemide at home. Advise to restrict fluid intake to 1.5 l/day total fluids. (5) NSVT (nonsustained ventricular tachycardia): Code(s): I47.29 - Other ventricular tachycardia Status: Acute Assessment and Plan: NSVT 19 beats. Keep potassium>4 and Mag>2. On Metoprolol. History of Present Illness History of Present Illness Consult date/time: 02/15/25 09:03 Reason For Visit: CHF Narrative: 79 yr old woman admitted on 02/08/25 for CHF. She has a history of diastolic dysfunction, atrial fibrillation, DM, hypertension, dyslipidemia. States she noted 20 pound weight gain and edema of legs when she came in. No more edema of legs since diuresed. On telemetry it was not she had a 19 beat run of NSVT. She has a negative 2 liter fluid balance. Denies chest pain, sob, orthopnea, PND, dizziness. Review of Systems Review of Systems: All systems reviewed & are unremarkable except as noted in HPI and below Constitutional: Constitutional: Reports as per HPI, Denies chills and Denies fever(s) Cardiovascular: Cardiovascular: Reports as per HPI, Denies chest pain and Denies irregular heart rhythm Respiratory: Respiratory: Reports as per HPI and Denies dyspnea Gastrointestinal: Gastrointestinal: Reports as per HPI and Denies abdominal pain Genitourinary: Genitourinary: Reports as per HPI and Denies dysuria Musculoskeletal: Musculoskeletal: Reports as per HPI Neurologic: Reports as per HPI, Denies dizziness and Denies syncope [facility] Past Medical History Medical History (Updated 02/15/25 @ 09:06 by Ramu Trujillo DO) History of CHF (congestive heart failure) Psoriasis Hypothyroidism DM2 (diabetes mellitus, type 2) GERD (gastroesophageal reflux disease) Asthma Atrial fibrillation History of hyperlipidemia History of hypertension Surgical History Surgical History (Updated 02/08/25 @ 17:13 by Megan Harper APRN) History of hysterectomy History of cataract extraction with lens replacement History of thyroidectomy History of spinal surgery History of cholecystectomy Family History Family History Father Acute myocardial infarction Cerebrovascular accident Diabetes mellitus Hypertension Mother Acute myocardial infarction Cerebrovascular accident Hypertension Sibling History of blood clots Cerebrovascular accident Diabetes mellitus Hypertension Prostate carcinoma Social History Social History Smoking status: Never smoker Alcohol intake: never Substance use: never Substance use type: does not use Lack of Transportation: No Lack of Food: Never True Current Housing: I Have Housing Concerned About Future Housing: No Difficulty Paying Gas/Electric Bills: No Difficulty Paying for Meds: No Currently Unemployed: No Education: Master's Degree or Higher Difficulty w/ Childcare or Family Care: No Spiritual care concerns: No Meds Home Medications and Allergies Home Medications ?Medication ?Instructions ?Recorded ?Confirmed ?Type albuterol sulfate 90 mcg/actuation 2 puff inhalation Q6H PRN 01/16/25 02/08/25 History aerosol inhaler shortness of breath or wheezing apixaban 5 mg tablet (Eliquis) 5 mg PO Q12H 01/16/25 02/08/25 History aspirin 81 mg tablet,delayed 81 mg PO DAILY 01/16/25 02/08/25 History release (Adult Low Dose Aspirin) cholecalciferol (vitamin D3) 25 1,000 unit PO DAILY 01/16/25 02/08/25 History mcg (1,000 unit) capsule dapagliflozin propanediol 10 mg 10 mg PO DAILY 01/16/25 02/08/25 History tablet (Farxiga) docusate sodium 100 mg capsule 100 mg PO BID 01/16/25 02/08/25 History fluocinonide 0.05 % topical 1 applic topical BID 01/16/25 02/08/25 History solution fluticasone 250 mcg-salmeterol 50 1 inh inhalation BID 01/16/25 02/08/25 History mcg/dose blistr powdr for inhalation gabapentin 300 mg capsule 300 mg PO Q12H 01/16/25 02/08/25 History ipratropium 0.5 mg-albuterol 3 mg 3 ml inhalation Q6H PRN shortness 01/16/25 02/08/25 History (2.5 mg base)/3 mL nebulization of breath or wheezing soln isosorbide mononitrate 30 mg 30 mg PO HS 01/16/25 02/08/25 History tablet,extended release 24 hr Held on 02/08/25. Instructions: .Provider Order levothyroxine 175 mcg tablet 175 mcg PO DAILY 01/16/25 02/08/25 History (Synthroid) omeprazole 40 mg capsule,delayed 40 mg PO DAILY 01/16/25 02/08/25 History release pravastatin 40 mg tablet 40 mg PO HS 01/16/25 02/08/25 History spironolactone 25 mg tablet 25 mg PO DAILY 01/16/25 02/08/25 History torsemide 20 mg tablet 40 mg PO DAILY 01/16/25 02/08/25 History tramadol 50 mg tablet 50 mg PO Q8H PRN pain 01/16/25 02/08/25 History baclofen 10 mg tablet 5 mg (1/2 x 10 mg) PO HS #10 tabs 01/19/25 02/08/25 Rx metoprolol tartrate 50 mg tablet 100 mg (2 x 50 mg) PO QAM #30 tabs 01/19/25 02/08/25 Rx Held on 02/08/25. Instructions: Order Change metoprolol tartrate 50 mg tablet 50 mg PO .Q12HR 02/08/25 02/08/25 History midodrine 2.5 mg tablet 2.5 mg PO TID 09/18/25 09/18/25 History Allergies Allergy/AdvReac Type Severity Reaction Status Date / Time Penicillins Allergy Unknown RASH/EDEMA Verified 02/08/25 17:49 Sulfa (Sulfonamide Allergy Swelling Verified 02/08/25 17:49 Antibiotics) Vital Signs Vital Signs - 24 hr 02/14/25 12:00 02/14/25 14:00 02/14/25 16:00 Temperature 98.0 F Pulse Rate 75 71 90 Respiratory Rate 18 Blood Pressure 138/70 Pulse Oximetry 96 Oxygen Delivery Fraction of Inspired Oxygen 02/14/25 20:00 02/14/25 20:16 02/14/25 20:16 Temperature Pulse Rate 83 92 92 Respiratory Rate 18 18 Blood Pressure Pulse Oximetry 94 Oxygen Delivery Room Air Fraction of Inspired Oxygen 21 02/14/25 20:24 02/14/25 22:00 02/15/25 00:00 Temperature 98.1 F Pulse Rate 87 86 99 Respiratory Rate 18 Blood Pressure 100/79 Pulse Oximetry 93 Oxygen Delivery Fraction of Inspired Oxygen 02/15/25 04:00 02/15/25 06:00 02/15/25 07:08 Temperature 98.5 F Pulse Rate 76 69 86 Respiratory Rate 20 16 Blood Pressure 115/71 Pulse Oximetry 93 Oxygen Delivery Fraction of Inspired Oxygen 02/15/25 07:12 Temperature Pulse Rate 90 Respiratory Rate 16 Blood Pressure Pulse Oximetry Oxygen Delivery Fraction of Inspired Oxygen Exam Const: General: cooperative, healthy appearing and comfortable Resp: Auscultation: clear to auscultation bilaterally, no crackles, no rales, no rhonchi and no wheezes Cardio: Rate: regular rate Rhythm: abnormal rhythm Heart sounds: no murmurs Peripheral pulses: dorsalis pedis present GI: GI Palp: No abdominal tenderness and Yes Soft to palpation Neuro: General: oriented to person, oriented to place and oriented to time Extrem: Right lower extremity: no edema Left lower extremity: no edema Results Labs and Meds 02/14/25 10:08 02/15/25 05:45 Lab results: CBC 02/14/25 Range/Units 10:08 WBC 5.1 (4.5-10.0) K/mm3 RBC 4.01 L (4.2-5.4) M/mm3 Hgb 11.0 L (12.0-15.0) g/dL Hct 37.1 (37.0-47.0) % Plt Count 243 (150-375) k/mm3 Lymph # (Auto) 0.33 L (0.9-3.2) K/mm3 [place] # (Auto) 0.3 (0.1-0.6) K/mm3 Eos # (Auto) 0.2 (0-0.3) K/mm3 Baso # (Auto) 0.0 (0.0-0.1) K/mm3 Comprehensive Metabolic Panel 02/14/25 02/15/25 Range/Units 10:08 05:45 Sodium 135 L 135 L (137-145) mmol/L Potassium 3.5 3.6 (3.4-5.0) mmol/L Chloride 94 L 95 L (98-107) mmol/L Carbon Dioxide 33 H 34 H (22-30) mmol/L BUN 22 H 22 H (7-17) mg/dL Creatinine 1.01 H 1.05 H (0.7-1.0) mg/dL Glucose 184 H 112 H (65-110) mg/dL Calcium 7.5 L 7.7 L (8.4-10.2) mg/dL Albumin 3.5 3.6 (3.5-5.1) g/dL Intake and Output 02/14/25 02/15/25 02/15/25 23:59 07:59 15:59 Intake Total 360 300 240 Output Total 150 Balance 360 150 240 Intake: Oral 360 300 240 Output: Catheter Urine 150 External/Condom 150 Other: # Unmeasured Voids 1 Number of Bowel Movements Today 3 Patient Weight 02/15/25 23:59 Weight 67.6 kg
[2025-02-15] MEDS: ASPIRIN 81 MG ENTERIC TABLET PO (09:26)
[2025-02-15] MEDS: EMPAGLIFLOZIN 10 MG TABLET BY MOUTH (09:26)
[2025-02-15] MEDS: GABAPENTIN 300 MG CAPSULE PO (09:26)
[2025-02-15] MEDS: MIDODRINE HCL 2.5 MG TABLET PO ×2 (09:26→12:13)
[2025-02-15] MEDS: SPIRONOLACTONE 25 MG TABLET PO (09:26)
[2025-02-15] MEDS: PANTOPRAZOLE 40 MG TABLET PO (09:26)
[2025-02-15] MEDS: APIXABAN 5 MG TABLET PO (09:26)
[2025-02-15] MEDS: CHOLECALCIFEROL (VITAMIN D3) 25 MCG (1,000 UNITS) TABLET PO (09:26)
[2025-02-15] MEDS: DOCUSATE SODIUM 100 MG CAPSULE PO (09:26)
[2025-02-15] MEDS: FUROSEMIDE INJ 40 MG/4 ML VIAL IV PUSH (09:27)
[2025-02-15] MEDS: METOPROLOL TARTRATE 50 MG TAB PO (09:27)
[2025-02-15] MEDS: LIDOCAINE 5% PATCH 2 PATCH TRANSDERM (09:28)
--- NOTE | 2025-02-15 11:29 | PM.DS ---
DS: Admitting Diagnosis Discharge Date 02/15/25 Admitting Diagnosis Weight gain DS: Discharge Diagnosis Discharge Diagnosis (1) CHF (congestive heart failure): Qualifiers: Heart failure chronicity: acute on chronic Heart failure type: combined systolic and diastolic Qualified Code(s): I50.43 - Acute on chronic combined systolic (congestive) and diastolic (congestive) heart failure Code(s): I50.9 - Heart failure, unspecified Status: Acute (2) NSVT (nonsustained ventricular tachycardia): Code(s): I47.29 - Other ventricular tachycardia Status: Acute (3) Hypokalemia: Code(s): E87.6 - Hypokalemia Status: Acute (4) Atrial fibrillation: Qualifiers: Atrial fibrillation type: unspecified chronic Qualified Code(s): I48.20 - Chronic atrial fibrillation, unspecified Code(s): I48.91 - Unspecified atrial fibrillation Status: Chronic (5) Hypertension: Qualifiers: Hypertension type: primary hypertension Qualified Code(s): I10 - Essential (primary) hypertension Code(s): I10 - Essential (primary) hypertension Status: Resolved (6) DM2 (diabetes mellitus, type 2): Qualifiers: Diabetes mellitus complication status: without complication Diabetes mellitus director long term care insulin use: without director long term care use Qualified Code(s): E11.9 - Type 2 diabetes mellitus without complications Code(s): E11.9 - Type 2 diabetes mellitus without complications Status: Acute (7) Hyperlipidemia: Qualifiers: Hyperlipidemia type: mixed hyperlipidemia Qualified Code(s): E78.2 - Mixed hyperlipidemia Code(s): E78.5 - Hyperlipidemia, unspecified Status: Chronic DS: Summary Hospital Course Reason for hospitalization: 79yo female with PMH of atrial fibrillation, hyperlipidemia, CHF, DM2, and hypertension presents here with 20 lb of weight gain. Please see H&P for details. Hospital Course: ED workup showed: No leukocytosis, hemoglobin 10.9 (11.0 on 01/19/2025), INR 1.5, sodium 135, potassium 2.9, creatinine 1.06 and GFR 50 (1.25 and GFR 42 on 01/19/2025), initial troponin negative, calcium 6.6/albumin 3.8, BNP 16857. CXR showed mild worsening bibasilar atelectasis and/or airspace disease and a small right pleural effusion. The following issues were addressed: Acute on chronic diastolic CHF - Reported 20 lb weight gain in the last week. New O2 requirement and reported short of breath. Chest x-ray with mild worsening bibasilar atelectasis and/or airspace disease. Small right pleural effusion. BNP 80254. Echo 01/16/25 with normal LV size with vigorous systolic contracted LV, mild RV enlargement with reduced systolic function, severe biatrial enlargement, AFib, tricuspid regurgitation jet velocity consistent with RV systolic pressure of 62 mm Hg. On torsemide 40 mg daily. Recently taken off spironolactone outpatient. Restarted spironolactone along with Lasix 40 mg IV b.i.d.. Held torsemide home dose. Patient recently started on midodrine 2.5 mg t.i.d.. Renal function remained stable. Fluid restriction as ordered. Switched to torsemide 02/13 however not diuresing well so Lasix IV restarted. Diuresed well and edema resolved. Weigh down by 6kg and negative fluid balance. Changed to oral Lasix 40mg BID. NSVT - Tele showing 19 beat run of NSVT vs AFlutter with aberrancy. Potassium was 3.5 and replacement ordered. Mag was 1.9 and also replaced. No further episodes. Cardiology was consulted but no further recommendations. Monitor levels after discharge. Hypokalemia - replaced as needed Atrial fibrillation - stable on metoprolol and Eliquis Hypertension - BP remained well controlled. Type 2 diabetes - A1c of 6.3% on 01/16/2025. Glucose remained well controlled. Hyperlipidemia -on pravastatin Patient overall did well and was able to be discharged to SNF on 02/15/25. Discharge instructions discussed. All questions answered. Status at Discharge Cognitive/behavioral status at discharge: stable Time Spent with Patient Time attestation: Total time spent providing and/or coordinating discharge services: 35 minutes Time spent: Greater than 30 minutes Exam Narrative: AF 98.5 115/71 92 16 93% ra Gen - NARD Chest - CTA bilaterally CV - irregularly irregular. Tele showing no acute dysrhythmias Abd - soft, NT/ND, +BS Ext - No pedal edema Neuro - alert, pleasant and cooperative Skin - warm and dry Psych - normal mood and affect. DS: Data Data Completed and Pending Labs on day of discharge: Labs from last 24 hours 02/15/25 02/15/25 02/14/25 07:58 05:45 21:41 Sodium 135 L Potassium 3.6 Chloride 95 L Carbon Dioxide 34 H Anion Gap 6 BUN 22 H Creatinine 1.05 H Estim Creat Clear Calc Not Reportable Estimated GFR 51 L Glucose 112 H POC Capillary Glucose 104 127 H Calcium 7.7 L Phosphorus 3.3 Magnesium 2.8 H Albumin 3.6 Vitamin B12 Folate 02/14/25 02/14/25 16:45 10:08 Sodium Potassium Chloride Carbon Dioxide Anion Gap BUN Creatinine Estim Creat Clear Calc Estimated GFR Glucose POC Capillary Glucose 102 Calcium Phosphorus Magnesium 1.9 Albumin Vitamin B12 764.0 Folate 15.0 Discharge Plan Discharge Attending physician on discharge: Luis Chris Consulting providers: Ramu Trujillo Discharging Clinician: Luis Chris Anticipated Discharge Date/Time: 02/15/25 11:40 Patient Disposition: SNF Activity: as tolerated Diet: heart healthy Discharge Instructions: Fluid restriction of 1.5L per day total fluid Please check glucose before meals and before bed. Record for the doctor's review. Check blood pressure 1 to 2 times a day. Record for the doctor's review. Take precautions to avoid falls. Rise slowly from a lying or sitting position. Pause before standing or walking. Check daily morning weights after voiding. Call the doctor if the patient gains more than 3 lb in 2 days or 5 lb in 1 week. Contact the doctor if the patient has any type of trauma, lightheadedness with standing or other worrisome symptoms. Avoid NSAIDs (ibuprofen, naproxen, Aleve). Tylenol is safe to take. Per Cardiology: Keep potassium>4 and Mag>2. Follow-up with the provider at the facility. Follow-up with [facility] in 3-4 weeks. Please call for an appointment. Thank you for using [facility] for your health care needs. Patient Language: Turkmen Stand Alone Forms: General Discharge Information Follow-up/Referrals: Harms,Bruno Parra M.D. [Primary Care Provider] - Call for Appointment Discharge Medications: New furosemide 40 mg Tablet 40 mg PO BID Qty: 60 0RF magnesium oxide 400 mg magnesium capsule 400 mg PO DAILY Qty: 30 0RF Continued fluticasone propion-salmeterol 250-50 mcg/dose blister with device 1 inh INHALATION BID albuterol sulfate 90 mcg/actuation HFA aerosol inhaler 2 puff INHALATION Q6H PRN (Reason: shortness of breath or wheezing) aspirin [Adult Low Dose Aspirin] 81 mg tablet,delayed release (DR/EC) 81 mg PO DAILY docusate sodium 100 mg capsule 100 mg PO BID Eliquis 5 mg tablet 5 mg PO Q12H dapagliflozin propanediol [Farxiga] 10 mg tablet 10 mg PO DAILY gabapentin 300 mg capsule 300 mg PO Q12H ipratropium-albuterol 0.5 mg-3 mg(2.5 mg base)/3 mL solution for nebulization 3 ml inhalation Q6H PRN (Reason: shortness of breath or wheezing) levothyroxine [Synthroid] 175 mcg tablet 175 mcg PO DAILY omeprazole 40 mg capsule,delayed release(DR/EC) 40 mg PO DAILY pravastatin 40 mg tablet 40 mg PO HS spironolactone 25 mg tablet 25 mg PO DAILY tramadol 50 mg tablet 50 mg PO Q8H PRN (Reason: pain) cholecalciferol (vitamin D3) 25 mcg (1,000 unit) capsule 1,000 unit PO DAILY baclofen 10 mg tablet 5 mg PO HS Qty: 10 0RF midodrine 2.5 mg tablet 2.5 mg PO TID metoprolol tartrate 50 mg Tablet 50 mg PO .Q12HR Held isosorbide mononitrate 30 mg tablet extended release 24 hr 30 mg PO HS Hold Instructions: HOLD - Resume if/when okay with your doctor Discontinued torsemide 20 mg tablet 40 mg PO DAILY fluocinonide 0.05 % solution 1 applic TOPICAL BID Rx Instructions: to scalp metoprolol tartrate 50 mg Tablet 100 mg PO QAM Qty: 30 0RF Other Ambulatory Orders: Basic Metabolic Panel (Routine) Timeframe: 20250221 Location: Determined by Patient Ordered By: Luis Chris Magnesium (Routine) Timeframe: 20250221 Location: Determined by Patient Ordered By: Luis Chris Date of admission: 02/08/25 16:28 Primary Care Provider: LinwoodBruno Admitting Provider: Portillo Bennett Attending physician on admission: Portillo Bennett Condition: Stable Hospitalist MIPS Heart Failure (Exclusion) Patient has history of Heart Transplant or Left Ventricular Assistive Device?: No IF YES, STOP HERE Heart Failure (Qualifier) Patient has current or prior documentation of LVEF less than or equal to 40%, or mod/servere depressed LVSF?: No IF NO, STOP HERE
[2025-02-15] MEDS: POTASSIUM CHLORIDE 20 MEQ ER TABLET 40 MEQ PO (12:13)
[2025-02-15 14:09] LABS: SARS-CoV-2 RNA PCR Negative (Negative)
== END 2025-02-15 15:50 | DRG 291 ==
LOC: ANHED 16:33 → ANH3MED 16:59
PROVIDERS: Internal Medicine; Student in an Organized Health Care Education/Training Program; Admitting Provider Internal Medicine; Emergency Provider Family Medicine; PCP Family Medicine; Visit Provider Internal Medicine
DX: I11.0 Hypertensive heart disease with heart failure (principal); I50.33 Acute on chronic diastolic (congestive) heart failure; I48.20 Chronic atrial fibrillation, unspecified; J90 Pleural effusion, not elsewhere classified; I36.1 Nonrheumatic tricuspid (valve) insufficiency; E87.6 Hypokalemia; E03.9 Hypothyroidism, unspecified; E78.2 Mixed hyperlipidemia; E11.9 Type 2 diabetes mellitus without complications; K21.9 Gastro-esophageal reflux disease without esophagitis; R60.0 Localized edema; M17.9 Osteoarthritis of knee, unspecified; Z79.01 Long term (current) use of anticoagulants; Z90.49 Acquired absence of other specified parts of digestive tract; Z79.82 Long term (current) use of aspirin
CPT/HCPCS: 36415; 71045; 71046; 80048; 80053; 80069; 82607; 82728; 82746; 82948; 83540; 83550; 83735; 83880; 84484; 85025; 85610; 85730; 87635; 93005; 94640; 97110; 97116; 97162; 97165; 97530; 97535; 99285; A9270; J0613; J1938; J1939; J3475